=== PATIENT | male | born 1965 | race Caucasian/White ===

== ENCOUNTER 2017-03-14 04:40 | Inpatient (IN) ==
[2017-03-14] MEDS ORDERED: Aspirin 81 MG TAB.CHEW PO ONE (04:48)
--- NOTE | 2017-03-14 04:49 | Emergency Department Note ---
Disposition Clinical Impression: Atypical chest pain Disposition: Admitted As Inpatient Condition: Good General Adult HPI - General Chief complaint: ED Chest Pain Stated complaint: chest pain Time Seen by Provider: 03/14/17 04:42 Source: family Limitations: no limitations - History of Present Illness Pain Scale: 8 - Related Data Home Medications Medication Instructions Recorded Confirmed Amlodipine Besylate 10 mg PO DAILY 06/03/16 09/17/16 Aspirin 81 mg PO DAILY 06/03/16 09/17/16 Cholecalciferol (D-3) [Vitamin D] 1,000 unit PO BID 06/03/16 09/17/16 Clopidogrel [Plavix] 75 mg PO DAILY 06/03/16 09/17/16 Docusate [Colace] 100 mg PO DAILY PRN 06/03/16 09/17/16 Insulin ASPART [Novolog Flexpen] 18 - 30 unit SQ TIDAC 06/03/16 09/17/16 Insulin Glargine,Hum.rec.anlog 24 unit SQ HS 06/03/16 09/17/16 [Lantus Solostar] Lovastatin 80 mg PO DAILY 06/03/16 09/17/16 Multivitamin [Multi-Day Vitamins] 1 each PO DAILY 06/03/16 09/17/16 Sodium Bicarbonate 1,300 mg PO DAILY 06/03/16 09/17/16 hydrALAZINE [HydrALAZINE] 25 mg PO BID 06/03/16 09/17/16 TraZODone 50 mg PO HS 09/17/16 09/17/16 Previous Rx's Medication Instructions Recorded Furosemide [Lasix] 40 mg PO BID #60 tablet 06/07/16 Metoprolol XL (24 HR) Succ [Toprol 50 mg PO DAILY #30 tab.er.24h 06/07/16 Xl] Tamsulosin [Flomax] 0.4 mg PO DAILY #30 capsule 06/07/16 OxyCODONE/APAP 5/325 [Percocet 1 each PO Q6HR PRN #30 tablet 09/17/16 5/325 MG] Allergies Allergy/AdvReac Type Severity Reaction Status Date / Time DERMABOND AdvReac Itching Uncoded 02/10/17 10:01 Past Medical History - Past Medical History Medical history: Reports: CHF, CVA, diabetes, hyperlipidemia, hypertension, myocardial infarction, renal disease Surgical history: Reports: coronary bypass (CABG) Psychiatric history: Reports: no psych history - Social History Smoking Status: Former smoker Smokeless Tobacco Status: No Alcohol use: Reports: none Drug use: Reports: none Physical Exam - General Limitations: no limitations General appearance: alert, in no apparent distress Course Vital Signs Temperature 97.7 F 03/14/17 04:40 Pulse Rate 70 03/14/17 04:40 Respiratory Rate 22 03/14/17 04:40 Blood Pressure 149/73 03/14/17 04:40 O2 Sat by Pulse Oximetry 89 03/14/17 04:40 Temperature 97.7 F 03/14/17 04:40 Pulse Rate 70 03/14/17 04:40 Respiratory Rate 20 03/14/17 06:16 Blood Pressure 138/69 03/14/17 06:16 O2 Sat by Pulse Oximetry 89 03/14/17 04:40 Oxygen Delivery Oxygen Delivery Room Air Medical Decision Making - Lab Data Result diagrams: 03/14/17 05:00 03/14/17 05:00 Lab Results 03/14/17 03/14/17 03/14/17 Range/Units 05:00 05:00 05:00 WBC 8.4 (4.3-11.1) K/mcL RBC 4.10 L (4.19-5.50) M/mcL Hgb 10.0 L (12.9-16.9) g/dL Hct 31.8 L (37.5-50.1) % MCV 77.6 L (83.0-100.0) fL MCH 24.4 L (28.0-33.3) pg MCHC 31.4 L (31.6-35.5) g/dL RDW 18.6 H (11.5-14.5) % Plt Count 364 (140-400) K/mcL MPV 10.2 (9.4-12.4) fL Immature Gran % 0.2 (0-4) % Seg Neutrophils % 60.2 % Lymphocytes % 13.8 % Monocytes % 14.3 % Eosinophils % 10.4 % Basophils % 1.1 % Neutrophils # 5.0 (1.6-8.9) K/mcL Lymphocytes # 1.2 (0.6-4.6) K/mcL Monocytes # 1.2 (0.0-1.3) K/mcL Eosinophils # 0.9 H (0.0-0.6) K/mcL Basophils # 0.1 (0.0-0.2) K/mcL PT 13.2 H (9.4-12.1) Seconds INR 1.2 Sodium 135 L (136-145) mEq/L Potassium 3.3 L (3.5-4.5) mEq/L Chloride 94 L (98-109) mEq/L Carbon Dioxide 27 (19-29) mEq/L BUN 118 H (8-26) mg/dL Creatinine 3.96 H (0.72-1.25) mg/dL Est GFR ( Amer) 20 L (> 60) Est GFR (Non-Af Amer) 16 L (> 60) BUN/Creatinine Ratio 30 H (6-26) Glucose 92 (70-99) mg/dL Calculated Osmolality 317 H (280-300) Calcium 9.5 (8.6-10.8) mg/dL Troponin I (0-0.03) ng/mL 03/14/17 Range/Units 05:00 WBC (4.3-11.1) K/mcL RBC (4.19-5.50) M/mcL Hgb (12.9-16.9) g/dL Hct (37.5-50.1) % MCV (83.0-100.0) fL MCH (28.0-33.3) pg MCHC (31.6-35.5) g/dL RDW (11.5-14.5) % Plt Count (140-400) K/mcL MPV (9.4-12.4) fL Immature Gran % (0-4) % Seg Neutrophils % % Lymphocytes % % Monocytes % % Eosinophils % % Basophils % % Neutrophils # (1.6-8.9) K/mcL Lymphocytes # (0.6-4.6) K/mcL Monocytes # (0.0-1.3) K/mcL Eosinophils # (0.0-0.6) K/mcL Basophils # (0.0-0.2) K/mcL PT (9.4-12.1) Seconds INR Sodium (136-145) mEq/L Potassium (3.5-4.5) mEq/L Chloride (98-109) mEq/L Carbon Dioxide (19-29) mEq/L BUN (8-26) mg/dL Creatinine (0.72-1.25) mg/dL Est GFR ( Amer) (> 60) Est GFR (Non-Af Amer) (> 60) BUN/Creatinine Ratio (6-26) Glucose (70-99) mg/dL Calculated Osmolality (280-300) Calcium (8.6-10.8) mg/dL Troponin I 0.04 H* (0-0.03) ng/mL Attestation Statement - Attestation Attestation: I examined this patient and my medical decision-making was reviewed with the [employer] FEEDER/PA/Advanced Practice Nurse/Resident Physician. I agree with the documented findings, disposition and treatment plan as described except to the extent set forth below. [id number]-ru-[id number] time provided Patient complains of chest discomfort. History of coronary artery disease- status post 2 vessel CABG 3-1/2 years ago. Appears older than stated age on exam.
--- NOTE | 2017-03-14 05:04 | Emergency Department Note ---
Disposition Clinical Impression: Atypical chest pain Disposition: Admitted As Inpatient Condition: Good Time of Disposition: 06:05 General Adult HPI - General Chief complaint: ED Chest Pain Stated complaint: chest pain Time Seen by Provider: 03/14/17 04:42 Source: family Limitations: no limitations Nursing Notes Reviewed: Yes Vital Signs Reviewed: Yes - History of Present Illness HPI Narrative: Patient began having left-sided chest pain around 4:00 this morning. He states it awoke him from sleep. He does have associated pain in his left shoulder as well. Her no alleviating factors. Moving his shoulder provokes the pain. Pressing on her chest also provokes the pain. He has no associated nausea vomiting or shortness of breath. However when he takes a deep breath makes the pain worse. Pain Scale: 8 - Related Data Home Medications Medication Instructions Recorded Confirmed Amlodipine Besylate 10 mg PO DAILY 06/03/16 09/17/16 Aspirin 81 mg PO DAILY 06/03/16 09/17/16 Cholecalciferol (D-3) [Vitamin D] 1,000 unit PO BID 06/03/16 09/17/16 Clopidogrel [Plavix] 75 mg PO DAILY 06/03/16 09/17/16 Docusate [Colace] 100 mg PO DAILY PRN 06/03/16 09/17/16 Insulin ASPART [Novolog Flexpen] 18 - 30 unit SQ TIDAC 06/03/16 09/17/16 Insulin Glargine,Hum.rec.anlog 24 unit SQ HS 06/03/16 09/17/16 [Lantus Solostar] Lovastatin 80 mg PO DAILY 06/03/16 09/17/16 Multivitamin [Multi-Day Vitamins] 1 each PO DAILY 06/03/16 09/17/16 Sodium Bicarbonate 1,300 mg PO DAILY 06/03/16 09/17/16 hydrALAZINE [HydrALAZINE] 25 mg PO BID 06/03/16 09/17/16 TraZODone 50 mg PO HS 09/17/16 09/17/16 Previous Rx's Medication Instructions Recorded Furosemide [Lasix] 40 mg PO BID #60 tablet 06/07/16 Metoprolol XL (24 HR) Succ [Toprol 50 mg PO DAILY #30 tab.er.24h 06/07/16 Xl] Tamsulosin [Flomax] 0.4 mg PO DAILY #30 capsule 06/07/16 OxyCODONE/APAP 5/325 [Percocet 1 each PO Q6HR PRN #30 tablet 09/17/16 5/325 MG] Allergies Allergy/AdvReac Type Severity Reaction Status Date / Time DERMABOND AdvReac Itching Uncoded 02/10/17 10:01 All systems ED: reviewed and negative except as stated. Constitutional: Denies: fever, chills ENT ED: Denies: congestion Cardiovascular: Reports: chest pain (left-sided). Denies: palpitations, syncope Respiratory: Denies: cough, dyspnea, wheezes Gastrointestinal: Denies: abdominal pain, nausea, vomiting, diarrhea Genitourinary: Denies: urgency, dysuria, frequency, hematuria Musculoskeletal: Reports: other (Left shoulder pain.). Denies: back pain, neck pain Neurological: Denies: headache Past Medical History - Past Medical History Attestation: Yes The following information was validated with the patient. Medical history: Reports: CHF, CVA, diabetes, hyperlipidemia, hypertension, myocardial infarction, renal disease Surgical history: Reports: coronary bypass (CABG) Psychiatric history: Reports: no psych history - Social History Smoking Status: Former smoker Smokeless Tobacco Status: No Alcohol use: Reports: none Drug use: Reports: none Physical Exam - General Limitations: no limitations General appearance: alert, in no apparent distress - Head Head exam: atraumatic, normocephalic, normal inspection - Eye Eye exam: Present: normal appearance, PERRL, EOMI. Absent: scleral icterus - ENT ENT exam: normal exam, normal oropharynx, mucous membranes moist - Neck Neck exam: Present: normal inspection, full ROM, trachea midline. Absent: tenderness, meningismus, lymphadenopathy - Chest Chest inspection: Present: normal inspection, symmetric chest wall rise, tenderness (To palpation of left chest wall. This reproduces his chest pain.). Absent: rash - Respiratory Respiratory exam: Present: normal lung sounds bilaterally. Absent: respiratory distress, wheezes - Cardiovascular Cardiovascular exam: Present: regular rate, normal rhythm, normal heart sounds - Abdominal Exam Abdominal exam: Present: soft, Non-Tender, distention (Mildly distended with a fluid wave). Absent: tenderness, guarding, rebound, rigidity, organomegaly - Extremities Exam Extremities exam: Present: normal inspection, full ROM, normal capillary refill , pedal edema (Pitting edema to mid tibias. Patient states this is chronic and actually looks better than normal.). Absent: tenderness - Back Exam Back exam: Present: normal inspection, full ROM. Absent: tenderness - Neurological Exam Neurological exam: Present: alert, oriented X3 - Psychiatric Psychiatric exam: Present: normal affect, normal mood - Skin Skin exam: Present: warm, dry, intact, normal color. Absent: rash, cyanosis, diaphoresis, erythema Course Course Narrative: Male patient complaining of a left-sided chest pain as well as a left shoulder pain. He states this woke him from sleep around 4:00. He then ambulated approximately half a block to his mother's house to get her to drive him to the hospital. He denies any nausea he does report that the pain gets worse whenever he takes a deep breath. He denies any coughs or sputum production. He does have a history of cirrhosis. He gets scheduled peritoneal drains about every 3-4 weeks. His last one was 2 weeks ago. His abdomen is mildly distended with a fluid wave. Patient states that he was recently at his medical surgical tech a week ago and they stated that he needed to have a cardiac catheter done but they were afraid to do this due to his poor kidney function. Patient is asking specifically for Demerol. I do not feel this is an adequate drug for his chest pain or his condition. We will give him fentanyl for pain relief as well as aspirin. He does have some EKG changes on his EKG. He does have a left bundle branch block that was present on his previous EKGs. However there are some conduction abnormalities on the new EKG. There is no signs of acute ischemia. We will get a basic lab workup and a chest x-ray on patient. He will be admitted to the hospital for further cardiac evaluation. He is agreeable to this plan. - Reevaluation(s) Reevaluation #1: Patient reassessed. He states the medication did help with this chest pain however it starting to return. We will give another dose of fentanyl. We admitted the patient to the hospital. Time: 06:01 - Consultations Consultation #1: Dr Jj accepted patient in stable condition. Time: 06:05 Vital Signs Temperature 97.7 F 03/14/17 04:40 Pulse Rate 70 03/14/17 04:40 Respiratory Rate 22 03/14/17 04:40 Blood Pressure 149/73 03/14/17 04:40 O2 Sat by Pulse Oximetry 89 03/14/17 04:40 Temperature 97.7 F 03/14/17 04:40 Pulse Rate 70 03/14/17 04:40 Respiratory Rate 22 03/14/17 04:40 Blood Pressure 149/73 03/14/17 04:40 O2 Sat by Pulse Oximetry 89 03/14/17 04:40 Oxygen Delivery Oxygen Delivery Room Air Medical Decision Making - Medical Records Medical records reviewed: Yes I reviewed the patient's medical records. - Lab Data Lab results reviewed: Yes I reviewed the patient's lab results. Result diagrams: 03/14/17 05:00 03/14/17 05:00 Lab Results 03/14/17 03/14/17 03/14/17 Range/Units 05:00 05:00 05:00 WBC 8.4 (4.3-11.1) K/mcL RBC 4.10 L (4.19-5.50) M/mcL Hgb 10.0 L (12.9-16.9) g/dL Hct 31.8 L (37.5-50.1) % MCV 77.6 L (83.0-100.0) fL MCH 24.4 L (28.0-33.3) pg MCHC 31.4 L (31.6-35.5) g/dL RDW 18.6 H (11.5-14.5) % Plt Count 364 (140-400) K/mcL MPV 10.2 (9.4-12.4) fL Immature Gran % 0.2 (0-4) % Seg Neutrophils % 60.2 % Lymphocytes % 13.8 % Monocytes % 14.3 % Eosinophils % 10.4 % Basophils % 1.1 % Neutrophils # 5.0 (1.6-8.9) K/mcL Lymphocytes # 1.2 (0.6-4.6) K/mcL Monocytes # 1.2 (0.0-1.3) K/mcL Eosinophils # 0.9 H (0.0-0.6) K/mcL Basophils # 0.1 (0.0-0.2) K/mcL PT 13.2 H (9.4-12.1) Seconds INR 1.2 Sodium 135 L (136-145) mEq/L Potassium 3.3 L (3.5-4.5) mEq/L Chloride 94 L (98-109) mEq/L Carbon Dioxide 27 (19-29) mEq/L BUN 118 H (8-26) mg/dL Creatinine 3.96 H (0.72-1.25) mg/dL Est GFR ( Amer) 20 L (> 60) Est GFR (Non-Af Amer) 16 L (> 60) BUN/Creatinine Ratio 30 H (6-26) Glucose 92 (70-99) mg/dL Calculated Osmolality 317 H (280-300) Calcium 9.5 (8.6-10.8) mg/dL Troponin I (0-0.03) ng/mL 03/14/17 Range/Units 05:00 WBC (4.3-11.1) K/mcL RBC (4.19-5.50) M/mcL Hgb (12.9-16.9) g/dL Hct (37.5-50.1) % MCV (83.0-100.0) fL MCH (28.0-33.3) pg MCHC (31.6-35.5) g/dL RDW (11.5-14.5) % Plt Count (140-400) K/mcL MPV (9.4-12.4) fL Immature Gran % (0-4) % Seg Neutrophils % % Lymphocytes % % Monocytes % % Eosinophils % % Basophils % % Neutrophils # (1.6-8.9) K/mcL Lymphocytes # (0.6-4.6) K/mcL Monocytes # (0.0-1.3) K/mcL Eosinophils # (0.0-0.6) K/mcL Basophils # (0.0-0.2) K/mcL PT (9.4-12.1) Seconds INR Sodium (136-145) mEq/L Potassium (3.5-4.5) mEq/L Chloride (98-109) mEq/L Carbon Dioxide (19-29) mEq/L BUN (8-26) mg/dL Creatinine (0.72-1.25) mg/dL Est GFR ( Amer) (> 60) Est GFR (Non-Af Amer) (> 60) BUN/Creatinine Ratio (6-26) Glucose (70-99) mg/dL Calculated Osmolality (280-300) Calcium (8.6-10.8) mg/dL Troponin I 0.04 H* (0-0.03) ng/mL - Radiology Data Radiology results reviewed: Yes I reviewed the patient's radiology results. Chest X-Ray 03/14/17 04:48 IMPRESSION: Cardiomegaly with mild central pulmonary edema. D/ / Solis Dumont MD / Solis Dumont MD Interpreting Provider: Solis Dumont MD - EKG Data EKG #1 EKG attestation: Yes I reviewed and interpreted this EKG. EKG results narrative: Sinus rhythm at a rate of 67. AL interval is 187. QRS duration is 192. QT is 506. QTC is 522. No signs of acute ischemia. However there are significant EKG changes from previous EKG dated 11/09/2016. Patient does have a left bundle branch block. This was on previous EKGs.
[2017-03-14] MEDS ORDERED: *HR* FentaNYL (PF) 100 MCG/2 ML VIAL IVP ONE ×3 (05:11→07:53)
[2017-03-14 05:14] LABS: Basophils # 0.1 K/mcL (0.0-0.2); Basophils % 1.1 %; Eosinophils # 0.9 K/mcL (0.0-0.6); Eosinophils % 10.4 %; Hematocrit 31.8 % (37.5-50.1); Immature Granulocytes % 0.2 % (0-4); Lymphocytes # 1.2 K/mcL (0.6-4.6); Lymphocytes % 13.8 %; Mean Corpuscular HGB Conc 31.4 g/dL (31.6-35.5); Mean Corpuscular Hemoglobin 24.4 pg (28.0-33.3); Mean Corpuscular Volume 77.6 fL (83.0-100.0); Mean Platelet Volume 10.2 fL (9.4-12.4); Monocytes # 1.2 K/mcL (0.0-1.3); Monocytes % 14.3 %; Platelet Count 364 K/mcL (140-400); Red Cell Distribution Width 18.6 % (11.5-14.5); Segmented Neutrophils % 60.2 %
[2017-03-14 05:15] LABS: INR 1.2; Prothrombin Time 13.2 Seconds (9.4-12.1)
[2017-03-14 05:23] LABS: Calcium 9.5 mg/dL (8.6-10.8); Potassium 3.3 mEq/L (3.5-4.5)
[2017-03-14] MEDS ORDERED: *HR* Heparin 5,000 UNIT/ML VIAL IVP PRN (08:13)
[2017-03-14] MEDS ORDERED: *HR* Heparin 5,000 UNIT/ML VIAL IVP ONE (08:13)
[2017-03-14] MEDS ORDERED: Heparin 25,000 UNIT/500 ML D5W 25,000 UNIT/500 ML MLS IVC SCH (08:15)
--- NOTE | 2017-03-14 08:22 | Internal Med History&Physical ---
Date of Encounter: 03/14/17 Time of Encounter: 08: Assessment and Plan (1) Non-ST elevation DC (NSTEMI) Current visit: Yes Status: Acute Patient has history of CAD, based on my assessment he has typical chest pain. Troponin is 0.04. EKG shows left bundle branch block which was present in October 2016 however the QRS duration and QRS axis show some changes from his previous EKG. He received aspirin in the emergency department. I will start treatment with IV heparin drip. Start IV nitroglycerin drip. IV fentanyl for pain. Repeat EKG stat. Repeat troponin stat. I have discussed the case with cardiology, we will consult. I have discussed the possible need for cardiac catheterization with the patient and his mother and presented the risks of permanent renal failure requiring hemodialysis. They seem to be agreeable at this time. The patient is acutely unstable and there is high probability of emergent and significant clinical decompensation with potential impairment of organ function including cardiovascular and respiratory functions. I spent 40 minutes of critical care time which involved decision making of high complexity to assess, manipulate, and support vital organ system, in order to prevent further life threatening deterioration of the patient's condition. The critical care time was spent in the patient's room and immediate proximity and involved obtaining history and examining the patient, reviewing EKGs, imaging studies and laboratory data, discussing the case with consultants, ordering medications and laboratory studies, and reevaluating for clinical response. (2) Acute on chronic combined systolic and diastolic CHF (congestive heart failure) Current visit: Yes Status: Acute Check BNP. Obtain echocardiogram. Ischemic workup as the reason for acute heart failure may be ongoing ischemia. (3) Type 1 diabetes mellitus Current visit: Yes Status: Acute Blood glucose every 6 hours. Insulin sliding scale. Qualifiers: Diabetes mellitus complication status: with circulatory complication Diabetes mellitus complication detail: with other circulatory complications Qualified Code(s): E10.59 - Type 1 diabetes mellitus with other circulatory complications (4) Acute and chronic respiratory failure with hypoxia Current visit: Yes Status: Acute Patient's chest x-ray shows signs of pulmonary edema. Oxygen saturation 89% on room air. He is tachypneic. We will provide oxygen supplementation by nasal cannula to maintain saturation above 90. We will use BiPAP if necessary. IV Lasix and IV nitroglycerin drip. (5) History of coronary artery bypass graft Current visit: No Status: Acute (6) Chronic kidney disease, stage IV (severe) Current visit: No Status: Acute Consult nephrology. Avoid nephrotoxins. Strict I's and O's, we will discuss diuresis with nephrology and cardiology. (7) CAD (coronary artery disease) Current visit: No Status: Acute Continue with aspirin and Plavix. High suspicion for ACS and therefore the patient RECEIVED treatment with IV heparin and nitroglycerin. Trend troponin. Hold beta regine for now due to acute systolic heart failure. Qualifiers: Coronary Disease-Associated Artery/Lesion type: [place] artery [place] vs. transplanted heart: [place] heart Associated angina: without angina Qualified Code(s): I25.10 - Atherosclerotic heart disease of [place] coronary artery without angina pectoris (8) Ischemic cardiomyopathy Current visit: No Status: Chronic Per medical records review EF was 40% and severe diastolic dysfunction by echo in May 2016. We will repeat echocardiogram. We will discuss ischemic workup with cardiology as above. Internal Medicine - H&P: HPI Chief complaint: Chest pain Admitted From: Emergency Dept Plans for Post Hospital Care: Home History of present illness: Mr. Watson is a 51 year old male with past medical history significant for CAD status post CABG, combined systolic and diastolic heart failure, liver cirrhosis and chronic renal insufficiency who presented to the hospital for chest pain. Patient states that chest pain started abruptly at 4:00 this morning, woke him up from sleep, was precordial, severe, had no aggravating or alleviating factors. He was evaluated in the emergency department and was treated with IV fentanyl which provided some relief. During my interview he states that the chest pain is back at 9/10, in the precordial area radiating to the back and left shoulder, associated with nausea. Workup in the emergency department was pertinent for troponin of 0.04, creatinine of 3.96. Chest x-ray revealed pulmonary congestion. A 10 point review of systems was performed. Pertinent positives as above, additionally positive for chronic lower extremity swelling, chronic dyspnea on exertion, otherwise negative. Past Med Surg Social Fam HX - Past Medical History Medical history: CHF, CVA, diabetes, hyperlipidemia, hypertension, myocardial infarction, renal disease Psychiatric history: no psych history - Past Surgical History Surgical History: coronary bypass (CABG) - Social History Smoking Status: Former smoker Smokeless Tobacco Status: No Alcohol use: none Drug use: none - Family History Father Adopted: [place]: Nazario Watson Age: 84 Family Member Ethnicity: Non- Living Status: Still Living Hx Family Cardiac Disorders: Yes (DC) Hx Family Respiratory Disorders: No Hx Family Cancer: Yes (skin) Hx Family GI Disorders: No Hx Family Genitourinary Disorders: No Hx Family Endocrine Disorder: No Hx Family Musculoskeletal Disorders: No Internal Medicine - H&P: Meds Amlodipine Besylate 10 mg PO DAILY 06/03/16 [History] Aspirin 81 mg PO DAILY 06/03/16 [History] Cholecalciferol (D-3) [Vitamin D] 1,000 unit PO BID 06/03/16 [History] Clopidogrel [Plavix] 75 mg PO DAILY 06/03/16 [History] Docusate [Colace] 100 mg PO DAILY PRN 06/03/16 [History] Insulin ASPART [Novolog Flexpen] 18 - 30 unit SQ TIDAC 06/03/16 [History] Insulin Glargine,Hum.rec.anlog [Lantus Solostar] 24 unit SQ HS 06/03/16 [History ] Lovastatin 80 mg PO DAILY 06/03/16 [History] Multivitamin [Multi-Day Vitamins] 1 each PO DAILY 06/03/16 [History] Sodium Bicarbonate 1,300 mg PO DAILY 06/03/16 [History] hydrALAZINE [HydrALAZINE] 25 mg PO BID 06/03/16 [History] Furosemide [Lasix] 40 mg PO BID #60 tablet 06/07/16 [Rx] Metoprolol XL (24 HR) Succ [Toprol Xl] 50 mg PO DAILY #30 tab.er.24h 06/07/16 [ Rx] Tamsulosin [Flomax] 0.4 mg PO DAILY #30 capsule 06/07/16 [Rx] OxyCODONE/APAP 5/325 [Percocet 5/325 MG] 1 each PO Q6HR PRN #30 tablet 09/17/16 [Rx] TraZODone 50 mg PO HS 09/17/16 [History] Allergies DERMABOND Adverse Reaction (Uncoded 02/10/17 10:01) Itching All Systems PM: A 10-system review of systems was performed and is negative for pertinent findings except as documented above in the HPI. - Constitutional Vitals: Temp Pulse Resp BP Pulse Ox 97.8 F 67 18 133/61 90 03/14/17 08:01 03/14/17 08:01 03/14/17 08:01 03/14/17 08:01 03/14/17 08:01 General appearance: Present: A&O X 3, severe distress (Due to chest pain) - Eye Eye exam: Present: PERRL, conjuntiva pink, sclera anicteric Pupils: Present: PERRL - Neck Neck exam general surgery: Present: supple, trachea midline. Absent: lymphadenopathy - Respiratory Respiratory exam: Present: rales (Bilateral rales). Absent: accessory muscle use, rhonchi, wheezes - Cardiovascular Cardiovascular exam: Present: RRR, +S1, +S2. Absent: diastolic murmur, gallop, rubs, systolic murmur - GI/Abdominal GI/Abdominal exam: Present: distended (Abdomen distended with positive fluid sign), normal bowel sounds, soft, no peritoneal signs. Absent: tenderness - Extremities Exam Extremities exam: Present: pedal edema, warm, radial pulses palpable and symetrical. Absent: calf tenderness, cyanotic - Neurological Exam Neurological exam: Present: CN II-XII intact, oriented X3, no focal deficits. Absent: facial droop, speech deficit - Skin Skin exam: Present: dry, intact Internal Med - H&P Results - Labs CBC & Chem 7: 03/14/17 05:00 03/14/17 05:00 - EKG Data -: EKG Interpreted by Myself EKG shows normal: sinus rhythm (Left bundle-branch block with QRS duration 192 ms) - EKG Data Prior EKG available for review: yes (EKG from 11/09/2016 left bundle branch block with QRS duration of 168 ms)
[2017-03-14 08:39] LABS: Basophils # 0.1 K/mcL (0.0-0.2); Basophils % 0.3 %; Eosinophils # 0.3 K/mcL (0.0-0.6); Eosinophils % 1.9 %; Hematocrit 28.9 % (37.5-50.1); Hemoglobin 9.3 g/dL (12.9-16.9); Immature Granulocytes % 0.3 % (0-4); Immature Platelets 2.2 % (1.1-6.1); Lymphocytes # 0.6 K/mcL (0.6-4.6); Lymphocytes % 3.6 %; Mean Corpuscular HGB Conc 32.2 g/dL (31.6-35.5); Mean Corpuscular Volume 77.7 fL (83.0-100.0); Mean Platelet Volume 9.9 fL (9.4-12.4); Monocytes # 1.5 K/mcL (0.0-1.3); Monocytes % 9.1 %; Neutrophils # 13.6 K/mcL (1.6-8.9); Platelet Count 331 K/mcL (140-400); Red Blood Count 3.72 M/mcL (4.19-5.50); Red Cell Distribution Width 18.9 % (11.5-14.5); Segmented Neutrophils % 84.8 %
[2017-03-14 08:44] LABS: INR 1.3; Prothrombin Time 13.7 Seconds (9.4-12.1)
[2017-03-14 08:46] LABS: Activated Partial Thrombo Time 34.8 Seconds (26.0-36.0)
[2017-03-14 08:56] LABS: Albumin 3.1 g/dL (3.5-5.0); Albumin/Globulin Ratio 0.8 (1.1-2.2); Bilirubin,Total 0.6 mg/dL (0.2-1.2); Calcium 9.1 mg/dL (8.6-10.8); Globulin 3.8 g/dL (2.4-3.5); Total Protein 6.9 g/dL (6.0-8.3)
[2017-03-14] MEDS ORDERED: Furosemide 40 MG/4 ML VIAL IVP ONE ×2 (09:07→18:00)
[2017-03-14] MEDS ORDERED: *HR* Dextrose 50 % in Water (Syg) 50 ML SYRINGE IVP PRN (09:36)
[2017-03-14] MEDS ORDERED: D5% in Water 1,000 ML IVC PRN (09:36)
[2017-03-14] MEDS ORDERED: Dextrose Gel 15 GM PO PRN ×2 (09:36)
[2017-03-14] MEDS: Aspirin 81 MG TAB.CHEW PO SCH (09:48)
[2017-03-14] MEDS: Nitroglycerin 25 MG/250 ML INFUS..BTL IVC SCH (10:08)
--- NOTE | 2017-03-14 10:40 | Nephrology Consult Note ---
Date of Encounter: 03/14/17 Time of Encounter: 10:37 Assessment and Plan (1) Chronic kidney disease, stage IV (severe) Current Visit: No Status: Acute Patient has stage IV chronic kidney disease related to diabetes. His chronic kidney disease has been progressive. He now presents with chest pain concerning for angina. The patient may have to undergo a cardiac catheterization. I told the patient if he undergoes cardiac catheter is a good chance he will need dialysis. I recommendation is that he proceed as per the recommendations of cardiology. I believe that the patient's cardiac status has to take priority over his renal status. We are unable to give him IV fluids in preparation for possible cardiac catheter because of his history of congestive heart failure and he is already dyspneic. Will get him started on some Mucomyst. He will be followed closely. (2) Chest pain Current Visit: Yes Status: Acute Qualifiers: Chest pain type: unspecified Qualified Code(s): R07.9 - Chest pain, unspecified (3) History of coronary artery bypass graft Current Visit: No Status: Acute (4) CAD (coronary artery disease) Current Visit: No Status: Acute Qualifiers: Coronary Disease-Associated Artery/Lesion type: [place] artery [place] vs. transplanted heart: [place] heart Associated angina: without angina Qualified Code(s): I25.10 - Atherosclerotic heart disease of [place] coronary artery without angina pectoris (5) Ischemic cardiomyopathy Current Visit: No Status: Chronic History of Present Illness - History of Present Illness This is an 51-year-old male with progressive stage IV chronic kidney disease in the setting of diabetic nephropathy. Patient was admitted with chest pain which awoken him last night. He currently is being started on a nitroglycerin drip. He has a history of coronary artery disease and underwent CABG several years ago. He reports his most recent echocardiogram showed an ejection fraction of 29%. Patient has chronic systolic congestive heart failure. His clinical status is also compensated by cirrhosis that requires a therapeutic paracentesis every several weeks. Patient has lower extremity swelling but it has been controlled with diuretics. He has shortness of breath. He is complaining of chest pain with radiation down his left arm. Troponin is 0.02. Baseline creatinine ranges from 2.93.8. Current creatinine is 3.90. He is hypokalemic. Past Med Surg Social Fam HX - Past Medical History Medical history: CHF, CVA, diabetes, hyperlipidemia, hypertension, myocardial infarction, renal disease Psychiatric history: no psych history - Past Surgical History Surgical History: coronary bypass (CABG) - Social History Smoking Status: Former smoker Smokeless Tobacco Status: No Alcohol use: none Drug use: none - Family History Father Adopted: [place]: Nazario Watson Age: 84 Family Member Ethnicity: Non- Living Status: Still Living Hx Family Cardiac Disorders: Yes ([place]) Hx Family Respiratory Disorders: No Hx Family Cancer: Yes (skin) Hx Family GI Disorders: No Hx Family Genitourinary Disorders: No Hx Family Endocrine Disorder: No Hx Family Musculoskeletal Disorders: No Medications and Allergies Amlodipine Besylate 10 mg PO DAILY 06/03/16 [History] Aspirin 81 mg PO DAILY 06/03/16 [History] Cholecalciferol (D-3) [Vitamin D] 1,000 unit PO BID 06/03/16 [History] Clopidogrel [Plavix] 75 mg PO DAILY 06/03/16 [History] Docusate [Colace] 100 mg PO DAILY PRN 06/03/16 [History] Insulin ASPART [Novolog Flexpen] 18 - 30 unit SQ TIDAC 06/03/16 [History] Insulin Glargine,Hum.rec.anlog [Lantus Solostar] 24 unit SQ HS 06/03/16 [History ] Lovastatin 80 mg PO DAILY 06/03/16 [History] Multivitamin [Multi-Day Vitamins] 1 each PO DAILY 06/03/16 [History] Sodium Bicarbonate 1,300 mg PO DAILY 06/03/16 [History] hydrALAZINE [HydrALAZINE] 25 mg PO BID 06/03/16 [History] Furosemide [Lasix] 40 mg PO BID #60 tablet 06/07/16 [Rx] Metoprolol XL (24 HR) Succ [Toprol Xl] 50 mg PO DAILY #30 tab.er.24h 06/07/16 [ Rx] Tamsulosin [Flomax] 0.4 mg PO DAILY #30 capsule 06/07/16 [Rx] Oxycodone HCl [Oxaydo] 5 mg PO Q4H PRN 03/14/17 [History] Oxygen 3.5 l NS HS 03/14/17 [History] Potassium Chloride [K-Tab ER] 20 meq PO DAILY 03/14/17 [History] metOLazone [Zaroxolyn] 5 mg PO DAILY 03/14/17 [History] Allergies DERMABOND Adverse Reaction (Uncoded 02/10/17 10:01) Itching Review of Systems Constitutional: as per HPI Nose, mouth and throat: no dizziness, no headache(s) Cardiovascular: chest pain at rest, chest pain with activity, dyspnea on exertion, edema Respiratory: dyspnea, dyspnea on exertion Gastrointestinal: bloating, no abdominal pain, no change in bowel habits Musculoskeletal: no muscle weakness, no numbness Integumentary: no hirsutism, no striae Neurological: as per HPI Psychiatric: no depression, no difficulty concentrating Endocrine: as per HPI Hematologic/Lymphatic: no easy bruising, no lymphadenopathy Exam - Vital Signs Vital signs: Initial Vital Signs Temp Pulse Resp BP Pulse Ox 97.7 F 70 22 149/73 89 03/14/17 04:40 03/14/17 04:40 03/14/17 04:40 03/14/17 04:40 03/14/17 04:40 Vital Signs - Last 8 Hours Temp Pulse Resp BP Pulse Ox 03/14/17 08:01 97.8 F 67 18 133/61 90 03/14/17 07:12 97.9 F 67 18 151/66 91 03/14/17 06:16 20 138/69 Intake and Output 03/13/17 03/14/17 03/14/17 23:59 07:59 15:59 Intake Total 0 / 0 0 / 0 Balance 0 / 0 0 / 0 Intake: Oral 0 / 0 0 / 0 Other: Meal npo Percent of Meal Consumed 0% Weight 71.214 kg Patient Weight 03/14/17 23:59 Weight 71.214 kg - General Appearance Exam: Patient is alert and oriented. He is in no acute distress. He is on a nitroglycerin drip. Her pressures 133/61. He is afebrile. Neck is supple. Lungs diminished breath sounds. He does have bibasilar rales. Heart regular rate and rhythm with a 2/6 systolic ejection murmur. Abdomen is distended with ascites. He has 1+ lower extremity swelling. This is actually fairly well controlled for the patient. Results - Lab Results 03/14/17 08:23 03/14/17 08:23 Most recent lab results Calcium 9.1 mg/dL (8.6-10.8) 03/14/17 08:23 Consult Discharge Plan - Plan Referrals: Unassigned,Provider [Non-Partnered Physician] -
[2017-03-14] MEDS ORDERED: Insulin LISPRO 300 UNITS/3 ML VIAL SQ SCH (12:00)
--- NOTE | 2017-03-14 12:30 | Cardiology Consult Note ---
Addendum entered and electronically signed by Kaleb Barragan CNP 03/14/17 12:56: K 3.0. Replacing. Original Note: <Kaleb Barragan - Last Filed: 03/14/17 12:26> Date of Encounter: 03/14/17 Time of Encounter: 12:26 Assessment and Plan (1) Acute on chronic systolic CHF (congestive heart failure), NYHA class 2 Current Visit: No Status: Acute Known previous EF of 40%, recent reduced on [facility] echo to 29%. Pt reports worsening dyspnea. JVD and crackles noted on exam. Fluid volume overload also in setting of ORESTES on CKD with Creatinine 3.96 on presentation. One time dose of IV Lasix 40mg given this AM. Pt reports he is still making urine. Recommend cautious IV diuresis, daily weights, Na and fluid restriction. (2) Cardiomyopathy Current Visit: Yes Status: Acute Previously known ICMP EF 40%, but recently reduced to 29% on [facility] echo--ICMP vs NICMP. Complicated by progressive stage IV CKD, currently ORESTES on CKD. Also in setting of cirrhosis that requires a therapeutic paracentesis every several weeks. Discussed with pt the R/B/A to LHC. In setting of acute onset of chest pain, he wishes to proceed with LHC. He is aware that it will likely cause contrast induced nephropathy necessitating the need for permanent hemodialysis and is willing to take this risk. Nephrology has made pt aware as well and is following. Plan for LHC once pt is able to lie flat. Will trial today. Qualifiers: Cardiomyopathy type: unspecified Qualified Code(s): I42.9 - Cardiomyopathy , unspecified (3) Renal failure (ARF), acute on chronic Current Visit: No Status: Acute Creatinine 3.96, 3.90. Baseline 2.9 range. Nephrology following. Pt verbalizes understanding of risk of contrast induced nephropathy requiring dialysis and wishes to proceed with LHC. (4) CAD (coronary artery disease) Current Visit: Yes Status: Chronic Hx of CABG in 2012. ASA, Statin, Plavix, BB. Qualifiers: Coronary Disease-Associated Artery/Lesion type: [place] artery [place] vs. transplanted heart: [place] heart Associated angina: without angina Qualified Code(s): I25.10 - Atherosclerotic heart disease of [place] coronary artery without angina pectoris (5) Elevated troponin Current Visit: Yes Status: Acute Initial troponin borderline 0.04, then negative 0.02. Chest pain atypical, double true ACS. Borderline troponin in setting of ORESTES on Stage IV CKD. Plan as above. (6) Chest pain Current Visit: Yes Status: Acute Chest pain somewhat atypical--started at 4AM this morning, not worsened by exertion, has been constant, and not relieved by nitro. Also chest wall tenderness on palpation. On nitro gtt with no relief. Given drop in EF from 40% to 29%, LHC was discussed as outpt and pt would like to proceed. R/B/A discussed, including risk of contrast induced nephropathy necessitating dialysis. Qualifiers: Chest pain type: unspecified Qualified Code(s): R07.9 - Chest pain, unspecified Discussion w patient/family: The assessment and plan as outlined above was discussed with the patient and/or family members who expressed understanding and agreement. All questions were answered. Thank you for involving us in the care of your patient. Please call with any questions. I will discuss all the above with Dr. Barron and make changes as necessary. History of Present Illness Consult date: 03/14/17 Requesting physician: Jeff Almendarez Consult reason: Chest pain, CMP Chief complaint: Chest pain, left shoulder pain, dyspnea History of present illness: Mr. Watson is a 51 year old male with PMH of CAD, prior 2V CABG (05/2013). Comorbidities include stage IV CKD (Dr. Miranda), PAD (Dr. Rosenbaum), essential HTN, and HLD. Recent, paracentesis resulted in the removal of 4700cc of serous ascites. He has progressive stage IV chronic kidney disease in the setting of diabetic nephropathy. Patient was admitted with chest pain which awoken him last night. He states is it left sided and radiating into his left shoulder and arm. It has been constant since 4AM, not relieved or exacerbated by anything. Creatinine found to be increased from baseline--3.96 on presentation. Troponin 0.04, 0.03. Recent echo at [facility] showed EF decreased from 40% 05/2016 to 29% currently. He reports worsening dyspnea. Prior studies: Echocardiogram 06/04/2016: EF 40%. Moderate global hypokinesis. Grade 3, severe diastolic dysfunction. Mild mitral regurgitation. Moderate pulmonary hypertension, RVSP 50 mmHg. Echocardiogram 06/2014: EF 45-50%. Mild left atrial enlargement. Mild to moderate MR. Mild TR. Moderate PI. Borderline mild pulmonary hypertension. RVSP 35 mmHg. Lower extremity ELISE with exercise 11/03/2015: Bilateral lower extremities demonstrated moderately diminished hemodynamics. Severe ischemia of the bilateral lower extremities with exercise. Past Med Surg Social Fam HX - Past Medical History Medical history: cardiomyopathy, CHF, coronary artery disease, CVA, diabetes, hyperlipidemia, hypertension, myocardial infarction, renal disease Psychiatric history: no psych history - Past Surgical History Surgical History: coronary bypass (CABG) - Social History Smoking Status: Former smoker Smokeless Tobacco Status: No Alcohol use: none Drug use: none - Family History Father Adopted: [place]: Nazario Watson Age: 84 Family Member Ethnicity: Non- Living Status: Still Living Hx Family Cardiac Disorders: Yes ([place]) Hx Family Respiratory Disorders: No Hx Family Cancer: Yes (skin) Hx Family GI Disorders: No Hx Family Genitourinary Disorders: No Hx Family Endocrine Disorder: No Hx Family Musculoskeletal Disorders: No Medications and Allergies Amlodipine Besylate 10 mg PO DAILY 06/03/16 [History] Aspirin 81 mg PO DAILY 06/03/16 [History] Cholecalciferol (D-3) [Vitamin D] 1,000 unit PO BID 06/03/16 [History] Clopidogrel [Plavix] 75 mg PO DAILY 06/03/16 [History] Docusate [Colace] 100 mg PO DAILY PRN 06/03/16 [History] Insulin ASPART [Novolog Flexpen] 18 - 30 unit SQ TIDAC 06/03/16 [History] Insulin Glargine,Hum.rec.anlog [Lantus Solostar] 24 unit SQ HS 06/03/16 [History ] Lovastatin 80 mg PO DAILY 06/03/16 [History] Multivitamin [Multi-Day Vitamins] 1 each PO DAILY 06/03/16 [History] Sodium Bicarbonate 1,300 mg PO DAILY 06/03/16 [History] hydrALAZINE [HydrALAZINE] 25 mg PO BID 06/03/16 [History] Furosemide [Lasix] 40 mg PO BID #60 tablet 06/07/16 [Rx] Metoprolol XL (24 HR) Succ [Toprol Xl] 50 mg PO DAILY #30 tab.er.24h 06/07/16 [ Rx] Tamsulosin [Flomax] 0.4 mg PO DAILY #30 capsule 06/07/16 [Rx] Oxycodone HCl [Oxaydo] 5 mg PO Q4H PRN 03/14/17 [History] Oxygen 3.5 l NS HS 03/14/17 [History] Potassium Chloride [K-Tab ER] 20 meq PO DAILY 03/14/17 [History] metOLazone [Zaroxolyn] 5 mg PO DAILY 03/14/17 [History] Allergies DERMABOND Adverse Reaction (Uncoded 02/10/17 10:01) Itching All Systems Review: A 10-system review of systems was performed and is negative for pertinent findings except as documented above in the HPI. - Cardiovascular Cardiovascular: as per HPI, chest pain at rest, chest pain with exertion, dyspnea at rest, dyspnea on exertion, radiating jaw, neck or arm pain - Respiratory Respiratory: dyspnea Physical Examination Vital Signs, Last 4 Hours Pulse Resp BP Pulse Ox 03/14/17 11:45 73 18 152/69 94 03/14/17 11:21 74 18 145/64 91 03/14/17 11:00 72 18 137/65 91 03/14/17 10:48 144/66 91 03/14/17 10:45 73 18 136/63 89 Vital Signs Temp Pulse Resp BP Pulse Ox 03/14/17 11:45 73 18 152/69 94 03/14/17 11:21 74 18 145/64 91 03/14/17 11:00 72 18 137/65 91 03/14/17 10:48 144/66 91 03/14/17 10:45 73 18 136/63 89 03/14/17 10:15 74 18 141/68 94 03/14/17 10:05 70 18 134/63 93 03/14/17 08:01 97.8 F 67 18 133/61 90 03/14/17 07:12 97.9 F 67 18 151/66 91 03/14/17 06:16 20 138/69 03/14/17 04:40 97.7 F 70 22 149/73 89 Intake and Output 03/13/17 03/14/17 03/14/17 23:59 07:59 15:59 Intake Total 0 / 0 0 / 0 Balance 0 / 0 0 / 0 Intake: Oral 0 / 0 0 / 0 Other: Meal npo Percent of Meal Consumed 0% Weight 71.214 kg Patient Weight 03/14/17 23:59 Weight 71.214 kg General: Conversant, No Apparent Distress HEENT: Atraumatic, Normocephaly, Mucus Membranes Moist Neck: Normal carotid pulses, Other (JVD noted) Cardiac: Reg Rate and Rhythm, Normal S1 and S2, No Murmur Lungs: Other (bibasilar crackles noted) Neuro: Alert and responsive Abdomen: Soft, Non-Tender Skin: No rashes noted on visualized skin Musculoskeletal: No Chest Wall Tenderness Extremities: No Clubbing, No Cyanosis, No Edema, Normal Pulses Results 03/14/17 08:23 03/14/17 08:23 Short CBC 03/14/17 03/14/17 Range/Units 08:23 05:00 WBC 16.0 H D 8.4 (4.3-11.1) K/mcL Hgb 9.3 L 10.0 L (12.9-16.9) g/dL Hct 28.9 L 31.8 L (37.5-50.1) % Plt Count 331 364 (140-400) K/mcL Neutrophils # 13.6 H 5.0 (1.6-8.9) K/mcL BMP 03/14/17 03/14/17 Range/Units 08:23 05:00 Sodium 134 L 135 L (136-145) mEq/L Potassium 3.0 L 3.3 L (3.5-4.5) mEq/L Chloride 94 L 94 L (98-109) mEq/L Carbon Dioxide 27 27 (19-29) mEq/L BUN 122 H 118 H (8-26) mg/dL Creatinine 3.90 H 3.96 H (0.72-1.25) mg/dL Glucose 104 H 92 (70-99) mg/dL Calcium 9.1 9.5 (8.6-10.8) mg/dL Cardiac Enzymes 03/14/17 03/14/17 Range/Units 08:23 05:00 Troponin I 0.02 0.04 H* (0-0.03) ng/mL Liver Function 03/14/17 Range/Units 08:23 Total Bilirubin 0.6 (0.2-1.2) mg/dL AST 32 (5-34) Units/L ALT 23 (0-55) Units/L Alkaline Phosphatase 146 H (38-126) Units/L Albumin 3.1 L (3.5-5.0) g/dL Impressions Chest X-Ray 03/14/17 04:48 IMPRESSION: Cardiomegaly with mild central pulmonary edema. D/ / Solis Dumont MD / Solis Dumont MD Interpreting Provider: Solis Dumont MD Active Medications Acetylcysteine (Acetylcysteine 20%) 600 mg PO BID INO Stop: 09/13/17 21:01 Aspirin (Aspirin) 81 mg PO DAILY INO Stop: 09/13/17 09:01 Last Admin: 03/14/17 09:48 Dose: 81 mg Atorvastatin Calcium (Lipitor) 20 mg PO HS INO Stop: 09/13/17 09:01 Last Admin: 03/14/17 09:48 Dose: 20 mg Clopidogrel Bisulfate (Plavix) 75 mg PO DAILY INO Stop: 09/13/17 09:01 Last Admin: 03/14/17 09:48 Dose: 75 mg Dextrose/Water (Dextrose 50% (Syg)) 25 ml IVP AD PRN PRN Reason: Hypoglycemia Stop: 09/13/17 09:37 Fentanyl Citrate (Fentanyl (Pf)) 50 mcg IVP Q2H PRN PRN Reason: Chest Pain Stop: 09/13/17 08:15 Glucagon (Glucagen) 1 mg IM ONCE PRN PRN Reason: Hypoglycemia Stop: 09/13/17 09:37 Glucose (Gluctose) 15 gm PO ONCE PRN PRN Reason: Hypoglycemia Stop: 09/13/17 09:37 Glucose (Gluctose) 30 gm PO ONCE PRN PRN Reason: Hypoglycemia Stop: 09/13/17 09:37 Heparin Sodium (Porcine) (Heparin) 4,000 unit IVP Q6HR PRN PRN Reason: SEE COMMENTS Stop: 09/13/17 08:14 Heparin Sodium (Porcine) (Heparin) 2,000 unit IVP Q6H PRN PRN Reason: SEE COMMENTS Stop: 09/13/17 08:14 Heparin Sodium/Dextrose (Heparin 25,000 Unit/500 Ml D5w) 25,000 unit in 500 mls @ 17.091 mls/hr IVC .Q24H INO; 12 UNIT/KG/HR PRN Reason: Protocol Stop: 09/13/17 08:16 Last Admin: 03/14/17 10:02 Dose: 12 unit/kg/hr, 17.091 mls/hr Nitroglycerin (Nitroglycerin) 25 mg in 250 mls @ 3 mls/hr IVC .Q24H INO; 5 MCG/ MIN PRN Reason: Protocol Stop: 09/13/17 08:31 Last Admin: 03/14/17 10:08 Dose: 5 mcg/min, 3 mls/hr Dextrose (Dextrose 5%) 1,000 mls @ 100 mls/hr IVC .Q10H PRN PRN Reason: HYPOGLYCEMIA Stop: 09/13/17 09:37 Insulin Human Lispro (Humalog) 0 units SQ Q6HR INO PRN Reason: Protocol Stop: 09/13/17 12:01 - Imaging and Cardiology Echo: report reviewed - EKG Interpretation EKG results cardiology: personally reviewed (REBECCA URENA) Consult Discharge Plan - Plan Referrals: Unassigned,Provider [Non-Partnered Physician] - <April Barron - Last Filed: 03/14/17 16:16> Date of Encounter: 03/14/17 Assessment and Plan Discussion w patient/family: The assessment and plan as outlined above was discussed with the patient and/or family members who expressed understanding and agreement. All questions were answered. Thank you for involving us in the care of your patient. Please call with any questions. History of Present Illness History of present illness: Mr. Watson is a 51 year old male All Systems Review: A 10-system review of systems was performed and is negative for pertinent findings except as documented above in the HPI. Physical Examination Vital Signs, Last 4 Hours Pulse Resp BP Pulse Ox 03/14/17 15:00 71 18 134/65 90 03/14/17 14:30 69 150/72 92 03/14/17 14:00 131/63 93 03/14/17 13:45 18 133/74 97 03/14/17 13:30 72 18 143/68 03/14/17 13:15 71 18 126/69 90 03/14/17 13:00 72 18 145/69 90 03/14/17 12:46 135/80 88 03/14/17 12:15 71 136/71 90 Results 03/14/17 08:23 03/14/17 08:23 - Attending Attestation I examined this patient and my medical decision-making was reviewed with the CAR SEAT COVERER/PA/Advanced Practice Nurse/Resident Physician. I agree with the documented findings, disposition and treatment plan. Mr. Watson presents with atypical chest pain. However, he was just seen in the outpatient setting and a LHC was being considered given recent decline in LV systolic function (previously 40%, recently 29%). We discussed these findings with him and the risks/benefits/alternatives of LHC. His clinical picture is complicated by stage IV CKD and cirrhosis requiring repeat paracentesis. Patient verbally acknowledged awareness of his risk of RIVERA and understands the high potential for requiring dialysis. Nephrology is following and aware of recommendations. Patient's Mother was at the bedside - all questions were answered. He was able to lay flat but desaturated to 89%. Recommend attempt at diuresis since the patient is not anuric and consider LHC tomorrow.
[2017-03-14 13:04] LABS: Bilirubin,Urine Negative (Negative); Blood,Urine Negative (Negative); Clarity,Urine Clear (Clear); Color,Urine Yellow (Yellow); Glucose,Urine (UA) Normal (Normal); Ketones,Urine Negative (Negative); Leukocyte Esterase,Urine Negative (Negative); Nitrite,Urine Negative (Negative); PH,Urine 6.5 pH Units (5.0-8.0); Protein,Urine 30 mg/dL (Neg-Trace); Specific Gravity,Urine 1.013 (1.010-1.025); Urobilinogen,Urine Normal (Normal)
[2017-03-14 13:06] LABS: Bacteria,Urine None Seen per hpf (None-Few); Hyaline Casts,Urine None Seen per lpf (None-Few); RBC,Urine 0-3 per hpf (0-3); Squamous Epithelial Cell,Urine None Seen per lpf (None-Few); WBC,Urine 0-3 per hpf (0-3)
[2017-03-14] MEDS: Metoprolol XL (24 HR) Succ 50 MG TAB.ER.24H PO SCH (13:16)
[2017-03-14] MEDS: Insulin LISPRO 300 UNITS/3 ML VIAL SQ SCH (17:07)
[2017-03-14] MEDS: *HR* Heparin 5,000 UNIT/ML VIAL IVP PRN (17:22)
--- NOTE | 2017-03-14 18:06 | Electrocardiograph Report ---
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
--- NOTE | 2017-03-14 18:09 | Electrocardiograph Report ---
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
[2017-03-14] MEDS: *HR* Acetylcysteine 20% 600 MG/3 ML ORAL SYRINGE PO SCH (22:02)
[2017-03-14] MEDS: *HR* FentaNYL (PF) 100 MCG/2 ML VIAL IVP PRN (22:11)
[2017-03-15] MEDS: *HR* FentaNYL (PF) 100 MCG/2 ML VIAL IVP PRN ×3 (02:09→17:02)
[2017-03-15 06:14] LABS: Basophils # 0.1 K/mcL (0.0-0.2); Basophils % 0.6 %; Eosinophils # 0.2 K/mcL (0.0-0.6); Eosinophils % 1.9 %; Hematocrit 27.4 % (37.5-50.1); Hemoglobin 8.7 g/dL (12.9-16.9); Immature Granulocytes % 0.3 % (0-4); Lymphocytes # 0.8 K/mcL (0.6-4.6); Lymphocytes % 8.5 %; Mean Corpuscular HGB Conc 31.8 g/dL (31.6-35.5); Mean Corpuscular Hemoglobin 24.8 pg (28.0-33.3); Mean Corpuscular Volume 78.1 fL (83.0-100.0); Mean Platelet Volume 10.8 fL (9.4-12.4); Monocytes # 0.8 K/mcL (0.0-1.3); Monocytes % 8.9 %; Neutrophils # 7.5 K/mcL (1.6-8.9); Platelet Count 309 K/mcL (140-400); Red Blood Count 3.51 M/mcL (4.19-5.50); Red Cell Distribution Width 18.8 % (11.5-14.5); Segmented Neutrophils % 79.8 %
[2017-03-15 06:43] LABS: Albumin 2.8 g/dL (3.5-5.0); Albumin/Globulin Ratio 0.7 (1.1-2.2); Bilirubin,Total 0.9 mg/dL (0.2-1.2); Calcium 9.2 mg/dL (8.6-10.8); Globulin 4.1 g/dL (2.4-3.5); Potassium 3.4 mEq/L (3.5-4.5); Total Protein 6.9 g/dL (6.0-8.3)
[2017-03-15] MEDS: Insulin LISPRO 300 UNITS/3 ML VIAL SQ SCH ×4 (07:42→22:20)
[2017-03-15] MEDS: *HR* Heparin 5,000 UNIT/ML VIAL IVP PRN (07:47)
--- NOTE | 2017-03-15 08:20 | Nephrology Progress Note ---
Date of Encounter: 03/15/17 Time of Encounter: 08:18 - Assessment and Plan (1) Chronic kidney disease, stage IV (severe) Current Visit: No Status: Acute The patient has progressive stage IV chronic kidney disease related to diabetic nephropathy. He is at high risk for developing acute kidney injury superimposed on his chronic kidney disease following cardiac catheterization today. I have discussed this on several occasions with the patient and the family. I have informed all parties that he has a high probability of requiring dialysis following the cardiac catheterization. All parties are willing to accept this risk. (2) Chest pain Current Visit: Yes Status: Acute Qualifiers: Chest pain type: unspecified Qualified Code(s): R07.9 - Chest pain, unspecified (3) History of coronary artery bypass graft Current Visit: No Status: Acute (4) CAD (coronary artery disease) Current Visit: Yes Status: Chronic Qualifiers: Coronary Disease-Associated Artery/Lesion type: [place] artery [place] vs. transplanted heart: [place] heart Associated angina: without angina Qualified Code(s): I25.10 - Atherosclerotic heart disease of [place] coronary artery without angina pectoris (5) Ischemic cardiomyopathy Current Visit: No Status: Chronic Subjective Interval history: The patient feels better today. He is no longer experiencing chest pain. Her shortness of breath is improved as well. Renal function is essentially the same as yesterday. The patient is scheduled to undergo a cardiac catheterization later today. He continues on a heparin drip as well as a nitroglycerin drip. Objective - Vital Signs Vital signs: Vital Signs Temp Pulse Resp BP Pulse Ox 03/15/17 07:06 98 F 69 18 119/63 99 03/15/17 03:46 98.6 F 68 17 119/62 93 03/14/17 19:29 98.0 F 66 16 135/70 94 03/14/17 18:30 136/69 95 03/14/17 18:00 139/70 95 03/14/17 17:30 68 18 131/78 95 03/14/17 17:00 144/69 03/14/17 16:30 147/69 03/14/17 16:00 69 18 144/71 90 03/14/17 15:30 70 18 144/65 90 03/14/17 15:00 71 18 134/65 90 03/14/17 14:30 69 150/72 92 03/14/17 14:00 131/63 93 03/14/17 13:45 18 133/74 97 03/14/17 13:30 72 18 143/68 03/14/17 13:15 71 18 126/69 90 03/14/17 13:00 72 18 145/69 90 03/14/17 12:46 135/80 88 03/14/17 12:15 71 136/71 90 03/14/17 12:00 89 18 137/65 92 03/14/17 11:45 73 18 152/69 94 03/14/17 11:21 74 18 145/64 91 03/14/17 11:00 72 18 137/65 91 03/14/17 10:48 144/66 91 03/14/17 10:45 73 18 136/63 89 Intake and Output 03/14/17 03/15/17 03/15/17 23:59 07:59 15:59 Intake Total 122 / 122 295 / 295 Output Total 450 / 450 Balance -328 / -328 295 / 295 Intake: IV Fluids 122 / 122 295 / 295 Heparin 25,000 UNIT/500 122 / 122 295 / 295 ML D5W 25,000 unit In 500 ml @ 12 UNIT/KG/HR 17. 091 mls/hr IVC .Q24H INO Rx#:[id number] Output: Urine 450 / 450 Other: Weight 71.8 kg Blood Glucose* 198 475 Patient Weight 03/15/17 23:59 Weight 71.8 kg - General Appearance Exam: Patient is alert and oriented. He is in no acute distress. Lungs diminished breath sounds. Heart regular rate and rhythm. Abdomen is distended with ascites. There is 1+ lower extremity swelling. - Lab 03/15/17 05:43 03/15/17 05:43 Most recent lab results Calcium 9.2 mg/dL (8.6-10.8) 03/15/17 05:43 Consult Discharge Plan - Plan Referrals: Unassigned,Provider [Non-Partnered Physician] -
[2017-03-15] MEDS: Metoprolol XL (24 HR) Succ 50 MG TAB.ER.24H PO SCH (08:21)
[2017-03-15] MEDS: Aspirin 81 MG TAB.CHEW PO SCH (08:22)
[2017-03-15] MEDS: *HR* Acetylcysteine 20% 600 MG/3 ML ORAL SYRINGE PO SCH (08:22)
[2017-03-15] MEDS: Insulin DETEMIR 100 UNIT/ML X5UNITS SQ SCH ×2 (11:22→22:19)
--- NOTE | 2017-03-15 11:44 | Cardiology Progress Note ---
Date of Encounter: 03/15/17 Time of Encounter: 11:41 Assessment and Plan (1) Acute on chronic systolic CHF (congestive heart failure), NYHA class 2 Current Visit: No Status: Acute Known previous EF of 40%, recent reduced on [facility] echo to 29%. Fluid volume overload also in setting of ORESTES on CKD with Creatinine 4.0 today-- renal function continuing to worsen. Pt received 2 doses of 40mg IV Lasix yesterday. Pt reports he is still making urine. I/O yesterday -828mL. Breathing improved today. Recommend daily weights, Na and fluid restriction. (2) Cardiomyopathy Current Visit: Yes Status: Acute Previously known ICMP EF 40%, but recently reduced to 29% on [facility] echo--ICMP vs NICMP. Complicated by progressive stage IV CKD, currently ORESTES on CKD. Also in setting of cirrhosis that requires a therapeutic paracentesis every several weeks. Discussed with pt the R/B/A to LHC. In setting of acute onset of chest pain, he wishes to proceed with LHC. He is aware that it will likely cause contrast induced nephropathy necessitating the need for permanent hemodialysis and is willing to take this risk. Nephrology has made pt aware as well and is following. Discussed with frog catcher. Given increased risk of flash pulmonary edema during cath, recommend dialysis session prior to LHC. Discussed with Dr. Miranda who is in agreement. Possible tunnel dialysis catheter placement today, dialyze in AM and LHC tomorrow evening. Continue to follow. Continue BB. No KENIA-i due to renal function. Qualifiers: Cardiomyopathy type: unspecified Qualified Code(s): I42.9 - Cardiomyopathy , unspecified (3) Renal failure (ARF), acute on chronic Current Visit: No Status: Acute Creatinine 4.0 today, worsening. Nephrology following. Pt verbalizes understanding of risk of contrast induced nephropathy requiring dialysis and wishes to proceed with LHC. Discussed with frog catcher. Given increased risk of flash pulmonary edema during cath, recommend dialysis session prior to LHC. Discussed with Dr. Miranda who is in agreement. Possible tunnel dialysis catheter placement today, dialyze in AM and LHC tomorrow evening. (4) CAD (coronary artery disease) Current Visit: Yes Status: Chronic Hx of CABG in 2012. ASA, Statin, Plavix, BB. Qualifiers: Coronary Disease-Associated Artery/Lesion type: [place] artery [place] vs. transplanted heart: [place] heart Associated angina: without angina Qualified Code(s): I25.10 - Atherosclerotic heart disease of [place] coronary artery without angina pectoris (5) Elevated troponin Current Visit: Yes Status: Acute Initial troponin borderline 0.04, then negative 0.02 in setting of acute on chronic stage IV CKD. Doubt true ACS. Plan as above. Heparin gtt stopped. (6) Chest pain Current Visit: Yes Status: Acute Improved today. Plan as above. On nitro gtt. Qualifiers: Chest pain type: unspecified Qualified Code(s): R07.9 - Chest pain, unspecified Discussion w patient/family: The assessment and plan as outlined above was discussed with the patient and/or family members who expressed understanding and agreement. All questions were answered. Thank you for involving us in the care of your patient. Please call with any questions. I will discuss all the above with Dr. Barron and make changes as necessary. Subjective Principal diagnosis: Renal failure, CAD, chest pain Interval history: Pt reports chest pain has improved--nitro gtt is at 15mcg/min. Troponin 0.04, 0.02. Objective Vital Signs, Last 4 Hours Temp Pulse Resp BP Pulse Ox 03/15/17 11:09 97.5 F L 62 14 133/69 98 Vital Signs Temp Pulse Resp BP Pulse Ox 03/15/17 11:09 97.5 F L 62 14 133/69 98 03/15/17 07:06 98 F 69 18 119/63 99 03/15/17 03:46 98.6 F 68 17 119/62 93 03/14/17 19:29 98.0 F 66 16 135/70 94 03/14/17 18:30 136/69 95 03/14/17 18:00 139/70 95 03/14/17 17:30 68 18 131/78 95 03/14/17 17:00 144/69 03/14/17 16:30 147/69 03/14/17 16:00 69 18 144/71 90 03/14/17 15:30 70 18 144/65 90 03/14/17 15:00 71 18 134/65 90 03/14/17 14:30 69 150/72 92 03/14/17 14:00 131/63 93 03/14/17 13:45 18 133/74 97 03/14/17 13:30 72 18 143/68 03/14/17 13:15 71 18 126/69 90 03/14/17 13:00 72 18 145/69 90 03/14/17 12:46 135/80 88 03/14/17 12:15 71 136/71 90 03/14/17 12:00 89 18 137/65 92 03/14/17 11:45 73 18 152/69 94 Intake and Output 03/14/17 03/15/17 03/15/17 23:59 07:59 15:59 Intake Total 122 / 122 295 / 295 0 / 0 Output Total 450 / 450 150 / 150 Balance -328 / -328 295 / 295 -150 / -150 Intake: IV Fluids 122 / 122 295 / 295 Heparin 25,000 UNIT/500 122 / 122 295 / 295 ML D5W 25,000 unit In 500 ml @ 12 UNIT/KG/HR 17. 091 mls/hr IVC .Q24H [facility] Rx#:[id number] Oral 0 / 0 Output: Urine 450 / 450 150 / 150 Other: Meal NPO Percent of Meal Consumed 0% Weight 71.8 kg Blood Glucose* 198 475 282 Patient Weight 03/15/17 23:59 Weight 71.8 kg General: Conversant, No Apparent Distress HEENT: Atraumatic, Normocephaly, Mucus Membranes Moist Neck: Normal carotid pulses Cardiac: Reg Rate and Rhythm, Normal S1 and S2, No Murmur Lungs: Normal Breath Sounds, No Wheeze, Rales, Rhonchi Neuro: Alert and responsive, No focal deficits noted Abdomen: Soft, Non-Tender Skin: No rashes noted on visualized skin Musculoskeletal: No Chest Wall Tenderness Extremities: No Clubbing, No Cyanosis, No Edema, Normal Pulses Results 03/15/17 05:43 03/15/17 05:43 Lab Results 03/14/17 03/14/17 03/15/17 16:40 22:58 05:43 WBC 9.4 Hgb 8.7 L Hct 27.4 L Plt Count 309 APTT 44.9 H 59.8 H Sodium Potassium Chloride Carbon Dioxide BUN Creatinine Glucose Calcium Total Bilirubin AST ALT Alkaline Phosphatase 03/15/17 03/15/17 05:43 05:43 WBC Hgb Hct Plt Count APTT 48.8 H Sodium 132 L Potassium 3.4 L Chloride 92 L Carbon Dioxide 21 BUN 119 H Creatinine 4.00 H Glucose 447 H Calcium 9.2 Total Bilirubin 0.9 AST 22 ALT 18 Alkaline Phosphatase 140 H Short CBC 03/15/17 Range/Units 05:43 WBC 9.4 (4.3-11.1) K/mcL Hgb 8.7 L (12.9-16.9) g/dL Hct 27.4 L (37.5-50.1) % Plt Count 309 (140-400) K/mcL Neutrophils # 7.5 (1.6-8.9) K/mcL BMP 03/15/17 Range/Units 05:43 Sodium 132 L (136-145) mEq/L Potassium 3.4 L (3.5-4.5) mEq/L Chloride 92 L (98-109) mEq/L Carbon Dioxide 21 (19-29) mEq/L BUN 119 H (8-26) mg/dL Creatinine 4.00 H (0.72-1.25) mg/dL Glucose 447 H (70-99) mg/dL Calcium 9.2 (8.6-10.8) mg/dL Liver Function 03/15/17 Range/Units 05:43 Total Bilirubin 0.9 (0.2-1.2) mg/dL AST 22 (5-34) Units/L ALT 18 (0-55) Units/L Alkaline Phosphatase 140 H (38-126) Units/L Albumin 2.8 L (3.5-5.0) g/dL Urine 03/14/17 Range/Units 12:45 Urine Color Yellow (Yellow) Urine Clarity Clear (Clear) Urine pH 6.5 (5.0-8.0) pH Units Ur Specific [place] 1.013 (1.010-1.025) Urine Protein 30 H (Neg-Trace) mg/dL Urine Glucose (UA) Normal (Normal) mg/dL Active Medications Acetylcysteine (Acetylcysteine 20%) 600 mg PO BID INO Stop: 03/16/17 09:01 Aspirin (Aspirin) 81 mg PO DAILY INO Stop: 09/13/17 09:01 Last Admin: 03/15/17 08:22 Dose: 81 mg Atorvastatin Calcium (Lipitor) 20 mg PO HS INO Stop: 09/13/17 09:01 Last Admin: 03/14/17 09:48 Dose: 20 mg Clopidogrel Bisulfate (Plavix) 75 mg PO DAILY [facility] Stop: 09/13/17 09:01 Last Admin: 03/15/17 08:21 Dose: 75 mg Dextrose/Water (Dextrose 50% (Syg)) 25 ml IVP AD PRN PRN Reason: Hypoglycemia Stop: 09/13/17 09:37 Fentanyl Citrate (Fentanyl (Pf)) 50 mcg IVP Q2H PRN PRN Reason: Chest Pain Stop: 09/13/17 08:15 Last Admin: 03/15/17 02:09 Dose: 50 mcg Glucagon (Glucagen) 1 mg IM ONCE PRN PRN Reason: Hypoglycemia Stop: 09/13/17 09:37 Glucose (Gluctose) 15 gm PO ONCE PRN PRN Reason: Hypoglycemia Stop: 09/13/17 09:37 Glucose (Gluctose) 30 gm PO ONCE PRN PRN Reason: Hypoglycemia Stop: 09/13/17 09:37 Heparin Sodium (Porcine) (Heparin) 5,000 unit SQ Q12HCO [facility] Stop: 09/14/17 18:01 Nitroglycerin (Nitroglycerin) 25 mg in 250 mls @ 3 mls/hr IVC .Q24H INO; 5 MCG/ MIN PRN Reason: Protocol Stop: 09/13/17 08:31 Last Admin: 03/14/17 10:08 Dose: 5 mcg/min, 3 mls/hr Dextrose (Dextrose 5%) 1,000 mls @ 100 mls/hr IVC .Q10H PRN PRN Reason: HYPOGLYCEMIA Stop: 09/13/17 09:37 Insulin Detemir (Levemir) 20 unit SQ BID [facility] Stop: 09/14/17 10:31 Last Admin: 03/15/17 11:22 Dose: 20 unit Insulin Human Lispro (Humalog) 0 units SQ TIDAC INO PRN Reason: Protocol Stop: 09/13/17 16:31 Last Admin: 03/15/17 11:24 Dose: Not Given Metoprolol Succinate (Toprol Xl) 50 mg PO DAILY [facility] Stop: 09/13/17 13:01 Last Admin: 03/15/17 08:21 Dose: 50 mg - Imaging and Cardiology Echo: report reviewed Cardiac cath: report reviewed Consult Discharge Plan - Plan Referrals: Unassigned,Provider [Non-Partnered Physician] -
--- NOTE | 2017-03-15 12:11 | Event Note ---
Date of Encounter: 03/15/17 Time of Encounter: 12:10 I had a discussion with the cardiology service. There is a concern for flash pulmonary edema occurring during the cardiac catheterization because of the patient's volume status and his reduced ejection fraction. For that reason we have elected to start the patient on dialysis prior to his cardiac catheterization to achieve some volume removal. I discussed this with the patient and he is agreeable to proceeding. Since the patient may end up needing chronic dialysis we will request placement of a tunneled dialysis catheter. We will then initiate dialysis. I suspect that this will not happen until tomorrow by the time the tunnel dialysis catheter gets placed. The patient's heparin will be have to be placed on hold for several hours.
[2017-03-15] MEDS ORDERED: 0.9 % Sodium Chloride 250 ML IVC PRN (12:12)
[2017-03-15] MEDS ORDERED: Heparin 1,000 UNITS/500 mL NS 500 ML ONE (13:22)
[2017-03-15] MEDS ORDERED: *HR* Midazolam HCl 2 MG/2 ML VIAL IVP PRN (13:30)
[2017-03-15] MEDS ORDERED: ceFAZolin 2,000 MG in D5% in Water 100 ML IVPB ONE (13:30)
[2017-03-15] MEDS ORDERED: *HR* FentaNYL (PF) 100 MCG/2 ML VIAL IVP PRN (13:30)
--- NOTE | 2017-03-15 13:31 | Pre-Sedation Evaluation ---
Pre-sedation evaluation - Pre-sedation checklist Date of procedure: 03/15/17 Procedure: Tunneled HD catheter placement Recent Vitals: Last Vital Signs Temp 97.5 F L 03/15/17 11:09 Pulse 62 03/15/17 11:09 Resp 14 03/15/17 11:09 BP 133/69 03/15/17 11:09 Pulse Ox 98 03/15/17 11:09 H&P (including ROS) documented in medical record: Yes Previous reaction to sedatives/anesthetics: No Dietary Status: NPO after Midnight Airway Assessment: Patient can open mouth completely, TMJ function normal Dentition: poor dentition Possible difficult airway: No ASA Classification *see protocol: CLASS II-Mild systemic disease Plan of Care: Pt appropriate candidate for procedure/moderate/conscious sedation , Risks/benefits of procedure/sedation discussed w/ patient/family
[2017-03-15] MEDS ORDERED: 0.9 % Sodium Chloride 500 ML ONE (13:45)
--- NOTE | 2017-03-15 14:12 | IR Procedure Note ---
Date of procedure: 03/15/17 Consent Obtained: Verbal consent, Written consent Timeout: Correct patient and procedure verified, Correct site verified, Time out performed, Skin prep completed Local anesthetic: Lidocaine 1% Indications: Renal failure Procedure Performed: Tunneled HD catheter insertion Site/Technique: Tunneled HD catheter placed in VIR Results/Findings: Distal tip in RA Estimated blood loss (cc): 3 Complications: None; Tolerated procedure well Post Procedure Treatment Plan: May use HD catheter now
[2017-03-15] MEDS ORDERED: *HR* Heparin 5,000 UNIT/ML VIAL ONE (14:13)
[2017-03-15] MEDS: Nitroglycerin 25 MG/250 ML INFUS..BTL IVC SCH (14:59)
[2017-03-15] MEDS: *HR* Heparin 5,000 UNIT/ML VIAL SQ SCH (17:01)
--- NOTE | 2017-03-15 18:03 | Internal Med Progress Note ---
Date of Encounter: 03/15/17 Time of Encounter: 10:00 - Assessment and plan (1) DVT prophylaxis Current Visit: Yes Status: Acute Assessment and plan: Heparin subcutaneously (2) Acute on chronic systolic CHF (congestive heart failure), NYHA class 2 Current Visit: No Status: Acute Assessment and plan: Probably due to ischemic cardiomyopathy. Plan for LHC. Lasix one dose given by cardio. Plan for HD before LHC. (3) CAD (coronary artery disease) Current Visit: Yes Status: Chronic Assessment and plan: S/P CABG. continue home medications. Qualifiers: Coronary Disease-Associated Artery/Lesion type: [place] artery [place] vs. transplanted heart: [place] heart Associated angina: without angina Qualified Code(s): I25.10 - Atherosclerotic heart disease of [place] coronary artery without angina pectoris (4) Ischemic cardiomyopathy Current Visit: No Status: Chronic Assessment and plan: Decreased the LVEF. Consider ischemic cardiomyopathy. Plan for LHC by cardiology (5) Type 1 diabetes mellitus Current Visit: Yes Status: Acute Assessment and plan: Continue basal and sliding-scale insulin. Monitor glucose level. Qualifiers: Diabetes mellitus complication status: with circulatory complication Diabetes mellitus complication detail: with other circulatory complications Qualified Code(s): E10.59 - Type 1 diabetes mellitus with other circulatory complications (6) Chest pain Current Visit: Yes Status: Acute Assessment and plan: Chest pain is constant. Cardiology consult saw Patient, consider atypical pain. Continue medication for CAD. Pain medication for chest pain. Qualifiers: Chest pain type: unspecified Qualified Code(s): R07.9 - Chest pain, unspecified (7) Chronic kidney disease, stage IV (severe) Current Visit: No Status: Acute Assessment and plan: Plan to start HD tomorrow. - Time Spent With Patient 25 - 35 minutes - Subjective Interval history: Patient is a 51-year-old male admitted for chest pain. Past medical history is significant for CHF, CVA, diabetes, hyperlipidemia, hypertension, CKD. He was seen and examined. He still c/o mild chest pain, controlled by pain med. Cardiology consult appreciated. Consider ischemic cardiomyopathy. Plan for LHC. Patient may need hemodialysis prior to LHC. Perma-Caths placed by IR today. - Constitutional Vitals: Temp Pulse Resp BP Pulse Ox 97.6 F 68 16 147/78 92 03/15/17 14:45 03/15/17 16:30 03/15/17 16:30 03/15/17 16:30 03/15/17 16:30 General appearance: Present: A&O X 3, severe distress (Due to chest pain) - Head Head exam: Present: atraumatic, normocephalic - Eye Eye exam: Present: PERRL, conjuntiva pink, sclera anicteric Pupils: Present: PERRL - Neck Neck exam general surgery: Present: supple, trachea midline. Absent: lymphadenopathy - Respiratory Respiratory exam: Present: CTAB. Absent: accessory muscle use, rales, rhonchi, wheezes - Cardiovascular Cardiovascular exam: Present: RRR, +S1, +S2. Absent: diastolic murmur, gallop, rubs, systolic murmur - GI/Abdominal GI/Abdominal exam: Present: normal bowel sounds, soft, no peritoneal signs. Absent: distended, tenderness - Extremities Exam Extremities exam: Present: warm, radial pulses palpable and symetrical. Absent : calf tenderness, cyanotic, pedal edema - Neurological Exam Neurological exam: Present: CN II-XII intact, oriented X3, no focal deficits. Absent: pronater drift, facial droop, speech deficit - Skin Skin exam: Present: dry, intact Internal Medicine: Result - Labs CBC & Chem 7: 03/15/17 05:43 03/15/17 05:43 Labs: Short CBC 03/15/17 Range/Units 05:43 WBC 9.4 (4.3-11.1) K/mcL Hgb 8.7 L (12.9-16.9) g/dL Hct 27.4 L (37.5-50.1) % Plt Count 309 (140-400) K/mcL Neutrophils # 7.5 (1.6-8.9) K/mcL BMP 03/15/17 05:43 Sodium 132 L Potassium 3.4 L Chloride 92 L Carbon Dioxide 21 BUN 119 H Creatinine 4.00 H Glucose 447 H Calcium 9.2 Liver Function 03/15/17 Range/Units 05:43 Total Bilirubin 0.9 (0.2-1.2) mg/dL AST 22 (5-34) Units/L ALT 18 (0-55) Units/L Alkaline Phosphatase 140 H (38-126) Units/L Albumin 2.8 L (3.5-5.0) g/dL - ABG Interpretation ABG results: PT/INR, D-dimer PT 13.7 Seconds (9.4-12.1) H 03/14/17 08:26 - Impressions Impressions Guidance Needle Placement Ultrasound 03/15/17 00:00 IMPRESSION: Successful ultrasound and fluoroscopy guided tunneled catheter placement . D/ / Ronnie Cheng MD / Ronnie Cheng MD Interpreting Provider: Ronnie Cheng MD Insertion Tunneled Catheter 03/15/17 00:00 IMPRESSION: Successful ultrasound and fluoroscopy guided tunneled catheter placement . D/ / Ronnie Cheng MD / Ronnie Cheng MD Interpreting Provider: Ronnie Cheng MD Consult Discharge Plan - Plan Referrals: Unassigned,Provider [Non-Partnered Physician] -
--- NOTE | 2017-03-15 19:05 | Electrocardiograph Report ---
[place] [id number] Test Date: 2017-03-15 Pat Name: Naman Watson Department: 112 Room: 2A43 Gender: M Independent Driver: HAMDIA : 1965 Requested By: Kd Hopkins Order Number: [id number] Reading MD: Macrina Contreras Measurements Intervals [place] Rate: 71 P: 61 [place]: 188 QRS: 84 QRSD: 190 T: 59 QT: 500 QTc: 523 Interpretive Statements SINUS RHYTHM WITH OCCASIONAL VENTRICULAR PREMATURE COMPLEXES LEFT BUNDLE BRANCH BLOCK Electronically Signed On 03-15-2017 19:03:58 EDT by Macrina Contreras
[2017-03-15] MEDS: *HR* Morphine 2 MG/ML SYRINGE IVP PRN (22:20)
[2017-03-16] MEDS: *HR* Morphine 2 MG/ML SYRINGE IVP PRN (00:29)
[2017-03-16] MEDS ORDERED: *HR* Digoxin 0.5 MG/2 ML AMPUL IVP SCH (02:34)
--- NOTE | 2017-03-16 02:40 | Event Note ---
Date of Encounter: 03/16/17 Time of Encounter: 02:00 I was paged as the patient's heart rate was in the 120s. On questioning, the patient states that he has palpitations. He denies having any lightheadedness. He denies having any shortness of breath but reports intermittent chest pains. Patient scheduled for left heart catheterization today. Patient has acute kidney injury and chronic kidney disease and is fluid overloaded and had a tunneled hemodialysis catheter placement for fluid removal. He has new onset worsening systolic CHF. On examination, bilateral basal crepitations present. First and second heart sounds present. Irregularly irregular rhythm present. EKG personally reviewed-atrial fibrillation with rapid ventricular response with left bundle branch block. Blood pressure is 114/73 mmHg. Currently, heart rate is ranging between 90-115. Assessment/plan: 1. Atrial fibrillation-new onset. Patient is on Toprol-XL. Patient has systolic CHF with reduced ejection fraction and acute kidney injury on chronic kidney disease. He is fluid overloaded. His blood pressure is borderline low. He has developed new onset atrial fibrillation. Unable to use Cardizem as it will likely lower his blood pressure. Will digitalize the patient to rate control his atrial fibrillation and assist his ejection fraction. Patient will be placed on 125 g intravenous every 6 hours for 3 doses. Cardiology on board. Will follow-up further recommendations from cardiology in the morning. CONCEPCION Steele
[2017-03-16] MEDS: *HR* Digoxin 0.5 MG/2 ML AMPUL IVP SCH ×3 (02:49→18:08)
[2017-03-16] MEDS: *HR* Heparin 5,000 UNIT/ML VIAL SQ SCH ×2 (06:20→18:11)
[2017-03-16 06:22] LABS: Basophils # 0.1 K/mcL (0.0-0.2); Basophils % 0.7 %; Eosinophils # 0.5 K/mcL (0.0-0.6); Eosinophils % 5.6 %; Hemoglobin 9.6 g/dL (12.9-16.9); Immature Granulocytes % 0.3 % (0-4); Lymphocytes # 1.1 K/mcL (0.6-4.6); Lymphocytes % 11.7 %; Mean Corpuscular Hemoglobin 24.4 pg (28.0-33.3); Mean Corpuscular Volume 76.3 fL (83.0-100.0); Monocytes # 1.2 K/mcL (0.0-1.3); Monocytes % 11.9 %; Neutrophils # 6.8 K/mcL (1.6-8.9); Platelet Count 341 K/mcL (140-400); Red Blood Count 3.93 M/mcL (4.19-5.50); Red Cell Distribution Width 18.3 % (11.5-14.5); Segmented Neutrophils % 69.8 %
[2017-03-16 06:35] LABS: Albumin 2.7 g/dL (3.5-5.0); Albumin/Globulin Ratio 0.6 (1.1-2.2); Bilirubin,Total 0.5 mg/dL (0.2-1.2); Calcium 9.3 mg/dL (8.6-10.8); Globulin 4.2 g/dL (2.4-3.5); Total Protein 6.9 g/dL (6.0-8.3)
[2017-03-16] MEDS: Insulin LISPRO 300 UNITS/3 ML VIAL SQ SCH ×4 (07:50→22:22)
--- NOTE | 2017-03-16 08:48 | Nephrology Progress Note ---
Date of Encounter: 03/16/17 Time of Encounter: 08:46 - Assessment and Plan (1) Chronic kidney disease, stage IV (severe) Current Visit: No Status: Acute The patient has progressive stage IV chronic kidney disease related to diabetic nephropathy. He is at high risk for developing acute kidney injury superimposed on his chronic kidney disease following cardiac catheterization today. He is also a risk for developing flash pulmonary edema due to contrast exposure. For these reasons the patient will undergo dialysis this morning prior to undergoing cardiac catheter later today. Family and the patient are in full agreement. (2) Chest pain Current Visit: Yes Status: Acute Qualifiers: Chest pain type: unspecified Qualified Code(s): R07.9 - Chest pain, unspecified (3) History of coronary artery bypass graft Current Visit: No Status: Acute (4) CAD (coronary artery disease) Current Visit: Yes Status: Chronic Qualifiers: Coronary Disease-Associated Artery/Lesion type: [place] artery [place] vs. transplanted heart: [place] heart Associated angina: without angina Qualified Code(s): I25.10 - Atherosclerotic heart disease of [place] coronary artery without angina pectoris (5) Ischemic cardiomyopathy Current Visit: No Status: Chronic Subjective Principal diagnosis: Renal failure, CAD, chest pain Interval history: Patient had some hypoglycemia and paroxysmal A. fib. This morning he feels better. The tunnel dialysis catheter was placed yesterday. He is scheduled to undergo dialysis this morning. Objective - Vital Signs Vital signs: Vital Signs Temp Pulse Resp BP Pulse Ox 03/16/17 07:22 98.1 F 62 16 142/72 95 03/16/17 04:06 98.3 F 96 22 105/66 93 03/16/17 02:04 114/73 03/16/17 00:02 97.7 F 68 20 148/80 95 03/15/17 19:37 97.7 F 72 20 163/77 97 03/15/17 16:30 68 16 147/78 92 03/15/17 15:30 65 16 126/69 92 03/15/17 15:15 63 16 138/70 96 03/15/17 15:00 68 16 138/71 98 03/15/17 14:45 97.6 F 69 16 126/64 98 03/15/17 14:04 65 16 134/63 96 03/15/17 11:09 97.5 F L 62 14 133/69 98 Intake and Output 03/15/17 03/16/17 03/16/17 23:59 07:59 15:59 Intake Total 240 / 240 Output Total 200 / 200 150 / 150 Balance 40 / 40 -150 / -150 Intake: Oral 240 / 240 Output: Urine 200 / 200 150 / 150 Other: Meal Dinner Percent of Meal Consumed 100% # Voids 1 Weight 70.3 kg Blood Glucose* 119 89 Patient Weight 03/16/17 23:59 Weight 70.3 kg - General Appearance Exam: Patient is alert and oriented. He is in no acute distress. Lungs essentially clear to auscultation. Heart regular rate and rhythm. Abdomen is benign. There is lower extremity swelling. There is a tunnel dialysis catheter in the right chest. - Lab 03/16/17 05:44 03/16/17 05:44 Most recent lab results Calcium 9.3 mg/dL (8.6-10.8) 03/16/17 05:44 Consult Discharge Plan - Plan Referrals: Unassigned,Provider [Non-Partnered Physician] -
[2017-03-16] MEDS: *HR* Acetylcysteine 20% 600 MG/3 ML ORAL SYRINGE PO SCH ×2 (09:29→22:21)
--- NOTE | 2017-03-16 09:39 | Pre-Sedation Evaluation ---
Pre-sedation evaluation - Pre-sedation checklist Date of procedure: 03/15/17 Procedure: permacath Recent Vitals: Last Vital Signs Temp 98.1 F 03/16/17 07:22 Pulse 62 03/16/17 07:22 Resp 16 03/16/17 07:22 BP 142/72 03/16/17 07:22 Pulse Ox 95 03/16/17 07:22 H&P (including ROS) documented in medical record: Yes Previous reaction to sedatives/anesthetics: No Dietary Status: NPO after Midnight Dentition: No loose teeth or bridges ASA Classification *see protocol: CLASS II-Mild systemic disease Plan of Care: Pt appropriate candidate for procedure/moderate/conscious sedation , Risks/benefits of procedure/sedation discussed w/ patient/family
[2017-03-16] MEDS: Aspirin 81 MG TAB.CHEW PO SCH (09:52)
[2017-03-16 11:59] LABS: Hepatitis B Surface Antibody 0.76 mIU/mL; Hepatitis B Surface Antigen Nonreactive (Nonreactive)
[2017-03-16] MEDS ORDERED: Heparin 1,000 UNITS/500 mL NS 500 ML ONE (15:17)
[2017-03-16] MEDS ORDERED: *HR* Heparin 10,000 UNIT/10 ML VIAL ONE (15:17)
[2017-03-16] MEDS ORDERED: 0.9 % Sodium Chloride 1,000 ML ONE ×2 (15:17→15:45)
[2017-03-16] MEDS ORDERED: *HR* Midazolam HCl 2 MG/2 ML VIAL ONE (15:43)
[2017-03-16] MEDS ORDERED: *HR* FentaNYL (PF) 100 MCG/2 ML VIAL ONE (15:43)
[2017-03-16] MEDS ORDERED: Nitroglycerin 1,000 MCG/10 ML VIAL IV ONE (15:45)
--- NOTE | 2017-03-16 16:37 | Invasive Diagnostic Lab Proc ---
Name: Naman Watson Date of Study: 03/16/2017 Date: 1965 Ht: 66.1in Medical Record#: [id number] Age: 51 Wt: 158.51lb Gender: Male BSA: 1.81 Order #: [id number] BMI: 25.51 Physicians Procedure Physician: Andrew Gusman MD, [facility] Referring MD: Referring MD: Staff Name Position Time In [facility], Kathleen RT (R) Scrub 03:38 PM Clarita Carbajal RN Brush Material Preparer 03:38 PM Kathleen Elise RT (R) Monitor 03:43 PM Indications Indication Cardiomyopathy Procedures Performed Procedure L HRT ART/GRFT ANGIO Pre-Procedure Checklist Informed consent is complete signed and on chart. H\\T\\P is on chart. ID band is on and ID verified with patient. Patient NPO for procedure The procedure was described for the patient and questions were answered. Blood Pressure: 175/87 ECG is on chart. Plan of Care Patient will tolerate the procedure without complications. Adequate level of comfort will be maintained. Hemodynamics will remain stable Patient will recover from procedure without complications. Respiratory function will be maintained. Cardiac rhythm will remain stable. Patient temperature will be maintained. Patient and/or family have verbalized understanding of the procedure. Patient Education Chief Complaint/Reason for Test: Cardiac Cath Developmental Category: Adult (18-64 years) Developmentally Appropriate for Age: Yes Learning Barriers: None Education Needs: Procedure Education Method: Verbal Information Taught: Cardiac Cath Educational Evaluation: Able to repeat information Intravenous Access Time IV Size Location DC'd Fluid/Drip Rate Units RN 09:54 AM 20g 1 1/4" Patent On Arrival Lt Arm Yes 03:36 PM Started with 20g 1 1/4" Lt Antecubital 0.9NaCl 25 ml/hr Lexi Roberson RN Allergies DERMABOND Vital Signs Time BP (mmHg) HR (bpm) O2 Sat. RR (bpm) LOC 03:38 PM / % 5 = Fully awake and oriented or at pre-proc level 03:39 PM / % 4 = Oriented but drowsy 03:54 PM / % 4 = Oriented but drowsy 04:09 PM / % 4 = Oriented but drowsy 03:43 PM 175 / 87 87 96 % 13 03:47 PM 163 / 86 74 97 % 29 03:52 PM 157 / 74 84 93 % 10 03:57 PM 143 / 72 65 95 % 16 04:02 PM 144 / 72 65 94 % 11 04:07 PM 137 / 70 65 94 % 24 04:12 PM 141 / 71 66 95 % 10 04:17 PM 156 / 80 68 94 % 17 04:22 PM 156 / 77 68 94 % 15 04:27 PM 163 / 85 % Procedural Medications Time Medication Dose Units Method Given By 03:38 PM Oxygen 2 L/min nasal cannula Clarita Carbajal RN 03:44 PM Versed 2 mg Intravenous Clarita Carbajal RN 03:44 PM Fentanyl 50 mcg Intravenous Clarita Carbajal RN 03:57 PM Lidocaine 2% 18 ml Subcutaneous Andrew Gusman MD, [facility] ASA Classification: CLASS II- Mild systemic disease (i.e. well-controlled diabetes, hypertension, asthma, cigarette smoking) Mercedes Score Preprocedure Postprocedure Activity 2- Moves 4 extremities sustained head lift Activity 2- Moves 4 extremities sustained head lift Circulation 2- SBP +/= 20 points of pre-anesthetic level Circulation 2- SBP +/= 20 points of pre-anesthetic level Consciousness 2- Awake and alert oriented x 3 Consciousness 2- Awake and alert oriented x 3 O2 Saturation 2- Able to maintain O2 satruation of 92% on room air O2 Saturation 2- Able to maintain O2 satruation of 92% on room air Respiratory 2- Able to deep breathe and cough well Respiratory 2- Able to deep breathe and cough well Total Score 10 Total Score 10 Contrast Agent: Isovue Diagnostic Contrast: 42 ml Total Contrast: 42 ml Fluoro Dose: 197 mGy Procedure Log Time Note Enter By 03:37 PM Pt arrived to veterinary laboratory diagnostician 2 at 15:37 twilson 03:37 PM Physician arrived 15:37 twilson 03:37 PM Meet and greet completed twilson 03:37 PM Sign in performed according to hospital policy. twilson 03:37 PM Procedure start 15:37 twilson 03:37 PM Patient complains of pain in current IV site. Red and swollen. twilson 03:37 PM New IV started by Lexi Roberson RN in LAC. twilson 03:38 PM Patient charges- Angio tray pack, Navilyst 3mm J, Pulse Oximetry and ACIST tubing and transducer twilson 03:38 PM IV Supplies used: J loop Angio Cath. twilson 03:38 PM Sites, Kathleen RT (R) Position: Scrub Time in: 15:38 twilson 03:38 PM Clarita Carbajal RN Position: Brush Material Preparer Time in: 15:38 twilson 03:38 PM Time: 15:38 Oxygen on at 2 L/min per nasal cannula by Clarita Carbajal RN twilson :38 PM Time: 15:38 Patient comfortable and pain free: Yes twilson :39 PM Time: 15:38LOC: 5 = Fully awake and oriented or at pre-proc level twilson 03:39 PM CathStat 03:42 PM Vitals capture started with the following parameters, Patient=Adult, Interval=5 min, Initial Vghhojuc=457 mmHg, Deflation Rate=5 mmHg, Cuff placed on Right Arm 03:43 PM Recorded ECG: HR=77 Condition=Condition 1 03:43 PM HR=87 bpm, UZWI=243/87 mmhg, SpO2=96.0 %, Resp=13 B/min 03:43 PM Kathleen Elise RT (R) Position: Monitor Time in: :43 twilson 03:43 PM ASA Class CLASS II- Mild systemic disease (i.e. well-controlled diabetes, hypertension, asthma, cigarette smoking) twilson 03:44 PM Time: 15:44 Fentanyl 50 mcg Intravenous Given by Clarita Carbajal RN twilson 03:44 PM Hair removed from procedure site in procedure lab using clippers. Bilateral groin prepped with Chloraprep by Clarita Carbajal RN, safety strap applied then patient was draped. Skin intact. twilson 03:44 PM Time: 15:44 Versed 2 mg Intravenous Given by Clarita Carbajal RN twilson 03:47 PM HR=74 bpm, STFH=383/86 mmhg, SpO2=97.0 %, Resp=29 B/min 03:51 PM Pressure channel 1 zeroed. 03:52 PM HR=84 bpm, CUZV=596/74 mmhg, SpO2=93.0 %, Resp=10 B/min 03:54 PM Time: 15:39LOC: 4 = Oriented but drowsy twilson 03:54 PM Time: 15:38 Patient comfortable and pain free: Yes twilson 03:54 PM Time out performed according to hospital policy twilson 03:57 PM Time: 15:57 18 ml Lidocaine 2% to right groin Subcutaneous Given by Andrew Gusman MD, [facility] twilson 03:57 PM Access obtained by percutaneous puncture. 5Fr 10cm [place] sheath placed in right Femoral artery. [id number] twilson 03:57 PM 5Fr FL 4 catheter inserted over the wire DNC twilson 03:57 PM HR=65 bpm, YWDC=502/72 mmhg, SpO2=95.0 %, Resp=16 B/min 03:58 PM Recorded Pressure: Ao, HR=67, Condition=Condition 1 (Aorta) Ao 140/71/99 03:58 PM Wire removed twilson 03:58 PM LCA angiography performed in multiple views. twilson 03:59 PM Recorded Pressure: Ao, HR=66, Condition=Condition 1 (Aorta) Ao 131/72/97 03:59 PM Wire reinserted. twilson 04:00 PM Catheter removed twilson 04:00 PM 5Fr FR 4 catheter inserted over the wire DNC twilson 04:00 PM Wire removed twilson 04:01 PM Lesion found in Mid LAD. Pre Stenosis: 70 Pre REGGIE Flow: twilson 04:01 PM Lesion found in Proximal Circumflex. Pre Stenosis: 100 Pre REGGIE Flow: twilson 04:01 PM RCA angiography performed in multiple views. twilson 04:01 PM Recorded Pressure: Ao, HR=65, Condition=Condition 1 (Aorta) Ao 125/72/95 04:01 PM Lesion found in Proximal RCA. Pre Stenosis: 100 Pre REGGIE Flow: twilson 04:01 PM SVG to the 1st OM angio performed in multiple views. twilson 04:01 PM Recorded Pressure: Ao, HR=65, Condition=Condition 1 (Aorta) Ao 126/71/95 04:02 PM Lesion found in Proximal LAD. Pre Stenosis: 50 Pre REGGIE Flow: twilson 04:02 PM Proximal Left Anterior Descending Coronary Artery with 50% stenosis. If graft is supplying this territory, 0 % stenosis. twilson 04:02 PM HR=65 bpm, LOLK=903/72 mmhg, SpO2=94.0 %, Resp=11 B/min 04:03 PM 0.035 260cm Navilyst 3mmJ wire [id number] twilson 04:03 PM Right Coronary, Right Posterior Descending Arteries with Right Posterolateral and Acute Marginal branches with 100 % stenosis. If graft is supplying this area, 0 % stenosis twilson 04:03 PM Mid/Distal Left Anterior Descending Coronary Artery and diagonal branches with 70% stenosis. If graft is supplying this area, 0 % stenosis twilson 04: PM Circumflex, Obtuse Marginal, Left Posterior Descending, and Left Posterolateral Coronary Arteries with 100 % stenosis. If graft is supplying this area, 0 % stenosis twilson 04:03 PM 5Fr IM catheter inserted over the wire [id number] twilson 04: PM Wire removed twilson 04: PM Recorded Pressure: Ao, HR=64, Condition=Condition 1 (Aorta) Ao 141/62/90 04:04 PM Left DENA to the LAD angio performed in multiple views. twilson 04:05 PM Wire reinserted. twilson 04:05 PM Catheter removed twilson : PM 5Fr Pigtail catheter inserted over the wire DNC twilson : PM Catheter selectively placed in left ventricle twilson 04: PM Wire removed twilson : PM Pressure channel 1 zeroed. 04:07 PM Recorded Pressure: LV, HR=64, Condition=Condition 1 (Left Ventricle) LV 148/8/20 04:07 PM Recorded Pressure: LV, Ao, HR=46, Condition=Condition 1 (Left Ventricle) LV 150/9/22, (Aorta) Ao 151/21/86 04:07 PM HR=65 bpm, CXKZ=732/70 mmhg, SpO2=94.0 %, Resp=24 B/min 04:08 PM No LV gram, just pressures. tw: PM Time: 15:54 Patient comfortable and pain free: Yes tw: PM Time: 15:54LOC: 4 = Oriented but drowsy tw: PM Coronary Dominance: right tw: PM Procedure completed at 16:09 twilson : PM Sign out completed: Radiation Dose 196.57 mGy Fluoro Time: 2.6 Isovue 370 - 200ml contrast 41.5 ml given by Andrew Gusman MD, [facility]. Complications: NoneCardiac Rehab Consult needed: NoConfirmed administered medications: Yes tw: PM Isovue 370 - 200ml,1 Bottle(s) used. twilson 04:10 PM Post Blood Pressure 137/70 twilson 04:10 PM 16:10 Post Pulses Bilateral DP \\T\\ PT 2+ twilson 04:10 PM Family placed in consult room. twilson 04:10 PM Information taught Cardiac Cath twilson 04:10 PM Education needs Procedure, Plan of Care, and Responsibilities of Patient in Care twilson 04:10 PM Learning barriers :None twilson 04:10 PM Education Methods Verbal twilson 04:10 PM Education evaluation Able to repeat information twilson 04:10 PM Site status No bleeding/hematoma - Rt Groin as reported by Sites, Kathleen RT (R) at 16:10 twilson 04:12 PM HR=66 bpm, QUFT=938/71 mmhg, SpO2=95.0 %, Resp=10 B/min 04:15 PM Arterial sheath pulled using manual compression and V+ Pad for 15 minutes by Sites, Kathleen RT (R) twilson 04:17 PM HR=68 bpm, GAPF=574/80 mmhg, SpO2=94.0 %, Resp=17 B/min 04:22 PM HR=68 bpm, JYNG=955/77 mmhg, SpO2=94.0 %, Resp=15 B/min 04:24 PM Time: 16:09LOC: 4 = Oriented but drowsy twilson 04:24 PM Time: 16:09 Patient comfortable and pain free: Yes twilson 04:27 PM JYMY=773/85 mmhg 04:29 PM Report given to RN Pt taken to 2A Room #. 16:29 twilson 04:29 PM Delay to floor No twilson 04:30 PM Vitals capture stopped. 04:31 PM Site status No bleeding/hematoma - Rt Groin as reported by Sites, Kathleen RT (R) at 16:31 twilson 04:32 PM Opsite applied twilson 04:32 PM Patient out of room: 16:32 twilson Complications Complication None Hemodynamics Pressures Site Systolic/A Wave Diastolic/V Wave Mean AO 140 71 99 AO 131 72 97 AO 125 72 95 AO 126 71 95 AO 141 62 90 LV 148 8 20 LV 150 9 22 AO 151 21 86 Post Procedure Information Blood Pressure: 137/70 mmHg Post procedural instructions were given Site Checks Time Location Status Staff Sheath In? Note 04:10 PM Rt Groin No bleeding/hematoma Sites, Kathleen RT (R) 04:31 PM Rt Groin No bleeding/hematoma Sites, Kathleen RT (R) Pulses Time Site Pre-Procedure Post-Procedure Note 03/16/2017 9:53:00 AM Bilateral DP \\T\\ PT 2+ 4:10:00 PM Bilateral DP \\T\\ PT 2+ Updated by Kathleen Elise RT (R) on 03/16/2017 4:32:24 PM electronically signed on 03/16/2017 4:33:08 PM with status of Final
--- NOTE | 2017-03-16 17:49 | Internal Med Progress Note ---
Date of Encounter: 03/16/17 Time of Encounter: 10:00 - Assessment and plan (1) DVT prophylaxis Current Visit: Yes Status: Acute Assessment and plan: Heparin subcutaneously (2) Acute on chronic systolic CHF (congestive heart failure), NYHA class 2 Current Visit: No Status: Acute Assessment and plan: Probably due to ischemic cardiomyopathy. Plan for LHC. Lasix one dose given by cardio. Plan for HD before LHC. (3) CAD (coronary artery disease) Current Visit: Yes Status: Chronic Assessment and plan: S/P CABG. continue home medications. Qualifiers: Coronary Disease-Associated Artery/Lesion type: [place] artery [place] vs. transplanted heart: [place] heart Associated angina: without angina Qualified Code(s): I25.10 - Atherosclerotic heart disease of [place] coronary artery without angina pectoris (4) Ischemic cardiomyopathy Current Visit: No Status: Chronic Assessment and plan: Decreased the LVEF. Consider ischemic cardiomyopathy. Plan for LHC today after HD. (5) Type 1 diabetes mellitus Current Visit: Yes Status: Acute Assessment and plan: Continue basal and sliding-scale insulin. Monitor glucose level. Hypoglycemia noticed. Insulin dose adjusted to Levemir 20 units qhs Qualifiers: Diabetes mellitus complication status: with circulatory complication Diabetes mellitus complication detail: with other circulatory complications Qualified Code(s): E10.59 - Type 1 diabetes mellitus with other circulatory complications (6) Chest pain Current Visit: Yes Status: Acute Assessment and plan: Chest pain improved. Cardiology consult saw Patient, consider atypical pain. Continue medication for CAD. Pain medication for chest pain. Plan for LHC today. Qualifiers: Chest pain type: unspecified Qualified Code(s): R07.9 - Chest pain, unspecified (7) Chronic kidney disease, stage IV (severe) Current Visit: No Status: Acute Assessment and plan: Plan to start HD today. Pt may need jail HD afterwards. - Subjective Interval history: Patient is a 51-year-old male admitted for chest pain. Past medical history is significant for CHF, CVA, diabetes, hyperlipidemia, hypertension, CKD. He was seen and examined. He denies chest pain today. Plan for HD in the morning and LHC after HD. Vitals stable. - Constitutional Vitals: Temp Pulse Resp BP Pulse Ox 9738 F H 68 16 150/77 92 03/16/17 17:00 03/16/17 17:00 03/16/17 17:00 03/16/17 17:00 03/16/17 17:00 General appearance: Present: A&O X 3, severe distress (Due to chest pain) - Head Head exam: Present: atraumatic, normocephalic - Eye Eye exam: Present: PERRL, conjuntiva pink, sclera anicteric Pupils: Present: PERRL - Neck Neck exam general surgery: Present: supple, trachea midline. Absent: lymphadenopathy - Respiratory Respiratory exam: Present: CTAB. Absent: accessory muscle use, rales, rhonchi, wheezes - Cardiovascular Cardiovascular exam: Present: RRR, +S1, +S2. Absent: diastolic murmur, gallop, rubs, systolic murmur - GI/Abdominal GI/Abdominal exam: Present: normal bowel sounds, soft, no peritoneal signs. Absent: distended, tenderness - Extremities Exam Extremities exam: Present: warm, radial pulses palpable and symetrical. Absent : calf tenderness, cyanotic, pedal edema - Neurological Exam Neurological exam: Present: CN II-XII intact, oriented X3, no focal deficits. Absent: pronater drift, facial droop, speech deficit - Skin Skin exam: Present: dry, intact Internal Medicine: Result - Labs CBC & Chem 7: 03/16/17 05:44 03/16/17 05:44 Labs: Short CBC 03/16/17 Range/Units 05:44 WBC 9.7 (4.3-11.1) K/mcL Hgb 9.6 L (12.9-16.9) g/dL Hct 30.0 L (37.5-50.1) % Plt Count 341 (140-400) K/mcL Neutrophils # 6.8 (1.6-8.9) K/mcL BMP 03/16/17 05:44 Sodium 136 Potassium 3.0 L Chloride 97 L Carbon Dioxide 27 BUN 124 H Creatinine 3.60 H Glucose 40 L* Calcium 9.3 Liver Function 03/16/17 Range/Units 05:44 Total Bilirubin 0.5 (0.2-1.2) mg/dL AST 20 (5-34) Units/L ALT 15 (0-55) Units/L Alkaline Phosphatase 127 H (38-126) Units/L Albumin 2.7 L (3.5-5.0) g/dL - ABG Interpretation ABG results: PT/INR, D-dimer PT 13.7 Seconds (9.4-12.1) H 03/14/17 08:26 Consult Discharge Plan - Plan Referrals: Betsy Salvador CNP [Primary Care Provider] - 03/22/17 1:40 pm ()
--- NOTE | 2017-03-16 18:00 | Electrocardiograph Report ---
[address] [place] [address] Test Date: 2017-03-16 Pat Name: Naman Watson Department: 112 Room: 2A43 Gender: M Emergency Services Professional: [facility] : 1965 Requested By: Kd Hopkins Order Number: [id number] Reading MD: Andrew Gusman MD Measurements Intervals [place] Rate: 115 P: NC: 0 QRS: 74 QRSD: 173 T: 60 QT: 363 QTc: 431 Interpretive Statements ATRIAL FIBRILLATION WITH RAPID VENTRICULAR RESPONSE LEFT BUNDLE BRANCH BLOCK Electronically Signed On 03-16-2017 17:58:30 EDT by Andrew Gusman MD
[2017-03-16] MEDS: Metoprolol XL (24 HR) Succ 50 MG TAB.ER.24H PO SCH (18:12)
[2017-03-16] MEDS ORDERED: Insulin DETEMIR 100 UNIT/ML X5UNITS SQ SCH (21:00)
[2017-03-17 03:39] LABS: Eosinophils % 7.5 %; Hematocrit 29.9 % (37.5-50.1); Hemoglobin 9.4 g/dL (12.9-16.9); Immature Granulocytes % 0.1 % (0-4); Lymphocytes % 10.9 %; Mean Corpuscular HGB Conc 31.4 g/dL (31.6-35.5); Mean Corpuscular Hemoglobin 24.9 pg (28.0-33.3); Mean Corpuscular Volume 79.3 fL (83.0-100.0); Mean Platelet Volume 10.4 fL (9.4-12.4); Monocytes % 12.8 %; Platelet Count 331 K/mcL (140-400); Red Blood Count 3.77 M/mcL (4.19-5.50); Red Cell Distribution Width 18.5 % (11.5-14.5); Segmented Neutrophils % 68.1 %
[2017-03-17 03:40] LABS: Basophils # 0.1 K/mcL (0.0-0.2); Basophils % 0.6 %; Eosinophils # 0.6 K/mcL (0.0-0.6); Lymphocytes # 0.9 K/mcL (0.6-4.6); Monocytes # 1.1 K/mcL (0.0-1.3); Neutrophils # 5.9 K/mcL (1.6-8.9)
[2017-03-17 03:53] LABS: Albumin 2.7 g/dL (3.5-5.0); Albumin/Globulin Ratio 0.6 (1.1-2.2); Bilirubin,Total 0.6 mg/dL (0.2-1.2); Calcium 9.2 mg/dL (8.6-10.8); Globulin 4.2 g/dL (2.4-3.5); Potassium 3.6 mEq/L (3.5-4.5); Total Protein 6.9 g/dL (6.0-8.3)
[2017-03-17] MEDS: *HR* Heparin 5,000 UNIT/ML VIAL SQ SCH ×2 (05:20→17:12)
--- NOTE | 2017-03-17 08:41 | Event Note ---
Date of Encounter: 03/17/17 Time of Encounter: 08:40 - Cardiology Event Note LHC yesterday showed patent bypass grafts, no intervention warranted. Continue ASA, Plavix, Statin, BB. Will add Imdur 30mg daily. Cardiology signing off. Reconsult PRN. Follow-up as outpt in 3-4 weeks Will coordinate.
[2017-03-17] MEDS: Insulin LISPRO 300 UNITS/3 ML VIAL SQ SCH ×4 (08:48→21:19)
[2017-03-17] MEDS: Aspirin 81 MG TAB.CHEW PO SCH (08:49)
[2017-03-17] MEDS: Isosorbide MONOnitrate (24 HR) 30 MG TAB.ER.24H PO SCH (08:49)
[2017-03-17] MEDS: Metoprolol XL (24 HR) Succ 50 MG TAB.ER.24H PO SCH (08:49)
--- NOTE | 2017-03-17 09:19 | Nephrology Progress Note ---
Date of Encounter: 03/17/17 Time of Encounter: 09:10 - Assessment and Plan (1) Chronic kidney disease, stage IV (severe) Current Visit: No Status: Acute S/P LHC. HD prior to [facility]. Creat improved 2.74 from 3.60. Documented urine output 800cc past 24 hours. No HD today. Continue to monitor renal fct for further need of HD. Subjective Principal diagnosis: Renal failure, CAD, chest pain Interval history: S/P LHC. Sitting up in chair, wants to go home. Objective - Vital Signs Vital signs: Vital Signs Temp Pulse Resp BP Pulse Ox 03/17/17 07:12 98.2 F 63 14 155/75 90 03/17/17 03:58 98.1 F 65 15 124/68 96 03/16/17 23:48 97.5 F L 70 16 163/80 97 03/16/17 19:37 97.8 F 71 17 146/75 92 03/16/17 18:30 98 F 69 16 148/75 92 03/16/17 18:00 98.2 F 68 16 163/85 94 03/16/17 17:30 97.8 F 68 16 137/69 95 03/16/17 17:15 98.2 F 70 16 165/73 93 03/16/17 17:00 9738 F H 68 16 150/77 92 03/16/17 16:45 97.5 F L 67 16 168/78 92 03/16/17 15:15 97.9 F 18 159/80 03/16/17 15:10 156/79 03/16/17 14:50 157/83 03/16/17 14:35 150/74 03/16/17 14:20 148/77 03/16/17 14:05 150/76 03/16/17 13:50 153/72 03/16/17 13:35 147/79 03/16/17 13:20 153/70 03/16/17 13:05 97.4 F L 18 151/81 03/16/17 11:56 97.4 F L 60 16 150/74 95 Intake and Output 03/16/17 03/17/17 03/17/17 23:59 07:59 15:59 Intake Total 360 / 360 Output Total 200 / 200 150 / 150 Balance 160 / 160 -150 / -150 Intake: Oral 360 / 360 Output: Urine 200 / 200 150 / 150 Other: Meal Dinner Percent of Meal Consumed 95% Weight 67.404 kg Blood Glucose* 221 52 Patient Weight 03/17/17 23:59 Weight 67.404 kg - General Appearance General appearance: Present: well-developed, well-nourished, appears started age EENT: Present: mucous membranes moist Neck: Present: no JVD Respiratory: Present: clear Cardiology: Present: no edema, regular rate, regular rhythm Gastrointestinal: Present: normoactive bowel sounds, no tenderness, distended Neurologic: Present: alert and oriented x3 Psychiatric: Present: mood/affect appropriate, cooperative - Lab 03/17/17 03:08 03/17/17 03:08 Most recent lab results Calcium 9.2 mg/dL (8.6-10.8) 03/17/17 03:08 Consult Discharge Plan - Plan Referrals: Betsy Salvador LAB SYSTEMS ANALYST [Primary Care Provider] - 03/22/17 1:40 pm ()
--- NOTE | 2017-03-17 10:18 | Invasive Diagnostic Lab ---
Name: Naman Watson Date of Study: 03/16/2017 Date: 1965 Ht: 167.9 cm /66.1 in Medical Record#: [id number] Age: 51 Wt: 71.9 kg / 158.51 lb Account/Order#: [id number] Gender: Male BSA: 1.81 Order #: [id number] Fluoro Dose: 197 mGy BMI: 25.51 Procedure Physician: Andrew Gusman MD, FACC Referring MD: Referring MD: Procedures Performed: LEFT HEART CATH W/ GRAFTS Indications: Cardiomyopathy Impressions: There is severe three vessel coronary artery disease. S/P CABG 2 of 2 patent bypass grafts. Recommendations: Optimal medical therapy of patient's disease. Aggressive risk factor modification. History/Risk Factors: CAD ascites CMP ARF Diabetes Hypertension Dyslipidemia CHF Cerebrovascular disease Prior AL Previous CABG Procedure Access obtained in the right Femoral artery by percutaneous puncture Complications: None Contrast: Isovue 42ml Hemodynamics: Pressures Site Systolic/ A Wave Diastolic/ V Wave End Diastolic/ Mean HR AO 140 71 99 67 AO 131 72 97 66 AO 125 72 95 65 AO 126 71 95 65 AO 141 62 90 64 LV 148 8 20 64 LV 150 9 22 65 AO 151 21 86 22 Coronary Dominance: right Lesion Findings/Interventions * Left Main Coronary Artery The LMCA has proximal 50-60% * Left Anterior Descending There is a 50% stenosis in the Proximal LAD. The lesion has several mature collaterals which feed from left to right. There is a 70% stenosis in the Mid LAD. The lesion has collaterals which feed from left to right. Collaterals from LAD to the 1st OM and RCA. * Circumflex There is a 100% stenosis in the Proximal Circumflex. There are left to left collaterals from mid distal LAD septals * Right Coronary Artery There is a 100% stenosis in the Proximal RCA. There are several mature left to right collateals Additional Findings: Grafts * The saphenous vein graft to the diagonal is patent. REGGIE flow is 3. * The left internal mammary graft to the Mid LAD is patent. REGGIE flow is 3. Septals provide collaterals to OM and right PDA. Updated by RT Javad (R) on 03/16/2017 4:30:43 PM Andrew Gusman MD, FACC electronically signed on 03/17/2017 10:13:10 AM with status of Final
--- NOTE | 2017-03-17 13:03 | Cardiology Progress Note ---
Date of Encounter: 03/17/17 Time of Encounter: 13:00 Assessment and Plan (1) PAF (paroxysmal atrial fibrillation) Current Visit: Yes Status: Acute Episode of PAF 2 nights ago, new onset. Was loaded with IV Digoxin. Since remained in SR. On BB. CHADSVASC score 6 (DM, HTN, CVA, CHF, CAD). Given his renal function, would recommend Coumadin for anticoagulation. Pt agrees. Stop Plavix since no recent stent placement. Will start Coumadin 5mg daily, set up Coumadin Clinic referral. Check INR on Tuesday. (2) Acute on chronic systolic CHF (congestive heart failure), NYHA class 2 Current Visit: No Status: Acute Known previous EF of 40%, recent reduced on [facility] echo to 29%. Echo repeated 03/15 shows EF 40% again. Presented with fluid volume overload also in setting of ORESTES on CKD with Creatinine as high as 4.0. Pt received 2 doses of 40mg IV Lasix. Underwent dialysis session yesterday prior to cath. Renal function now improved. Recommend daily weights, Na and fluid restriction. Symptoms have improved, now appears euvolemic on exam. Cardiology signing off. Reconsult PRN. (3) Cardiomyopathy Current Visit: Yes Status: Acute Previously known ICMP EF 40%, but recently reduced to 29% on [facility] echo--ICMP vs NICMP. Repeat echo EF 40% 03/15/17. S/P LH yesterday with 2/2 patent bypass grafts. Continue BB. No KENIA-I due to renal function. Qualifiers: Cardiomyopathy type: unspecified Qualified Code(s): I42.9 - Cardiomyopathy , unspecified (4) CAD (coronary artery disease) Current Visit: Yes Status: Chronic Hx of CABG in 2012. ASA, Statin, Plavix, BB. [facility] yesterday 2/2 patent bypass grafts. Qualifiers: Coronary Disease-Associated Artery/Lesion type: [place] artery [place] vs. transplanted heart: [place] heart Associated angina: without angina Qualified Code(s): I25.10 - Atherosclerotic heart disease of [place] coronary artery without angina pectoris (5) Chest pain Current Visit: Yes Status: Acute Resolved. [facility] 2/2 patent bypass grafts. Added low dose Imdur. Qualifiers: Chest pain type: unspecified Qualified Code(s): R07.9 - Chest pain, unspecified (6) Severe mitral regurgitation Current Visit: Yes Status: Acute Moderate-severe MR noted on echo 03/15/17. Noted to be ischemic appearing, but LHC 2/2 patent bypass grafts with nothing amendable to PCI. Recommend outpt follow-up. (7) Chronic kidney disease, stage IV (severe) Current Visit: No Status: Chronic Had tunnel dialysis catheter placement and dialysis session prior to LHC. Renal function now improved. Repeat dialysis currently not warranted. Nephrology following. Discussion w patient/family: The assessment and plan as outlined above was discussed with the patient and/or family members who expressed understanding and agreement. All questions were answered. Thank you for involving us in the care of your patient. Please call with any questions. I will discuss all the above with Dr. Barron and make changes as necessary. Subjective Principal diagnosis: Renal failure, CAD, chest pain Interval history: Pt reports feeling much better today. S/P LHC yesterday with 2/2 patent bypass grafts. Denies chest pain. 2 nights ago had episode of A-Fib with RVR. Was dig loaded, since converted back to SR without further recurrence of PAF. Objective Vital Signs, Last 4 Hours Temp Pulse Resp BP Pulse Ox 03/17/17 11:03 97.9 F 63 13 155/72 92 Vital Signs Temp Pulse Resp BP Pulse Ox 03/17/17 11:03 97.9 F 63 13 155/72 92 03/17/17 07:12 98.2 F 63 14 155/75 90 03/17/17 03:58 98.1 F 65 15 124/68 96 03/16/17 23:48 97.5 F L 70 16 163/80 97 03/16/17 19:37 97.8 F 71 17 146/75 92 03/16/17 18:30 98 F 69 16 148/75 92 03/16/17 18:00 98.2 F 68 16 163/85 94 03/16/17 17:30 97.8 F 68 16 137/69 95 03/16/17 17:15 98.2 F 70 16 165/73 93 03/16/17 17:00 9738 F H 68 16 150/77 92 03/16/17 16:45 97.5 F L 67 16 168/78 92 03/16/17 15:15 97.9 F 18 159/80 03/16/17 15:10 156/79 03/16/17 14:50 157/83 03/16/17 14:35 150/74 03/16/17 14:20 148/77 03/16/17 14:05 150/76 03/16/17 13:50 153/72 03/16/17 13:35 147/79 03/16/17 13:20 153/70 03/16/17 13:05 97.4 F L 18 151/81 Intake and Output 03/16/17 03/17/17 03/17/17 23:59 07:59 15:59 Intake Total 360 / 360 240 / 240 Output Total 200 / 200 150 / 150 220 / 220 Balance 160 / 160 -150 / -150 Intake: Oral 360 / 360 240 / 240 Output: Urine 200 / 200 150 / 150 220 / 220 Other: Meal Dinner Breakfast Percent of Meal Consumed 95% 95% Weight 67.404 kg 67.404 kg Blood Glucose* 221 52 52 Patient Weight 03/17/17 23:59 Weight 67.404 kg General: Conversant, No Apparent Distress HEENT: Atraumatic, Normocephaly, Mucus Membranes Moist Neck: No JVD, Normal carotid pulses Cardiac: Reg Rate and Rhythm, Normal S1 and S2, No Murmur Lungs: Normal Breath Sounds, No Wheeze, Rales, Rhonchi Neuro: Alert and responsive, No focal deficits noted Abdomen: Soft, Non-Tender Skin: Other (right femoral access site healing well. No bleeding, hematoma or ecchymosis noted.) Musculoskeletal: No Chest Wall Tenderness Extremities: No Clubbing, No Cyanosis, No Edema, Normal Pulses Results 03/17/17 03:08 03/17/17 03:08 Lab Results 03/17/17 03/17/17 03:08 03:08 WBC 8.6 Hgb 9.4 L Hct 29.9 L Plt Count 331 Sodium 139 Potassium 3.6 Chloride 103 Carbon Dioxide 26 BUN 78 H D Creatinine 2.74 H Glucose 75 Calcium 9.2 Total Bilirubin 0.6 AST 20 ALT 11 Alkaline Phosphatase 126 Short CBC 03/17/17 Range/Units 03:08 WBC 8.6 (4.3-11.1) K/mcL Hgb 9.4 L (12.9-16.9) g/dL Hct 29.9 L (37.5-50.1) % Plt Count 331 (140-400) K/mcL Neutrophils # 5.9 (1.6-8.9) K/mcL BMP 03/17/17 Range/Units 03:08 Sodium 139 (136-145) mEq/L Potassium 3.6 (3.5-4.5) mEq/L Chloride 103 (98-109) mEq/L Carbon Dioxide 26 (19-29) mEq/L BUN 78 H D (8-26) mg/dL Creatinine 2.74 H (0.72-1.25) mg/dL Glucose 75 (70-99) mg/dL Calcium 9.2 (8.6-10.8) mg/dL Liver Function 03/17/17 Range/Units 03:08 Total Bilirubin 0.6 (0.2-1.2) mg/dL AST 20 (5-34) Units/L ALT 11 (0-55) Units/L Alkaline Phosphatase 126 (38-126) Units/L Albumin 2.7 L (3.5-5.0) g/dL Active Medications Aspirin (Aspirin) 81 mg PO DAILY INO Stop: 09/13/17 09:01 Last Admin: 03/17/17 08:49 Dose: 81 mg Atorvastatin Calcium (Lipitor) 20 mg PO HS INO Stop: 09/13/17 09:01 Last Admin: 03/16/17 22:21 Dose: 20 mg Clopidogrel Bisulfate (Plavix) 75 mg PO DAILY INO Stop: 09/13/17 09:01 Last Admin: 03/17/17 08:49 Dose: 75 mg Dextrose/Water (Dextrose 50% (Syg)) 25 ml IVP AD PRN PRN Reason: Hypoglycemia Stop: 09/13/17 09:37 Last Admin: 03/16/17 02:50 Dose: 25 ml Glucagon (Glucagen) 1 mg IM ONCE PRN PRN Reason: Hypoglycemia Stop: 09/13/17 09:37 Glucose (Gluctose) 15 gm PO ONCE PRN PRN Reason: Hypoglycemia Stop: 09/13/17 09:37 Last Admin: 03/16/17 12:13 Dose: 15 gm Glucose (Gluctose) 30 gm PO ONCE PRN PRN Reason: Hypoglycemia Stop: 09/13/17 09:37 Last Admin: 03/16/17 06:17 Dose: 30 gm Heparin Sodium (Porcine) (Heparin) 5,000 unit SQ Q12HCO INO Stop: 09/14/17 18:01 Last Admin: 03/17/17 05:20 Dose: Not Given Dextrose (Dextrose 5%) 1,000 mls @ 100 mls/hr IVC .Q10H PRN PRN Reason: HYPOGLYCEMIA Stop: 09/13/17 09:37 Sodium Chloride (0.9 % Sodium Chloride) 250 mls @ 937.5 mls/hr IVC .Q16M PRN PRN Reason: Hypotension Stop: 09/14/17 12:13 Insulin Detemir (Levemir) 10 unit SQ HS INO Stop: 09/16/17 21:01 Insulin Human Lispro (Humalog) 0 units SQ TIDAC INO PRN Reason: Protocol Stop: 09/13/17 16:31 Last Admin: 03/17/17 11:59 Dose: Not Given Insulin Human Lispro (Humalog) 0 units SQ HS INO PRN Reason: Protocol Stop: 09/14/17 21:01 Last Admin: 03/16/17 22:22 Dose: Not Given Isosorbide Mononitrate (Imdur) 30 mg PO DAILY [facility] Stop: 09/16/17 09:01 Last Admin: 03/17/17 08:49 Dose: 30 mg Metoprolol Succinate (Toprol Xl) 50 mg PO DAILY [facility] Stop: 09/13/17 13:01 Last Admin: 03/17/17 08:49 Dose: 50 mg Morphine Sulfate (Morphine Sulfate) 2 mg IVP Q2H PRN PRN Reason: Chest Pain Stop: 09/14/17 17:59 Last Admin: 03/16/17 00:29 Dose: 2 mg - Imaging and Cardiology Echo: report reviewed Cardiac cath: report reviewed - EKG Interpretation EKG results cardiology: personally reviewed (A-Fib RVR 2 nights ago, now SR.), other (24 hour tele AVG HR 67, no significant pauses or arrhythmias.) Consult Discharge Plan - Plan Referrals: Betsy Salvador CNP [Primary Care Provider] - 03/22/17 1:40 pm ()
--- NOTE | 2017-03-17 17:55 | Internal Med Progress Note ---
Date of Encounter: 03/17/17 Time of Encounter: 10:00 - Assessment and plan (1) DVT prophylaxis Current Visit: Yes Status: Acute Assessment and plan: Started coumadin (2) Acute on chronic systolic CHF (congestive heart failure), NYHA class 2 Current Visit: No Status: Acute Assessment and plan: Probably due to ischemic cardiomyopathy. LHC done. Lasix one dose given by cardio. After HD. Looks euvolemic now. - Cont HD for fluid overload. - On BB, no KENIA inhibitor or ARB because of ORESTES (3) CAD (coronary artery disease) Current Visit: Yes Status: Chronic Assessment and plan: S/P CABG. continue home medications, d/c plavix as coumadin started, per cardio. Qualifiers: Coronary Disease-Associated Artery/Lesion type: [place] artery [place] vs. transplanted heart: [place] heart Associated angina: without angina Qualified Code(s): I25.10 - Atherosclerotic heart disease of [place] coronary artery without angina pectoris (4) Ischemic cardiomyopathy Current Visit: No Status: Chronic Assessment and plan: Decreased the LVEF. Consider ischemic cardiomyopathy. Cont ASA, BB, Statin. (5) Type 1 diabetes mellitus Current Visit: Yes Status: Acute Assessment and plan: Continue basal and sliding-scale insulin. Monitor glucose level. Hypoglycemia noticed. Insulin dose further adjusted to Levemir 10 units qhs Qualifiers: Diabetes mellitus complication status: with circulatory complication Diabetes mellitus complication detail: with other circulatory complications Qualified Code(s): E10.59 - Type 1 diabetes mellitus with other circulatory complications (6) Chest pain Current Visit: Yes Status: Acute Assessment and plan: Chest pain improved. Cardiology consult saw Patient, consider atypical pain. Continue medication for CAD. Pain medication for chest pain. LHC done. Qualifiers: Chest pain type: unspecified Qualified Code(s): R07.9 - Chest pain, unspecified (7) Chronic kidney disease, stage IV (severe) Current Visit: No Status: Chronic Assessment and plan: HD started. F/U renal function. Pt may need intermediate HD afterwards. (8) PAF (paroxysmal atrial fibrillation) Current Visit: Yes Status: Acute Assessment and plan: Happened on 03/16 1am. New onset A Fib. Convert to sinus now. Cardio input appreciated. Started coumadin. - Time Spent With Patient 25 - 35 minutes - Subjective Interval history: Patient is a 51-year-old male admitted for chest pain. Past medical history is significant for CHF, CVA, diabetes, hyperlipidemia, hypertension, CKD. He was seen and examined. He denies chest pain today. Had HD and LHC yesterday , found patent bypass. Pt had PAF on 03/16, now sinus rhythm, coumadin started per cardio recommendation. Cont f/u renal function and HD if necessary, nephro to follow. - Constitutional Vitals: Temp Pulse Resp BP Pulse Ox 98.9 F 66 16 140/67 93 03/17/17 15:44 03/17/17 15:44 03/17/17 15:44 03/17/17 15:44 03/17/17 15:44 General appearance: Present: A&O X 3, severe distress (Due to chest pain) - Head Head exam: Present: atraumatic, normocephalic - Eye Eye exam: Present: PERRL, conjuntiva pink, sclera anicteric Pupils: Present: PERRL - Neck Neck exam general surgery: Present: supple, trachea midline. Absent: lymphadenopathy - Respiratory Respiratory exam: Present: CTAB. Absent: accessory muscle use, rales, rhonchi, wheezes - Cardiovascular Cardiovascular exam: Present: RRR, +S1, +S2. Absent: diastolic murmur, gallop, rubs, systolic murmur - GI/Abdominal GI/Abdominal exam: Present: normal bowel sounds, soft, no peritoneal signs. Absent: distended, tenderness - Extremities Exam Extremities exam: Present: warm, radial pulses palpable and symetrical. Absent : calf tenderness, cyanotic, pedal edema - Neurological Exam Neurological exam: Present: CN II-XII intact, oriented X3, no focal deficits. Absent: pronater drift, facial droop, speech deficit - Skin Skin exam: Present: dry, intact Internal Medicine: Result - Labs CBC & Chem 7: 03/17/17 03:08 03/17/17 03:08 Labs: Short CBC 03/17/17 Range/Units 03:08 WBC 8.6 (4.3-11.1) K/mcL Hgb 9.4 L (12.9-16.9) g/dL Hct 29.9 L (37.5-50.1) % Plt Count 331 (140-400) K/mcL Neutrophils # 5.9 (1.6-8.9) K/mcL BMP 03/17/17 03:08 Sodium 139 Potassium 3.6 Chloride 103 Carbon Dioxide 26 BUN 78 H D Creatinine 2.74 H Glucose 75 Calcium 9.2 Liver Function 03/17/17 Range/Units 03:08 Total Bilirubin 0.6 (0.2-1.2) mg/dL AST 20 (5-34) Units/L ALT 11 (0-55) Units/L Alkaline Phosphatase 126 (38-126) Units/L Albumin 2.7 L (3.5-5.0) g/dL - ABG Interpretation ABG results: PT/INR, D-dimer PT 13.7 Seconds (9.4-12.1) H 03/14/17 08:26 Consult Discharge Plan - Plan Referrals: Betsy Salvador, NEVIN [Primary Care Provider] - 03/22/17 1:40 pm ()
[2017-03-17] MEDS ORDERED: *HR* Warfarin 5 MG TABLET PO SCH ×2 (18:00)
[2017-03-17] MEDS ORDERED: Warfarin perPT PO PRN (18:00)
[2017-03-17] MEDS ORDERED: *HR* OxyCODONE Immed Rel 5 MG TABLET PO PRN (19:38)
[2017-03-17] MEDS ORDERED: Furosemide 40 MG TABLET PO SCH (21:00)
[2017-03-17] MEDS: Insulin DETEMIR 100 UNIT/ML X5UNITS SQ SCH (21:19)
[2017-03-17] MEDS: Cholecalciferol (D-3) 1,000 UNIT TABLET PO SCH (21:23)
[2017-03-17] MEDS: *HR* Warfarin 5 MG TABLET PO SCH (21:23)
[2017-03-17] MEDS: hydrALAZINE 25 MG TABLET PO SCH (21:23)
[2017-03-18] MEDS ORDERED: Insulin DETEMIR 100 UNIT/ML X5UNITS SQ ONE (00:22)
[2017-03-18 06:46] LABS: Basophils # 0.1 K/mcL (0.0-0.2); Basophils % 1.3 %; Hematocrit 29.2 % (37.5-50.1); Hemoglobin 9.1 g/dL (12.9-16.9); Immature Granulocytes % 0.3 % (0-4); Lymphocytes # 1.3 K/mcL (0.6-4.6); Lymphocytes % 16.3 %; Mean Corpuscular HGB Conc 31.2 g/dL (31.6-35.5); Mean Corpuscular Hemoglobin 25.1 pg (28.0-33.3); Mean Corpuscular Volume 80.7 fL (83.0-100.0); Mean Platelet Volume 10.5 fL (9.4-12.4); Monocytes # 1.2 K/mcL (0.0-1.3); Monocytes % 14.4 %; Neutrophils # 4.5 K/mcL (1.6-8.9); Platelet Count 303 K/mcL (140-400); Red Blood Count 3.62 M/mcL (4.19-5.50); Red Cell Distribution Width 18.8 % (11.5-14.5); Segmented Neutrophils % 55.7 %
[2017-03-18 06:49] LABS: INR 1.2; Prothrombin Time 12.8 Seconds (9.4-12.1)
[2017-03-18 07:01] LABS: Calcium 9.1 mg/dL (8.6-10.8); Potassium 3.6 mEq/L (3.5-4.5)
[2017-03-18] MEDS ORDERED: Furosemide 40 MG TABLET PO SCH (08:00)
[2017-03-18] MEDS: Cholecalciferol (D-3) 1,000 UNIT TABLET PO SCH ×2 (08:03→20:04)
[2017-03-18] MEDS: Aspirin 81 MG TAB.CHEW PO SCH (08:03)
[2017-03-18] MEDS: Metoprolol XL (24 HR) Succ 50 MG TAB.ER.24H PO SCH (08:03)
[2017-03-18] MEDS: Multivit/Ca/Min/Fe/FA 1 TAB TABLET PO SCH (08:03)
[2017-03-18] MEDS: Isosorbide MONOnitrate (24 HR) 30 MG TAB.ER.24H PO SCH (08:03)
[2017-03-18] MEDS: amLODIPine 5 MG TABLET PO SCH (08:03)
[2017-03-18] MEDS: hydrALAZINE 25 MG TABLET PO SCH ×2 (08:04→20:03)
[2017-03-18] MEDS: Insulin LISPRO 300 UNITS/3 ML VIAL SQ SCH ×5 (08:05→20:57)
[2017-03-18] MEDS ORDERED: metOLazone 5 MG TABLET PO SCH (09:00)
--- NOTE | 2017-03-18 09:55 | Nephrology Progress Note ---
Date of Encounter: 03/18/17 Time of Encounter: 09:53 - Assessment and Plan (1) Chronic kidney disease, stage IV (severe) Current Visit: No Status: Chronic The patient has progressive stage IV chronic kidney disease related to diabetic nephropathy. So far the patient's renal function has remained stable following his cardiac catheterization. I recommend that the patient stay in the hospital for 1 more day for continued monitoring of his renal function. If his renal function is stable he can then be discharged home tomorrow. We will follow him up as an outpatient. If his renal function remains stable within the next several weeks with can remove the tunneled dialysis catheter as an outpatient. (2) Chest pain Current Visit: Yes Status: Acute Qualifiers: Chest pain type: unspecified Qualified Code(s): R07.9 - Chest pain, unspecified (3) History of coronary artery bypass graft Current Visit: No Status: Acute (4) CAD (coronary artery disease) Current Visit: Yes Status: Chronic Qualifiers: Coronary Disease-Associated Artery/Lesion type: [place] artery [place] vs. transplanted heart: [place] heart Associated angina: without angina Qualified Code(s): I25.10 - Atherosclerotic heart disease of [place] coronary artery without angina pectoris (5) Ischemic cardiomyopathy Current Visit: No Status: Chronic Subjective Principal diagnosis: Renal failure, CAD, chest pain Interval history: Patient says he feels well. He denies any shortness of breath or chest pain. His creatinine today is essentially the same as yesterday. Urine output is satisfactory. Objective - Vital Signs Vital signs: Vital Signs Temp Pulse Resp BP Pulse Ox 03/18/17 07:28 97.8 F 62 16 144/72 100 03/18/17 05:35 97.9 F 63 16 130/62 96 03/17/17 21:08 99.1 F 87 15 130/66 96 03/17/17 15:44 98.9 F 66 16 140/67 93 03/17/17 11:03 97.9 F 63 13 155/72 92 Intake and Output 03/17/17 03/18/17 03/18/17 23:59 07:59 15:59 Intake Total 360 / 360 100 / 100 240 / 240 Output Total 800 / 800 400 / 400 Balance -440 / -440 -300 / -300 240 / 240 Intake: Oral 360 / 360 100 / 100 240 / 240 Output: Urine 800 / 800 400 / 400 Other: Meal Dinner Breakfast Percent of Meal Consumed 100% 100% Weight 68.674 kg Blood Glucose* 114 135 Patient Weight 03/18/17 23:59 Weight 68.674 kg - General Appearance Exam: Patient is alert and in no acute distress. Lung sounds otherwise clear. Heart regular rate and rhythm. Abdomen is distended with ascites. There is minimal lower extremity swelling. There is a tunnel dialysis catheter in the right chest. - Lab 03/18/17 06:15 03/18/17 06:15 Most recent lab results Calcium 9.1 mg/dL (8.6-10.8) 03/18/17 06:15 Consult Discharge Plan - Plan Referrals: Betsy Salvador CNP [Primary Care Provider] - 03/22/17 1:40 pm ()
[2017-03-18] MEDS: *HR* Warfarin 5 MG TABLET PO SCH (17:03)
--- NOTE | 2017-03-18 17:30 | Internal Med Progress Note ---
Date of Encounter: 03/18/17 Time of Encounter: 10:00 - Assessment and plan (1) DVT prophylaxis Current Visit: Yes Status: Acute Assessment and plan: Started coumadin (2) Acute on chronic systolic CHF (congestive heart failure), NYHA class 2 Current Visit: No Status: Acute Assessment and plan: Probably due to ischemic cardiomyopathy. LHC done. Lasix one dose given by cardio. After HD. Looks euvolemic now. - Cont HD as needed for fluid overload. - On BB, no KENIA inhibitor or ARB because of ORESTES - Hold further diuretics now b/o poor renal function. (3) CAD (coronary artery disease) Current Visit: Yes Status: Chronic Assessment and plan: S/P CABG. continue home medications, d/c plavix as coumadin started, per cardio. Qualifiers: Coronary Disease-Associated Artery/Lesion type: [place] artery [place] vs. transplanted heart: [place] heart Associated angina: without angina Qualified Code(s): I25.10 - Atherosclerotic heart disease of [place] coronary artery without angina pectoris (4) Ischemic cardiomyopathy Current Visit: No Status: Chronic Assessment and plan: Decreased the LVEF. Consider ischemic cardiomyopathy. Cont ASA, BB, Statin. (5) Type 1 diabetes mellitus Current Visit: Yes Status: Acute Assessment and plan: Continue basal and sliding-scale insulin. Monitor glucose level. Hypoglycemia noticed. Insulin dose further adjusted to Levemir 10 units qhs Qualifiers: Diabetes mellitus complication status: with circulatory complication Diabetes mellitus complication detail: with other circulatory complications Qualified Code(s): E10.59 - Type 1 diabetes mellitus with other circulatory complications (6) Chest pain Current Visit: Yes Status: Acute Assessment and plan: Denies further chest pain. Cardiology consult saw Patient, consider atypical pain. Continue medication for CAD. Pain medication for chest pain. LHC done. Qualifiers: Chest pain type: unspecified Qualified Code(s): R07.9 - Chest pain, unspecified (7) Chronic kidney disease, stage IV (severe) Current Visit: No Status: Chronic Assessment and plan: HD started once. F/U renal function. May not need roving winder HD if renal function stable. (8) PAF (paroxysmal atrial fibrillation) Current Visit: Yes Status: Acute Assessment and plan: Happened on 03/16 1am. New onset A Fib. Convert to sinus now. Cardio input appreciated. Started coumadin. - Time Spent With Patient 25 - 35 minutes - Subjective Interval history: Patient is a 51-year-old male admitted for chest pain. Past medical history is significant for CHF, CVA, diabetes, hyperlipidemia, hypertension, CKD. He was seen and examined. He denies chest pain today. Had HD and LHC yesterday , found patent bypass. Pt had PAF on 03/16, now sinus rhythm, coumadin started per cardio recommendation. Cont f/u renal function. D/W nephrology consult, if patient's renal function stable , will discharge patient home and continue follow-up as outpatient. - Constitutional Vitals: Temp Pulse Resp BP Pulse Ox 97.6 F 65 16 133/71 98 03/18/17 15:23 03/18/17 15:23 03/18/17 15:23 03/18/17 15:23 03/18/17 15:23 General appearance: Present: A&O X 3, no acute distress - Head Head exam: Present: atraumatic, normocephalic - Eye Eye exam: Present: PERRL, conjuntiva pink, sclera anicteric Pupils: Present: PERRL - Neck Neck exam general surgery: Present: supple, trachea midline. Absent: lymphadenopathy - Respiratory Respiratory exam: Present: CTAB. Absent: accessory muscle use, rales, rhonchi, wheezes - Cardiovascular Cardiovascular exam: Present: RRR, +S1, +S2. Absent: diastolic murmur, gallop, rubs, systolic murmur - GI/Abdominal GI/Abdominal exam: Present: normal bowel sounds, soft, no peritoneal signs. Absent: distended, tenderness - Extremities Exam Extremities exam: Present: warm, radial pulses palpable and symetrical. Absent : calf tenderness, cyanotic, pedal edema - Neurological Exam Neurological exam: Present: CN II-XII intact, oriented X3, no focal deficits. Absent: pronater drift, facial droop, speech deficit - Skin Skin exam: Present: dry, intact Internal Medicine: Result - Labs CBC & Chem 7: 03/18/17 06:15 03/18/17 06:15 Labs: Short CBC 03/18/17 Range/Units 06:15 WBC 8.0 (4.3-11.1) K/mcL Hgb 9.1 L (12.9-16.9) g/dL Hct 29.2 L (37.5-50.1) % Plt Count 303 (140-400) K/mcL Neutrophils # 4.5 (1.6-8.9) K/mcL BMP 03/18/17 06:15 Sodium 136 Potassium 3.6 Chloride 104 Carbon Dioxide 23 BUN 81 H Creatinine 2.73 H Glucose 131 H Calcium 9.1 - ABG Interpretation ABG results: PT/INR, D-dimer PT 12.8 Seconds (9.4-12.1) H 03/18/17 06:15 Consult Discharge Plan - Plan Referrals: Betsy Salvador, NEVIN [Primary Care Provider] - 03/22/17 1:40 pm ()
[2017-03-18] MEDS: Insulin DETEMIR 100 UNIT/ML X5UNITS SQ SCH (21:00)
[2017-03-19 03:59] LABS: Basophils # 0.1 K/mcL (0.0-0.2); Basophils % 0.9 %; Eosinophils # 0.8 K/mcL (0.0-0.6); Eosinophils % 9.6 %; Hematocrit 27.8 % (37.5-50.1); Hemoglobin 8.7 g/dL (12.9-16.9); Immature Granulocytes % 0.2 % (0-4); Lymphocytes # 1.1 K/mcL (0.6-4.6); Lymphocytes % 13.2 %; Mean Corpuscular HGB Conc 31.3 g/dL (31.6-35.5); Mean Corpuscular Hemoglobin 24.6 pg (28.0-33.3); Mean Corpuscular Volume 78.5 fL (83.0-100.0); Mean Platelet Volume 10.8 fL (9.4-12.4); Monocytes % 12.1 %; Neutrophils # 5.5 K/mcL (1.6-8.9); Platelet Count 308 K/mcL (140-400); Red Blood Count 3.54 M/mcL (4.19-5.50); Red Cell Distribution Width 18.2 % (11.5-14.5)
[2017-03-19 04:08] LABS: INR 1.4; Prothrombin Time 15.2 Seconds (9.4-12.1)
[2017-03-19 04:13] LABS: Albumin 2.8 g/dL (3.5-5.0); Albumin/Globulin Ratio 0.7 (1.1-2.2); Bilirubin,Total 0.6 mg/dL (0.2-1.2); Calcium 9.2 mg/dL (8.6-10.8); Globulin 3.9 g/dL (2.4-3.5); Potassium 3.7 mEq/L (3.5-4.5); Total Protein 6.7 g/dL (6.0-8.3)
--- NOTE | 2017-03-19 07:49 | Nephrology Progress Note ---
Date of Encounter: 03/19/17 Time of Encounter: 07:47 - Assessment and Plan (1) Chronic kidney disease, stage IV (severe) Current Visit: No Status: Chronic The patient has progressive stage IV chronic kidney disease related to diabetic nephropathy. So far the patient's renal function has remained stable following his cardiac catheterization. From a renal perspective the patient can be discharged home. We will see him in the office within the next week or so. We will monitor his renal function as an outpatient. If his renal function eventually does worsen we will get him set up on chronic outpatient dialysis. (2) Chest pain Current Visit: Yes Status: Acute Qualifiers: Chest pain type: unspecified Qualified Code(s): R07.9 - Chest pain, unspecified (3) History of coronary artery bypass graft Current Visit: No Status: Acute (4) CAD (coronary artery disease) Current Visit: Yes Status: Chronic Qualifiers: Coronary Disease-Associated Artery/Lesion type: [place] artery [place] vs. transplanted heart: [place] heart Associated angina: without angina Qualified Code(s): I25.10 - Atherosclerotic heart disease of [place] coronary artery without angina pectoris (5) Ischemic cardiomyopathy Current Visit: No Status: Chronic Subjective Principal diagnosis: Renal failure, CAD, chest pain Interval history: The patient denies any new complaints. His renal function is relatively stable. Creatinine is 2.91. Objective - Vital Signs Vital signs: Vital Signs Temp Pulse Resp BP Pulse Ox 03/19/17 03:34 97.6 F 67 18 129/56 94 03/18/17 23:08 97.3 F L 67 17 151/74 96 03/18/17 18:35 98 F 64 16 138/68 96 03/18/17 15:23 97.6 F 65 16 133/71 98 03/18/17 11:49 97.9 F 63 16 149/72 99 Intake and Output 03/18/17 03/18/17 03/19/17 15:59 23:59 07:59 Intake Total 480 / 480 0 / 0 Output Total 500 / 500 600 / 600 Balance -20 / -20 -600 / -600 Intake: Oral 480 / 480 0 / 0 Output: Urine 500 / 500 600 / 600 Other: Meal Lunch Dinner Percent of Meal Consumed 100% 0% Weight 68.67 kg 68.402 kg Blood Glucose* 146 196 Patient Weight 03/19/17 23:59 Weight 68.402 kg - General Appearance Exam: Patient is alert and oriented. He is in no acute distress. Lungs clear to auscultation. Heart regular rate and rhythm. Abdomen is distended with ascites. There is minimal lower extremity swelling. There is a tunnel dialysis catheter in the right chest. - Lab 03/19/17 03:27 03/19/17 03:27 Most recent lab results Calcium 9.2 mg/dL (8.6-10.8) 03/19/17 03:27 Consult Discharge Plan - Plan Referrals: Betsy Salvador CNP [Primary Care Provider] - 03/22/17 1:40 pm ()
[2017-03-19 08:00] VITALS: BP 149/73
[2017-03-19] MEDS: Metoprolol XL (24 HR) Succ 50 MG TAB.ER.24H PO SCH (08:06)
[2017-03-19] MEDS: amLODIPine 5 MG TABLET PO SCH (08:06)
[2017-03-19] MEDS: hydrALAZINE 25 MG TABLET PO SCH (08:07)
[2017-03-19] MEDS: Multivit/Ca/Min/Fe/FA 1 TAB TABLET PO SCH (08:07)
[2017-03-19] MEDS: Cholecalciferol (D-3) 1,000 UNIT TABLET PO SCH (08:07)
[2017-03-19] MEDS: Isosorbide MONOnitrate (24 HR) 30 MG TAB.ER.24H PO SCH (08:07)
[2017-03-19] MEDS: Aspirin 81 MG TAB.CHEW PO SCH (08:07)
[2017-03-19] MEDS: Insulin LISPRO 300 UNITS/3 ML VIAL SQ SCH (08:08)
--- NOTE | 2017-03-19 10:30 | Discharge Summary ---
Date of Encounter: 03/19/17 Time of Encounter: 09:30 - Discharge Diagnosis (1) DVT prophylaxis Priority: Secondary Status: Acute (2) Acute on chronic systolic CHF (congestive heart failure), NYHA class 2 Priority: Primary Status: Acute (3) CAD (coronary artery disease) Priority: Primary Status: Chronic Qualifiers: Coronary Disease-Associated Artery/Lesion type: [place] artery [place] vs. transplanted heart: [place] heart Associated angina: without angina Qualified Code(s): I25.10 - Atherosclerotic heart disease of [place] coronary artery without angina pectoris (4) Ischemic cardiomyopathy Priority: Primary Status: Chronic (5) Type 1 diabetes mellitus Priority: Secondary Status: Acute Qualifiers: Diabetes mellitus complication status: with circulatory complication Diabetes mellitus complication detail: with other circulatory complications Qualified Code(s): E10.59 - Type 1 diabetes mellitus with other circulatory complications (6) Chest pain Priority: Primary Status: Acute Qualifiers: Chest pain type: unspecified Qualified Code(s): R07.9 - Chest pain, unspecified (7) Chronic kidney disease, stage IV (severe) Priority: Primary Status: Chronic (8) PAF (paroxysmal atrial fibrillation) Priority: Primary Status: Acute - Discharge Medications Prescriptions: Isosorbide MONOnitrate (24 HR) [Imdur] 30 mg PO DAILY #30 tab.er.24h Warfarin [Coumadin] 5 mg PO DAILY@1800 #7 tablet Home Medications: Amlodipine Besylate 10 mg PO DAILY 06/03/16 [History] Aspirin 81 mg PO DAILY 06/03/16 [History] Cholecalciferol (D-3) [Vitamin D] 1,000 unit PO BID 06/03/16 [History] Docusate [Colace] 100 mg PO DAILY PRN 06/03/16 [History] Insulin ASPART [Novolog Flexpen] 18 - 30 unit SQ TIDAC 06/03/16 [History] Insulin Glargine,Hum.rec.anlog [Lantus Solostar] 24 unit SQ HS 06/03/16 [History ] Lovastatin 80 mg PO DAILY 06/03/16 [History] Multivitamin [Multi-Day Vitamins] 1 each PO DAILY 06/03/16 [History] Sodium Bicarbonate 1,300 mg PO DAILY 06/03/16 [History] hydrALAZINE [HydrALAZINE] 25 mg PO BID 06/03/16 [History] Metoprolol XL (24 HR) Succ [Toprol Xl] 50 mg PO DAILY #30 tab.er.24h 06/07/16 [ Rx] Tamsulosin [Flomax] 0.4 mg PO DAILY #30 capsule 06/07/16 [Rx] Oxycodone HCl [Oxaydo] 5 mg PO Q4H PRN 03/14/17 [History] Oxygen 3.5 l NS HS 03/14/17 [History] metOLazone [Zaroxolyn] 5 mg PO DAILY 03/14/17 [History] Isosorbide MONOnitrate (24 HR) [Imdur] 30 mg PO DAILY #30 tab.er.24h 03/19/17 [ Rx] Potassium Chloride [K-Tab ER] 10 meq PO DAILY #0 03/19/17 [Rx] Warfarin [Coumadin] 5 mg PO DAILY@1800 #7 tablet 03/19/17 [Rx] Allergies/Adverse Reactions: Allergies DERMABOND Adverse Reaction (Uncoded 02/10/17 10:01) Itching Procedures/tests Complete & Pending: Procedures Performed prior 72 hours Category Date Time Status CL Cardiac Catheterization [CL] Routine Laundry Housekeeping Aide 03/16/17 09:41 Completed - Notes to Outpatient Provider 1. Pt has CHF exacerbation, HD once by nephro, now presents euvolemic. Urine output is good (1500ml per day). Lasix was on hold during hospitalization due to ORESTES. Will continue hold home medication lasix, pt is on metolazone 5mg po daily only for diuretic. His potassium is also decreased frome 20 mEq per day to 10 mEq per day as Lasix on hold. Please follow CHF volume status and potassium level, and renal function, and adjust medication accordingly. 2. Pt has systolic CHF, on beta regine, not on ACEI or ARB due to ORESTES. On imdur and hydralazine. 3. Pt developped PAF during hospitalization, cardio saw pt suggest start coumadin 5mg po daily, please f/u PT/INR(Prescribed on Tuesday03/22/17), plz follow. Date of admission: 03/14/17 10:40 Primary care physician: Betsy Salvador CNP Consults: 03/15/17 12:11 Consult to Interventional Radiology [CONS] Routine Consulting Provider: Radiology Interventional Cols Reason for Consult: place tunneled dialysis catheter Time Notified: 12:12 Call Completed: No 03/15/17 12:15 Consult to Dialysis [CONS] ONCE Discharging clinician: Kd Hopkins Anticipated date of discharge: 03/19/17 - Patient Status Disposition: Home, Self-Care Condition: Good Functional capacity at discharge: uses cane/walker Overall status at discharge: patient is back to baseline - Discharge Instructions Follow Up With: Betsy Salvador CNP [Primary Care Provider] - 03/22/17 1:40 pm () - Diet and Activity Activity: increase activity as tolerated Diet: diabetic diet, low fat, low cholesterol, low salt diet Interval History: Mr. Watson is a 51 year old male with past medical history significant for CAD status post CABG, combined systolic and diastolic heart failure, liver cirrhosis and chronic renal insufficiency who presented to the hospital for chest pain. Patient states that chest pain started abruptly at 4:00 this morning, woke him up from sleep, was precordial, severe, had no aggravating or alleviating factors. He was evaluated in the emergency department and was treated with IV fentanyl which provided some relief. During my interview he states that the chest pain is back at 9/10, in the precordial area radiating to the back and left shoulder, associated with nausea. Workup in the emergency department was pertinent for troponin of 0.04, creatinine of 3.96. Chest x-ray revealed pulmonary congestion. Hospital course: Mr. Watson is a 51 year old male admitted for chest pain, shortness of breath, and worsening renal function. Patient was diagnosed as CHF exacerbation as his LVEF is 40%. Cardio and nephro consult called. Patient was considered ischemic Cardiomyopathy and had LHC.. Prior to LHC, he was placed on permacathe and had one HD. LHC reveals patent bypass graft, no intervention. Pt was monitored for two days, renal function generally stable. Pt has no further chest pain and SOB has improved to his baseline. Pt developped PAF during hospitalization, coumadin started. Pt will discharge home and f/u with PCP, cardio, anticoagulation clinic, and nephrology as outpatient. Pt was seen and examined, he is awake, alert, denies chest pain or SOB. SpO2 95 % on 2.5 L NC O2. Pt uses home O2 already before admission and has O2 at home. Vitals are stable. Regarding his diuretics, since ORESTES his lasix was on hold during hospitalization. I have noticed his urine output is good (1500ml/day) on only his home med metolazone 5mg po daily, will continue hold lasix at this point and may restart after PCP or cardio evaluation upon outpatient follow up. Risk and benefit discussed with pt, he verbals understanding and agrees. He promise strict low sodium diet to avoid CHF exacerbation. - Time Spent with Patient Total time spent providing and/or coordinating discharge services: 40 min Greater than 30 minutes - Constitutional Vitals: Temp Pulse Resp BP Pulse Ox 98.0 F 66 16 149/73 96 03/19/17 07:59 03/19/17 07:59 03/19/17 07:59 03/19/17 07:59 03/19/17 07:59 General appearance: Present: A&O X 3, no acute distress - Head Head exam: Present: atraumatic, normocephalic - Eye Eye exam: Present: PERRL, conjuntiva pink, sclera anicteric Pupils: Present: PERRL - Neck Neck exam general surgery: Present: supple, trachea midline. Absent: lymphadenopathy - Respiratory Respiratory exam: Present: CTAB. Absent: accessory muscle use, rales, rhonchi, wheezes - Cardiovascular Cardiovascular exam: Present: RRR, +S1, +S2. Absent: diastolic murmur, gallop, rubs, systolic murmur - GI/Abdominal GI/Abdominal exam: Present: normal bowel sounds, soft, no peritoneal signs. Absent: distended, tenderness - Extremities Exam Extremities exam: Present: warm, radial pulses palpable and symetrical. Absent : calf tenderness, cyanotic, pedal edema - Neurological Exam Neurological exam: Present: CN II-XII intact, oriented X3, no focal deficits. Absent: pronater drift, facial droop, speech deficit - Skin Skin exam: Present: dry, intact
== END 2017-03-19 12:27 | disposition home or self-care (01) | DRG 286 ==
LOC: EMEROO 04:40 → 2ANU 04:40 → SUATTDRO 10:40
PROVIDERS: ADMIT Hospitalist; ATTEND Internal Medicine
PROC: IRPERMA (2017-03-15 13:00)

== ENCOUNTER 2017-03-21 07:17 | Observation (INO) ==
[2017-03-21] MEDS ORDERED: 0.9 % Sodium Chloride 1,000 ML IVC ONE (07:44)
[2017-03-21] MEDS ORDERED: *HR* Metoprolol 5 MG/5 ML VIAL IVP ONE (07:44)
--- NOTE | 2017-03-21 07:47 | Emergency Department Note ---
Disposition Clinical Impression: PAF (paroxysmal atrial fibrillation) Disposition: Admitted As Inpatient Condition: Fair Time of Disposition: 13:43 Arrhythmia/Palpitations HPI - General Chief Complaint: ED Arrhythmia/Palpitations Stated Complaint: afib Time Seen by Provider: 03/21/17 07:31 Source: patient Limitations: no limitations Nursing Notes Reviewed: Yes Vital Signs Reviewed: Yes - History of Present Illness HPI Narrative: 51-year-old male that had a history of idiopathic cardiomyopathy, with an EF of 40%, heart failure, diabetes, hypertension, CAD, and newly diagnosed paroxysmal atrial fibrillation, this was diagnosed one week ago patient was given Coumadin and started on a beta regine, patient presents today after an episode of atrial fibrillation this started a few hours prior to arrival. Patient states that he felt his heart racing, he felt some shortness of breath, but he denies any chest pain at this time. Pt Subjective Complaint: rapid heart beat Onset (ago): hour(s) Duration: intermittent Severity: mild, similar to previous episodes Context: occurred during rest Arrhythmia History: atrial fibrillation Associated symptoms: Reports: shortness of breath. Denies: chest pain, syncope , near-syncope, nausea, vomiting, paresthesias - Related Data Home Medications Medication Instructions Recorded Confirmed Amlodipine Besylate 10 mg PO DAILY 06/03/16 03/21/17 Aspirin 81 mg PO DAILY 06/03/16 03/21/17 Cholecalciferol (D-3) [Vitamin D] 1,000 unit PO BID 06/03/16 03/21/17 Docusate [Colace] 100 mg PO DAILY PRN 06/03/16 03/21/17 Insulin ASPART [Novolog Flexpen] 18 - 30 unit SQ TIDAC 06/03/16 03/21/17 Insulin Glargine,Hum.rec.anlog 24 unit SQ HS 06/03/16 03/21/17 [Lantus Solostar] Lovastatin 80 mg PO DAILY 06/03/16 03/21/17 Multivitamin [Multi-Day Vitamins] 1 each PO DAILY 06/03/16 03/21/17 Sodium Bicarbonate 1,300 mg PO DAILY 06/03/16 03/21/17 hydrALAZINE [HydrALAZINE] 25 mg PO BID 06/03/16 03/21/17 Oxycodone HCl [Oxaydo] 5 mg PO Q4H PRN 03/14/17 03/21/17 Oxygen 3.5 l NS HS 03/14/17 03/21/17 metOLazone [Zaroxolyn] 5 mg PO DAILY 03/14/17 03/21/17 Previous Rx's Medication Instructions Recorded Metoprolol XL (24 HR) Succ [Toprol 50 mg PO DAILY #30 tab.er.24h 06/07/16 Xl] Tamsulosin [Flomax] 0.4 mg PO DAILY #30 capsule 06/07/16 Isosorbide MONOnitrate (24 HR) 30 mg PO DAILY #30 tab.er.24h 03/19/17 [Imdur] Potassium Chloride [K-Tab ER] 10 meq PO DAILY #0 03/19/17 Warfarin [Coumadin] 5 mg PO DAILY@1800 #7 tablet 03/19/17 Allergies Allergy/AdvReac Type Severity Reaction Status Date / Time DERMABOND AdvReac Itching Uncoded 03/21/17 07:28 All systems ED: reviewed and negative except as stated. Constitutional: Denies: fever, chills ENT ED: Denies: ear pain, throat pain Cardiovascular: Reports: as per HPI, palpitations, dyspnea on exertion. Denies : orthopnea, edema, syncope Respiratory: Reports: dyspnea. Denies: cough, wheezes Gastrointestinal: Denies: abdominal pain, nausea, vomiting Genitourinary: Denies: urgency, dysuria Musculoskeletal: Denies: back pain, neck pain Integumentary: Denies: rash, abrasion Past Medical History - Past Medical History Attestation: Yes The following information was validated with the patient. Source: patient Medical history: Reports: atrial fibrillation, cardiomyopathy, CHF, coronary artery disease, CVA, diabetes, hyperlipidemia, hypertension, myocardial infarction, peripheral artery disease, renal disease Surgical history: Reports: coronary bypass (CABG) Psychiatric history: Reports: no psych history - Social History Smoking Status: Former smoker Smokeless Tobacco Status: No Alcohol use: Reports: none Drug use: Reports: none Physical Exam Constitutional: alert and oriented. tachyCardiac heart rate 120s, irregular HEENT: NCAT, sclera anicteric, PERRLA bilaterally, normal external ears bilaterally, nasal septum nondeviated, average dentition, MMM Neck: normal inspection, neck is supple, trachea midline Resp: normal chest inspection, CTA bilaterally, no resp distress CV: irregularly irregular, no m/g/r GI: normal inspection, Soft, NTND, BS present Back: normal inspection, no tenderness to palpation Neuro: A&O3, no gross motor or sensory deficits bilaterally MSK: normal inspection, bilateral UE and LE with normal ROM Skin: No rashes, skin warm, dry, intact - General Limitations: no limitations General appearance: alert, in no apparent distress Course Course Narrative: 51-year-old male with paroxysmal atrial fibrillation and heart failure, presents with symptoms of the same, recurrence of his atrial fibrillation, we will start with 5 of Lopressor and reassess - Reevaluation(s) Reevaluation #1: She was placed on Cardizem drip and bolus, for atrophic fibrillation with RVR, to the hospitalist service Dr. Lyles I given additional dose of Cardizem 120 PO, at the hospitalist request, we will attempt to wean the IV Cardizem. Time: 13:42 Vital Signs Temperature 98.1 F 03/21/17 07:21 Pulse Rate 123 03/21/17 07:21 Respiratory Rate 18 03/21/17 07:21 Blood Pressure 127/82 03/21/17 07:21 O2 Sat by Pulse Oximetry 91 03/21/17 07:21 Temperature 98.1 F 03/21/17 07:21 Pulse Rate 84 03/21/17 12:47 Respiratory Rate 16 03/21/17 13:04 Blood Pressure 137/86 03/21/17 13:04 O2 Sat by Pulse Oximetry 94 03/21/17 12:47 Oxygen Delivery Oxygen Delivery Nasal Cannula Arrhythmia/Palpitations - Differential Diagnosis Differential Diagnosis: Likely: palpitations, anxiety, supraventricular tachycardia, ventricular tachycardia - Medical Records Medical records reviewed: Yes I reviewed the patient's medical records. - Lab Data Lab results reviewed: Yes I reviewed the patient's lab results. Result diagrams: 03/21/17 07:58 03/21/17 07:58 Lab Results 03/21/17 03/21/17 03/21/17 Range/Units 07:58 07:58 07:58 WBC 13.5 H D (4.3-11.1) K/mcL RBC 3.98 L (4.19-5.50) M/mcL Hgb 9.8 L (12.9-16.9) g/dL Hct 31.2 L (37.5-50.1) % MCV 78.4 L (83.0-100.0) fL MCH 24.6 L (28.0-33.3) pg MCHC 31.4 L (31.6-35.5) g/dL RDW 18.5 H (11.5-14.5) % Plt Count 347 (140-400) K/mcL MPV 10.3 (9.4-12.4) fL Immature Gran % 0.4 (0-4) % Seg Neutrophils % 81.1 % Lymphocytes % 4.5 % Monocytes % 9.4 % Eosinophils % 4.2 % Basophils % 0.4 % Neutrophils # 11.0 H (1.6-8.9) K/mcL Lymphocytes # 0.6 (0.6-4.6) K/mcL Monocytes # 1.3 (0.0-1.3) K/mcL Eosinophils # 0.6 (0.0-0.6) K/mcL Basophils # 0.1 (0.0-0.2) K/mcL PT 25.1 H D (9.4-12.1) Seconds INR 2.3 D APTT 40.4 H (26.0-36.0) Seconds Sodium 136 (136-145) mEq/L Potassium 4.6 H (3.5-4.5) mEq/L Chloride 103 (98-109) mEq/L Carbon Dioxide 22 (19-29) mEq/L BUN 93 H (8-26) mg/dL Creatinine 3.01 H (0.72-1.25) mg/dL Est GFR ( Amer) 27 L (> 60) Est GFR (Non-Af Amer) 22 L (> 60) BUN/Creatinine Ratio 31 H (6-26) Glucose 120 H (70-99) mg/dL Calculated Osmolality 312 H (280-300) Calcium 9.4 (8.6-10.8) mg/dL Troponin I (0-0.03) ng/mL TSH 4.719 (0.350-4.840) mcIU/mL 03/21/17 Range/Units 07:58 WBC (4.3-11.1) K/mcL RBC (4.19-5.50) M/mcL Hgb (12.9-16.9) g/dL Hct (37.5-50.1) % MCV (83.0-100.0) fL MCH (28.0-33.3) pg MCHC (31.6-35.5) g/dL RDW (11.5-14.5) % Plt Count (140-400) K/mcL MPV (9.4-12.4) fL Immature Gran % (0-4) % Seg Neutrophils % % Lymphocytes % % Monocytes % % Eosinophils % % Basophils % % Neutrophils # (1.6-8.9) K/mcL Lymphocytes # (0.6-4.6) K/mcL Monocytes # (0.0-1.3) K/mcL Eosinophils # (0.0-0.6) K/mcL Basophils # (0.0-0.2) K/mcL PT (9.4-12.1) Seconds INR APTT (26.0-36.0) Seconds Sodium (136-145) mEq/L Potassium (3.5-4.5) mEq/L Chloride (98-109) mEq/L Carbon Dioxide (19-29) mEq/L BUN (8-26) mg/dL Creatinine (0.72-1.25) mg/dL Est GFR ( Amer) (> 60) Est GFR (Non-Af Amer) (> 60) BUN/Creatinine Ratio (6-26) Glucose (70-99) mg/dL Calculated Osmolality (280-300) Calcium (8.6-10.8) mg/dL Troponin I 0.03 (0-0.03) ng/mL TSH (0.350-4.840) mcIU/mL - Radiology Data Radiology results reviewed: Yes I reviewed the patient's radiology results. Lab Results 03/21/17 03/21/17 03/21/17 Range/Units 07:58 07:58 07:58 WBC 13.5 H D (4.3-11.1) K/mcL RBC 3.98 L (4.19-5.50) M/mcL Hgb 9.8 L (12.9-16.9) g/dL Hct 31.2 L (37.5-50.1) % MCV 78.4 L (83.0-100.0) fL MCH 24.6 L (28.0-33.3) pg MCHC 31.4 L (31.6-35.5) g/dL RDW 18.5 H (11.5-14.5) % Plt Count 347 (140-400) K/mcL MPV 10.3 (9.4-12.4) fL Immature Gran % 0.4 (0-4) % Seg Neutrophils % 81.1 % Lymphocytes % 4.5 % Monocytes % 9.4 % Eosinophils % 4.2 % Basophils % 0.4 % Neutrophils # 11.0 H (1.6-8.9) K/mcL Lymphocytes # 0.6 (0.6-4.6) K/mcL Monocytes # 1.3 (0.0-1.3) K/mcL Eosinophils # 0.6 (0.0-0.6) K/mcL Basophils # 0.1 (0.0-0.2) K/mcL PT 25.1 H D (9.4-12.1) Seconds INR 2.3 D APTT 40.4 H (26.0-36.0) Seconds Sodium 136 (136-145) mEq/L Potassium 4.6 H (3.5-4.5) mEq/L Chloride 103 (98-109) mEq/L Carbon Dioxide 22 (19-29) mEq/L BUN 93 H (8-26) mg/dL Creatinine 3.01 H (0.72-1.25) mg/dL Est GFR ( Amer) 27 L (> 60) Est GFR (Non-Af Amer) 22 L (> 60) BUN/Creatinine Ratio 31 H (6-26) Glucose 120 H (70-99) mg/dL Calculated Osmolality 312 H (280-300) Calcium 9.4 (8.6-10.8) mg/dL Troponin I (0-0.03) ng/mL TSH 4.719 (0.350-4.840) mcIU/mL 03/21/17 Range/Units 07:58 WBC (4.3-11.1) K/mcL RBC (4.19-5.50) M/mcL Hgb (12.9-16.9) g/dL Hct (37.5-50.1) % MCV (83.0-100.0) fL MCH (28.0-33.3) pg MCHC (31.6-35.5) g/dL RDW (11.5-14.5) % Plt Count (140-400) K/mcL MPV (9.4-12.4) fL Immature Gran % (0-4) % Seg Neutrophils % % Lymphocytes % % Monocytes % % Eosinophils % % Basophils % % Neutrophils # (1.6-8.9) K/mcL Lymphocytes # (0.6-4.6) K/mcL Monocytes # (0.0-1.3) K/mcL Eosinophils # (0.0-0.6) K/mcL Basophils # (0.0-0.2) K/mcL PT (9.4-12.1) Seconds INR APTT (26.0-36.0) Seconds Sodium (136-145) mEq/L Potassium (3.5-4.5) mEq/L Chloride (98-109) mEq/L Carbon Dioxide (19-29) mEq/L BUN (8-26) mg/dL Creatinine (0.72-1.25) mg/dL Est GFR ( Amer) (> 60) Est GFR (Non-Af Amer) (> 60) BUN/Creatinine Ratio (6-26) Glucose (70-99) mg/dL Calculated Osmolality (280-300) Calcium (8.6-10.8) mg/dL Troponin I 0.03 (0-0.03) ng/mL TSH (0.350-4.840) mcIU/mL Chest X-Ray 03/21/17 07:44 IMPRESSION: Cardiomegaly and mild pulmonary vascular congestion. D/ / Cheko Worthy MD / Cheko Worthy MD Interpreting Provider: Cheko Worthy MD - EKG Data EKG attestation: Yes I reviewed and interpreted this EKG. Rate: tachycardia Rhythm: A.Fib (Gen. fibrillation rate of 120, no evidence of ST segment elevations or depressions, hyperacute T waves seen on previous EKG from 2016 ) Hyperacute T waves: v2, v3, v4, v5 Interpretation: no acute changes - Core Measures AMI Core Measures Followed: No Attestation Statement - Attestation Attestation: I examined this patient and my medical decision-making was reviewed with the TRANSFUSION AIDE/PA/Advanced Practice Nurse/Resident Physician. I agree with the documented findings, disposition and treatment plan as described except to the extent set forth below. Patient emergency department in A. fib. Patient states he woke up this morning and felt like he was in A. fib. Patient had a similar episode last week when he was admitted. On exam he is awake and alert. Heart tachycardia and irregularly irregular. Plan. Patient in A. fib with RVR. Rate controlled on diltiazem drip. We will admit to medicine. 30 minutes of critical care exclusive of separately billable procedures.
[2017-03-21 08:17] LABS: Activated Partial Thrombo Time 40.4 Seconds (26.0-36.0); Basophils # 0.1 K/mcL (0.0-0.2); Basophils % 0.4 %; Eosinophils # 0.6 K/mcL (0.0-0.6); Eosinophils % 4.2 %; Hematocrit 31.2 % (37.5-50.1); Hemoglobin 9.8 g/dL (12.9-16.9); Immature Granulocytes % 0.4 % (0-4); Lymphocytes # 0.6 K/mcL (0.6-4.6); Lymphocytes % 4.5 %; Mean Corpuscular HGB Conc 31.4 g/dL (31.6-35.5); Mean Corpuscular Hemoglobin 24.6 pg (28.0-33.3); Mean Corpuscular Volume 78.4 fL (83.0-100.0); Mean Platelet Volume 10.3 fL (9.4-12.4); Monocytes # 1.3 K/mcL (0.0-1.3); Monocytes % 9.4 %; Platelet Count 347 K/mcL (140-400); Red Blood Count 3.98 M/mcL (4.19-5.50); Red Cell Distribution Width 18.5 % (11.5-14.5); Segmented Neutrophils % 81.1 %
[2017-03-21 08:21] LABS: Calcium 9.4 mg/dL (8.6-10.8); Potassium 4.6 mEq/L (3.5-4.5)
[2017-03-21 08:23] LABS: INR 2.3; Prothrombin Time 25.1 Seconds (9.4-12.1)
[2017-03-21 08:44] LABS: Thyroid Stimulating Hormone 4.719 mcIU/mL (0.350-4.840)
[2017-03-21] MEDS ORDERED: Diltiazem CD (24hr) 120 MG CAPSULE PO STA (11:11)
[2017-03-21] MEDS ORDERED: Acetaminophen 325 MG TABLET PO PRN (12:32)
[2017-03-21] MEDS ORDERED: *HR* Morphine 2 MG/ML SYRINGE IVP PRN (12:32)
[2017-03-21] MEDS ORDERED: Naloxone 0.4 MG/ML INJ IVP PRN (12:32)
[2017-03-21] MEDS ORDERED: Ondansetron 4 MG/2 ML VIAL IVP PRN (12:32)
[2017-03-21] MEDS ORDERED: *HR* HYDROcodone/Acet 5/325 mg TABLET PO PRN (12:32)
[2017-03-21] MEDS ORDERED: OXYCODONE HCL 5 MG PO PRN (12:34)
[2017-03-21] MEDS ORDERED: D5% in Water 1,000 ML IVC PRN (12:46)
[2017-03-21] MEDS ORDERED: *HR* Dextrose 50 % in Water (Syg) 50 ML SYRINGE IVP PRN (12:46)
[2017-03-21] MEDS ORDERED: Dextrose Gel 15 GM PO PRN ×2 (12:46)
--- NOTE | 2017-03-21 12:52 | Internal Med History&Physical ---
<Mu Gandhi - Last Filed: 03/21/17 14:34> Date of Encounter: 03/21/17 Time of Encounter: 11:45 Assessment and Plan (1) Atrial fibrillation Current visit: Yes Status: Acute Patient presents with chief complaint of heart arrhythmia and palpitations. Patient states that he was hospitalized one week ago and it was discovered that he had a new onset of atrial fibrillation. He was hospitalized for similar symptoms for possible MT. Patient has a history of heart catheterization and 2 CABG approximately four years ago. Cardizem drip initiated in ED and we will continue patient on by mouth Cardizem 120 mg daily. Echo and heart catheterization dated 03/14/17 shows severe three vessel CAD. Will place patient on continuous cardiac telemetry. Qualifiers: Atrial fibrillation type: persistent Qualified Code(s): I48.1 - Persistent atrial fibrillation (2) Leukocytosis Current visit: Yes Status: Acute Patient presents with acute leukocytosis during this admission. WBC is currently 13.5. Patient was hospitalized approximately one week ago for similar symptoms heart arrhythmia/CP/MT. Lactate level ordered, blood and urine cultures ordered, will consider IV antibiotics based on culture results and follow-up labs. Qualifiers: Leukocytosis type: other Qualified Code(s): D72.828 - Other elevated white blood cell count (3) CAD (coronary artery disease) Current visit: Yes Status: Chronic Patient presents with history of chronic coronary artery disease. Will continue aspirin and warfarin therapy. Qualifiers: Coronary Disease-Associated Artery/Lesion type: [place] artery [place] vs. transplanted heart: [place] heart Associated angina: without angina Qualified Code(s): I25.10 - Atherosclerotic heart disease of [place] coronary artery without angina pectoris (4) Chronic kidney disease, stage IV (severe) Current visit: Yes Status: Chronic Presents with history of chronic kidney disease stage IV. We will avoid nephrotoxins, order strict I&O's, monitor daily weight, and fluid restriction diet of 1.5 L daily/renal diet. (5) Diabetes Current visit: Yes Status: Chronic Presents with history of chronic diabetes and insulin dependency. Blood glucose monitoring ACHS and low-dose correction sliding scale/hypoglycemia protocol ordered. 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 Will continue warfarin and aspirin. We will also monitor patient for bleeding. Internal Medicine - H&P: HPI Chief complaint: Heart arrhythmia/Palpitations Admitted From: Emergency Dept Plans for Post Hospital Care: Home History of present illness: Mr. Watson is a 51 year old male who presents from the ED with chief complaint of heart arrhythmia and palpitations. Patient states that he was hospitalized one week ago and it was discovered that he had a new onset of atrial fibrillation. He was hospitalized for similar symptoms for possible MT. Patient has a history of heart catheterization and 2 CABG approximately four years ago. Patient has PermCath which was placed during last hospitalization approximately one week ago. Heart catheterization dated 03/14/17 shows severe three vessel CAD. Mr. Watson has history of cardiomyopathy, CHF, CAD, CVA/TIAs, diabetes, HLD , HTN, MT, PAD, and stage IV CKD (GFR is currently 22). Patient was placed on Cardizem drip in ED due to HR varying from 120s to 130s upon ED admission. Patient's heart rate is currently in the 80s to 90s. Will continue PO Cardizem 120 mg daily and increase if HR is not controlled. TSH is currently within normal range. Patient's current hemoglobin and hematocrit, MCV and MCH are below normal. Will do a folate and B12 to assess for anemia. Patient is at high risk due to recent dx of Afib and cardiac risk factors and will be placed as observation status to assess for changes in HR. Patient's WBC is also elevated at 13.5 without fever or infection symptomology. We will obtain blood and urine cultures to assess for possible infection and monitor WBC in follow-up labs. Lactic acid ordered. Patient to be placed on continuous cardiac telemetry, supplemental O2 titration, continuous SPO2 monitoring, and continuation of patient's home meds. Patient to be monitored closely. Time spent with patient greater than 40 minutes. Past Med Surg Social Fam HX - Past Medical History Source: patient Medical history: atrial fibrillation, cardiomyopathy, CHF, coronary artery disease, CVA, diabetes, hyperlipidemia, hypertension, myocardial infarction, peripheral artery disease, renal disease, TIA Psychiatric history: no psych history - Past Surgical History Surgical History: coronary bypass (CABG), other (Bilateral eye surgery, PAD procedure) - Social History Smoking Status: Former smoker Smokeless Tobacco Status: No Alcohol use: none Drug use: none Current living situation: Home - Independent Activity Level: Independent ambulation Recent Out of Country Travel Within the Last 8 Weeks: No Exposure or Possible Exposure to Illness During Travel: No - Family History Father Adopted: No Family Member Ethnicity: Non- Living Status: Still Living Hx Family Cardiac Disorders: Yes (MT) Hx Family Respiratory Disorders: No Hx Family Cancer: Yes (skin) Hx Family GI Disorders: No Hx Family Endocrine Disorder: No Internal Medicine - H&P: Meds Amlodipine Besylate 10 mg PO DAILY 06/03/16 [History] Aspirin 81 mg PO DAILY 06/03/16 [History] Cholecalciferol (D-3) [Vitamin D] 1,000 unit PO BID 06/03/16 [History] Docusate [Colace] 100 mg PO DAILY PRN 06/03/16 [History] Insulin ASPART [Novolog Flexpen] 18 - 30 unit SQ TIDAC 06/03/16 [History] Insulin Glargine,Hum.rec.anlog [Lantus Solostar] 24 unit SQ HS 06/03/16 [History ] Lovastatin 80 mg PO DAILY 06/03/16 [History] Multivitamin [Multi-Day Vitamins] 1 each PO DAILY 06/03/16 [History] Sodium Bicarbonate 1,300 mg PO DAILY 06/03/16 [History] hydrALAZINE [HydrALAZINE] 25 mg PO BID 06/03/16 [History] Metoprolol XL (24 HR) Succ [Toprol Xl] 50 mg PO DAILY #30 tab.er.24h 06/07/16 [ Rx] Tamsulosin [Flomax] 0.4 mg PO DAILY #30 capsule 06/07/16 [Rx] Oxycodone HCl [Oxaydo] 5 mg PO Q4H PRN 03/14/17 [History] Oxygen 3.5 l NS HS 03/14/17 [History] metOLazone [Zaroxolyn] 5 mg PO DAILY 03/14/17 [History] Isosorbide MONOnitrate (24 HR) [Imdur] 30 mg PO DAILY #30 tab.er.24h 03/19/17 [ Rx] Potassium Chloride [K-Tab ER] 10 meq PO DAILY #0 03/19/17 [Rx] Warfarin [Coumadin] 5 mg PO DAILY@1800 #7 tablet 03/19/17 [Rx] Allergies DERMABOND Adverse Reaction (Uncoded 03/21/17 07:28) Itching All Systems PM: A 10-system review of systems was performed and is negative for pertinent findings except as documented above in the HPI. - Constitutional Constitutional: no chills, no fever(s), no night sweats - EENT Eyes: no change in vision, no discharge, no pain, no photophobia Ears: no ear discharge, no ear pain, no tinnitus Nose, mouth and throat: no dysphagia, no nasal discharge, no neck pain, no sore throat - Cardiovascular Cardiovascular ROS IM: as per HPI, irregular heart rhythm - Respiratory Respiratory: as per HPI, cough - Gastrointestinal Gastrointestinal: no abdominal pain, no diarrhea, no hematemesis, no hematochezia, no melena, no nausea, no vomiting - Genitourinary Genitourinary ROS male: as per HPI - Musculoskeletal Musculoskeletal ROS IM: no numbness, no tingling - Integumentary Integumentary IM: no rash, no unusual bruising - Neurological Neurological ROS: no confusion, no convulsions, no focal weakness, no numbness, no tingling, no tremor(s) - Psychiatric Psychiatric: as per HPI - Endocrine Endocrine IM: as per HPI - Hematologic/Lymphatic Hematologic/Lymphatic: no easy bruising - Allergic/Immunologic Allergic/Immunologic: as per HPI - Constitutional Vitals: Temp Pulse Resp BP Pulse Ox 98.1 F 84 16 124/76 94 03/21/17 07:21 03/21/17 12:47 03/21/17 12:47 03/21/17 12:47 03/21/17 12:47 General appearance: Present: cooperative, A&O X 3, pleasant, no acute distress, answers questions appropriately - Head Head exam: Present: atraumatic, normocephalic - Eye Eye exam: Present: PERRL, conjuntiva pink, sclera anicteric Pupils: Present: PERRL - ENT ENT exam: Present: normal exam, normal external ear exam - Neck Neck exam general surgery: Present: supple, trachea midline. Absent: lymphadenopathy - Respiratory Respiratory exam: Present: CTAB. Absent: accessory muscle use, rales, rhonchi, wheezes - Cardiovascular Cardiovascular exam: Present: irregular rhythm - GI/Abdominal GI/Abdominal exam: Present: normal bowel sounds, soft, no peritoneal signs. Absent: distended, tenderness - Rectal Rectal exam: Present: deferred - Additional comments: exam deferred. - Extremities Exam Extremities exam: Present: warm, radial pulses palpable and symetrical. Absent : calf tenderness, cyanotic, pedal edema - Back Exam Back exam: Present: normal inspection - Neurological Exam Neurological exam: Present: CN II-XII intact, oriented X3, no focal deficits. Absent: pronater drift, facial droop, speech deficit - Psychiatric Psychiatric exam: Present: normal affect, normal mood - Skin Skin exam: Present: dry, intact Internal Med - H&P Results - Labs CBC & Chem 7: 03/21/17 07:58 03/21/17 07:58 Labs: Short CBC 03/21/17 Range/Units 07:58 WBC 13.5 H D (4.3-11.1) K/mcL Hgb 9.8 L (12.9-16.9) g/dL Hct 31.2 L (37.5-50.1) % Plt Count 347 (140-400) K/mcL Neutrophils # 11.0 H (1.6-8.9) K/mcL BMP 03/21/17 07:58 Sodium 136 Potassium 4.6 H Chloride 103 Carbon Dioxide 22 BUN 93 H Creatinine 3.01 H Glucose 120 H Calcium 9.4 Cardiac Enzymes 03/21/17 Range/Units 07:58 Troponin I 0.03 (0-0.03) ng/mL - EKG Data When compared to previous EKG: there is no significant change EKG comments: 03/21/17 13:18 EKG dated 03/16/17 shows atrial fibrillation with rapid ventricular response and left bundle branch block. EKG dated 03/21/17 shows atrial fibrillation with rapid ventricular response, indeterminate axis, intraventricular conduction delay. - Impressions ITS Impressions Chest X-Ray 03/21/17 07:44 IMPRESSION: Cardiomegaly and mild pulmonary vascular congestion. D/ / Cheko Worthy MD / Cheko Worthy MD Interpreting Provider: Cheko Worthy MD - Diagnostic Studies Chest x-ray Additional comments: Impressions Chest X-Ray 03/21/17 07:44 IMPRESSION: Cardiomegaly and mild pulmonary vascular congestion. D/ / Cheko Worthy MD / Cheko Worthy MD Interpreting Provider: Cheko Worthy MD <Katiejesús - Last Filed: 03/21/17 14:49> Date of Encounter: 03/21/17 Time of Encounter: 12:30 Internal Medicine - H&P: HPI History of present illness: Mr. Watson is a 51 year old male All Systems PM: A 10-system review of systems was performed and is negative for pertinent findings except as documented above in the HPI. - Constitutional Vitals: Temp Pulse Resp BP Pulse Ox 98.4 F 96 16 141/82 93 03/21/17 13:51 03/21/17 13:51 03/21/17 13:51 03/21/17 13:51 03/21/17 13:51 Internal Med - H&P Results - Labs CBC & Chem 7: 03/21/17 07:58 03/21/17 07:58 Labs: Cardiac Enzymes 03/21/17 Range/Units 13:36 Troponin I 0.66 H* (0-0.03) ng/mL - Attending Attestation I examined this patient and my medical decision-making was reviewed with the nurse practitioner. I agree with the documented history of present illness, review of systems, past medical, surgical social and family histories and examination findings, disposition and treatment plan as described above except to any changes set forth below. 51-year-old male patient who was recently diagnosed with atrial fibrillation presented to the ER with complaints of palpitations and shortness of breath. He was just discharged from the hospital on 03/19/17 after being treated for acute exacerbation of CHF. During that time he was found to be in A. fib and was started on treatment for this with Coumadin and metoprolol. He says last night he began to develop palpitations and in the ER his heart rate was going up to 130s. He was started on IV Cardizem drip after he was given intravenous 5 mg of Lopressor and 20 mg of IV Cardizem push with no consistent improvement in heart rate. He denies any chest pain. No nausea or vomiting. On examination, patient is tachycardic with an irregularly irregular rhythm. Normal S1 and S2. Breath sounds are normal. No pedal edema. Paroxysmal atrial fibrillation with RVR: Started on IV Cardizem drip. We will also start on oral Cardizem and wean off Cardizem drip as patient's heart rate is improving. On anticoagulation with Coumadin. Mild leukocytosis: No source of infection. We will recheck blood counts in the morning. Also get blood cultures. If patient develops fever or WBC count increases further, consider antibiotics. Chronic kidney disease stage IV: Patient has a permanent catheter but is not on dialysis currently. Coronary artery disease: Patient is on aspirin, beta regine, statin. No chest pain at this time. Diabetes mellitus type 2: Will place patient on diabetic diet. Sliding scale insulin. Monitor blood sugars.
--- NOTE | 2017-03-21 13:58 | Electrocardiograph Report ---
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
[2017-03-21] MEDS: metOLazone 5 MG TABLET PO SCH (15:24)
[2017-03-21] MEDS: Metoprolol XL (24 HR) Succ 50 MG TAB.ER.24H PO SCH (15:25)
[2017-03-21] MEDS: Aspirin 81 MG TAB.CHEW PO SCH (15:25)
[2017-03-21] MEDS: amLODIPine 5 MG TABLET PO SCH (15:37)
--- NOTE | 2017-03-21 15:47 | Electrocardiograph Report ---
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
[2017-03-21] MEDS: Insulin LISPRO 300 UNITS/3 ML VIAL SQ SCH ×2 (17:11→21:40)
[2017-03-21] MEDS ORDERED: *HR* Warfarin 5 MG TABLET PO SCH (18:00)
[2017-03-21] MEDS: hydrALAZINE 25 MG TABLET PO SCH (21:48)
[2017-03-21] MEDS: Cholecalciferol (D-3) 1,000 UNIT TABLET PO SCH (21:48)
[2017-03-22 05:02] LABS: Basophils # 0.1 K/mcL (0.0-0.2); Eosinophils # 1.1 K/mcL (0.0-0.6); Hematocrit 26.9 % (37.5-50.1); Hemoglobin 8.6 g/dL (12.9-16.9); Immature Granulocytes % 0.2 % (0-4); Lymphocytes % 10.6 %; Mean Corpuscular Hemoglobin 25.1 pg (28.0-33.3); Mean Corpuscular Volume 78.7 fL (83.0-100.0); Mean Platelet Volume 10.7 fL (9.4-12.4); Monocytes # 1.1 K/mcL (0.0-1.3); Monocytes % 11.3 %; Platelet Count 335 K/mcL (140-400); Red Blood Count 3.42 M/mcL (4.19-5.50); Red Cell Distribution Width 18.6 % (11.5-14.5); Segmented Neutrophils % 64.9 %
[2017-03-22 05:24] LABS: Potassium 4.3 mEq/L (3.5-4.5)
[2017-03-22 06:25] LABS: Bilirubin,Urine Negative (Negative); Blood,Urine Negative (Negative); Clarity,Urine Clear (Clear); Color,Urine Yellow (Yellow); Glucose,Urine (UA) Normal (Normal); Ketones,Urine Negative (Negative); Leukocyte Esterase,Urine Negative (Negative); Nitrite,Urine Negative (Negative); Protein,Urine 100 mg/dL (Neg-Trace); Specific Gravity,Urine 1.017 (1.010-1.025); Urobilinogen,Urine Normal (Normal)
[2017-03-22 06:26] LABS: Bacteria,Urine None Seen per hpf (None-Few); Hyaline Casts,Urine None Seen per lpf (None-Few); RBC,Urine 0-3 per hpf (0-3); Squamous Epithelial Cell,Urine Few per lpf (None-Few); WBC,Urine 0-3 per hpf (0-3)
[2017-03-22] MEDS: hydrALAZINE 25 MG TABLET PO SCH ×2 (07:53→21:22)
[2017-03-22] MEDS: Metoprolol XL (24 HR) Succ 50 MG TAB.ER.24H PO SCH ×2 (07:54→21:22)
[2017-03-22] MEDS: Aspirin 81 MG TAB.CHEW PO SCH (07:54)
[2017-03-22] MEDS: metOLazone 5 MG TABLET PO SCH (07:54)
[2017-03-22] MEDS: amLODIPine 5 MG TABLET PO SCH (07:54)
[2017-03-22] MEDS: Multivit/Ca/Min/Fe/FA 1 TAB TABLET PO SCH (07:54)
[2017-03-22] MEDS: Cholecalciferol (D-3) 1,000 UNIT TABLET PO SCH (07:54)
[2017-03-22] MEDS: Insulin LISPRO 300 UNITS/3 ML VIAL SQ SCH ×5 (08:02→21:42)
[2017-03-22] MEDS ORDERED: *HR* OxyCODONE Immed Rel 5 MG TABLET PO PRN (08:37)
[2017-03-22] MEDS ORDERED: Isosorbide MONOnitrate (24 HR) 30 MG TAB.ER.24H PO SCH (09:00)
--- NOTE | 2017-03-22 10:03 | Internal Med Progress Note ---
<Mu Hua - Last Filed: 03/22/17 10:58> Date of Encounter: 03/22/17 Time of Encounter: 09:55 - Assessment and plan (1) PAF (paroxysmal atrial fibrillation) Current Visit: No Status: Acute (2) Elevated troponin Current Visit: No Status: Acute Assessment and plan: Patient has dynamic troponins in the setting of severe triple vessel disease, significant coronary artery disease history, presented with atrial fibrillation with rapid ventricular rate. Patient is without chest pain. Given the patient' s significant history I suspect that this is secondary to supply demand ischemia. - Troponins elevated from 0.03-0.66-1.13 - EKG at the time of admission demonstrated atrial fibrillation with a left bundle-branch block - Cardiology has been contacted and they will evaluate the patient. - Restarted warfarin therapy per pharmacy to dose, INR ordered results pending. (3) History of coronary artery bypass graft Current Visit: No Status: Acute Assessment and plan: Stable. - Continue current medical treatment, aspirin, statin, beta regine, Imdur. (4) Hyperlipidemia Current Visit: No Status: Acute Assessment and plan: History of hyperlipidemia, current lipid panel appropriate. Continue statin. Qualifiers: Hyperlipidemia type: pure hypercholesterolemia Qualified Code(s): E78.00 - Pure hypercholesterolemia, unspecified; E78.0 - Pure hypercholesterolemia (5) Diabetes Current Visit: Yes Status: Chronic Assessment and plan: Known type 2 diabetes. Glucose is stable. Plan: - Continue current sliding scale insulin regimen - Continue before meals and at bedtime glucose checks Qualifiers: Diabetes mellitus type: type 2 Diabetes mellitus complication status: with unspecified complications Diabetes mellitus care home insulin use: unspecified care home insulin use status Qualified Code(s): E11.8 - Type 2 diabetes mellitus with unspecified complications (6) Chronic kidney disease, stage IV (severe) Current Visit: Yes Status: Chronic Assessment and plan: Known stage IV chronic kidney disease. Current renal function stable. Recently seen by Dr. Miranda during his last inpatient stay last week. Plan: - Avoid nephrotoxic medications and renally dose antibiotics - Monitor renal function daily - May be contributing to his elevation in troponins. (7) CAD (coronary artery disease) Current Visit: Yes Status: Chronic Assessment and plan: Known triple-vessel disease, previous IN, previous stents, CABG 2. - Continue to optimize cardiac medications. Qualifiers: Coronary Disease-Associated Artery/Lesion type: [place] artery [place] vs. transplanted heart: [place] heart Associated angina: without angina Qualified Code(s): I25.10 - Atherosclerotic heart disease of [place] coronary artery without angina pectoris (8) DVT prophylaxis Current Visit: Yes Status: Acute Assessment and plan: SCDs - Patient warfarin therapy for approximately triggered fibrillation (9) Anemia Current Visit: Yes Status: Acute Assessment and plan: Microcytic anemia with decreasing hemoglobin. Review of patient's hemoglobin levels demonstrates a drop from 10-8.6 in the last 3 months. The patient does have chronic stage IV kidney disease. MCV of 78. Plan: - Consult gastroenterology - Stool occult ordered - Iron profile ordered Qualifiers: Qualified Code(s): D64.9 - Anemia, unspecified - Subjective Interval history: Mr. Watson 51-year-old male with known CKD stage IV, triple-vessel disease and recent admission has been seen and evaluated patient bedside this morning. He denies any chest pain, chest pressure, palpitations, nausea vomiting diarrhea constipation, lightheadedness or any other acute symptoms. He feels back to his normal self and wishes to be discharged home. I discussed his elevated troponins and that cardiology will see him and he said that he will wait to see them today. He has no other concerns at this time. - Constitutional Vitals: Temp Pulse Resp BP Pulse Ox 97.4 F L 62 20 117/67 96 03/22/17 07:57 03/22/17 07:57 03/22/17 07:57 03/22/17 07:57 03/22/17 07:57 General appearance: Present: cooperative, A&O X 3, pleasant, no acute distress, answers questions appropriately Exam: General: Patient alert, awake, oriented 3, interactive, in no acute distress HEENT: Normocephalic, atraumatic, pupils equal reactive to light, nasal cavity patent and open septum median position, oral mucosa moist, uvula midline, neck supple trachea midline no palpable lymphadenopathy, no thyromegaly. Chest: Symmetric bilateral correlating with respiratory effort, effort nonlabored. Cardiac: Regular rate and rhythm, positive S1 with diminished S2. no bruits appreciated bilateral carotids, Radial pulses 2+ bilateral, posterior tibial and dorsal pedal pulses 2+ bilateral. Respiratory: Clear to auscultation all lung hoover Abdomen: Soft, nontender, positive bowel sounds, no palpable masses appreciated on examination Extremities: Symmetric bilateral, bilateral lower [place] trace edema patient moving all 4 extremities spontaneously. Neurologic: No focal deficits appreciated on examination. Face symmetric, muscle strength symmetric bilateral upper and lower extremities. Internal Medicine: Result - Labs CBC & Chem 7: 03/22/17 04:20 03/22/17 04:20 Labs: Short CBC 03/22/17 Range/Units 04:20 WBC 9.3 (4.3-11.1) K/mcL Hgb 8.6 L (12.9-16.9) g/dL Hct 26.9 L (37.5-50.1) % Plt Count 335 (140-400) K/mcL Neutrophils # 6.0 (1.6-8.9) K/mcL BMP 03/22/17 04:20 Sodium 134 L Potassium 4.3 Chloride 105 Carbon Dioxide 20 BUN 83 H Creatinine 2.91 H Glucose 148 H Calcium 9.0 Cardiac Enzymes 03/21/17 03/21/17 Range/Units 13:36 19:46 Troponin I 0.66 H* 1.13 H* (0-0.03) ng/mL Urine 03/22/17 Range/Units 06:09 Urine Color Yellow (Yellow) Urine Clarity Clear (Clear) Urine pH 6.0 (5.0-8.0) pH Units Ur Specific [place] 1.017 (1.010-1.025) Urine Protein 100 H (Neg-Trace) mg/dL Urine Glucose (UA) Normal (Normal) mg/dL - ABG Interpretation ABG results: PT/INR, D-dimer PT 25.1 Seconds (9.4-12.1) H D 03/21/17 07:58 Consult Discharge Plan - Plan Referrals: Betsy Salvador, NEVIN [Primary Care Provider] - 04/04/17 1:40 pm Girish Young DO [Partnered Physician] - 04/04/17 8:00 am <Aram Hoover - Last Filed: 03/22/17 12:37> Date of Encounter: 03/22/17 - Constitutional Vitals: Temp Pulse Resp BP Pulse Ox 97.4 F L 55 15 126/58 96 03/22/17 11:00 03/22/17 11:00 03/22/17 11:00 03/22/17 11:00 03/22/17 11:00 Internal Medicine: Result - Labs CBC & Chem 7: 03/22/17 04:20 03/22/17 04:20 Labs: Short CBC 03/22/17 Range/Units 04:20 WBC 9.3 (4.3-11.1) K/mcL Hgb 8.6 L (12.9-16.9) g/dL Hct 26.9 L (37.5-50.1) % Plt Count 335 (140-400) K/mcL Neutrophils # 6.0 (1.6-8.9) K/mcL BMP 03/22/17 04:20 Sodium 134 L Potassium 4.3 Chloride 105 Carbon Dioxide 20 BUN 83 H Creatinine 2.91 H Glucose 148 H Calcium 9.0 Cardiac Enzymes 03/21/17 03/21/17 Range/Units 13:36 19:46 Troponin I 0.66 H* 1.13 H* (0-0.03) ng/mL Urine 03/22/17 Range/Units 06:09 Urine Color Yellow (Yellow) Urine Clarity Clear (Clear) Urine pH 6.0 (5.0-8.0) pH Units Ur Specific [place] 1.017 (1.010-1.025) Urine Protein 100 H (Neg-Trace) mg/dL Urine Glucose (UA) Normal (Normal) mg/dL - ABG Interpretation ABG results: PT/INR, D-dimer PT 25.1 Seconds (9.4-12.1) H D 03/21/17 07:58 - Attending Attestation I examined this patient and my medical decision-making was reviewed with the FISHING INSTRUCTOR/PA/Advanced Practice Nurse/Resident Physician. I agree with the documented findings, disposition and treatment plan as described except to the extent set forth below.
--- NOTE | 2017-03-22 11:51 | Cardiology Consult Note ---
Date of Encounter: 03/22/17 Time of Encounter: 11:15 Assessment and Plan (1) Elevated troponin Current Visit: Yes Status: Acute Troponin 0.66, 1.13. Likely demand ischemia in the setting of atrial fibrillation with RVR with known severe three vessel CAD and stage IV CKD. LHC completed one week ago showed 2/2 patent bypass grafts (CAZARES-LAD, SVG-1st diagonal) , 100% occluded pLcx artery and 100% occluded pRCA with mature left to right collaterals. Describes stable angina. No indication fro repeat LHC. Continue medical management. Increase imdur. Continue asa, statin, and bb. (2) Atrial fibrillation Current Visit: Yes Status: Acute Presented with atrial fibrillation with RVR. Converted to NSR on IV cardizem. Now on oral cardizem. Continue coumadin for anticoagulation in the setting of stage IV CKD. Recent TTE completed 03/15/17: EF 40%. Global and segmental systolic dysfunction. RV mildly dilated with mild hypokenesis. Severely dilated LA. Moderate to severe mitral regurgitation, likely ischemia. Mild tricuspid regurgitation. Severe pulmonary hypertension. Trivial pericardial effusion. Qualifiers: Atrial fibrillation type: persistent Qualified Code(s): I48.1 - Persistent atrial fibrillation (3) Cardiomyopathy Current Visit: No Status: Acute Chronic systolic CHF. EF recently seen to be 29% at [facility]. Repeat echocardiogram showed improved EF at 40%. No significant fluid overload on exam. Continue maintenance diuretic, on metolazone. Low sodium diet reviewed. Qualifiers: Cardiomyopathy type: unspecified Qualified Code(s): I42.9 - Cardiomyopathy , unspecified Discussion w patient/family: The assessment and plan as outlined above was discussed with the patient and/or family members who expressed understanding and agreement. All questions were answered. Thank you for involving us in the care of your patient. Please call with any questions. History of Present Illness Consult date: 03/22/17 Requesting physician: Aram Hoover Consult reason: Elevated troponin Chief complaint: Palpitations History of present illness: Mr. Watson is a 51 year old male with PMH of CAD, prior 2V CABG (05/2013), cardiomyoapthy, recently diagnosed atrial fibrillation on coumadin, stage IV CKD , PAD, essential HTN, HLD, and DM type II who presented with palpitations and his heart racing at 5:00 am. He was found to have atrial fibrillation with RVR HR up to 130 bpm. He was given IV cardizem and converted to NSR. He is now on oral cardizem. Cardiology consulted for elevated troponin up to 1.13. He was recently hospitalized for new onset atrial fibrillation with RVR, acute on chronic kidney disease, and acute on chronic systolic CHF. Due to decreased EF forund on TTE at [facility] and mild troponin elevation he was recommended to undergo LHC at that time. He required one time dialysis prior to his procedure. His LHC reveled 2/2 patent bypass grafts and occluded RCA with left to right collaterals. Patient admits to chest discomfort with exertional activity that is unchanged. Denies SOB. Denies orthopnea, PND, or edema. C/o fluid building up on his abdomen again. He underwent paracentesis for ascites two weeks ago. Prior studies: Echocardiogram 03/15/17: EF 40%. Global and segmental systolic dysfunction. RV mildly dilated with mild hypokenesis. Severely dilated LA. Moderate to severe mitral regurgitation, likely ischemia. Mild tricuspid regurgitation. Severe pulmonary hypertension. Trivial pericardial effusion. Echocardiogram 06/04/2016: EF 40%. Moderate global hypokinesis. Grade 3, severe diastolic dysfunction. Mild mitral regurgitation. Moderate pulmonary hypertension, RVSP 50 mmHg. Lower extremity ELISE with exercise 11/03/2015: Bilateral lower extremities demonstrated moderately diminished hemodynamics. Severe ischemia of the bilateral lower extremities with exercise. Past Med Surg Social Fam HX - Past Medical History Medical history: atrial fibrillation, cardiomyopathy, CHF, coronary artery disease, CVA, diabetes, hyperlipidemia, hypertension, myocardial infarction, peripheral artery disease, renal disease, TIA Psychiatric history: no psych history - Past Surgical History Surgical History: coronary bypass (CABG), other (Bilateral eye surgery, PAD procedure) - Social History Smoking Status: Former smoker Smokeless Tobacco Status: No Alcohol use: none Drug use: none - Family History Mother Age: 78 Hx Family Cardiac Disorders: Yes (htn HLD) Hx Family Endocrine Disorder: Yes (DM) Father Adopted: No Family Member Ethnicity: Non- Living Status: Still Living Hx Family Cardiac Disorders: Yes ([place]) Hx Family Respiratory Disorders: No Hx Family Cancer: Yes (skin) Hx Family GI Disorders: No Hx Family Endocrine Disorder: No Medications and Allergies Amlodipine Besylate 10 mg PO DAILY 06/03/16 [History] Aspirin 81 mg PO DAILY 06/03/16 [History] Cholecalciferol (D-3) [Vitamin D] 1,000 unit PO BID 06/03/16 [History] Docusate [Colace] 100 mg PO DAILY PRN 06/03/16 [History] Insulin ASPART [Novolog Flexpen] 18 - 30 unit SQ TIDAC 06/03/16 [History] Insulin Glargine,Hum.rec.anlog [Lantus Solostar] 24 unit SQ HS 06/03/16 [History ] Lovastatin 80 mg PO DAILY 06/03/16 [History] Multivitamin [Multi-Day Vitamins] 1 each PO DAILY 06/03/16 [History] Sodium Bicarbonate 1,300 mg PO DAILY 06/03/16 [History] hydrALAZINE [HydrALAZINE] 25 mg PO BID 06/03/16 [History] Metoprolol XL (24 HR) Succ [Toprol Xl] 50 mg PO DAILY #30 tab.er.24h 06/07/16 [ Rx] Tamsulosin [Flomax] 0.4 mg PO DAILY #30 capsule 06/07/16 [Rx] Oxycodone HCl [Oxaydo] 5 mg PO Q4H PRN 03/14/17 [History] Oxygen 3.5 l NS HS 03/14/17 [History] metOLazone [Zaroxolyn] 5 mg PO DAILY 03/14/17 [History] Isosorbide MONOnitrate (24 HR) [Imdur] 30 mg PO DAILY #30 tab.er.24h 03/19/17 [ Rx] Potassium Chloride [K-Tab ER] 10 meq PO DAILY #0 03/19/17 [Rx] Warfarin [Coumadin] 5 mg PO DAILY@1800 #7 tablet 03/19/17 [Rx] Allergies DERMABOND Adverse Reaction (Uncoded 03/21/17 07:28) Itching All Systems Review: A 10-system review of systems was performed and is negative for pertinent findings except as documented above in the HPI. Physical Examination Vital Signs, Last 4 Hours Temp Pulse Resp BP Pulse Ox 03/22/17 11:00 97.4 F L 55 15 126/58 96 03/22/17 07:57 97.4 F L 62 20 117/67 96 General: Conversant, No Apparent Distress HEENT: Atraumatic, Normocephaly, Mucus Membranes Moist Neck: No JVD, Normal carotid pulses Cardiac: Reg Rate and Rhythm, Normal S1 and S2, No Murmur Lungs: Other (Faint rales bilateral posterior lower lobes. Respirations easy.) Neuro: Alert and responsive, No focal deficits noted Abdomen: Soft, Non-Tender, Other (mildly distended) Skin: No rashes noted on visualized skin Musculoskeletal: No Chest Wall Tenderness Extremities: No Clubbing, No Cyanosis, No Edema, Normal Pulses Results 03/22/17 04:20 03/22/17 04:20 Lab Results 03/21/17 03/21/17 03/22/17 13:36 19:46 04:20 WBC 9.3 Hgb 8.6 L Hct 26.9 L Plt Count 335 Sodium Potassium Chloride Carbon Dioxide BUN Creatinine Glucose Calcium Troponin I 0.66 H* 1.13 H* 03/22/17 04:20 WBC Hgb Hct Plt Count Sodium 134 L Potassium 4.3 Chloride 105 Carbon Dioxide 20 BUN 83 H Creatinine 2.91 H Glucose 148 H Calcium 9.0 Troponin I - Imaging and Cardiology Echo: report reviewed Cardiac cath: report reviewed - EKG Interpretation EKG results cardiology: personally reviewed (ATrial fibrillation, HR 85. LBBB) Consult Discharge Plan - Plan Referrals: Betsy Salvador CNP [Primary Care Provider] - 04/04/17 1:40 pm Girish Young DO [Partnered Physician] - 04/04/17 8:00 am
[2017-03-22] MEDS ORDERED: Isosorbide MONOnitrate (24 HR) 30 MG TAB.ER.24H PO ONE (12:40)
[2017-03-22 13:52] LABS: INR 2.7; Prothrombin Time 29.6 Seconds (9.4-12.1)
[2017-03-22] MEDS ORDERED: Warfarin perPT PO PRN (18:00)
[2017-03-22] MEDS ORDERED: *HR* Warfarin 2.5 MG TABLET PO ONE (18:00)
[2017-03-22] MEDS ORDERED: Insulin DETEMIR 100 UNIT/ML X5UNITS SQ SCH (21:30)
[2017-03-23 05:24] LABS: Basophils # 0.1 K/mcL (0.0-0.2); Basophils % 1.4 %; Eosinophils # 0.8 K/mcL (0.0-0.6); Eosinophils % 10.8 %; Hemoglobin 8.6 g/dL (12.9-16.9); Immature Granulocytes % 0.3 % (0-4); Lymphocytes # 1.2 K/mcL (0.6-4.6); Lymphocytes % 16.5 %; Mean Corpuscular HGB Conc 31.9 g/dL (31.6-35.5); Mean Corpuscular Hemoglobin 24.8 pg (28.0-33.3); Mean Corpuscular Volume 77.8 fL (83.0-100.0); Mean Platelet Volume 9.3 fL (9.4-12.4); Neutrophils # 4.1 K/mcL (1.6-8.9); Platelet Count 359 K/mcL (140-400); Red Blood Count 3.47 M/mcL (4.19-5.50); Red Cell Distribution Width 18.2 % (11.5-14.5)
[2017-03-23 05:27] LABS: Prothrombin Time 32.9 Seconds (9.4-12.1)
[2017-03-23 05:36] LABS: Albumin 2.6 g/dL (3.5-5.0); Albumin/Globulin Ratio 0.7 (1.1-2.2); Bilirubin,Total 0.5 mg/dL (0.2-1.2); Calcium 8.8 mg/dL (8.6-10.8); Globulin 3.8 g/dL (2.4-3.5); Potassium 3.8 mEq/L (3.5-4.5); Total Protein 6.4 g/dL (6.0-8.3)
[2017-03-23 07:08] LABS: Hypochromasia Present (Not Present); Platelet Estimate Normal (Normal)
[2017-03-23 07:09] LABS: Microcytosis Present (Not Present)
--- NOTE | 2017-03-23 08:28 | Electrocardiograph Report ---
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
[2017-03-23] MEDS ORDERED: Isosorbide MONOnitrate (24 HR) 30 MG TAB.ER.24H PO SCH (09:00)
[2017-03-23] MEDS: Insulin LISPRO 300 UNITS/3 ML VIAL SQ SCH ×2 (09:05→11:36)
[2017-03-23] MEDS: Multivit/Ca/Min/Fe/FA 1 TAB TABLET PO SCH (09:13)
[2017-03-23] MEDS: Metoprolol XL (24 HR) Succ 50 MG TAB.ER.24H PO SCH (09:13)
[2017-03-23] MEDS: hydrALAZINE 25 MG TABLET PO SCH (09:13)
[2017-03-23] MEDS: Aspirin 81 MG TAB.CHEW PO SCH (09:16)
[2017-03-23] MEDS: Cholecalciferol (D-3) 1,000 UNIT TABLET PO SCH (09:16)
[2017-03-23] MEDS: amLODIPine 5 MG TABLET PO SCH (09:16)
[2017-03-23] MEDS: metOLazone 5 MG TABLET PO SCH (09:16)
[2017-03-23] MEDS ORDERED: Iron Sucrose Complex 400 MG in 0.9 % Sodium Chloride 250 ML IVPB ONE (10:15)
[2017-03-23 11:37] VITALS: BP 139/69
--- NOTE | 2017-03-23 11:58 | Discharge Summary ---
<JavidMu Morataya - Last Filed: 03/23/17 13:29> Date of Encounter: 03/23/17 Time of Encounter: 11:56 - Discharge Diagnosis (1) PAF (paroxysmal atrial fibrillation) Priority: Primary Status: Acute (2) Elevated troponin Priority: Primary Status: Acute (3) History of coronary artery bypass graft Priority: Secondary Status: Acute (4) Hyperlipidemia Priority: Secondary Status: Acute Qualifiers: Hyperlipidemia type: pure hypercholesterolemia Qualified Code(s): E78.00 - Pure hypercholesterolemia, unspecified; E78.0 - Pure hypercholesterolemia (5) Diabetes Priority: Secondary Status: Chronic Qualifiers: Diabetes mellitus type: type 2 Diabetes mellitus complication status: with unspecified complications Diabetes mellitus mcfp insulin use: unspecified long term care pharmacist insulin use status Qualified Code(s): E11.8 - Type 2 diabetes mellitus with unspecified complications (6) Chronic kidney disease, stage IV (severe) Priority: Secondary Status: Chronic (7) CAD (coronary artery disease) Priority: Secondary Status: Chronic Qualifiers: Coronary Disease-Associated Artery/Lesion type: [place] artery [place] vs. transplanted heart: [place] heart Associated angina: without angina Qualified Code(s): I25.10 - Atherosclerotic heart disease of [place] coronary artery without angina pectoris (8) DVT prophylaxis Priority: Secondary Status: Acute (9) Anemia Priority: Secondary Status: Acute Qualifiers: Anemia type: iron deficiency Qualified Code(s): D50.0 - Iron deficiency anemia secondary to blood loss (chronic) - Discharge Medications Prescriptions: Ferrous Sulfate [Iron] 325 mg PO DAILY #30 capsule.er Warfarin [Coumadin] 2.5 mg PO 1800 #30 tablet Home Medications: Amlodipine Besylate 10 mg PO DAILY 06/03/16 [History] Aspirin 81 mg PO DAILY 06/03/16 [History] Cholecalciferol (D-3) [Vitamin D] 1,000 unit PO BID 06/03/16 [History] Docusate [Colace] 100 mg PO DAILY PRN 06/03/16 [History] Insulin ASPART [Novolog Flexpen] 18 - 30 unit SQ TIDAC 06/03/16 [History] Insulin Glargine,Hum.rec.anlog [Lantus Solostar] 24 unit SQ HS 06/03/16 [History ] Lovastatin 80 mg PO DAILY 06/03/16 [History] Multivitamin [Multi-Day Vitamins] 1 each PO DAILY 06/03/16 [History] Sodium Bicarbonate 1,300 mg PO DAILY 06/03/16 [History] hydrALAZINE [HydrALAZINE] 25 mg PO BID 06/03/16 [History] Metoprolol XL (24 HR) Succ [Toprol Xl] 50 mg PO DAILY #30 tab.er.24h 06/07/16 [ Rx] Tamsulosin [Flomax] 0.4 mg PO DAILY #30 capsule 06/07/16 [Rx] Oxycodone HCl [Oxaydo] 5 mg PO Q4H PRN 03/14/17 [History] Oxygen 3.5 l NS HS 03/14/17 [History] metOLazone [Zaroxolyn] 5 mg PO DAILY 03/14/17 [History] Isosorbide MONOnitrate (24 HR) [Imdur] 30 mg PO DAILY #30 tab.er.24h 03/19/17 [ Rx] Potassium Chloride [K-Tab ER] 10 meq PO DAILY #0 03/19/17 [Rx] Ferrous Sulfate [Iron] 325 mg PO DAILY #30 capsule.er 03/23/17 [Rx] Warfarin [Coumadin] 2.5 mg PO 1800 #30 tablet 03/23/17 [Rx] Allergies/Adverse Reactions: Allergies DERMABOND Adverse Reaction (Uncoded 03/21/17 07:28) Itching Procedures/tests Complete & Pending: Procedures Performed prior 72 hours Category Date Time Status ECG 12 lead ECG [ECG] Routine Y 03/21/17 14:21 Completed ECG 12 lead ECG [ECG] Routine Y 03/21/17 16:43 Completed Date of admission: 03/21/17 12:43 Primary care physician: Betsy Salvador CNP Consults: 03/22/17 10:06 Consult to Cardiology [CONS] Routine Comment: Consulting Provider: Cardiology Sarita Reason for Consult: Dynamic troponins in the setting of triple-vessel disease Call Completed: Yes Discharging clinician: Mu Hua Anticipated date of discharge: 03/23/17 - Patient Status Disposition: Home, Self-Care Condition: Fair Functional capacity at discharge: independent ambulation Overall status at discharge: patient is progressing back to baseline - Discharge Instructions Instructions: Iron Supplements (By mouth), Warfarin (By mouth), Myocardial Infarction (DC), Heart Failure (DC), Atrial Fibrillation (DC), Chest Pain (DC), Diabetes Mellitus Type 2 in Adults (DC), Chronic Hypertension (DC), Anemia (GEN) Follow Up With: Betsy Salvador CNP [Primary Care Provider] - 04/04/17 1:40 pm Girish Young DO [Partnered Physician] - 04/04/17 8:00 am Sean Mora MD [Partnered Physician] - 05/03/17 3:30 pm (if you have major issues before this appointment please call the office and they will try to get you in sooner) Additional Instructions: Follow-up with his primary care provider in the next 3-5 days as scheduled. Taking medications as prescribed Follow-up with gastroenterology, regarding iron deficiency anemia(microcytic anemia) Return to the emergency department if you have return of rapid heart rate, chest pain, chest pressure, palpitations, lightheadedness dizziness or any other concerning medical symptoms or findings. We made you an appt w/ the [facility] on March 30 @ 3:30pm. It is right in front of [facility] on [address], turn left, and first building on right that says "Anticoagulation Clinic" on the building. - Diet and Activity Activity: increase activity as tolerated Diet: diabetic diet, low fat, low cholesterol, low salt diet Interval History: Mr. Watson 51-year-old male with known past medical history of cardiomyopathy, coronary artery disease, CABG 2, CVA, hyperlipidemia, hypertension, previous [place] , peripheral artery disease, stage IV kidney disease, type 2 diabetes was admitted to the [facility] after he presented with palpitations shortness of breath and was found to have atrial fibrillation with rapid ventricular rate. He was provided a Cardizem bolus and placed on Cardizem drip with improvement in his rate. He was admitted to general medical floor placed on cardiac monitoring and continued on Cardizem 120 mg by mouth daily. He converted back into sinus rhythm. He was also found to have dynamic troponins and cardiology was consult to see him. Of note he was discharged from the hospital 2 days to this prior admission after having new onset atrial fibrillation with rapid ventricular rate. He had a cardiac catheterization was found to have severe triple-vessel disease. The patient remained a symptomatically during this inpatient stay after his rate was controlled. With his findings it was opted that he continue on medical management. Patient was also found to have chronic anemia with a slight decrease from hemoglobin of 10 in [place] -8.6 at this current admission. His hemoglobin remained stable throughout his inpatient stay. Iron studies were collected which demonstrated severe iron deficiency anemia. The patient was offered IV iron which she declined and opted for oral iron replacement. The patient was seen and evaluated on 03/15/2017 and deemed stable for discharge with very close follow- up with his primary care provider and schedule appointment with gastroenterology for workup of his iron deficiency anemia. Hospital course: Mr. Watson is a 51 year old male - Time Spent with Patient Total time spent providing and/or coordinating discharge services: - Constitutional Vitals: Temp Pulse Resp BP Pulse Ox 97.6 F 63 18 139/69 97 03/23/17 11:31 03/23/17 11:31 03/23/17 11:31 03/23/17 11:31 03/23/17 11:31 General appearance: Present: cooperative, A&O X 3, pleasant, no acute distress, answers questions appropriately Exam: General: Patient alert, awake, oriented 3, interactive, in no acute distress HEENT: Normocephalic, atraumatic, pupils equal reactive to light, nasal cavity patent and open septum median position, oral mucosa moist, uvula midline, neck supple trachea midline no palpable lymphadenopathy, no thyromegaly. Chest: Symmetric bilateral correlating with respiratory effort, effort nonlabored. Cardiac: Regular rate and rhythm, positive S1 and S2. no bruits appreciated bilateral carotids, Radial pulses 2+ bilateral, posterior tibial and dorsal pedal pulses 2+ bilateral. Respiratory: Clear to auscultation all lung hoover Abdomen: Soft, nontender, positive bowel sounds, no palpable masses appreciated on examination Extremities: Symmetric bilateral, bilateral lower extremities trace edema patient moving all 4 extremities spontaneously. Neurologic: No focal deficits appreciated on examination. Face symmetric, muscle strength symmetric bilateral upper and lower extremities. <Aram Hoover P - Last Filed: 03/23/17 17:14> Date of Encounter: 03/23/17 Procedures/tests Complete & Pending: Procedures Performed prior 72 hours Category Date Time Status ECG 12 lead ECG [ECG] Routine Y 03/21/17 14:21 Completed ECG 12 lead ECG [ECG] Routine Y 03/21/17 16:43 Completed Date of admission: 03/21/17 12:43 Primary care physician: Betsy Salvador CNP Consults: 03/22/17 10:06 Consult to Cardiology [CONS] Routine Comment: Consulting Provider: Cardiology Sarita Reason for Consult: Dynamic troponins in the setting of triple-vessel disease Call Completed: Yes Hospital course: Mr. Watson is a 51 year old male - Time Spent with Patient Total time spent providing and/or coordinating discharge services: - Constitutional Vitals: Temp Pulse Resp BP Pulse Ox 97.6 F 63 18 139/69 97 03/23/17 11:31 03/23/17 11:31 03/23/17 11:31 03/23/17 11:31 03/23/17 11:31 - Attending Attestation I examined this patient and my medical decision-making was reviewed with the BISQUE CLEANER/PA/Advanced Practice Nurse/Resident Physician. I agree with the documented findings, disposition and treatment plan as described except to the extent set forth below.
[2017-03-23] MEDS ORDERED: *HR* Warfarin 2 MG TABLET PO ONE (18:00)
== END 2017-03-23 14:14 | disposition home or self-care (01) ==
LOC: EMEROO 07:17 → 2NENU 07:17
PROVIDERS: ADMIT Internal Medicine; ATTEND Internal Medicine

== ENCOUNTER 2018-06-30 21:37 | Inpatient (IN) ==
[2018-06-30] MEDS ORDERED: *HR* FentaNYL (PF) 100 MCG/2 ML VIAL IVP ONE (22:04)
[2018-06-30] MEDS ORDERED: Aspirin 325 MG TABLET PO STA (22:04)
--- NOTE | 2018-06-30 22:06 | Emergency Department Note ---
Disposition Clinical Impression: Pulmonary hypertension, Abnormal EKG Chest pain Qualifiers: Chest pain type: unspecified Qualified Code(s): R07.9 - Chest pain, unspecified Pneumonia Qualifiers: Pneumonia type: due to unspecified organism Laterality: left Lung location: unspecified part of lung Qualified Code(s): J18.9 - Pneumonia, unspecified organism Disposition: Admitted As Inpatient Condition: Serious Chest Pain HPI - General Chief Complaint: ED Chest Pain Stated Complaint: Chest Pain Time Seen by Provider: 06/30/18 21:52 Source: patient Mode of arrival: ambulatory Limitations: no limitations Vital Signs Reviewed: Yes Nursing Notes Reviewed: Yes - History of Present Illness HPI Narrative: Past medical history of atrial fibrillation, cardiomyopathy, CHF, coronary artery disease, CVA, diabetes, hyperlipidemia, hypertension, previous GA, bypass 2, peripheral artery disease procedure, renal disease, TIA. 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 Presented today for evaluation of chest pain and left-sided chest radiates to the left arm is associated nausea with one episode of vomiting in the parking lot. Patient had last heart catheter approximately one year ago. Patient states that he is also having liver failure. Was evaluated at [facility] for kidney and liver transplant but was ruled out secondary to the other underlying comorbidities including pulmonary hypertension. The patient does take Coumadin on a regular basis. Patient post anticoagulation clinic. Patient does have a primary care physician. Patient will undergo further evaluation for concern for coronary artery disease time. Patient's EKG does show significant abnormalities but they are not significantly changed from previous of 03/21/2017. He did take nitroglycerin glycerin at home prior to arrival he states that it did not help. Onset was at 8 AM. Patient is stated that pain has been continuously getting worse. Patient also be evaluated for both his liver disease as well as possible underlying DKA. Severity scale (1-10): 9 - Related Data Home Medications Medication Instructions Recorded Confirmed Amlodipine Besylate 10 mg PO DAILY 06/03/16 10/25/17 Aspirin 81 mg PO DAILY 06/03/16 10/25/17 Cholecalciferol (D-3) [Vitamin D] 1,000 unit PO BID 06/03/16 10/25/17 Docusate [Colace] 100 mg PO DAILY PRN 06/03/16 10/25/17 Insulin ASPART [Novolog Flexpen] 18 - 30 unit SQ TIDAC 06/03/16 10/25/17 Insulin Glargine,Hum.rec.anlog 17 unit SQ HS 06/03/16 10/25/17 [Lantus Solostar] Lovastatin 80 mg PO DAILY 06/03/16 10/25/17 Multivitamin [Multi-Day Vitamins] 1 each PO DAILY 06/03/16 10/25/17 Sodium Bicarbonate 1,300 mg PO DAILY 06/03/16 10/25/17 hydrALAZINE [HydrALAZINE] 25 mg PO BID 06/03/16 10/25/17 Oxycodone HCl [Oxaydo] 5 mg PO Q4H PRN 03/14/17 10/25/17 Oxygen 3.5 l NS HS 03/14/17 10/25/17 metOLazone [Zaroxolyn] 5 mg PO DAILY 03/14/17 10/25/17 Furosemide [Lasix] 40 mg PO BID 10/25/17 10/25/17 Potassium Chloride [K-Tab ER] 20 meq PO BID 10/25/17 10/25/17 Warfarin [Coumadin] 5 mg PO SUMOWEFRSA 10/25/17 10/25/17 Warfarin [Coumadin] 7.5 mg PO TUTH 10/25/17 10/25/17 Previous Rx's Medication Instructions Recorded Metoprolol XL (24 HR) Succ [Toprol 50 mg PO DAILY #30 tab.er.24h 06/07/16 Xl] Tamsulosin [Flomax] 0.4 mg PO DAILY #30 capsule 06/07/16 Isosorbide MONOnitrate (24 HR) 30 mg PO DAILY #30 tab.er.24h 03/19/17 [Imdur] Ferrous Sulfate [Iron] 325 mg PO DAILY #30 capsule.er 03/23/17 Cephalexin [Keflex] 500 mg PO BID #10 capsule 05/18/18 Allergies Allergy/AdvReac Type Severity Reaction Status Date / Time DERMABOND AdvReac Itching Uncoded 06/30/18 21:48 Review of Systems: CONSTITUTIONAL: No weight loss, fever, chills, weakness or fatigue. HEENT: Eyes: No visual changes. Ears, Nose, Throat: No hearing loss, difficulty talking or unable to swallow. SKIN: No rash or itching. CARDIOVASCULAR: Chest pain with radiation to left shoulder and associated nausea with one episode of vomiting RESPIRATORY: No shortness of breath, cough or sputum. GASTROINTESTINAL: Decreased appetite with nausea and one episode of vomiting GENITOURINARY: Decreased urination NEUROLOGICAL: No headache, dizziness, syncope, paralysis, ataxia, numbness or tingling in the extremities. No change in bowel or bladder control. MUSCULOSKELETAL: No muscle pain, back pain, joint pain or stiffness. Chest Pain PMH - Past Medical History Medical history: Reports: atrial fibrillation, cardiomyopathy, CHF, coronary artery disease, CVA, diabetes, hyperlipidemia, hypertension, myocardial infarction, peripheral artery disease, renal disease, TIA Surgical history: Reports: cholecystectomy, coronary bypass (CABG), other Psychiatric history: Reports: no psych history - Social History Smoking Status: Former smoker Alcohol use: Reports: none Drug use: Reports: none Physical Exam General: Patient appears tired with very slow speech. Mother is at bedside. Head: Normocephalic Atraumatic Eyes: PERRL, EOMI ENT: Airway patent, no stridor Neck: supple, no meningismus Chest: Lungs clear to auscultation bilateral Cardiac: Regular rhythm without significant murmur at the left sternal border. Abdomen: soft, nontender, nondistended; no guarding, rebound, or tenderness to percussion Musculoskeletal: Calves symmetric, nontender Skin: No rash, normal skin tone Neuro: Alert and Oriented to person, place, and time; No obvious focal deficit. Patient does have fistula to the left forearm with thrill present. Course - Reevaluation(s) Reevaluation #1: Patient got up to bedside commode and went into A fib. Cardiology was consulted. No intervention at this time. Medical management recommendations were given below. Reevaluation #2: Patient continuing to have chest pain. He is improved after conversion back to sinus rhythm. Cardizem held. Patient receiving nonrebreather, Dustin glycerin drip, insulin drip. Antibiotics have been ordered and blood cultures have been taken. - Consultations Consultation #1: The patient got up to bedside and became significantly more short of breath with associated chest pain. The patient had an EKG that was repeated that shows worsening depressions throughout the leads the 6 and V5 with depressions in leads 3 and aVF. At this point interventional cardiology was consulted, Dr. Chapman, the case was discussed the patient's conversion from sinus rhythm to A. fib with RVR is likely explaining his significant EKG changes. The patient troponin is not elevated and given his length of time it is not likely correlating with ACS or acute STEMI and need for catheter lab activation at this point. Given all of his significant comorbidities include elevated ketones and glucose as well as his severe pulmonary hypertension which could be causing his symptoms, medical management is most appropriate at this time. At this time we did discuss that with comorbidities and with his concern for pulmonary hypertension and other comorbidities placing the patient on 100% nonrebreather to help dilate the pulmonary arteries as well as continuing to use liberal nitroglycerin as well as mild diuresis for fluid overload. He also recommends Cardizem and going low and slow with this to help with rate control as needed. The patient does have multiple comorbidities and will need continued management from multiple aspects. He does not recommend making any abrupt changes to any of the medications that we are given him given his cardiac history as well as severe pulmonary hypertension, any abrupt changes could cause cardiac collapse. Patient is receiving fluids at this time. The nitro drip has been started and he is being titrated as his blood pressure tolerates. The patient will be placed on Cardizem at a low rate of 5 and increased also as tolerated and as rate becomes controlled. No bolus has been given secondary to the concern for his overall cardiac standpoint. I am also currently giving him fluids as he appears dehydrated, I am holding off on Lasix at this point until he is more stable or becomes more clinically indicated. 0101a After the initial fluids have gone in and his nitroglycerin was titrated up, the patient did convert to sinus rhythm. Cardizem was not given within the emergency department. At this time the patient has become more stable but is continuing to complain of chest pain. Patient has been excepted by the hospitalist and will go to the ICU. Consultation #2: Discussed with Dr. Morales, hospitalist, the patient will be treated for possible pneumonia. Blood cultures have been obtained. The patient is currently getting fluids as well as titrating up his nitroglycerin. Patient will go to the ICU for further evaluation. Insulin drip has also been started. Vital Signs Temperature 98.7 F 06/30/18 21:46 Pulse Rate 83 06/30/18 21:46 Respiratory Rate 18 06/30/18 21:46 Blood Pressure 98/47 06/30/18 21:46 O2 Sat by Pulse Oximetry 95 06/30/18 21:46 Temperature 98.7 F 06/30/18 21:46 Pulse Rate 86 07/01/18 01:51 Respiratory Rate 18 07/01/18 01:51 Blood Pressure 103/51 07/01/18 01:51 O2 Sat by Pulse Oximetry 100 07/01/18 01:51 Oxygen Delivery Oxygen Delivery Non Rebreather Mask Chest Pain - MDM Narrative Medical decision making narrative: Patient with significant comorbidities presents to the emergency department for evaluation of chest pain that felt like previous STEMI. The patient was not found to have ST elevation GA. Patient does have significant kidney dysfunction as well as elevated glucose and concern for possible pneumonia. Antibiotics and blood cultures were started. The evolving cardiac etiology as discussed the rest of the chart was concerning for possible N STEMI. The precautions were given to both the hose tester as well as the hospitalist. These do seem to be dynamic changes related to A. fib at this time. He will need continued troponins for further evaluation of possible ischemia. Patient will also need medical management of his other abnormalities including pneumonia and elevated BUNs. The etiology of the underlying chest pain could be related to pulmonary hypertension but will need further evaluation and continued management as he is at high risk for significant mortality/ morbidity. - Medical Records Medical records reviewed: Yes I reviewed the patient's medical records. - Lab Data Lab results reviewed: Yes I reviewed the patient's lab results. Result diagrams: 06/30/18 22:15 06/30/18 22:15 Lab Results 06/30/18 06/30/18 06/30/18 Range/Units 22:15 22:15 22:15 WBC 12.9 H (4.3-11.1) K/mcL RBC 4.08 L (4.19-5.50) M/mcL Hgb 11.2 L (12.9-16.9) g/dL Hct 34.3 L (37.5-50.1) % MCV 84.1 (83.0-100.0) fL MCH 27.5 L (28.0-33.3) pg MCHC 32.7 (31.6-35.5) g/dL RDW 14.7 H (11.5-14.5) % Plt Count 425 H (140-400) K/mcL MPV 10.6 (9.4-12.4) fL Immature Gran % 0.3 (0-4) % Seg Neutrophils % 83.0 % Lymphocytes % 5.4 % Monocytes % 9.8 % Eosinophils % 1.0 % Basophils % 0.5 % Neutrophils # 10.7 H (1.6-8.9) K/mcL Lymphocytes # 0.7 (0.6-4.6) K/mcL Monocytes # 1.3 (0.0-1.3) K/mcL Eosinophils # 0.1 (0.0-0.6) K/mcL Basophils # 0.1 (0.0-0.2) K/mcL PT 26.8 H (9.4-12.1) Seconds INR 2.4 VBG pH (7.32-7.42) pH Units VBG pCO2 (41-51) mmHg VBG pO2 (25-50) mmHg VBG HCO3 (21-27) mEq/L Sodium (136-145) mEq/L Potassium (3.5-5.1) mEq/L Chloride (98-107) mEq/L Carbon Dioxide (23-29) mEq/L BUN (6-20) mg/dL Creatinine (0.70-1.30) mg/dL Est GFR ( Amer) (> 60) Est GFR (Non-Af Amer) (> 60) BUN/Creatinine Ratio Glucose (70-105) mg/dL Calculated Osmolality Calcium (8.6-10.3) mg/dL Total Bilirubin (0.3-1.0) mg/dL Direct Bilirubin (0.0-0.2) mg/dL Indirect Bilirubin (0.0-1.2) mg/dL AST (13-39) Units/L ALT (7-52) Units/L Alkaline Phosphatase (34-104) Units/L Troponin I (< 0.04) ng/mL B-Natriuretic Peptide 1285 H (Less than 100) pg/mL Serum Total Protein (6.4-8.9) g/dL Albumin (3.5-5.7) g/dL Globulin (2.4-3.5) g/dL Albumin/Globulin Ratio (1.1-2.2) Beta-Hydroxybutyric Acd (0.02-0.27) mmol/L 06/30/18 06/30/18 06/30/18 Range/Units 22:15 22:15 22:27 WBC (4.3-11.1) K/mcL RBC (4.19-5.50) M/mcL Hgb (12.9-16.9) g/dL Hct (37.5-50.1) % MCV (83.0-100.0) fL MCH (28.0-33.3) pg MCHC (31.6-35.5) g/dL RDW (11.5-14.5) % Plt Count (140-400) K/mcL MPV (9.4-12.4) fL Immature Gran % (0-4) % Seg Neutrophils % % Lymphocytes % % Monocytes % % Eosinophils % % Basophils % % Neutrophils # (1.6-8.9) K/mcL Lymphocytes # (0.6-4.6) K/mcL Monocytes # (0.0-1.3) K/mcL Eosinophils # (0.0-0.6) K/mcL Basophils # (0.0-0.2) K/mcL PT (9.4-12.1) Seconds INR VBG pH 7.46 H (7.32-7.42) pH Units VBG pCO2 34 L (41-51) mmHg VBG pO2 86 H (25-50) mmHg VBG HCO3 25 (21-27) mEq/L Sodium 132 L (136-145) mEq/L Potassium 3.3 L (3.5-5.1) mEq/L Chloride 90 L (98-107) mEq/L Carbon Dioxide 22 L (23-29) mEq/L BUN > 130 H (6-20) mg/dL Creatinine 3.59 H (0.70-1.30) mg/dL Est GFR ( Amer) 22 L (> 60) Est GFR (Non-Af Amer) 18 L (> 60) BUN/Creatinine Ratio TNP Glucose 567 H* (70-105) mg/dL Calculated Osmolality TNP Calcium 9.5 (8.6-10.3) mg/dL Total Bilirubin 0.6 (0.3-1.0) mg/dL Direct Bilirubin 0.2 (0.0-0.2) mg/dL Indirect Bilirubin 0.4 (0.0-1.2) mg/dL AST 24 (13-39) Units/L ALT 21 (7-52) Units/L Alkaline Phosphatase 120 H (34-104) Units/L Troponin I 0.03 (< 0.04) ng/mL B-Natriuretic Peptide (Less than 100) pg/mL Serum Total Protein 6.6 (6.4-8.9) g/dL Albumin 3.1 L (3.5-5.7) g/dL Globulin 3.5 (2.4-3.5) g/dL Albumin/Globulin Ratio 0.9 L (1.1-2.2) Beta-Hydroxybutyric Acd > 2.00 H (0.02-0.27) mmol/L 06/30/18 Range/Units 23:40 WBC (4.3-11.1) K/mcL RBC (4.19-5.50) M/mcL Hgb (12.9-16.9) g/dL Hct (37.5-50.1) % MCV (83.0-100.0) fL MCH (28.0-33.3) pg MCHC (31.6-35.5) g/dL RDW (11.5-14.5) % Plt Count (140-400) K/mcL MPV (9.4-12.4) fL Immature Gran % (0-4) % Seg Neutrophils % % Lymphocytes % % Monocytes % % Eosinophils % % Basophils % % Neutrophils # (1.6-8.9) K/mcL Lymphocytes # (0.6-4.6) K/mcL Monocytes # (0.0-1.3) K/mcL Eosinophils # (0.0-0.6) K/mcL Basophils # (0.0-0.2) K/mcL PT (9.4-12.1) Seconds INR VBG pH (7.32-7.42) pH Units VBG pCO2 (41-51) mmHg VBG pO2 (25-50) mmHg VBG HCO3 (21-27) mEq/L Sodium (136-145) mEq/L Potassium (3.5-5.1) mEq/L Chloride (98-107) mEq/L Carbon Dioxide (23-29) mEq/L BUN (6-20) mg/dL Creatinine (0.70-1.30) mg/dL Est GFR ( Amer) (> 60) Est GFR (Non-Af Amer) (> 60) BUN/Creatinine Ratio Glucose (70-105) mg/dL Calculated Osmolality Calcium (8.6-10.3) mg/dL Total Bilirubin (0.3-1.0) mg/dL Direct Bilirubin (0.0-0.2) mg/dL Indirect Bilirubin (0.0-1.2) mg/dL AST (13-39) Units/L ALT (7-52) Units/L Alkaline Phosphatase (34-104) Units/L Troponin I 0.03 (< 0.04) ng/mL B-Natriuretic Peptide (Less than 100) pg/mL Serum Total Protein (6.4-8.9) g/dL Albumin (3.5-5.7) g/dL Globulin (2.4-3.5) g/dL Albumin/Globulin Ratio (1.1-2.2) Beta-Hydroxybutyric Acd (0.02-0.27) mmol/L - Radiology Data Radiology results reviewed: Yes I reviewed the patient's radiology results. - EKG Data EKG attestation: Yes I reviewed and interpreted this EKG. EKG results narrative: Patient with multiple EKGs. EKG #1 at 2229 showing sinus rhythm with heart rate of 82, MA 185, QT C5-4-4, QRS 158, patient does have mild elevation in V2 but not in V1. He has concerning depressions in V5 V6 lead to lead 3 and aVF. There is no significant elevation on his EKG. Concern for possible ACS but no STEMI at this time. Patient received multiple EKGs. Repeat EKG #2 at 2321 shows atrial fibrillation with worsening depressions of the lead stated above. EKG #3 at 0049 shows sinus rhythm with resolution partially of the ST depressions. He is went back into atrial fibrillation for a short period of time and repeat EKG #64895 shows conversion back to sinus rhythm with again partial resolutions of the ST depressions in 2, 3, aVF, V5, V6, no ST elevations. Critical Care Time Critical Care Time: Yes Total Critical Care Time: 60 Attestation: Critical care time was exclusive of separately billable procedures and treating other patients. Critical care was necessary to treat or prevent imminent or life -threatening deterioration. Critical care was time spent personally by me on the following activities: development of treatment plan with patient and/or surrogate as well as nursing, discussions with consultants, evaluation of patient's response to treatment, examination of patient, obtaining history from patient or surrogate, ordering and performing treatments and interventions, ordering and review of laboratory studies, ordering and review of radiographic studies, pulse oximetry and re-evaluation of patient's condition.
[2018-06-30] MEDS: Nitroglycerin 0.4 MG TAB.SUBL SL STA ×2 (22:23→22:33)
[2018-06-30 22:28] LABS: Basophils # 0.1 K/mcL (0.0-0.2); Basophils % 0.5 %; Eosinophils # 0.1 K/mcL (0.0-0.6); Hematocrit 34.3 % (37.5-50.1); Hemoglobin 11.2 g/dL (12.9-16.9); Immature Granulocytes % 0.3 % (0-4); Lymphocytes # 0.7 K/mcL (0.6-4.6); Lymphocytes % 5.4 %; Mean Corpuscular HGB Conc 32.7 g/dL (31.6-35.5); Mean Corpuscular Hemoglobin 27.5 pg (28.0-33.3); Mean Corpuscular Volume 84.1 fL (83.0-100.0); Mean Platelet Volume 10.6 fL (9.4-12.4); Monocytes # 1.3 K/mcL (0.0-1.3); Monocytes % 9.8 %; Neutrophils # 10.7 K/mcL (1.6-8.9); Platelet Count 425 K/mcL (140-400); Red Blood Count 4.08 M/mcL (4.19-5.50); Red Cell Distribution Width 14.7 % (11.5-14.5)
[2018-06-30 22:31] LABS: VBG HCO3 25 mEq/L (21-27); VBG PCO2 34 mmHg (41-51); VBG PH 7.46 pH Units (7.32-7.42); VBG PO2 86 mmHg (25-50)
[2018-06-30 22:33] LABS: INR 2.4; Prothrombin Time 26.8 Seconds (9.4-12.1)
[2018-06-30 22:53] LABS: Alanine Aminotransferase 21 Units/L (7-52); Albumin 3.1 g/dL (3.5-5.7); Albumin/Globulin Ratio 0.9 (1.1-2.2); Alkaline Phosphatase 120 Units/L (34-104); Aspartate Amino Transferase 24 Units/L (13-39); Bilirubin,Direct 0.2 mg/dL (0.0-0.2); Bilirubin,Indirect 0.4 mg/dL (0.0-1.2); Bilirubin,Total 0.6 mg/dL (0.3-1.0); Blood Urea Nitrogen > 130 mg/dL (6-20); Calcium 9.5 mg/dL (8.6-10.3); Carbon Dioxide 22 mEq/L (23-29); Chloride 90 mEq/L (98-107); Globulin 3.5 g/dL (2.4-3.5); Glucose 567 mg/dL (70-105); Potassium 3.3 mEq/L (3.5-5.1); Sodium 132 mEq/L (136-145); Total Protein 6.6 g/dL (6.4-8.9); Troponin I 0.03 ng/mL (< 0.04); eGFR For Non-African Americans 18 (> 60)
[2018-06-30] MEDS ORDERED: Ondansetron 4 MG/2 ML VIAL ONE (23:27)
[2018-06-30] MEDS ORDERED: Nitroglycerin 0.4 MG TAB.SUBL SL ONE (23:28)
[2018-06-30] MEDS: Nitroglycerin 25 MG/250 ML INFUS..BTL IVC SCH (23:32)
[2018-06-30] MEDS ORDERED: 0.9 % Sodium Chloride 1,000 ML IVC ONE (23:33)
[2018-06-30] MEDS ORDERED: Ondansetron 4 MG/2 ML VIAL IVP ONE (23:33)
[2018-07-01] MEDS ORDERED: *HR* Dextrose 50 % in Water (Syg) 50 ML SYRINGE IVP PRN ×3 (00:42→14:01)
[2018-07-01] MEDS ORDERED: Azithromycin 500 MG in D5% in Water 250 ML IVPB ONE (00:43)
[2018-07-01] MEDS ORDERED: *HR* FentaNYL (PF) 100 MCG/2 ML VIAL IVP STA (00:45)
[2018-07-01] MEDS ORDERED: Insulin Human Regular 100 UNIT in 0.9 % Sodium Chloride 100 ML IVC SCH ×2 (00:45→02:15)
[2018-07-01] MEDS ORDERED: 0.9 % Sodium Chloride 1,000 ML IVC SCH (01:00)
[2018-07-01] MEDS ORDERED: Naloxone 0.4 MG/ML INJ IVP PRN (02:09)
[2018-07-01] MEDS ORDERED: Insulin Regular, Human 100 UNIT/ML IV PRN (02:09)
[2018-07-01] MEDS ORDERED: Potassium Chloride Elixir 20 MEQ/15 ML UDC PO ONE (02:22)
[2018-07-01 03:14] LABS: VBG HCO3 17 mEq/L (21-27); VBG PCO2 31 mmHg (41-51); VBG PH 7.34 pH Units (7.32-7.42); VBG PO2 74 mmHg (25-50)
[2018-07-01] MEDS: 0.45 % Sodium Chloride w/KCl 20 MEQ/1,000 ML MLS IVC SCH ×3 (03:23→19:46)
[2018-07-01 03:36] LABS: Basophils % 0.3 %; Blood Urea Nitrogen > 130 mg/dL (6-20); Calcium 8.6 mg/dL (8.6-10.3); Carbon Dioxide 15 mEq/L (23-29); Chloride 91 mEq/L (98-107); Eosinophils % 0.1 %; Glucose 710 mg/dL (70-105); Hematocrit 31.5 % (37.5-50.1); Hemoglobin 9.9 g/dL (12.9-16.9); Immature Granulocytes % 0.4 % (0-4); Lymphocytes # 0.2 K/mcL (0.6-4.6); Lymphocytes % 1.5 %; Mean Corpuscular HGB Conc 31.4 g/dL (31.6-35.5); Mean Corpuscular Hemoglobin 27.1 pg (28.0-33.3); Mean Corpuscular Volume 86.3 fL (83.0-100.0); Mean Platelet Volume 10.9 fL (9.4-12.4); Monocytes # 0.6 K/mcL (0.0-1.3); Monocytes % 3.7 %; Neutrophils # 14.6 K/mcL (1.6-8.9); Platelet Count 402 K/mcL (140-400); Potassium 3.3 mEq/L (3.5-5.1); Red Blood Count 3.65 M/mcL (4.19-5.50); Sodium 130 mEq/L (136-145); eGFR For Non-African Americans 18 (> 60)
--- NOTE | 2018-07-01 04:20 | Internal Med History&Physical ---
Date of Encounter: 07/01/18 Time of Encounter: 04:18 Internal Medicine - H&P: HPI Chief complaint: Back pain Admitted From: Emergency Dept Plans for Post Hospital Care: Home History of present illness: Mr. Watson is a 52 year old male with history of type 1 diabetes, coronary disease, stage IV kidney disease, pulmonary hypertension presents with "chest pain." Patient reports that he has some pain in the center of his chest but the pain is mainly on his upper back across his shoulders. He states the pain began suddenly at 8 PM. He states he has had this pain in the past but will not elaborate. He reports nausea and one episode of vomiting. Patient is constantly asking for water and pain medication and will not answer any other questions until he gets this. He would briefly states that he has been compliant with his medications. Past Med Surg Social Fam HX - Past Medical History Medical history: atrial fibrillation, cardiomyopathy, CHF, coronary artery disease, CVA, diabetes, hyperlipidemia, hypertension, myocardial infarction, peripheral artery disease, renal disease, TIA Additional medical history: PUML HTN Psychiatric history: no psych history - Past Surgical History Surgical History: cholecystectomy, coronary bypass (CABG), other Additional surgical history: L Iliac stent. L Fistula. Bilat eye surgery - Social History Smoking Status: Former smoker Smokeless Tobacco Status: No Alcohol use: none Drug use: none - Family History Mother Hx Family Cardiac Disorders: Yes (htn HLD) Hx Family Endocrine Disorder: Yes (DM) Father Adopted: No Family Member Ethnicity: Non- Living Status: Still Living Hx Family Cardiac Disorders: Yes (SD) Hx Family Respiratory Disorders: No Hx Family Cancer: Yes (skin) Hx Family GI Disorders: No Hx Family Endocrine Disorder: No Internal Medicine - H&P: Meds Amlodipine Besylate 10 mg PO DAILY 06/03/16 [History] Aspirin 81 mg PO DAILY 06/03/16 [History] Cholecalciferol (D-3) [Vitamin D] 1,000 unit PO BID 06/03/16 [History] Docusate [Colace] 100 mg PO DAILY PRN 06/03/16 [History] Insulin ASPART [Novolog Flexpen] 18 - 30 unit SQ TIDAC 06/03/16 [History] Insulin Glargine,Hum.rec.anlog [Lantus Solostar] 17 unit SQ HS 06/03/16 [History ] Lovastatin 80 mg PO DAILY 06/03/16 [History] Multivitamin [Multi-Day Vitamins] 1 each PO DAILY 06/03/16 [History] Sodium Bicarbonate 1,300 mg PO DAILY 06/03/16 [History] hydrALAZINE [HydrALAZINE] 25 mg PO BID 06/03/16 [History] Metoprolol XL (24 HR) Succ [Toprol Xl] 50 mg PO DAILY #30 tab.er.24h 06/07/16 [ Rx] Tamsulosin [Flomax] 0.4 mg PO DAILY #30 capsule 06/07/16 [Rx] Oxycodone HCl [Oxaydo] 5 mg PO Q4H PRN 03/14/17 [History] Oxygen 3.5 l NS HS 03/14/17 [History] metOLazone [Zaroxolyn] 5 mg PO DAILY 03/14/17 [History] Isosorbide MONOnitrate (24 HR) [Imdur] 30 mg PO DAILY #30 tab.er.24h 03/19/17 [ Rx] Ferrous Sulfate [Iron] 325 mg PO DAILY #30 capsule.er 03/23/17 [Rx] Furosemide [Lasix] 40 mg PO BID 10/25/17 [History] Potassium Chloride [K-Tab ER] 20 meq PO BID 10/25/17 [History] Warfarin [Coumadin] 5 mg PO SUMOWEFRSA 10/25/17 [History] Warfarin [Coumadin] 7.5 mg PO TUTH 10/25/17 [History] Cephalexin [Keflex] 500 mg PO BID #10 capsule 05/18/18 [Rx] 3 Allergy/AdvReac Type Severity Reaction Status Date / Time DERMABOND AdvReac Itching Uncoded 06/30/18 21:48 ROS unobtainable: other (Patient refuses to participate in review of systems) All Systems PM: A 10-system review of systems was performed and is negative for pertinent findings except as documented above in the HPI. - Constitutional Vitals: Temp Pulse Resp BP Pulse Ox 97.5 F L 88 18 127/59 100 07/01/18 03:50 07/01/18 03:00 07/01/18 03:00 07/01/18 03:00 07/01/18 03:00 General appearance: Present: A&O X 3 Exam: Does not appear in distress. Appears agitated that he is not receiving water or pain medication - Head Head exam: Present: atraumatic, normal inspection, normocephalic - Eye Eye exam: Present: EOMI, PERRL - ENT ENT exam: Present: mucous membranes dry - Neck Neck exam general surgery: Present: full ROM - Respiratory Respiratory exam: Present: CTAB. Absent: rales, rhonchi, wheezes - Cardiovascular Cardiovascular exam: Present: distant heart sounds, RRR. Absent: gallop, rubs, systolic murmur, tachycardia Additional comments: chest wall non tender to palpation - GI/Abdominal GI/Abdominal exam: Present: normal bowel sounds, soft. Absent: distended, tenderness - Extremities Exam Extremities exam: Present: warm. Absent: pedal edema, tenderness - Neurological Exam Neurological exam: Present: alert, CN II-XII intact, oriented X3, no focal deficits - Skin Skin exam: Present: dry, intact, warm Internal Med - H&P Results - Labs CBC & Chem 7: 07/01/18 02:59 07/01/18 02:59 Labs: Short CBC 07/01/18 Range/Units 02:59 WBC 15.6 H (4.3-11.1) K/mcL Hgb 9.9 L (12.9-16.9) g/dL Hct 31.5 L (37.5-50.1) % Plt Count 402 H (140-400) K/mcL Neutrophils # 14.6 H (1.6-8.9) K/mcL BMP 07/01/18 02:59 Sodium 130 L Potassium 3.3 L Chloride 91 L Carbon Dioxide 15 L BUN > 130 H Creatinine 3.66 H Glucose 710 H* Calcium 8.6 - ABG Interpretation ABG results: 07/01/18 03:10 VBG pH 7.34 D VBG pCO2 31 L VBG pO2 74 H VBG HCO3 17 L - Assessment and plan (1) Hyperglycemia Current Visit: Yes Status: Acute Assessment and plan: Patient presents with extremity elevated blood sugar and mildly elevated anion gap at 20 however ABG reveals alkalosis and bicarbonate is 22 so that I did not feel this is true DKA. Regardless we will treat with IV insulin infusion. Full DKA protocol fluid resuscitation will not be provided due to cardiology's recommendation for gentle fluid hydration in the setting of severe pulmonary hypertension. Continue insulin drip per protocol. BMP every 4 hours. Keep patient nothing by mouth. (2) High anion gap metabolic acidosis Current Visit: Yes Status: Acute Assessment and plan: Patient has elevated anion gap at 20 however has a normal pH. Likely multifactorial due to end-stage renal disease as well as hyperglycemia however not feel like the patient is in for blood DKA. Delta delta is greater than 2, likely indicative of concomittant metabolic alkalosis, also likely due to diuretic use. Treatment for hyperglycemia as above. (3) Pulmonary hypertension Current Visit: Yes Status: Acute Assessment and plan: Severe per previous echo. Cardiology was consulted by the emergency department and recommended gentle fluid hydration rather than fluid boluses as would be recommended in HHS protocol. Recommended oxygen supplementation which we are continuing. Cardiology also recommended nitro drip for vasodilatation which was started the emergency department, we will continue.. Cardiology following, will obtain repeat echo. (4) Chronic kidney disease, stage IV (severe) Current Visit: No Status: Chronic Assessment and plan: Creatinine appears to be baseline. Patient continues of urine output. BUN is greater than 130 however patient does not appear to be symptomatic from this. Pericarditis is a concern given the patient's chest pain however typical EKG findings of diffuse ST elevation is not present. No indication for acute dialysis however patient may need dialysis during this hospitalization. Check UA. We will consult nephrology. (5) Type 1 diabetes mellitus Current Visit: No Status: Acute Assessment and plan: Patient reports compliance with his medications. Tremor for hyperglycemia as above, currently on insulin drip. Check A1c in the morning. Qualifiers: Diabetes mellitus complication status: with hyperglycemia Qualified Code(s) : E10.65 - Type 1 diabetes mellitus with hyperglycemia (6) Chronic back pain Current Visit: No Status: Chronic Assessment and plan: Patient reports chronic oxycodone use at home. Concern for possible drug- seeking behavior as the patient is attempting to manipulate staff into obtaining more pain medication. We will hold opiates at this time as the patient appears to be improving and his blood pressure is borderline low. Qualifiers: Back pain location: back pain in unspecified location Back pain laterality : unspecified Qualified Code(s): M54.9 - Dorsalgia, unspecified; G89.29 - Other chronic pain (7) CAD (coronary artery disease) Current Visit: No Status: Chronic Assessment and plan: Patient has history of coronary disease with bypass several years ago. Currently on aspirin and Plavix, we will continue this. Patient presented with chest pain however the pain is more in his upper back. There was concern for possible ST elevation so the ER contacted interventional cardiology who felt the EKGs were concerning but did not feel this was a STEMI and required urgent intervention. Initial 2 troponins were negative making the concern for myocardial ischemia low, we will repeat a third. Check echo in the morning, cardiology consult pending. Qualifiers: Coronary Disease-Associated Artery/Lesion type: unspecified vessel or lesion type [place] vs. transplanted heart: [place] heart Associated angina: angina presence unspecified Qualified Code(s): I25.10 - Atherosclerotic heart disease of [place] coronary artery without angina pectoris (8) Ischemic cardiomyopathy Current Visit: No Status: Chronic Assessment and plan: Previous EF of 40-45%. No evidence of acute exacerbation of heart failure. (9) PAF (paroxysmal atrial fibrillation) Current Visit: Yes Status: Chronic Assessment and plan: She has paroxysmal A. fib is currently on warfarin for anticoagulation and beta regine for rate control. Patient currently in normal sinus rhythm however in the emergency department he did have an episode of paroxysmal atrial fibrillation that resolved with fluid administration. Continue cardiac monitoring. Rate controlled at this time. Continue Warfarin with a goal INR of 2-3. (10) DVT prophylaxis Current Visit: Yes Status: Acute Assessment and plan: Patient currently anticoagulated with warfarin with INR 2.5. No further DVT prophylaxis indicated. - Time Spent With Patient Total time spent is greater than 50% in coordination of care (as documented) at patient's floor/unit and/or counseling patient:
[2018-07-01 05:05] LABS: Bilirubin,Urine Negative (Negative); Blood,Urine Negative (Negative); Clarity,Urine Clear (Clear); Color,Urine Yellow (Yellow); Glucose,Urine (UA) >=1000 mg/dL (Normal); Ketones,Urine Trace mg/dL (Negative); Leukocyte Esterase,Urine Negative (Negative); Nitrite,Urine Negative (Negative); PH,Urine 5.5 pH Units (5.0-8.0); Protein,Urine Negative (Neg-Trace); Specific Gravity,Urine 1.015 (1.010-1.025); Urobilinogen,Urine Normal (Normal)
[2018-07-01] MEDS ORDERED: *HR* Heparin 5,000 UNIT/ML VIAL SQ SCH (06:00)
[2018-07-01 06:05] LABS: VBG HCO3 24 mEq/L (21-27); VBG PCO2 37 mmHg (41-51); VBG PH 7.43 pH Units (7.32-7.42); VBG PO2 185 mmHg (25-50)
[2018-07-01 06:24] LABS: Blood Urea Nitrogen > 130 mg/dL (6-20); Calcium 8.7 mg/dL (8.6-10.3); Carbon Dioxide 23 mEq/L (23-29); Chloride 94 mEq/L (98-107); Glucose 532 mg/dL (70-105); Potassium 3.7 mEq/L (3.5-5.1); Sodium 131 mEq/L (136-145); eGFR For Non-African Americans 18 (> 60)
[2018-07-01] MEDS ORDERED: *HR* Heparin 5,000 UNIT/ML VIAL IVP PRN (06:29)
[2018-07-01] MEDS ORDERED: *HR* Heparin 5,000 UNIT/ML VIAL IVP ONE (06:29)
--- NOTE | 2018-07-01 06:31 | Event Note ---
Date of Encounter: 07/01/18 Time of Encounter: 06:30 Repeat troponin obtained at 6 AM this morning came back positive at 2.67. Initial troponin 6 hours previously had been negative. Patient reports his chest pain has improved and there are no EKG changes. We will start heparin drip per ACS protocol. petroleum engineer, Dr. Chapman, was called and updated.
[2018-07-01 07:01] LABS: Heparin anti-factor XA UFH 0.08 IU/mL (0.30-0.70); INR 2.1; Prothrombin Time 23.4 Seconds (9.4-12.1)
[2018-07-01] MEDS: Heparin 25,000 UNIT/500 ML D5W 25,000 UNIT/500 ML BAG IVC SCH (07:52)
[2018-07-01] MEDS: Aspirin 81 MG TAB.CHEW PO SCH (07:53)
--- NOTE | 2018-07-01 08:51 | Pulmonology Consult Note ---
Date of Encounter: 07/01/18 Time of Encounter: 07:30 Assessment and Plan (1) Non-ST elevation DC (NSTEMI) Current Visit: No Status: Acute Worsening with non-ST elevation DC with troponin peaked around 2.67 highly concerning for obstructive coronary artery disease can be possible supply demand mismatch due to atrial fibrillation with RVR in the setting of DKA and some volume depletion. Agree with the heparin use of IV nitroglycerin as hemodynamically tolerated to keep the systolic blood pressure between 100-120. With MAP around 60-65. The planning for left heart catheterization this patient is high risk with chronic kidney disease and severe pulmonary hypertension. (2) DKA (diabetic ketoacidosis) Current Visit: Yes Status: Acute Patient has diabetic ketoacidosis patient will need volume repletion but we cannot do the usual volume protocol because of the severe pulmonary hypertension and acute on chronic combined systolic diastolic heart failure. Patient will need gentle hydration with close monitoring of his V/Q mismatch is a gap open's we have no other choice to give some more fluid if he gets fluid overload at that point patient should be started on BiPAP. Qualifiers: Diabetes mellitus type: type 1 Diabetes mellitus complication detail: without coma Qualified Code(s): E10.10 - Type 1 diabetes mellitus with ketoacidosis without coma (3) Acute on chronic combined systolic and diastolic CHF (congestive heart failure) Current Visit: No Status: Acute Patient has acute on chronic combined systolic and diastolic heart failure ideally he needs to be diuresed. Very hard to say the Goodman volume status the setting of right-sided failure plus with hyperosmolar state. Will need diuresis if he gets fluid overloaded. To control the afterload and preload. If the blood pressure was about 120 to start on IV nitroglycerin drip. If she gets fluid overloaded causing V/Q mismatch patient should be put on BiPAP. (4) Ischemic cardiomyopathy Current Visit: No Status: Chronic Due to significant coronary artery disease. (5) Pulmonary hypertension Current Visit: Yes Status: Acute Patient pulmonary hypertension is severe secondary to class II due to combined systolic and diastolic heart failure. We need to be Full to reduce the preload too much as it will cause hypotension. (6) Renal failure (ARF), acute on chronic Current Visit: No Status: Acute I will discourage diuresis at this point in the setting of diabetic ketoacidosis discussed with nephrology Dr. Rodas. If he is fluid overloaded we will start him on BiPAP at that point we can diurese some Qualifiers: Chronic kidney disease stage: stage 4 (severe) Qualified Code(s): N17.9 - Acute kidney failure, unspecified; N18.4 - Chronic kidney disease, stage 4 ( severe) (7) DVT prophylaxis Current Visit: No Status: Acute Patient is on heparin drip for acute coronary syndrome History of Present Illness Consult date: 07/01/18 Requesting physician: Oleksandr Garcia Reason for consult: chest pain Chief complaint: Chest pain History of present illness: 52 -year-old male with past medical history significant for diabetes mellitus, stage IV chronic kidney disease getting prepared for hemodialysis, severe coronary artery disease with combined systolic and diastolic heart failure with severe pulmonary hypertension coming to the hospital with symptoms of sudden onset of chest pain off and sputum production denies any fever or chills denies any palpitation or syncope came to the ER workup showed patient had nonketotic hyperosmolar state with hyperglycemia, non-ST elevation DC with elevated troponin and denies any GERD or neuro symptoms patient denies any urinary tract symptoms patient denies any headache or any other skin symptoms. Pulmonary was consult did for management of his diabetes and has acute on chronic hypoxic respiratory failure Past Med Surg Social Fam HX - Past Medical History Medical history: atrial fibrillation, cardiomyopathy, CHF, coronary artery disease, CVA, diabetes, hyperlipidemia, hypertension, myocardial infarction, peripheral artery disease, renal disease, TIA Additional medical history: PUML HTN Psychiatric history: no psych history - Past Surgical History Surgical History: cholecystectomy, coronary bypass (CABG), other Additional surgical history: L Iliac stent. L Fistula. Bilat eye surgery - Social History Smoking Status: Former smoker Smokeless Tobacco Status: No Alcohol use: none Drug use: none - Family History Mother Hx Family Cardiac Disorders: Yes (htn HLD) Hx Family Endocrine Disorder: Yes (DM) Father Adopted: No Family Member Ethnicity: Non- Living Status: Still Living Hx Family Cardiac Disorders: Yes (DC) Hx Family Respiratory Disorders: No Hx Family Cancer: Yes (skin) Hx Family GI Disorders: No Hx Family Endocrine Disorder: No Medications and Allergies Aspirin 81 mg PO DAILY 06/03/16 [History] Cholecalciferol (D-3) [Vitamin D] 1,000 unit PO BID 06/03/16 [History] Docusate [Colace] 100 mg PO DAILY PRN 06/03/16 [History] Insulin ASPART [Novolog Flexpen] 18 - 30 unit SQ TIDAC 06/03/16 [History] Insulin Glargine,Hum.rec.anlog [Lantus Solostar] 17 unit SQ HS 06/03/16 [History ] Sodium Bicarbonate 1,300 mg PO DAILY 06/03/16 [History] Oxycodone HCl [Oxaydo] 5 mg PO Q4H PRN 03/14/17 [History] Oxygen 3.5 l NS HS 03/14/17 [History] metOLazone [Zaroxolyn] 5 mg PO DAILY 03/14/17 [History] Isosorbide MONOnitrate (24 HR) [Imdur] 30 mg PO DAILY #30 tab.er.24h 03/19/17 [ Rx] Ferrous Sulfate [Iron] 325 mg PO DAILY #30 capsule.er 03/23/17 [Rx] Furosemide [Lasix] 80 mg PO BID 10/25/17 [History] Potassium Chloride [K-Tab ER] 20 meq PO BID 10/25/17 [History] Warfarin [Coumadin] 5 mg PO SUMOWEFRSA 10/25/17 [History] Warfarin [Coumadin] 7.5 mg PO TUTH 10/25/17 [History] Cranberry 500 mg PO BID 07/01/18 [History] Hydralazine HCl 100 mg PO TID 07/01/18 [History] Metoprolol Succinate 25 mg PO DAILY 07/01/18 [History] Multivit-Min/FA/Lycopen/Lutein [Adults 50+ Multivitamin Tablet] 1 each PO DAILY 07/01/18 [History] Sildenafil Citrate [Revatio] 20 mg PO TID 07/01/18 [History] Simvastatin [Zocor] 10 mg PO DAILY 07/01/18 [History] Tamsulosin [Flomax] 0.4 mg PO DAILY 07/01/18 [History] Torsemide [Demadex] 10 mg PO TID 07/01/18 [History] amLODIPine [Norvasc] 5 mg PO DAILY 07/01/18 [History] 3 Allergy/AdvReac Type Severity Reaction Status Date / Time DERMABOND AdvReac Itching Uncoded 07/01/18 16:06 All Systems: The remainder of the systems were reviewed and are negative Physical Examination Vital Signs: Vital Signs, Last 4 Hours Temp Pulse Resp BP Pulse Ox 07/01/18 07:24 98.0 F 07/01/18 05:53 71 19 126/82 100 07/01/18 05:00 74 17 132/70 100 General appearance: appears uncomfortable Effort: mildly labored Auscultation: bilateral: diminished breath sounds (in the bases) Cardiovascular: irregular rhythm Extremities: no edema Results - Laboratory Findings CBC and BMP: 07/01/18 02:59 07/01/18 11:42 PT/INR, D-dimer PT 23.4 Seconds (9.4-12.1) H 07/01/18 06:43 Abnormal lab findings: Abnormal lab results WBC 15.6 K/mcL (4.3-11.1) H 07/01/18 02:59 RBC 3.65 M/mcL (4.19-5.50) L 07/01/18 02:59 Hgb 9.9 g/dL (12.9-16.9) L 07/01/18 02:59 Hct 31.5 % (37.5-50.1) L 07/01/18 02:59 MCH 27.1 pg (28.0-33.3) L 07/01/18 02:59 MCHC 31.4 g/dL (31.6-35.5) L 07/01/18 02:59 RDW 15.0 % (11.5-14.5) H 07/01/18 02:59 Plt Count 402 K/mcL (140-400) H 07/01/18 02:59 Neutrophils # 14.6 K/mcL (1.6-8.9) H 07/01/18 02:59 Lymphocytes # 0.2 K/mcL (0.6-4.6) L 07/01/18 02:59 PT 23.4 Seconds (9.4-12.1) H 07/01/18 06:43 Heparin Anti-Xa, Unfract 0.08 IU/mL (0.30-0.70) L 07/01/18 06:43 VBG pH 7.43 pH Units (7.32-7.42) H 07/01/18 06:03 VBG pCO2 37 mmHg (41-51) L 07/01/18 06:03 VBG pO2 185 mmHg (25-50) H 07/01/18 06:03 Sodium 131 mEq/L (136-145) L 07/01/18 05:51 Chloride 94 mEq/L (98-107) L 07/01/18 05:51 BUN > 130 mg/dL (6-20) H 07/01/18 05:51 Creatinine 3.65 mg/dL (0.70-1.30) H 07/01/18 05:51 Est GFR ( Amer) 21 (> 60) L 07/01/18 05:51 Est GFR (Non-Af Amer) 18 (> 60) L 07/01/18 05:51 Glucose 532 mg/dL (70-105) H* 07/01/18 05:51 POC Glucose > 600 mg/dL (70-99) H* 07/01/18 02:01 Alkaline Phosphatase 120 Units/L (34-104) H 06/30/18 22:15 Troponin I 2.67 ng/mL (< 0.04) H* 07/01/18 05:51 B-Natriuretic Peptide 1285 pg/mL (Less than 100) H 06/30/18 22:15 Albumin 3.1 g/dL (3.5-5.7) L 06/30/18 22:15 Albumin/Globulin Ratio 0.9 (1.1-2.2) L 06/30/18 22:15 Beta-Hydroxybutyric Acd > 2.00 mmol/L (0.02-0.27) H 06/30/18 22:15 Urine Glucose (UA) >=1000 mg/dL (Normal) H 07/01/18 04:30 Urine Ketones Trace mg/dL (Negative) H 07/01/18 04:30 - Clinical Findings Intake & Output: Intake & Output 06/30/18 07/01/18 07/01/18 23:59 07:59 15:59 Intake Total 209.88 / 1329.28 Balance 209.88 / 1079.28 Consult Discharge Plan - Plan Referrals: Betsy Salvador, [employer] TECHNOLOGIST [Primary Care Provider] -
[2018-07-01] MEDS ORDERED: D5% in 0.45% NACL w KCl 20 MEQ/1,000 ML MLS IVC SCH (09:30)
--- NOTE | 2018-07-01 10:03 | Nephrology Consult Note ---
Date of Encounter: 07/01/18 Time of Encounter: 09:45 Assessment and Plan (1) Chest pain Current Visit: Yes Status: Acute Elevated troponin noted, cardio on board. Pt is currently chest pain free Qualifiers: Chest pain type: unspecified Qualified Code(s): R07.9 - Chest pain, unspecified (2) Hyperglycemia Current Visit: Yes Status: Acute Per primary team (3) Chronic kidney disease, stage IV (severe) Current Visit: No Status: Chronic SCr noted 3.65, GFR 18 which is his baseline BUN >130 and at baseline usually 80 -100s. Agree with gentle hydration today Discussed pros/cons of possible iv contrast exposure and the possible need for HD afterwards. Pt does not seem to grasp the entire situation. Will address again Avoid nephrotoxins if possible lytes stable for now; will monitor sodium and replete potassium as needed. No signs of uremia so far noted Will check PTH and vitamin D levels History of Present Illness - Reason for Consult Consult date: 07/01/18 Chronic Kidney Disease Requesting physician: Oleksandr Garcia - History of Present Illness 52 y o male with PMH of type 1 DM, HTN, CAD, CHF with pulm HTN and stage 4 CKD admitted with chest pain and noted with hyperglycemia. Troponin noted elevated at 2.67 with cardiology consulted. Pt follows with Dr Miranda outpatient for his CD management and has AVF placed last july per pt for when HD start needed. Renal consulted to help with management during stay. Pt is not the best historian and not giving up much history at all. Past Med Surg Social Fam HX - Past Medical History Medical history: atrial fibrillation, cardiomyopathy, CHF, coronary artery disease, CVA, diabetes, hyperlipidemia, hypertension, myocardial infarction, peripheral artery disease, renal disease, TIA Additional medical history: PUML HTN Psychiatric history: no psych history - Past Surgical History Surgical History: cholecystectomy, coronary bypass (CABG), other Additional surgical history: L Iliac stent. L Fistula. Bilat eye surgery - Social History Smoking Status: Former smoker Smokeless Tobacco Status: No Alcohol use: none Drug use: none - Family History Mother Hx Family Cardiac Disorders: Yes (htn HLD) Hx Family Endocrine Disorder: Yes (DM) Father Adopted: No Family Member Ethnicity: Non- Living Status: Still Living Hx Family Cardiac Disorders: Yes ([place]) Hx Family Respiratory Disorders: No Hx Family Cancer: Yes (skin) Hx Family GI Disorders: No Hx Family Endocrine Disorder: No Medications and Allergies Amlodipine Besylate 10 mg PO DAILY 06/03/16 [History] Aspirin 81 mg PO DAILY 06/03/16 [History] Cholecalciferol (D-3) [Vitamin D] 1,000 unit PO BID 06/03/16 [History] Docusate [Colace] 100 mg PO DAILY PRN 06/03/16 [History] Insulin ASPART [Novolog Flexpen] 18 - 30 unit SQ TIDAC 06/03/16 [History] Insulin Glargine,Hum.rec.anlog [Lantus Solostar] 17 unit SQ HS 06/03/16 [History ] Lovastatin 80 mg PO DAILY 06/03/16 [History] Multivitamin [Multi-Day Vitamins] 1 each PO DAILY 06/03/16 [History] Sodium Bicarbonate 1,300 mg PO DAILY 06/03/16 [History] hydrALAZINE [HydrALAZINE] 25 mg PO BID 06/03/16 [History] Metoprolol XL (24 HR) Succ [Toprol Xl] 50 mg PO DAILY #30 tab.er.24h 06/07/16 [ Rx] Tamsulosin [Flomax] 0.4 mg PO DAILY #30 capsule 06/07/16 [Rx] Oxycodone HCl [Oxaydo] 5 mg PO Q4H PRN 03/14/17 [History] Oxygen 3.5 l NS HS 03/14/17 [History] metOLazone [Zaroxolyn] 5 mg PO DAILY 03/14/17 [History] Isosorbide MONOnitrate (24 HR) [Imdur] 30 mg PO DAILY #30 tab.er.24h 03/19/17 [ Rx] Ferrous Sulfate [Iron] 325 mg PO DAILY #30 capsule.er 03/23/17 [Rx] Furosemide [Lasix] 40 mg PO BID 10/25/17 [History] Potassium Chloride [K-Tab ER] 20 meq PO BID 10/25/17 [History] Warfarin [Coumadin] 5 mg PO SUMOWEFRSA 10/25/17 [History] Warfarin [Coumadin] 7.5 mg PO TUTH 10/25/17 [History] Cephalexin [Keflex] 500 mg PO BID #10 capsule 05/18/18 [Rx] 3 Allergy/AdvReac Type Severity Reaction Status Date / Time DERMABOND AdvReac Itching Uncoded 06/30/18 21:48 Review of Systems All Systems: reviewed and no additional remarkable complaints except as stated All Systems review (narrative): The rest of the systems were negative Constitutional: weakness (admits) Cardiovascular: chest pain (currently pain free but did have) Respiratory: dyspnea (denies) Exam - Vital Signs Vital signs: Initial Vital Signs Temp Pulse Resp BP Pulse Ox 98.7 F 83 18 98/47 95 06/30/18 21:46 06/30/18 21:46 06/30/18 21:46 06/30/18 21:46 06/30/18 21:46 Vital Signs - Last 8 Hours Temp Pulse Resp BP Pulse Ox 07/01/18 09:00 75 19 123/73 94 07/01/18 08:00 75 19 138/69 94 07/01/18 07:45 84 07/01/18 07:24 98.0 F 07/01/18 07:00 71 19 134/69 100 07/01/18 05:53 71 19 126/82 100 07/01/18 05:00 74 17 132/70 100 Intake and Output 06/30/18 07/01/18 07/01/18 23:59 07:59 15:59 Intake Total 209.88 / 1329.28 125.52 / 125.52 Output Total 0 / 0 Balance 209.88 / 1079.28 125.52 / 125.52 Intake: IV Fluids 209.88 / 316.48 125.52 / 125.52 HumuLIN R 100 UNIT In 0.9 % 9.88 / 16.48 125.52 / 125.52 Sodium Chloride 100 ML @ 0.1 UNIT/KG/HR 6.59 mls/hr IVC CONT INO Rx#:[id number] Potassium Chloride 10 mEq/100mL 200 / 300 10 meq In 100 ml @ 100 mls/hr IVPB Q1H INO Rx#:[id number] Output: Urine 0 / 0 Other: Blood Glucose* 479 248 - General Appearance General appearance: well-developed, well-nourished EENT: ATNC, mucous membranes dry Neck: no JVD, supple Respiratory: clear Cardiology: no edema, normal S1, normal S2 - Dialysis Access Dialysis Vascular Access: Arteriovenous Fistula thrill: Yes bruit: Yes (immature) Gastrointestinal: no tenderness, no guarding Integumentary: warm and dry Neurologic: no focal deficit Musculoskeletal: no deformities Psychiatric: mood/affect appropriate Results - Lab Results 07/01/18 02:59 07/01/18 05:51 Most recent lab results Calcium 8.7 mg/dL (8.6-10.3) 07/01/18 05:51 Consult Discharge Plan - Plan Referrals: Betsy Salvador, NEVIN [Primary Care Provider] -
--- NOTE | 2018-07-01 10:34 | Cardiology Consult Note ---
Date of Encounter: 07/02/18 Time of Encounter: 10:30 Assessment and Plan (1) Non-ST elevation [place] (NSTEMI) Current Visit: No Status: Acute Likely demand ischemia due to severe three-vessel disease Possible demand ischemia related to pneumonia Continue heparin IV and IV nitroglycerin plans for LHC unless continued rise of troponins or recurrent chest pain High-risk LHC due to stage IV chronic kidney disease (2) Chronic kidney disease, stage IV (severe) Current Visit: No Status: Chronic Stage IV chronic kidney disease, likely not a candidate for a LHC, recent LHC 2017 unremarkable We will discuss with nephrology (3) Leukocytosis Current Visit: No Status: Acute Possibly related to underlying pneumonia Qualifiers: Leukocytosis type: other Qualified Code(s): D72.828 - Other elevated white blood cell count (4) CHF (congestive heart failure), NYHA class III Current Visit: Yes Status: Acute Mild hypervolemia with mild right-sided heart failure likely secondary to severe pulmonary hypertension Echocardiogram to evaluate for structural heart abnormalities Patient may or may not and if it from hemodialysis at this time, nephrology consult Continue IV nitroglycerin Possibly secondary to pulm HTN with recent LHC unremarkable, ECHO pending Qualifiers: Congestive heart failure type: systolic Congestive heart failure chronicity : acute on chronic Qualified Code(s): I50.23 - Acute on chronic systolic ( congestive) heart failure Discussion w patient/family: The assessment and plan as outlined above was discussed with the patient and/or family members who expressed understanding and agreement. All questions were answered. Thank you for involving us in the care of your patient. Please call with any questions. History of Present Illness Consult date: 07/01/18 Consult reason: NSTEMI Chief complaint: Chest pain History of present illness: Mr. Watson is a 52 year old male with history of hypertension, diabetes, hyperlipidemia, PAD, coronary artery disease status post CABG 2, chronic kidney disease presents to the emergency department complaining of chest pain. Patient is a poor historian and describes chest pain as retrosternal nonradiating with associated nausea and vomiting. His initial cardiac enzymes were unremarkable however 6 hours later peak of 2.67. Patient currently is chest pain-free. He has a history of atrial fibrillation which may have been a culprit for his demand ischemia as his heart rate increased to 120 bpm in the emergency department. Currently his heart rate is back at sinus rhythm 76 bpm. I have reviewed his left heart catheter from March 2017 reveals patent grafts including CAZARES to LAD and SVG to OM1. He has severe three-vessel disease with collaterals to his RCA from the left coronary system. Last ejection fraction in 2017 was 40-45% with severe diastolic dysfunction and severe pulmonary hypertension. Past Med Surg Social Fam HX - Past Medical History Medical history: atrial fibrillation, cardiomyopathy, CHF, coronary artery disease, CVA, diabetes, hyperlipidemia, hypertension, myocardial infarction, peripheral artery disease, renal disease, TIA Additional medical history: PUML HTN Psychiatric history: no psych history - Past Surgical History Surgical History: cholecystectomy, coronary bypass (CABG), other Additional surgical history: L Iliac stent. L Fistula. Bilat eye surgery - Social History Smoking Status: Former smoker Smokeless Tobacco Status: No Alcohol use: none Drug use: none - Family History Mother Hx Family Cardiac Disorders: Yes (htn HLD) Hx Family Endocrine Disorder: Yes (DM) Father Adopted: No Family Member Ethnicity: Non- Living Status: Still Living Hx Family Cardiac Disorders: Yes ([place]) Hx Family Respiratory Disorders: No Hx Family Cancer: Yes (skin) Hx Family GI Disorders: No Hx Family Endocrine Disorder: No Medications and Allergies Aspirin 81 mg PO DAILY 06/03/16 [History] Cholecalciferol (D-3) [Vitamin D] 1,000 unit PO BID 06/03/16 [History] Docusate [Colace] 100 mg PO BID 06/03/16 [History] Insulin ASPART [Novolog Flexpen] 12 - 25 unit SQ TIDAC 06/03/16 [History] Insulin Glargine,Hum.rec.anlog [Lantus Solostar] 14 unit SQ 06/03/16 [History ] Sodium Bicarbonate 1,300 mg PO DAILY 06/03/16 [History] Oxycodone HCl [Oxaydo] 5 mg PO Q4H PRN 03/14/17 [History] Oxygen 3.5 l NS HS 03/14/17 [History] metOLazone [Zaroxolyn] 5 mg PO DAILY 03/14/17 [History] Isosorbide MONOnitrate (24 HR) [Imdur] 30 mg PO DAILY #30 tab.er.24h 03/19/17 [ Rx] Ferrous Sulfate [Iron] 325 mg PO DAILY #30 capsule.er 03/23/17 [Rx] Furosemide [Lasix] 80 mg PO BID 10/25/17 [History] Potassium Chloride [K-Tab ER] 20 meq PO BID 10/25/17 [History] Warfarin [Coumadin] 5 mg PO SUMOTUTHFR 10/25/17 [History] Warfarin [Coumadin] 7.5 mg PO WESA 10/25/17 [History] Cranberry 500 mg PO BID 07/01/18 [History] Hydralazine HCl 100 mg PO TID 07/01/18 [History] Metoprolol Succinate 25 mg PO DAILY 07/01/18 [History] Multivit-Min/FA/Lycopen/Lutein [Adults 50+ Multivitamin Tablet] 1 each PO DAILY 07/01/18 [History] Sildenafil Citrate [Revatio] 20 mg PO BID 07/01/18 [History] Simvastatin [Zocor] 10 mg PO DAILY 07/01/18 [History] Tamsulosin [Flomax] 0.4 mg PO DAILY 07/01/18 [History] Torsemide [Demadex] 10 mg PO TID 07/01/18 [History] amLODIPine [Norvasc] 5 mg PO DAILY 07/01/18 [History] 3 Allergy/AdvReac Type Severity Reaction Status Date / Time DERMABOND AdvReac Itching Uncoded 07/01/18 16:06 All Systems Review: The remainder of the systems were reviewed and are negative Physical Examination Vital Signs, Last 4 Hours Temp Pulse Resp BP Pulse Ox 07/01/18 10:00 75 19 139/78 94 07/01/18 09:00 75 19 123/73 94 07/01/18 08:00 75 19 138/69 94 07/01/18 07:45 84 07/01/18 07:24 98.0 F 07/01/18 07:00 71 19 134/69 100 General: Conversant, No Apparent Distress HEENT: Atraumatic, Normocephaly, Mucus Membranes Moist Neck: No JVD, Normal carotid pulses Cardiac: Reg Rate and Rhythm, Normal S1 and S2, No Murmur Lungs: Normal Breath Sounds, No Wheeze, Rales, Rhonchi, Other (Diminished air entry bibasilar left more than right with fine bibasilar crackles) Neuro: Alert and responsive, No focal deficits noted Abdomen: Soft, Non-Tender Skin: No rashes noted on visualized skin Musculoskeletal: No Chest Wall Tenderness Extremities: No Clubbing, No Cyanosis, No Edema, Normal Pulses Results 07/02/18 03:44 07/02/18 03:44 Lab Results 07/01/18 07/01/18 07/01/18 05:51 05:51 06:43 INR 2.1 Sodium 131 L Potassium 3.7 Chloride 94 L Carbon Dioxide 23 BUN > 130 H Creatinine 3.65 H Glucose 532 H* Calcium 8.7 Troponin I 2.67 H* Consult Discharge Plan - Plan Referrals: Betsy Salvador, DINKEY OPERATOR [Primary Care Provider] -
[2018-07-01] MEDS: *HR* OxyCODONE Immed Rel 5 MG TABLET PO PRN (10:43)
[2018-07-01 12:25] LABS: Blood Urea Nitrogen > 130 mg/dL (6-20); Calcium 8.9 mg/dL (8.6-10.3); Carbon Dioxide 23 mEq/L (23-29); Chloride 98 mEq/L (98-107); Glucose 169 mg/dL (70-105); Potassium 4.3 mEq/L (3.5-5.1); Sodium 134 mEq/L (136-145); eGFR For Non-African Americans 17 (> 60)
[2018-07-01] MEDS ORDERED: Insulin DETEMIR 100 UNIT/ML X5UNITS SQ ONE (13:59)
[2018-07-01] MEDS ORDERED: Dextrose Gel 15 GM/37.5 ML TUBE PO PRN ×2 (14:01)
[2018-07-01] MEDS ORDERED: D5% in Water 1,000 ML IVC PRN (14:01)
[2018-07-01] MEDS: 0.9 % Sodium Chloride 1,000 ML IVC SCH (15:24)
[2018-07-01] MEDS: *HR* Heparin 5,000 UNIT/ML VIAL IVP PRN (15:40)
[2018-07-01] MEDS: Insulin LISPRO 300 UNITS/3 ML VIAL SQ SCH ×2 (15:43→19:41)
[2018-07-01] MEDS: Nitroglycerin 25 MG/250 ML INFUS..BTL IVC SCH ×3 (15:56→23:39)
[2018-07-01] MEDS: Doxycycline 200 MG in 0.9 % Sodium Chloride 250 ML IVPB SCH (17:55)
[2018-07-01] MEDS ORDERED: *HR* Warfarin 5 MG TABLET PO ONE (18:00)
[2018-07-01] MEDS ORDERED: Warfarin perPT PO PRN (18:00)
[2018-07-01] MEDS ORDERED: *HR* Warfarin 5 MG TABLET PO SCH (18:00)
[2018-07-01] MEDS ORDERED: Insulin LISPRO 300 UNITS/3 ML VIAL SQ SCH (21:00)
[2018-07-02] MEDS: 0.9 % Sodium Chloride 1,000 ML IVC SCH ×2 (00:06→09:56)
[2018-07-02] MEDS: *HR* OxyCODONE Immed Rel 5 MG TABLET PO PRN ×3 (00:06→21:53)
[2018-07-02 03:57] LABS: Basophils # 0.1 K/mcL (0.0-0.2); Basophils % 0.7 %; Eosinophils # 0.3 K/mcL (0.0-0.6); Hematocrit 29.1 % (37.5-50.1); Hemoglobin 9.4 g/dL (12.9-16.9); Immature Granulocytes % 0.4 % (0-4); Lymphocytes % 8.4 %; Mean Corpuscular HGB Conc 32.3 g/dL (31.6-35.5); Mean Corpuscular Hemoglobin 27.2 pg (28.0-33.3); Mean Corpuscular Volume 84.1 fL (83.0-100.0); Mean Platelet Volume 9.6 fL (9.4-12.4); Monocytes # 1.6 K/mcL (0.0-1.3); Monocytes % 14.1 %; Neutrophils # 8.4 K/mcL (1.6-8.9); Platelet Count 355 K/mcL (140-400); Red Blood Count 3.46 M/mcL (4.19-5.50); Red Cell Distribution Width 14.7 % (11.5-14.5); Segmented Neutrophils % 73.4 %
[2018-07-02 04:07] LABS: Heparin anti-factor XA UFH 0.17 IU/mL (0.30-0.70); Prothrombin Time 33.3 Seconds (9.4-12.1)
[2018-07-02 04:26] LABS: Blood Urea Nitrogen > 130 mg/dL (6-20); Calcium 8.7 mg/dL (8.6-10.3); Carbon Dioxide 23 mEq/L (23-29); Chloride 98 mEq/L (98-107); Glucose 198 mg/dL (70-105); Potassium 3.3 mEq/L (3.5-5.1); Sodium 131 mEq/L (136-145); eGFR For Non-African Americans 19 (> 60)
[2018-07-02] MEDS: *HR* Heparin 5,000 UNIT/ML VIAL IVP PRN (04:26)
[2018-07-02] MEDS: Nitroglycerin 25 MG/250 ML INFUS..BTL IVC SCH ×3 (04:27→15:44)
[2018-07-02] MEDS: Doxycycline 200 MG in 0.9 % Sodium Chloride 250 ML IVPB SCH ×2 (04:27→18:00)
[2018-07-02] MEDS: Insulin LISPRO 300 UNITS/3 ML VIAL SQ SCH ×4 (07:34→21:54)
[2018-07-02] MEDS: Heparin 25,000 UNIT/500 ML D5W 25,000 UNIT/500 ML BAG IVC SCH (07:35)
[2018-07-02] MEDS: Aspirin 81 MG TAB.CHEW PO SCH (07:42)
[2018-07-02] MEDS ORDERED: Saline Nasal Spray 44 ML BOTTLE NS PRN ×2 (08:49→13:28)
--- NOTE | 2018-07-02 08:51 | Pulmonology Progress Note ---
Date of Encounter: 07/02/18 Time of Encounter: 08:00 Assessment and Plan (1) Non-ST elevation [place] (NSTEMI) Current Visit: No Status: Acute Patient had significant non-ST elevation OR with significant troponin leak patient will be going to her left heart catheterization soon according to cardiology patient is therapeutic with INR. Heparin drip as he is bleeding from his nose. Cardiology to do left heart catheterization once the INR is less than 1.8 because of his underlying coronary artery disease will aggressively correct the INR will hold all anticoagulants Coumadin was stopped on admission. If the bleeding continues will reverse the INR (2) DKA (diabetic ketoacidosis) Current Visit: Yes Status: Acute Anion gap is closed to increase basal insulin and will continue with medium strength sliding scale . Qualifiers: Diabetes mellitus type: type 1 Diabetes mellitus complication detail: without coma Qualified Code(s): E10.10 - Type 1 diabetes mellitus with ketoacidosis without coma (3) Acute on chronic combined systolic and diastolic CHF (congestive heart failure) Current Visit: No Status: Acute Patient has acceptable oxygenation and ventilation will hold of diuresis now we will start on his home antihypertensive to keep his blood pressure less than 140. Blood pressure is controlled with this oral regimen we will discontinue the nitroglycerin drip. (4) Ischemic cardiomyopathy Current Visit: No Status: Chronic Management as above (5) Pulmonary hypertension Current Visit: Yes Status: Acute Pulmonary hypertension secondary to Combined systolic and diastolic heart failure. (6) Renal failure (ARF), acute on chronic Current Visit: No Status: Acute Serum creatinine is trending down nephrology following appreciate their recommendations. Qualifiers: Chronic kidney disease stage: stage 4 (severe) Qualified Code(s): N17.9 - Acute kidney failure, unspecified; N18.4 - Chronic kidney disease, stage 4 ( severe) (7) DVT prophylaxis Current Visit: No Status: Acute Patient INR is therapeutic. To stop Heparin drip. Subjective Principal diagnosis: NSTEMI with acute on chronic heart failure Interval history: Patient says that he is feeling a lot better denies much chest pain or chest tightness denies any abdominal pain has some bleeding from his nose. Denies any issues overnight. Objective PUL Vital signs: Last Vital Signs Temp 98.4 F 07/02/18 08:00 Pulse 78 07/02/18 08:00 Resp 20 07/02/18 08:00 BP 129/70 07/02/18 08:00 Pulse Ox 97 07/02/18 08:00 Auscultation: bilateral: diminished breath sounds (basilar diminshed breadth sounds ) Cardiovascular: regular rate and rhythm Results - Laboratory Findings CBC and BMP: 07/02/18 03:44 07/02/18 03:44 PT/INR, D-dimer PT 33.3 Seconds (9.4-12.1) H 07/02/18 03:44 Abnormal lab findings: Abnormal lab results WBC 11.4 K/mcL (4.3-11.1) H 07/02/18 03:44 RBC 3.46 M/mcL (4.19-5.50) L 07/02/18 03:44 Hgb 9.4 g/dL (12.9-16.9) L 07/02/18 03:44 Hct 29.1 % (37.5-50.1) L 07/02/18 03:44 MCH 27.2 pg (28.0-33.3) L 07/02/18 03:44 RDW 14.7 % (11.5-14.5) H 07/02/18 03:44 Monocytes # 1.6 K/mcL (0.0-1.3) H 07/02/18 03:44 PT 33.3 Seconds (9.4-12.1) H 07/02/18 03:44 Heparin Anti-Xa, Unfract 0.17 IU/mL (0.30-0.70) L 07/02/18 03:44 VBG pH 7.43 pH Units (7.32-7.42) H 07/01/18 06:03 VBG pCO2 37 mmHg (41-51) L 07/01/18 06:03 VBG pO2 185 mmHg (25-50) H 07/01/18 06:03 Sodium 131 mEq/L (136-145) L 07/02/18 03:44 Potassium 3.3 mEq/L (3.5-5.1) L 07/02/18 03:44 BUN > 130 mg/dL (6-20) H 07/02/18 03:44 Creatinine 3.36 mg/dL (0.70-1.30) H 07/02/18 03:44 Est GFR ( Amer) 24 (> 60) L 07/02/18 03:44 Est GFR (Non-Af Amer) 19 (> 60) L 07/02/18 03:44 Glucose 198 mg/dL (70-105) H 07/02/18 03:44 POC Glucose 208 mg/dL (70-99) H 07/01/18 23:47 Alkaline Phosphatase 120 Units/L (34-104) H 06/30/18 22:15 Troponin I 2.67 ng/mL (< 0.04) H* 07/01/18 05:51 B-Natriuretic Peptide 1285 pg/mL (Less than 100) H 06/30/18 22:15 Albumin 3.1 g/dL (3.5-5.7) L 06/30/18 22:15 Albumin/Globulin Ratio 0.9 (1.1-2.2) L 06/30/18 22:15 Beta-Hydroxybutyric Acd > 2.00 mmol/L (0.02-0.27) H 06/30/18 22:15 PTH Intact 184.8 pg/ml (10.0-65.0) H 07/02/18 03:44 Urine Glucose (UA) >=1000 mg/dL (Normal) H 07/01/18 04:30 Urine Ketones Trace mg/dL (Negative) H 07/01/18 04:30 - Clinical Findings Intake & Output: Intake & Output 07/01/18 07/02/18 07/02/18 23:59 07:59 15:59 Intake Total 980 / 980 2150 / 2150 Output Total 750 / 750 600 / 600 Balance 230 / 230 1550 / 1550 Weight 68 kg Consult Discharge Plan - Plan Referrals: Betsy Salvador, PATIENT CARE [Primary Care Provider] -
[2018-07-02] MEDS ORDERED: amLODIPine 5 MG TABLET PO SCH (09:00)
[2018-07-02] MEDS ORDERED: metOLazone 5 MG TABLET PO SCH (09:00)
[2018-07-02] MEDS ORDERED: Isosorbide MONOnitrate (24 HR) 30 MG TAB.ER.24H PO SCH (09:00)
--- NOTE | 2018-07-02 10:58 | Nephrology Progress Note ---
Date of Encounter: 07/02/18 Time of Encounter: 10:40 - Assessment and Plan (1) Chest pain Current Visit: Yes Status: Acute Elevated troponin noted, cardio on board. Pt is currently chest pain free Qualifiers: Chest pain type: unspecified Qualified Code(s): R07.9 - Chest pain, unspecified (2) Hyperglycemia Current Visit: Yes Status: Acute Per primary team, sugars have improved (3) Chronic kidney disease, stage IV (severe) Current Visit: No Status: Chronic SCr slightly better at 3.36, GFR 19 at baseline. BUN still >130 with baseline usually 80-100s. Continue to avoid nephrotoxins if possible lytes stable for now; will monitor sodium and replete potassium as needed. No signs of uremia so far noted PTH elevated and vitamin D level pending Subjective Interval history: Pt seen and examined Objective - Vital Signs Vital signs: Vital Signs Temp Pulse Resp BP Pulse Ox 07/02/18 10:00 76 20 143/67 96 07/02/18 09:00 78 20 152/67 97 07/02/18 08:00 98.4 F 78 20 129/70 97 07/02/18 07:00 76 20 130/65 97 07/02/18 06:00 74 16 142/79 94 07/02/18 05:00 75 12 136/66 97 07/02/18 03:55 97.9 F 07/02/18 03:00 76 12 120/66 94 07/02/18 02:00 73 12 122/68 98 07/02/18 01:00 88 12 117/68 96 07/01/18 23:57 85 12 139/75 96 07/01/18 23:46 97.8 F 07/01/18 23:00 80 07/01/18 22:00 80 18 132/80 96 07/01/18 21:00 70 18 140/72 96 07/01/18 19:50 73 18 135/61 96 07/01/18 19:00 97.6 F 76 20 128/62 96 07/01/18 18:00 77 21 139/63 97 07/01/18 17:00 77 18 144/66 97 07/01/18 16:00 77 18 136/69 97 07/01/18 15:22 77 16 155/76 97 07/01/18 15:00 97.5 F L 07/01/18 14:30 84 07/01/18 14:00 77 16 147/76 97 07/01/18 13:00 96 16 138/78 97 07/01/18 12:00 80 16 136/69 97 07/01/18 11:34 98.1 F 07/01/18 11:00 84 19 129/66 97 Intake and Output 07/01/18 07/02/18 07/02/18 23:59 07:59 15:59 Intake Total 980 / 980 2150 / 2150 1490 / 1490 Output Total 750 / 750 600 / 600 Balance 230 / 230 1550 / 1550 1490 / 1490 Intake: IV Fluids 500 / 500 1550 / 1550 1250 / 1250 0.9 % Sodium Chloride 1,000 ML 1000 / 1000 1000 / 1000 @ 100 mls/hr IVC .Q10H INO Rx#: [id number] Heparin 25,000 UNIT/500 ML D5W 300 / 300 25,000 unit In 500 ml @ 12 UNIT /KG/HR 15.888 mls/hr IVC .Q24H INO Rx#:[id number] Nitroglycerin Premix 25 MG/250 250 / 250 250 / 250 250 / 250 ML 25 mg In 250 ml @ 20 MCG/MIN 12 mls/hr IVC .[id number] INO Rx# :[id number] Doxycycline 200 MG In 0.9 % 250 / 250 Sodium Chloride 250 ML @ 250 mls/hr IVPB Q12HR INO Rx#: [id number] Oral 480 / 480 600 / 600 240 / 240 Output: Urine 750 / 750 600 / 600 Other: Meal Dinner Breakfast Percent of Meal Consumed 80% 50% Weight 68 kg Blood Glucose* 208 Patient Weight 07/02/18 23:59 Weight 68 kg - Lab 07/02/18 03:44 07/02/18 03:44 Most recent lab results Calcium 8.7 mg/dL (8.6-10.3) 07/02/18 03:44 Consult Discharge Plan - Plan Referrals: Betsy Salvador, LAUNDRY ROUTEMAN [Primary Care Provider] -
--- NOTE | 2018-07-02 12:26 | Cardiology Progress Note ---
Date of Encounter: 07/02/18 Time of Encounter: 12:24 Assessment and Plan (1) Non-ST elevation [place] (NSTEMI) Current Visit: No Status: Acute Patient presented with typical chest pain symptoms. CXR showed findings concerning for PNA verses edema. He is being treated with IV antibiotic and diuretic. Possible pulmonary edema secondary to CHFrEF, severe pulmonary HTN, and CKD stage IV. Troponin elevation up to 2.67. EKG Shows SR with mild ST depression in the inferior leads increased from prior EKG. He has known CAD s/p 2V CABG and [employer]OR [employer] of the RCA. Last C 02/2017 showed patent 2/2 bypass grafts and collaterals to RCA. TTE this admit showed reduced EF at 35% compared to 40-45% previously. WMA unchanged from prior echo. There is mild MR and TR. Severe PAH. [facility] recommended and discussed. Patient hesitant due to Stage IV CKD. SCr stable and nephrology following. ALso concern due to known liver disease and INR 3.0 despite holding coumadin. I will d/c heparin gtt. Can restart when INR 2.0 or less. Once INR at least 1.8 or less can reconsider C if patient willing. (2) CAD (coronary artery disease) Current Visit: No Status: Chronic H/o 2 vessel CABG area last cardiac catheterization in February 2017 showed 2 of 2 patent bypass grafts including SVG to the first diagonal artery and CAZARES to the LAD. There is [employer] of the RCA with collaterals. Continue aspirin, statin, and beta regine. Qualifiers: Coronary Disease-Associated Artery/Lesion type: unspecified vessel or lesion type [place] vs. transplanted heart: [place] heart Associated angina: angina presence unspecified Qualified Code(s): I25.10 - Atherosclerotic heart disease of [place] coronary artery without angina pectoris (3) Acute on chronic systolic CHF (congestive heart failure), NYHA class 2 Current Visit: No Status: Acute TTE completed during stay shows EF 35% with moderate segmental and global systolic dysfunction. There is severe pulmonary artery hypertension. EF mildly reduced compared to previous echo in 2017, EF 40-45%. EF previously 40%. Mild fluid overload on exam. Likely multifactorial in the setting of CHF, PA H , and stage IV CKD. Appreciate nephrology recommendation for diuretic. Currently on metolazone. Strict I&O and daily weights. Low-sodium diet. Discussion w patient/family: The assessment and plan as outlined above was discussed with the patient and/or family members who expressed understanding and agreement. All questions were answered. Thank you for involving us in the care of your patient. Please call with any questions. Subjective Principal diagnosis: Elevated troponin, NSTEMI Interval history: Mr. Watson is ambulating in his room. Denies chest pain. C/o chronic SOB at baseline. Objective Vital Signs, Last 4 Hours Pulse Resp BP Pulse Ox 07/02/18 12:00 76 16 150/81 96 07/02/18 11:00 78 16 130/74 96 07/02/18 10:00 76 20 143/67 96 07/02/18 09:00 78 20 152/67 97 General: Conversant, No Apparent Distress HEENT: Atraumatic, Normocephaly, Mucus Membranes Moist Neck: No JVD, Normal carotid pulses Cardiac: Reg Rate and Rhythm, Normal S1 and S2, No Murmur Lungs: Normal Breath Sounds, No Wheeze, Rales, Rhonchi Neuro: Alert and responsive, No focal deficits noted Abdomen: Soft, Non-Tender Skin: No rashes noted on visualized skin Musculoskeletal: No Chest Wall Tenderness Extremities: No Clubbing, No Cyanosis, No Edema, Normal Pulses Results 07/02/18 03:44 07/02/18 03:44 Lab Results 07/01/18 07/02/18 07/02/18 11:42 03:44 03:44 WBC 11.4 H Hgb 9.4 L Hct 29.1 L Plt Count 355 INR Sodium 134 L 131 L Potassium 4.3 3.3 L Chloride 98 98 Carbon Dioxide 23 23 BUN > 130 H > 130 H Creatinine 3.71 H 3.36 H Glucose 169 H 198 H Calcium 8.9 8.7 07/02/18 03:44 WBC Hgb Hct Plt Count INR 3.0 Sodium Potassium Chloride Carbon Dioxide BUN Creatinine Glucose Calcium - Imaging and Cardiology Echo: report reviewed - EKG Interpretation EKG results cardiology: personally reviewed Consult Discharge Plan - Plan Referrals: Betsy Salvador, NUTRITION INTERN [Primary Care Provider] -
[2018-07-02] MEDS ORDERED: Dextrose Gel 15 GM/37.5 ML TUBE PO PRN ×2 (13:28)
[2018-07-02] MEDS ORDERED: Naloxone 0.4 MG/ML INJ IVP PRN (13:28)
[2018-07-02] MEDS ORDERED: *HR* Dextrose 50 % in Water (Syg) 50 ML SYRINGE IVP PRN ×3 (13:28)
[2018-07-02] MEDS: hydrALAZINE 25 MG TABLET PO SCH (15:47)
[2018-07-02] MEDS ORDERED: hydrALAZINE 25 MG TABLET PO SCH ×2 (16:00)
[2018-07-02] MEDS ORDERED: Insulin DETEMIR 100 UNIT/ML X5UNITS SQ SCH (21:00)
[2018-07-02] MEDS: Insulin DETEMIR 100 UNIT/ML X5UNITS SQ SCH (21:53)
[2018-07-03] MEDS: hydrALAZINE 25 MG TABLET PO SCH ×3 (00:24→18:11)
[2018-07-03 04:20] LABS: Basophils # 0.1 K/mcL (0.0-0.2); Basophils % 0.9 %; Eosinophils # 0.5 K/mcL (0.0-0.6); Eosinophils % 4.2 %; Hematocrit 35.3 % (37.5-50.1); Hemoglobin 11.4 g/dL (12.9-16.9); Immature Granulocytes % 0.4 % (0-4); Lymphocytes % 8.3 %; Mean Corpuscular HGB Conc 32.3 g/dL (31.6-35.5); Mean Corpuscular Hemoglobin 27.3 pg (28.0-33.3); Mean Corpuscular Volume 84.4 fL (83.0-100.0); Mean Platelet Volume 10.2 fL (9.4-12.4); Monocytes # 1.5 K/mcL (0.0-1.3); Monocytes % 12.7 %; Neutrophils # 8.6 K/mcL (1.6-8.9); Platelet Count 441 K/mcL (140-400); Red Blood Count 4.18 M/mcL (4.19-5.50); Segmented Neutrophils % 73.5 %
[2018-07-03 04:22] LABS: INR 1.6; Prothrombin Time 18.5 Seconds (9.4-12.1)
[2018-07-03 04:41] LABS: Calcium 9.2 mg/dL (8.6-10.3); Potassium 3.6 mEq/L (3.5-5.1)
[2018-07-03] MEDS: Doxycycline 200 MG in 0.9 % Sodium Chloride 250 ML IVPB SCH ×2 (05:57→18:13)
[2018-07-03] MEDS: Insulin LISPRO 300 UNITS/3 ML VIAL SQ SCH ×4 (07:38→20:11)
[2018-07-03] MEDS: Isosorbide MONOnitrate (24 HR) 30 MG TAB.ER.24H PO SCH (08:13)
[2018-07-03] MEDS: amLODIPine 5 MG TABLET PO SCH (08:13)
[2018-07-03] MEDS: metOLazone 5 MG TABLET PO SCH (08:13)
[2018-07-03] MEDS: Aspirin 81 MG TAB.CHEW PO SCH (08:14)
[2018-07-03] MEDS: *HR* OxyCODONE Immed Rel 5 MG TABLET PO PRN ×3 (08:20→23:14)
[2018-07-03] MEDS: Nitroglycerin 25 MG/250 ML INFUS..BTL IVC SCH (09:34)
--- NOTE | 2018-07-03 09:41 | Internal Med Progress Note ---
Hospitalist Progress Note - Encounter Date of Encounter: 07/03/18 Time of Encounter: 09:37 - Subjective Interval History: Initial encounter EMR reviewed and patient seen and examined at the bedside 52 M with Stage IV CKD, Chronic liver disease, Afib on Coumadin, Severe PAH, DM , HLD, PAD, CAD s/p CABGX2, Combined chronic CHF, chronic anemia He was admitted and being managed for NSTEMI, DKA, Acute on chronic CHF He is been seen and managed with cardio, renal, and pulm He is planned for [facility] when INR <1.8 Coumadin had been held due to supra-INR He is now on heparin infusion - Exam Vitals: Temp Pulse Resp BP Pulse Ox 97.6 F 71 18 158/89 97 07/03/18 07:32 07/03/18 08:28 07/03/18 07:32 07/03/18 07:32 07/03/18 07:32 Exam: Gen: VSS Psych: Normal mood Neuro: AAOX3, moves all extremities , no focal deficits HEENT: not cyanotic, not pale, no JVD Chest: CTAB Heart: S1, S2 only, no m/g/r Abdomen: Soft, not tender Extremities: NO pedal edema Skin: No rash - Assessment and Plan (1) Non-ST elevation [place] (NSTEMI) Current Visit: Yes Status: Acute Assessment and Plan: Patient presented with chest pain, with EKG changed in ST depression in inferior leads High risk patient with known CAD s/p 2V CABG and 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 Peak Troponin 2.67. ECHo now showed reduced EF at 35% compared to 40-45% previously. WMA unchanged from prior echo. There is mild MR and TR. Severe PAH. Was on heparin , coumadin , both held 07/02 due to INR of 3.0 INR this a.m 1.6 Cardio following for possible cath Continue ASA, BB, He is not currently on statin, unknown why? Will start lipitor (2) Chronic back pain Current Visit: Yes Status: Chronic Assessment and Plan: Continue home dose (3) Chronic kidney disease, stage IV (severe) Current Visit: Yes Status: Chronic Assessment and Plan: Creatinine appears to be baseline. Nephrology following, appreciate recommendations (4) CAD (coronary artery disease) Current Visit: Yes Status: Chronic Assessment and Plan: See NSTEMI (5) Ischemic cardiomyopathy Current Visit: Yes Status: Chronic Assessment and Plan: Previous EF of 40-45%. New EF 35%. No evidence of acute exacerbation of heart failure. (6) Type 1 diabetes mellitus Current Visit: Yes Status: Chronic Assessment and Plan: FS ACHS SQ insulin ADA diet A1C 7.3% (7) PAF (paroxysmal atrial fibrillation) Current Visit: Yes Status: Chronic Assessment and Plan: HR controlled Warfarin on hold due to elevated INR Patient is on heparin infusion, INR now 1.6 (8) Pulmonary hypertension Current Visit: Yes Status: Chronic Assessment and Plan: Severe per previous echo. Due to combined CHF Patient reports being screened for CHANDRA He also reports being on Sidenafil at home, held since admissions Consider restarting meds, after [facility] (9) Hyperglycemia Current Visit: Yes Status: Acute Assessment and Plan: See DKA (10) DVT prophylaxis Current Visit: Yes Status: Acute Assessment and Plan: On heparin infusion (11) High anion gap metabolic acidosis Current Visit: Yes Status: Acute Assessment and Plan: resolved (12) DKA (diabetic ketoacidosis) Current Visit: Yes Status: Suspected Assessment and Plan: suspected, resolved (13) Hyperlipidemia Current Visit: Yes Status: Chronic Assessment and Plan: continue home meds (14) Acute on chronic combined systolic and diastolic CHF (congestive heart failure) Current Visit: Yes Status: Acute Assessment and Plan: diuretics on hold as patient presented with worsening renal function ECHO done in this admission noted for EF 35% and moderate segmental and global systolic dysfunction No diuresis at this time Continue BB, Imdur, hydralazine No ACEi/ARB due to CKD IV - Time Spent with Patient Total time spent is greater than 50% in coordination of care (as documented) at patient's floor/unit and/or counseling patient: Plan of Care Discussed with: patient Internal Medicine: Result - Labs CBC & Chem 7: 07/03/18 04:05 07/03/18 04:05 Labs: Short CBC 07/03/18 Range/Units 04:05 WBC 11.7 H (4.3-11.1) K/mcL Hgb 11.4 L D (12.9-16.9) g/dL Hct 35.3 L (37.5-50.1) % Plt Count 441 H (140-400) K/mcL Neutrophils # 8.6 (1.6-8.9) K/mcL BMP 07/03/18 04:05 Sodium 133 L Potassium 3.6 Chloride 101 Carbon Dioxide 23 BUN 129 H Creatinine 3.03 H Glucose 172 H Calcium 9.2 - ABG Interpretation ABG results: PT/INR, D-dimer PT 18.5 Seconds (9.4-12.1) H 07/03/18 04:05 Consult Discharge Plan - Plan Referrals: Betsy Salvador, YARN CLEANER [Primary Care Provider] - (2) Chronic back pain Qualifiers: Back pain location: back pain in unspecified location Back pain laterality: unspecified Qualified Code(s): M54.9 - Dorsalgia, unspecified; G89.29 - Other chronic pain (4) CAD (coronary artery disease) Qualifiers: Coronary Disease-Associated Artery/Lesion type: unspecified vessel or lesion type [place] vs. transplanted heart: [place] heart Associated angina: with unspecified angina Qualified Code(s): I25.119 - Atherosclerotic heart disease of [place] coronary artery with unspecified angina pectoris (6) Type 1 diabetes mellitus Qualifiers: Diabetes mellitus complication status: with hyperglycemia Qualified Code(s): E10.65 - Type 1 diabetes mellitus with hyperglycemia (12) DKA (diabetic ketoacidosis) Qualifiers: Diabetes mellitus type: type 1 Diabetes mellitus complication detail: without coma Qualified Code(s): E10.10 - Type 1 diabetes mellitus with ketoacidosis without coma (13) Hyperlipidemia Qualifiers: Hyperlipidemia type: pure hypercholesterolemia Qualified Code(s): E78.00 - Pure hypercholesterolemia, unspecified; E78.0 - Pure hypercholesterolemia
[2018-07-03] MEDS ORDERED: *HR* Heparin 5,000 UNIT/ML VIAL IVP PRN ×2 (10:00)
[2018-07-03] MEDS ORDERED: *HR* Heparin 5,000 UNIT/ML VIAL IVP ONE (10:00)
[2018-07-03] MEDS: Heparin 25,000 UNIT/500 ML D5W 25,000 UNIT/500 ML BAG IVC SCH ×2 (11:09→21:32)
[2018-07-03] MEDS ORDERED: 0.9 % Sodium Chloride 1,000 ML IVC SCH (12:00)
[2018-07-03] MEDS: *HR* Acetylcysteine 20% 600 MG/3 ML ORAL SYRINGE PO SCH ×2 (12:36→20:11)
--- NOTE | 2018-07-03 13:40 | Nephrology Progress Note ---
Date of Encounter: 07/03/18 Time of Encounter: 13:38 - Assessment and Plan (1) Chronic kidney disease, stage IV (severe) Current Visit: No Status: Chronic SCr improved at 3.03, GFR is 22. Continue to avoid nephrotoxins if possible lytes stable for now No signs of uremia so far noted PTH 184 Vitamin D is 169. May proceed with heart cath from a renal perspective. NS and mucomyst ordered. (2) Chest pain Current Visit: Yes Status: Acute Elevated troponin noted, cardio on board. Pt is currently chest pain free. Qualifiers: Chest pain type: unspecified Qualified Code(s): R07.9 - Chest pain, unspecified (3) Hyperglycemia Current Visit: Yes Status: Acute Per primary team, sugars have improved. Code(s): R73.9 - Hyperglycemia, unspecified Subjective Principal diagnosis: NSTEMI with acute on chronic heart failure Interval history: PT seen and examined. Doing well. Denies CP or SOB. Denies nausea/vomiting/ diarrhea. Objective - Vital Signs Vital signs: Vital Signs Temp Pulse Resp BP Pulse Ox 07/03/18 11:29 67 07/03/18 11:16 97.8 F 73 16 155/81 96 07/03/18 08:28 71 07/03/18 07:32 97.6 F 89 18 158/89 97 07/03/18 03:45 98.1 F 73 18 131/74 96 07/02/18 23:51 97.8 F 71 18 131/76 95 07/02/18 20:55 98 F 79 18 157/95 95 07/02/18 17:46 97.7 F 80 18 159/63 96 07/02/18 15:00 97.7 F 76 20 122/60 96 07/02/18 14:00 74 20 109/51 96 Intake and Output 07/02/18 07/03/18 07/03/18 23:59 07:59 15:59 Intake Total 750 / 750 0 / 0 250 / 250 Output Total 675 / 675 275 / 275 Balance 75 / 75 -275 / -275 250 / 250 Intake: IV Fluids 250 / 250 0 / 0 250 / 250 Doxycycline 200 MG In 0.9 % 250 / 250 0 / 0 250 / 250 Sodium Chloride 250 ML @ 250 mls/hr IVPB Q12HR [facility] Rx#: [id number] Oral 500 / 500 Output: Urine 675 / 675 275 / 275 Other: Blood Glucose* 235 78 81 - General Appearance General appearance: Present: well-developed, well-nourished EENT: Present: ATNC, hearing intact, vision intact Neck: Present: supple Respiratory: Present: clear Cardiology: Present: no edema, normal S1, normal S2 Gastrointestinal: Present: normoactive bowel sounds, no tenderness, no guarding Integumentary: Present: no rash, warm and dry Neurologic: Present: alert and oriented x3 Psychiatric: Present: mood/affect appropriate, cooperative - Lab 07/03/18 04:05 07/03/18 04:05 Most recent lab results Calcium 9.2 mg/dL (8.6-10.3) 07/03/18 04:05 Consult Discharge Plan - Plan Referrals: Betsy Salvador, NARROW GAUGE BRAKEMAN [Primary Care Provider] -
--- NOTE | 2018-07-03 14:08 | Event Note ---
Date of Encounter: 07/03/18 Time of Encounter: 14:06 - Cardiology Event Note Patient with NSTEMI. Troponin uptrending to 4.01. INR 1.6, heparin drip ordered. Nephrology note reviewed, ok to proceed with LHC. Recommend LHC. RIsks versus benefits of LHC explained to patient and family, educated on risk of worsening renal function, possibly leading to dialysis. Patient states undestanding and agreeable to proceed. Further recommendations pending LHC.
[2018-07-03] MEDS ORDERED: 0.9 % Sodium Chloride 1,000 ML ONE (16:24)
[2018-07-03] MEDS ORDERED: Heparin 1,000 UNITS/500 mL 500 ML ONE (16:25)
[2018-07-03] MEDS ORDERED: Nitroglycerin 1,000 MCG/10 ML VIAL IV ONE (16:25)
[2018-07-03] MEDS ORDERED: ISOVUE-370 200 ML INFUS..BTL IV ONE (16:25)
[2018-07-03] MEDS ORDERED: *HR* Heparin 10,000 UNIT/10 ML VIAL ONE (16:25)
[2018-07-03] MEDS ORDERED: *HR* FentaNYL (PF) 100 MCG/2 ML VIAL ONE (17:07)
[2018-07-03] MEDS ORDERED: *HR* Midazolam HCl 2 MG/2 ML VIAL ONE (17:07)
--- NOTE | 2018-07-03 18:09 | Invasive Diagnostic Lab Proc ---
Name: Naman Watson Date of Study: 07/03/2018 Date: 1965 Ht: 66.1in Medical Record#: [id number] Age: 52 Wt: 149.91lb Gender: Male BSA: 1.77 Order #: [id number] BMI: 24.09 Physicians Procedure Physician: Wayne Chapman MD Referring MD: Referring MD: Staff Name Position Time In Sites, Kathleen RT (R) Monitor 05:06 PM Kathleen Elise RT (R) Scrub 05:06 PM Marlen Zeng RN Tractor Sweeper Driver 05:06 PM Curtis Be RN Monitor 05:25 PM Indications Indication Non-Stemi Procedures Performed Procedure CORONARY ART/GRFT ANGIO S&I Pre-Procedure Checklist Informed consent is complete signed and on chart. H&P is on chart. ID band is on and ID verified with patient. Patient NPO for procedure The procedure was described for the patient and questions were answered. Blood Pressure: 155/81 ECG is on chart. Rhythm: Atrial Fibrillation Plan of Care Patient will tolerate the procedure without complications. Adequate level of comfort will be maintained. Hemodynamics will remain stable Patient will recover from procedure without complications. Respiratory function will be maintained. Cardiac rhythm will remain stable. Patient temperature will be maintained. Patient and/or family have verbalized understanding of the procedure. Patient Education Chief Complaint/Reason for Test: Cardiac Cath Developmental Category: Adult (18-64 years) Learning Barriers: None Education Needs: Procedure Education Method: Verbal Information Taught: Cardiac Cath Educational Evaluation: Able to repeat information Intravenous Access Time IV Size Location DC'd Fluid/Drip Rate Units RN 20g 1 /" Patent On Arrival Rt Wrist 0.9NaCl 25 ml/hr Marlen Zeng RN Allergies DERMABOND Vital Signs Time BP (mmHg) HR (bpm) O2 Sat. RR (bpm) LOC 05:26 PM 88 / 73 73 98 % 26 Procedural Medications Time Medication Dose Units Method Given By 05:08 PM Oxygen 2 L/min nasal cannula Marlen Zeng RN 05:21 PM Versed 1 mg Intravenous Marlen Zeng RN 05:21 PM Fentanyl 50 mcg Intravenous Marlen Zeng RN 05:22 PM Lidocaine 2% 19 ml Subcutaneous Wayne Chapman MD Mercedes Score Preprocedure Postprocedure Activity 2- Moves 4 extremities sustained head lift Activity 2- Moves 4 extremities sustained head lift Circulation 2- SBP +/= 20 points of pre-anesthetic level Circulation 2- SBP +/= 20 points of pre-anesthetic level Consciousness 2- Awake and alert oriented x 3 Consciousness 2- Awake and alert oriented x 3 O2 Saturation 2- Able to maintain O2 satruation of 92% on room air O2 Saturation 2- Able to maintain O2 satruation of 92% on room air Respiratory 2- Able to deep breathe and cough well Respiratory 2- Able to deep breathe and cough well Total Score 10 Total Score 10 Contrast Agent: Isovue Diagnostic Contrast: 16 ml Total Contrast: 16 ml Fluoro Dose: 1986 mGy Procedure Log Time Note Enter By 05:06 PM Pt arrived to brick and blocker aid labor 2 at 17:06 tsites 05:06 PM Kathleen Talamantes (R) Position: Monitor Time in: 17:06 tsites 05:06 PM Kathleen Elise (R) Position: Scrub Time in: 17:06 tsites 05:07 PM Marlen Zeng RN Position: Tractor Sweeper Driver Time in: 17:06 tsites 05:07 PM Patient charges- Angio tray pack, Navilyst 3mm J, Pulse Oximetry and ACIST tubing and transducer tsites 05:07 PM Case Delayed No tsites 05:07 PM Physician arrived 17:07 tsites 05:07 PM Meet and greet completed tsites 05:07 PM Sign in performed according to hospital policy. Informed consent was obtained. tsites 05:08 PM Procedure start 17:07 tsites 05:08 PM Hair removed from procedure site in holding area using clippers. Bilateral groin prepped with Chloraprep by Kathleen Talamantes (R), then patient was draped. Skin intact. tsites 05:08 PM Time: 17:08 Oxygen on at 2 L/min per nasal cannula by Marlen Zeng RN tsites 05:08 PM Time: 17:08 Patient comfortable and pain free: Yes tsites 05:16 PM CathStat 05:16 PM Vitals capture started with the following parameters, Patient=Adult, Interval=5 min, Initial Mhtavumn=520 mmHg, Deflation Rate=5 mmHg, Cuff placed on Right Arm 05:18 PM Vitals capture stopped. 05:19 PM Vitals capture started with the following parameters, Patient=Adult, Interval=5 min, Initial Oqulfycc=657 mmHg, Deflation Rate=5 mmHg, Cuff placed on Right Arm 05:21 PM Time: 17:21 Versed 1 mg Intravenous Given by Marlen Zeng RN tsites 05: PM Time: 17:21 Fentanyl 50 mcg Intravenous Given by Marlen Zeng RN tsites 05:22 PM Vitals capture stopped. 05:22 PM Time out was performed according to hospital policy. Conscious sedation and anesthesia was achieved (see medication log with in this report above) tsites 05: PM Time: 17:22 19 ml Lidocaine 2% to right groin Subcutaneous Given by Wayne Chapman MD tsites 05:22 PM Micro-Introducer Kit utilized for sheath placement tsites 05:23 PM Vitals capture started with the following parameters, Patient=Adult, Interval=5 min, Initial Csmljyvd=809 mmHg, Deflation Rate=5 mmHg, Cuff placed on Right Arm 05:23 PM Access obtained by percutaneous puncture. 4Fr 10cm Micro kit sheath placed in right Femoral artery. [id number] tsites 05:23 PM Time: 17:08 Patient comfortable and pain free: Yes tsites 05:23 PM 2cc of contrast injected tsites 05:23 PM Sheath exchanged for a 6 Fr 11 cm Terumo Isabella sheath [id number] tsites 05:25 PM Vitals capture stopped. 05:25 PM Curtis Be RN Position: Monitor Time in: 17:25 tsites 05:25 PM NIBP STAT measurement started. 05:26 PM HR=73 bpm, NIBP=88/73 mmhg, SpO2=98.0 %, Resp=26 B/min 05:26 PM Recorded Pressure: Ao, HR=74, Condition=Condition 1 (Aorta) Ao 146/62/94 05:26 PM 5Fr FR 4 catheter inserted over the wire DNC tsites 05:27 PM Recorded Pressure: Ao, HR=78, Condition=Condition 1 (Aorta) Ao 128/69/95 05:28 PM SVG to the 1st Diagonal angio performed in multiple views. tsites 05:28 PM Left DENA to the LAD angio performed in multiple views. tsites 05:29 PM Right coronary artery is known to be occluded. contrast not used to preserve due to kidney function. tsites 05:29 PM Catheter removed tsites 05:29 PM Coronary Dominance: right tsites 05:30 PM 5Fr FL 4 catheter inserted over the wire DNC tsites 05:30 PM Recorded Pressure: Ao, HR=76, Condition=Condition 1 (Aorta) Ao 128/64/90 05:31 PM LCA angiography performed in multiple views. tsites 05:33 PM Catheter removed tsites 05:33 PM Wire removed tsites 05:38 PM Procedure completed at 17:38 07/03/2018 tsites 05:39 PM Time: 17:23 Patient comfortable and pain free: Yes tsites 05:39 PM What is the NYHA Class? Class 3 tsites 05:39 PM Did you address REGGIE flow and Dominance? Yes tsites 05:39 PM Sign out completed: Radiation Dose 174.97 mGy, 1985.58 cGy/cm2 Fluoro Time: 2.0 Isovue 370 - 200ml contrast 15.5 ml given by Wayne Chapman MD. Complications: None. 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 Cardiac Rehab Consult needed: NoConfirmed administered medications: Yes tsites 05:40 PM Isovue 370 - 200ml,1 Bottle(s) used. tsites 05:40 PM Arterial sheath pulled, Mynx closure device used and was Successful [id number] S/N. tsites 05:40 PM Estimated Blood Loss: minimal tsites 05:41 PM Post ECG NSR tsites 05:41 PM Post Blood Pressure 128/64 tsites 05:41 PM 17:41 Post Pulses Bilateral DP & PT 1+ tsites 05:41 PM Information taught Cardiac Cath and Mynx tsites 05:43 PM Education needs Procedure, Plan of Care, and Responsibilities of Patient in Care tsites 05:44 PM Learning barriers :None tsites 05:44 PM Education Methods Verbal tsites 05:44 PM Education evaluation Able to repeat information tsites 05:45 PM Site status No bleeding/hematoma - Rt Groin as reported by Kathleen Elise RT (R) at 17:44 tsites 05:45 PM Opsite applied tsites 05:45 PM Report given to Wendy GARAY Pt taken to 2N Room #3. 17:45 tsites 05:45 PM Plavix, Effient or Brilinta given No tsites 05:45 PM Patient out of room: 17:45 tsites 05:45 PM Family placed in consult room. tsites 05:45 PM Complications: None tsites 05:46 PM Lesion found in Proximal LAD. Pre Stenosis: 65 Pre REGGIE Flow: tsites 05:46 PM Lesion found in Proximal LMCA. Pre Stenosis: 60 Pre REGGIE Flow: tsites 05:47 PM Lesion found in Proximal Circumflex. Pre Stenosis: 100 Pre REGGIE Flow: tsites 05:47 PM Lesion found in Mid LAD. Pre Stenosis: 70 Pre REGGIE Flow: tsites 05:47 PM Lesion found in Proximal RCA. Pre Stenosis: 100 Pre REGGIE Flow: tsites 05:47 PM Left Main Coronary Artery with 60% stenosis tsites 05:48 PM Proximal Left Anterior Descending Coronary Artery with 65% stenosis. If graft is supplying this territory, 0 % stenosis. tsites 05:48 PM Mid/Distal Left Anterior Descending Coronary Artery and diagonal branches with 70% stenosis. If graft is supplying this area, 0 % stenosis tsites 05:48 PM Circumflex, Obtuse Marginal, Left Posterior Descending, and Left Posterolateral Coronary Arteries with 100 % stenosis. If graft is supplying this area, 0 % stenosis tsites 05:48 PM Right Coronary, Right Posterior Descending Arteries with Right Posterolateral and Acute Marginal branches with 100 % stenosis. If graft is supplying this area, 0 % stenosis tsites Complications Complication None None Hemodynamics Pressures Site Systolic/A Wave Diastolic/V Wave Mean AO 146 62 94 AO 128 69 95 AO 128 64 90 Post Procedure Information Blood Pressure: 128/64 mmHg Rhythm: NSR Post procedural instructions were given Closure Device Time Device Success/Fail 07/03/2018 5:45:00 PM MynxGrip Successful Site Checks Time Location Status Staff Sheath In? Note 05:44 PM Rt Groin No bleeding/hematoma Kathleen Elise RT (R) Pulses Time Site Pre-Procedure Post-Procedure Note Bilateral radial 2+ Bilateral DP & PT 1+ 5:41:00 PM Bilateral DP & PT 1+ Updated by Curtis Be RN on 07/03/2018 6:02:17 PM electronically signed on 07/03/2018 6:03:32 PM with status of Final
[2018-07-03] MEDS: Insulin DETEMIR 100 UNIT/ML X5UNITS SQ SCH (20:13)
[2018-07-04] MEDS: hydrALAZINE 25 MG TABLET PO SCH ×3 (02:02→16:14)
[2018-07-04 03:44] LABS: Basophils # 0.1 K/mcL (0.0-0.2); Basophils % 1.4 %; Eosinophils # 0.3 K/mcL (0.0-0.6); Eosinophils % 3.9 %; Hematocrit 33.3 % (37.5-50.1); Hemoglobin 10.9 g/dL (12.9-16.9); Immature Granulocytes % 0.2 % (0-4); Lymphocytes # 0.9 K/mcL (0.6-4.6); Lymphocytes % 11.1 %; Mean Corpuscular HGB Conc 32.7 g/dL (31.6-35.5); Mean Corpuscular Hemoglobin 27.3 pg (28.0-33.3); Mean Corpuscular Volume 83.5 fL (83.0-100.0); Monocytes # 1.3 K/mcL (0.0-1.3); Monocytes % 15.5 %; Neutrophils # 5.5 K/mcL (1.6-8.9); Platelet Count 399 K/mcL (140-400); Red Blood Count 3.99 M/mcL (4.19-5.50); Red Cell Distribution Width 15.3 % (11.5-14.5); Segmented Neutrophils % 67.9 %
[2018-07-04 04:01] LABS: Potassium 3.5 mEq/L (3.5-5.1)
[2018-07-04] MEDS: Doxycycline 200 MG in 0.9 % Sodium Chloride 250 ML IVPB SCH (06:50)
[2018-07-04] MEDS: Insulin LISPRO 300 UNITS/3 ML VIAL SQ SCH ×3 (08:12→16:16)
[2018-07-04] MEDS: amLODIPine 5 MG TABLET PO SCH (08:25)
[2018-07-04] MEDS: Isosorbide MONOnitrate (24 HR) 30 MG TAB.ER.24H PO SCH (08:25)
[2018-07-04] MEDS: Aspirin 81 MG TAB.CHEW PO SCH (08:26)
[2018-07-04] MEDS: metOLazone 5 MG TABLET PO SCH (08:26)
[2018-07-04] MEDS: *HR* Acetylcysteine 20% 600 MG/3 ML ORAL SYRINGE PO SCH (08:26)
[2018-07-04] MEDS: Nitroglycerin 25 MG/250 ML INFUS..BTL IVC SCH (08:36)
[2018-07-04] MEDS ORDERED: Doxycycline 100 MG CAPSULE PO SCH (09:00)
--- NOTE | 2018-07-04 09:39 | Electrocardiograph Report ---
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
--- NOTE | 2018-07-04 09:40 | Electrocardiograph Report ---
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
--- NOTE | 2018-07-04 09:47 | Electrocardiograph Report ---
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
--- NOTE | 2018-07-04 09:51 | Electrocardiograph Report ---
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
--- NOTE | 2018-07-04 10:41 | Internal Med Progress Note ---
Hospitalist Progress Note - Encounter Date of Encounter: 07/04/18 Time of Encounter: 10:41 - Subjective Interval History: Initial encounter EMR reviewed and patient seen and examined at the bedside 52 M with Stage IV CKD, Chronic liver disease, Afib on Coumadin, Severe PAH, DM , HLD, PAD, CAD s/p CABGX2, Combined chronic CHF, chronic anemia He was admitted and being managed for NSTEMI, DKA, Acute on chronic CHF He is been seen and managed with cardio, renal, and pulm He is planned for [facility] when INR <1.8 Coumadin had been held due to supra-INR He is now on heparin infusion - Exam Vitals: Temp Pulse Resp BP Pulse Ox 97.6 F 77 18 133/82 97 07/04/18 07:20 07/04/18 07:20 07/04/18 07:20 07/04/18 07:20 07/04/18 07:20 - Assessment and Plan (1) Non-ST elevation [place] (NSTEMI) Current Visit: Yes Status: Acute (2) Chronic back pain Current Visit: Yes Status: Chronic (3) Chronic kidney disease, stage IV (severe) Current Visit: Yes Status: Chronic (4) CAD (coronary artery disease) Current Visit: Yes Status: Chronic (5) Ischemic cardiomyopathy Current Visit: Yes Status: Chronic (6) Type 1 diabetes mellitus Current Visit: Yes Status: Chronic (7) PAF (paroxysmal atrial fibrillation) Current Visit: Yes Status: Chronic (8) Pulmonary hypertension Current Visit: Yes Status: Chronic (9) Hyperglycemia Current Visit: Yes Status: Acute (10) DVT prophylaxis Current Visit: Yes Status: Acute (11) High anion gap metabolic acidosis Current Visit: Yes Status: Acute (12) DKA (diabetic ketoacidosis) Current Visit: Yes Status: Suspected (13) Hyperlipidemia Current Visit: Yes Status: Chronic (14) Acute on chronic combined systolic and diastolic CHF (congestive heart failure) Current Visit: Yes Status: Acute - Time Spent with Patient Total time spent is greater than 50% in coordination of care (as documented) at patient's floor/unit and/or counseling patient: Internal Medicine: Result - Labs CBC & Chem 7: 07/04/18 03:30 07/04/18 03:30 Labs: Short CBC 07/04/18 Range/Units 03:30 WBC 8.1 (4.3-11.1) K/mcL Hgb 10.9 L (12.9-16.9) g/dL Hct 33.3 L (37.5-50.1) % Plt Count 399 (140-400) K/mcL Neutrophils # 5.5 (1.6-8.9) K/mcL BMP 07/04/18 03:30 Sodium 135 L Potassium 3.5 Chloride 105 Carbon Dioxide 20 L BUN 121 H Creatinine 2.75 H Glucose 86 Calcium 9.0 Cardiac Enzymes 07/03/18 Range/Units 10:22 Troponin I 4.01 H* (< 0.04) ng/mL - ABG Interpretation ABG results: PT/INR, D-dimer PT 18.5 Seconds (9.4-12.1) H 07/03/18 04:05 Consult Discharge Plan - Plan Referrals: Betsy Salvador, [employer]ER [Primary Care Provider] - 07/10/18 10:20 am (2) Chronic back pain Qualifiers: Back pain location: back pain in unspecified location Back pain laterality: unspecified Qualified Code(s): M54.9 - Dorsalgia, unspecified; G89.29 - Other chronic pain (4) CAD (coronary artery disease) Qualifiers: Coronary Disease-Associated Artery/Lesion type: unspecified vessel or lesion type [place] vs. transplanted heart: [place] heart Associated angina: with unspecified angina Qualified Code(s): I25.119 - Atherosclerotic heart disease of [place] coronary artery with unspecified angina pectoris (6) Type 1 diabetes mellitus Qualifiers: Diabetes mellitus complication status: with hyperglycemia Qualified Code(s): E10.65 - Type 1 diabetes mellitus with hyperglycemia (12) DKA (diabetic ketoacidosis) Qualifiers: Diabetes mellitus type: type 1 Diabetes mellitus complication detail: without coma Qualified Code(s): E10.10 - Type 1 diabetes mellitus with ketoacidosis without coma (13) Hyperlipidemia Qualifiers: Hyperlipidemia type: pure hypercholesterolemia Qualified Code(s): E78.00 - Pure hypercholesterolemia, unspecified; E78.0 - Pure hypercholesterolemia
--- NOTE | 2018-07-04 10:59 | Cardiology Progress Note ---
Date of Encounter: 07/04/18 Time of Encounter: 10:57 Assessment and Plan (1) Non-ST elevation ID (NSTEMI) Current Visit: Yes Status: Acute Patient presented with typical chest pain symptoms. CXR showed findings concerning for PNA verses edema. He is being treated with IV antibiotic and diuretic. Possible pulmonary edema secondary to CHFrEF, severe pulmonary HTN, and CKD stage IV. Troponin elevation up to 4.01. EKG Shows SR with mild ST depression in the inferior leads increased from prior EKG. 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 TTE this admit showed reduced EF at 35% compared to 40-45% previously. WMA unchanged from prior echo. There is mild MR and TR. Severe PAH. Underwent LHC yesterday--severe 3V CAD. S/P CABG 2 of 2 patent bypass grafts. Final report pending. No intervention. Continue ASA, Statin, BB, Imdur--will increase. Not on Plavix due to avoiding triple therapy since he is on ASA and Coumadin. Right femoral access site healing well. No bleeding, hematoma or ecchymosis noted. Restrictions discussed. Denies chest pain overnight. SCr stable/improved today. Cardiology signing off. Reconsult PRN. Will coordinate outpt follow-up in 1 week. (2) Acute on chronic systolic CHF (congestive heart failure), NYHA class 2 Current Visit: No Status: Acute TTE completed during stay shows EF 35% with moderate segmental and global systolic dysfunction. There is severe pulmonary artery hypertension. EF mildly reduced compared to previous echo in 2017, EF 40-45%. EF previously 40%. Mild fluid overload on exam. Likely multifactorial in the setting of CHF, PAH, and stage IV CKD. Appreciate nephrology recommendation for diuretic. Currently on metolazone. Strict I&O and daily weights. Low-sodium diet. (3) CAD (coronary artery disease) Current Visit: Yes Status: Chronic H/O 2 vessel CABG LHC completed yesterday 2/2 patent bypass grafts. No intervention. Continue aspirin, statin, and beta regine. Qualifiers: Coronary Disease-Associated Artery/Lesion type: unspecified vessel or lesion type [place] vs. transplanted heart: [place] heart Associated angina: with unspecified angina Qualified Code(s): I25.119 - Atherosclerotic heart disease of [place] coronary artery with unspecified angina pectoris (4) Atrial fibrillation Current Visit: Yes Status: Acute Known PAF. Anticoagulated on Coumadin, held for LHC. Resume Coumadin. Currently on heparin gtt. Continue BB. Qualifiers: Atrial fibrillation type: paroxysmal Qualified Code(s): I48.0 - Paroxysmal atrial fibrillation Discussion w patient/family: The assessment and plan as outlined above was discussed with the patient and/or family members who expressed understanding and agreement. All questions were answered. Thank you for involving us in the care of your patient. Please call with any questions. I will discuss all the above with Dr. Sanz and make changes as necessary. Subjective Principal diagnosis: NSTEMI with acute on chronic heart failure Interval history: S/P LHC yesterday for NSTEMI. LHC showed severe 3 vessel CAD, S/P CABG 2/2 patent bypass grafts. No intervention. Medical management recommended. Pt denies chest pain overnight. Reports dyspnea is mildly improved. Objective Vital Signs, Last 4 Hours Temp Pulse Resp BP Pulse Ox 07/04/18 07:20 97.6 F 77 18 133/82 97 Vital Signs Temp Pulse Resp BP Pulse Ox 07/04/18 07:20 97.6 F 77 18 133/82 97 07/04/18 03:37 97.7 F 80 18 140/79 94 07/03/18 23:09 98.2 F 80 18 161/87 92 07/03/18 22:00 74 18 154/76 94 07/03/18 21:10 93 18 168/78 94 07/03/18 20:00 83 18 145/64 96 07/03/18 19:30 72 18 155/80 96 07/03/18 19:00 97.6 F 79 18 150/69 95 07/03/18 18:45 79 16 151/78 96 07/03/18 18:30 71 16 156/89 95 07/03/18 18:15 78 16 161/88 94 07/03/18 18:00 97.6 F 75 16 162/82 93 07/03/18 16:04 77 18 07/03/18 15:52 71 07/03/18 11:29 67 07/03/18 11:16 97.8 F 73 16 155/81 96 Intake and Output 07/03/18 07/04/18 07/04/18 23:59 07:59 15:59 Intake Total 750 / 750 139 / 139 360 / 360 Output Total 600 / 600 120 / 120 Balance 150 / 150 19 / 19 360 / 360 Intake: IV Fluids 750 / 750 139 / 139 Heparin 25,000 UNIT/500 ML D5W 500 / 500 139 / 139 25,000 unit In 500 ml @ 12 UNIT /KG/HR 16.32 mls/hr IVC .Q24H INO Rx#:[id number] Doxycycline 200 MG In 0.9 % 250 / 250 Sodium Chloride 250 ML @ 250 mls/hr IVPB Q12HR INO Rx#: [id number] Oral 360 / 360 Output: Urine 600 / 600 120 / 120 Other: Meal NPO Breakfast Percent of Meal Consumed 0% 100% Weight 69.9 kg Blood Glucose* 239 62 Patient Weight 07/04/18 23:59 Weight 69.9 kg General: Conversant, No Apparent Distress HEENT: Atraumatic, Normocephaly, Mucus Membranes Moist Neck: No JVD, Normal carotid pulses Cardiac: Other (irregularly irregular) Lungs: Normal Breath Sounds, No Wheeze, Rales, Rhonchi Neuro: Alert and responsive, No focal deficits noted Abdomen: Soft, Non-Tender Skin: Other (right femoral access site healing well. No bleeding, hematoma or ecchymosis noted.) Musculoskeletal: No Chest Wall Tenderness Extremities: No Clubbing, No Cyanosis, No Edema, Normal Pulses Results 07/04/18 03:30 07/04/18 03:30 Lab Results 07/03/18 07/04/18 07/04/18 10:22 03:30 03:30 WBC 8.1 Hgb 10.9 L Hct 33.3 L Plt Count 399 Sodium 135 L Potassium 3.5 Chloride 105 Carbon Dioxide 20 L BUN 121 H Creatinine 2.75 H Glucose 86 Calcium 9.0 Troponin I 4.01 H* Short CBC 07/04/18 Range/Units 03:30 WBC 8.1 (4.3-11.1) K/mcL Hgb 10.9 L (12.9-16.9) g/dL Hct 33.3 L (37.5-50.1) % Plt Count 399 (140-400) K/mcL Neutrophils # 5.5 (1.6-8.9) K/mcL BMP 07/04/18 Range/Units 03:30 Sodium 135 L (136-145) mEq/L Potassium 3.5 (3.5-5.1) mEq/L Chloride 105 (98-107) mEq/L Carbon Dioxide 20 L (23-29) mEq/L BUN 121 H (6-20) mg/dL Creatinine 2.75 H (0.70-1.30) mg/dL Glucose 86 (70-105) mg/dL Calcium 9.0 (8.6-10.3) mg/dL Cardiac Enzymes 07/03/18 Range/Units 10:22 Troponin I 4.01 H* (< 0.04) ng/mL Active Medications Acetylcysteine (Acetylcysteine 20%) 600 mg PO BID [facility] Stop: 07/05/18 12:01 Last Admin: 07/04/18 08:26 Dose: 600 mg Amlodipine Besylate (Norvasc) 5 mg PO DAILY [facility] PRN Reason: Protocol Stop: 01/01/19 09:01 Last Admin: 07/04/18 08:25 Dose: 5 mg Aspirin (Aspirin) 81 mg PO DAILY [facility] Stop: 12/31/18 09:01 Last Admin: 07/04/18 08:26 Dose: 81 mg Atorvastatin Calcium (Lipitor) 20 mg PO HS [facility] Stop: 01/02/19 21:01 Last Admin: 07/03/18 20:10 Dose: 20 mg Dextrose/Water (Dextrose 50% (Syg)) 50 ml IVP ONCE PRN PRN Reason: Hypoglycemia Stop: 12/31/18 00:43 Dextrose/Water (Dextrose 50% (Syg)) 25 ml IVP Q15MIN PRN PRN Reason: Hypoglycemia Stop: 12/31/18 02:10 Dextrose/Water (Dextrose 50% (Syg)) 25 ml IVP AD PRN PRN Reason: Hypoglycemia Stop: 12/31/18 14:02 Doxycycline Hyclate (Doxycycline) 100 mg PO BID [facility] Stop: 01/03/19 09:01 Last Admin: 07/04/18 09:53 Dose: 100 mg Glucagon (Glucagen) 1 mg IM ONCE PRN PRN Reason: Hypoglycemia Stop: 12/31/18 14:02 Glucose (Gluctose) 15 gm PO ONCE PRN PRN Reason: Hypoglycemia Stop: 12/31/18 14:02 Glucose (Gluctose) 30 gm PO ONCE PRN PRN Reason: Hypoglycemia Stop: 12/31/18 14:02 Heparin Sodium (Porcine) (Heparin) 4,000 unit IVP Q6HR PRN PRN Reason: SEE COMMENTS Stop: 01/02/19 10:01 Heparin Sodium (Porcine) (Heparin) 2,000 unit 30 unit/kg (2000 unit) IVP Q6H PRN PRN Reason: SEE COMMENTS Stop: 01/02/19 10:01 Last Admin: 07/04/18 06:52 Dose: 2,000 unit Hydralazine HCl (Hydralazine) 50 mg PO Q8HR INO Stop: 01/01/19 16:01 Last Admin: 07/04/18 08:25 Dose: 50 mg Nitroglycerin (Nitroglycerin Premix 25 Mg/250 Ml) 25 mg in 250 mls @ 12 mls/hr IVC .[id number] INO; 20 MCG/MIN PRN Reason: Protocol Stop: 12/30/18 22:46 Last Admin: 07/04/18 08:36 Dose: Not Given Heparin Sodium/Dextrose (Heparin 25,000 Unit/500 Ml D5w) 25,000 unit in 500 mls @ 16.32 mls/hr IVC .Q24H INO; 12 UNIT/KG/HR PRN Reason: Protocol Stop: 01/02/19 10:01 Last Titration: 07/04/18 06:50 Dose: 14 unit/kg/hr, 19.04 mls/hr Insulin Detemir (Levemir) 15 unit SQ HS [facility] Stop: 01/01/19 21:01 Last Admin: 07/03/18 20:13 Dose: 15 unit Insulin Human Lispro (Humalog) 0 units SQ TIDAC [facility] PRN Reason: Protocol Stop: 12/31/18 16:31 Last Admin: 07/04/18 08:12 Dose: Not Given Insulin Human Lispro (Humalog) 0 units SQ HS [facility] PRN Reason: Protocol Stop: 12/31/18 21:01 Last Admin: 07/03/18 20:11 Dose: 4 units Isosorbide Mononitrate (Imdur) 30 mg PO DAILY [facility] Stop: 01/01/19 09:01 Last Admin: 07/04/18 08:25 Dose: 30 mg Metolazone (Zaroxolyn) 5 mg PO DAILY [facility] Stop: 01/01/19 09:01 Last Admin: 10/09/18 08:26 Dose: 5 mg Metoprolol Tartrate (Lopressor) 12.5 mg PO BID [facility] Stop: 01/01/19 09:01 Last Admin: 07/04/18 08:26 Dose: 12.5 mg Naloxone HCl (Narcan) 0.4 mg IVP Q2MIN PRN PRN Reason: SEE COMMENTS Stop: 12/31/18 02:10 Oxycodone HCl (Roxicodone) 5 mg PO Q6HR PRN; Protocol PRN Reason: Pain Stop: 12/31/18 10:18 Last Admin: 07/03/18 23:14 Dose: 5 mg Sodium Chloride ([place] Nasal [place]) 2 spray NS Q2H PRN PRN Reason: Congestion Stop: 01/01/19 08:50 - Imaging and Cardiology Echo: report reviewed Cardiac cath: report reviewed - EKG Interpretation EKG results cardiology: other (12 hr tele AVG HR 77, PAF) Consult Discharge Plan - Plan Additional Instructions: RISK FACTORS: STOP SMOKING: If you smoke, STOP. Smoking or tobacco use significantly increases your risk of heart disease because nicotine causes the arteries to narrow or constrict. It also causes fats to stick to the artery. Your chances of having a heart attack are greatly increased if you continue to smoke. For more information, call the education line for smoking cessation 1-314-GAXPXYD EAT A LOW FAT/CHOLESTEROL/SODIUM DIET: This diet may help reduce your chances of having a heart attack. LIFTING: Avoid lifting anything more than 10 pounds for 5-7 days Prior to straining, laughing, sneezing and/or coughing, apply manual pressure directly over insertion site. ACTIVITY: You may walk or climb stairs as tolerated You can resume sexual activity as tolerated In general, you are encouraged to engage in a minimum of 30 minutes or more of moderate intensity physical activity, such as brisk walking, daily or at least 3 -4 times weekly BATHING Do not submerge the site into water (bath tub, hot tub, swimming pool) for 1 week. This can be a source for infection into the blood stream. You may shower after 24 hours SITE CARE: After 24 hours, you may remove the dressing and leave the site open to air. Keep the site clean and dry. Clean gently and pat dry. You can expect bruising and tenderness that gradually resolve within a week or two. Return to work as instructed per your physician Resume driving as instructed per physician Keep all scheduled follow up appointments Resume medications as instructed IMPORTANT: If prescribed a Platelet Aggregation Inhibitor such as, Plavix, Brilinta or Effient: Duration of therapy is minimum one year These medications are often used in combination with Aspirin in prevention of future heart attacks Never discontinue unless consult with your Associate Professor Of Musicology STROKE (CVA) Risk factors for a stroke are: Age, cigarette smoking, diabetes, excessive alcohol consumption, family history, high blood pressure, overweight, physical inactivity, prior stroke, heart attack, diagnosis of carotid artery stenosis or other artery disease. Warning signs: Sudden numbness or weakness of the face, arm or leg; especially on one side of the body, sudden confusion, trouble speaking or understanding, sudden trouble seeing in one or both eyes, sudden trouble walking, dizziness, loss of balance or coordination, sudden severe headache with no cause. Call 911 or go to the Emergency Room. CONGESTIVE HEART FAILURE: If you have been diagnosed with Congestive Heart Failure (CHF) and your symptoms return, make an appointment with your physician Weigh yourself daily. Notify your physician if you have a weight gain of two or more pounds in one day or five or more pounds in one week. If you experience any difficulty breathing, please call 911 BLEEDING: Although the risk of bleeding is minimal, it can happen. If you have any bleeding from the site, apply firm pressure above the puncture site for 10-15 minutes. If the bleeding does not stop, continue manual pressure and call 911 Contact your physician if: You develop a fever greater than 101 degrees Fahrenheit Your site becomes reddened or has any drainage You have an increase in pain or burning at the site or if a large knot forms at the site. If you experience chest pain, shortness of breath, dizziness, or extreme tiredness, stop the activity and rest. Please notify your physicians office if you experience any of these symptoms and they are not relieved by rest please call 911! Referrals: Betsy Salvador CNP [Primary Care Provider] - 07/10/18 10:20 am
--- NOTE | 2018-07-04 11:41 | Nephrology Progress Note ---
Date of Encounter: 07/04/18 Time of Encounter: 11:38 - Assessment and Plan (1) Chronic kidney disease, stage IV (severe) Current Visit: Yes Status: Chronic SCr improved at 2.75 and GFR at 25. Continue to avoid nephrotoxins if possible Electrolytes stable. s/p LHC with no intervention. Cardio recommends f/u in 1 week. Is a patient of Dr. Miranda, he sees him in July of this year for follow up. (2) Chest pain Current Visit: Yes Status: Acute Elevated troponin noted, cardio on board. Pt is currently chest pain free. Qualifiers: Chest pain type: unspecified Qualified Code(s): R07.9 - Chest pain, unspecified (3) Hyperglycemia Current Visit: Yes Status: Acute Per primary team, sugars have improved. Subjective Principal diagnosis: NSTEMI with acute on chronic heart failure Interval history: PT seen and examined. Doing well. Denies CP or SOB. Denies nausea/vomiting/ diarrhea. States he is ready to go home. Objective - Vital Signs Vital signs: Vital Signs Temp Pulse Resp BP Pulse Ox 07/04/18 11:22 97.9 F 69 18 96 07/04/18 07:20 97.6 F 77 18 133/82 97 07/04/18 03:37 97.7 F 80 18 140/79 94 07/03/18 23:09 98.2 F 80 18 161/87 92 07/03/18 22:00 74 18 154/76 94 07/03/18 21:10 93 18 168/78 94 07/03/18 20:00 83 18 145/64 96 07/03/18 19:30 72 18 155/80 96 07/03/18 19:00 97.6 F 79 18 150/69 95 07/03/18 18:45 79 16 151/78 96 07/03/18 18:30 71 16 156/89 95 07/03/18 18:15 78 16 161/88 94 07/03/18 18:00 97.6 F 75 16 162/82 93 07/03/18 16:04 77 18 07/03/18 15:52 71 Intake and Output 07/03/18 07/04/18 07/04/18 23:59 07:59 15:59 Intake Total 750 / 750 139 / 139 360 / 360 Output Total 600 / 600 120 / 120 Balance 150 / 150 19 / 19 360 / 360 Intake: IV Fluids 750 / 750 139 / 139 Heparin 25,000 UNIT/500 ML D5W 500 / 500 139 / 139 25,000 unit In 500 ml @ 12 UNIT /KG/HR 16.32 mls/hr IVC .Q24H [facility] Rx#:[id number] Doxycycline 200 MG In 0.9 % 250 / 250 Sodium Chloride 250 ML @ 250 mls/hr IVPB Q12HR INO Rx#: [id number] Oral 360 / 360 Output: Urine 600 / 600 120 / 120 Other: Meal NPO Breakfast Percent of Meal Consumed 0% 100% Weight 69.9 kg Blood Glucose* 239 62 286 Patient Weight 07/04/18 23:59 Weight 69.9 kg - General Appearance General appearance: Present: well-developed, well-nourished EENT: Present: ATNC, hearing intact, vision intact Neck: Present: supple Respiratory: Present: clear Cardiology: Present: no edema, normal S1, normal S2 Gastrointestinal: Present: normoactive bowel sounds, no tenderness, no guarding Integumentary: Present: no rash, warm and dry Neurologic: Present: alert and oriented x3 Psychiatric: Present: mood/affect appropriate, cooperative - Lab 07/04/18 03:30 07/04/18 03:30 Most recent lab results Calcium 9.0 mg/dL (8.6-10.3) 07/04/18 03:30 Consult Discharge Plan - Plan Additional Instructions: RISK FACTORS: STOP SMOKING: If you smoke, STOP. Smoking or tobacco use significantly increases your risk of heart disease because nicotine causes the arteries to narrow or constrict. It also causes fats to stick to the artery. Your chances of having a heart attack are greatly increased if you continue to smoke. For more information, call the education line for smoking cessation 2-665-YSQUQGY EAT A LOW FAT/CHOLESTEROL/SODIUM DIET: This diet may help reduce your chances of having a heart attack. LIFTING: Avoid lifting anything more than 10 pounds for 5-7 days Prior to straining, laughing, sneezing and/or coughing, apply manual pressure directly over insertion site. ACTIVITY: You may walk or climb stairs as tolerated You can resume sexual activity as tolerated In general, you are encouraged to engage in a minimum of 30 minutes or more of moderate intensity physical activity, such as brisk walking, daily or at least 3 -4 times weekly BATHING Do not submerge the site into water (bath tub, hot tub, swimming pool) for 1 week. This can be a source for infection into the blood stream. You may shower after 24 hours SITE CARE: After 24 hours, you may remove the dressing and leave the site open to air. Keep the site clean and dry. Clean gently and pat dry. You can expect bruising and tenderness that gradually resolve within a week or two. Return to work as instructed per your physician Resume driving as instructed per physician Keep all scheduled follow up appointments Resume medications as instructed IMPORTANT: If prescribed a Platelet Aggregation Inhibitor such as, Plavix, Brilinta or Effient: Duration of therapy is minimum one year These medications are often used in combination with Aspirin in prevention of future heart attacks Never discontinue unless consult with your [employer] STROKE (CVA) Risk factors for a stroke are: Age, cigarette smoking, diabetes, excessive alcohol consumption, family history, high blood pressure, overweight, physical inactivity, prior stroke, heart attack, diagnosis of carotid artery stenosis or other artery disease. Warning signs: Sudden numbness or weakness of the face, arm or leg; especially on one side of the body, sudden confusion, trouble speaking or understanding, sudden trouble seeing in one or both eyes, sudden trouble walking, dizziness, loss of balance or coordination, sudden severe headache with no cause. Call 911 or go to the Emergency Room. CONGESTIVE HEART FAILURE: If you have been diagnosed with Congestive Heart Failure (CHF) and your symptoms return, make an appointment with your physician Weigh yourself daily. Notify your physician if you have a weight gain of two or more pounds in one day or five or more pounds in one week. If you experience any difficulty breathing, please call 911 BLEEDING: Although the risk of bleeding is minimal, it can happen. If you have any bleeding from the site, apply firm pressure above the puncture site for 10-15 minutes. If the bleeding does not stop, continue manual pressure and call 911 Contact your physician if: You develop a fever greater than 101 degrees Fahrenheit Your site becomes reddened or has any drainage You have an increase in pain or burning at the site or if a large knot forms at the site. If you experience chest pain, shortness of breath, dizziness, or extreme tiredness, stop the activity and rest. Please notify your physicians office if you experience any of these symptoms and they are not relieved by rest please call 911! Referrals: Betsy Salvador, NEVIN [Primary Care Provider] - 07/10/18 10:20 am
--- NOTE | 2018-07-04 14:53 | Discharge Summary ---
- NOTES TO OUTPATIENT PROVIDER Notes to Outpatient Provider: Patient was admitted for acute n chronic CHFE, DKA , elevated troponin, PNA. He also has supratherapeutic INR on arrival , which made us hold Coumadin till INR was ,1.8, he underwent a LHC on 07/03 wit severe 3V CAD. S/P CABG 2 of 2 patent bypass grafts, no intervention. His renal function is stable this mrn, and patient declined waiting to recheck his labs a.m, we will schedule a Chem adn PTINR and recommend following with PCP on . Imdur has been increased from 30 to 60, hydralazine has been decreased to 50mg q8hr, and his other home meds have been resumed. Plan of care discussed, verbalized understanding Orders not resulted at time of discharge: Pending orders 07/03/18 14:06 CL Cardiac Catheterization [CL] Routine 07/04/18 04:00 Osmolality,Urine [UCHEM] AM 0400 Sodium, Urine [UCHEM] AM 0400 07/05/18 04:00 Chem 7 [Basic Metabolic Panel] AM 0400 Complete Blood Count [HEME] AM 0400 INR/PT [Prothrombin Time INR] [COAG] AM 0400 07/06/18 04:00 INR/PT [Prothrombin Time INR] [COAG] AM 0400 07/07/18 04:00 INR/PT [Prothrombin Time INR] [COAG] AM 0400 07/08/18 04:00 INR/PT [Prothrombin Time INR] [COAG] AM 0400 07/09/18 04:00 INR/PT [Prothrombin Time INR] [COAG] AM 0400 Date of Encounter: 07/04/18 Time of Encounter: 10:45 - Discharge Diagnosis (1) Non-ST elevation MS (NSTEMI) Priority: Primary Status: Ruled-out Assessment and Plan: Ruled out Patient presented with chest pain, with EKG changed in ST depression in inferior leads High risk patient with known CAD s/p 2V CABG and 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 Peak Troponin 2.67. ECHO in this admission howed reduced EF at 35% compared to 40-45% previously. WMA unchanged from prior echo. There is mild MR and TR. Severe PAH. Was on heparin , coumadin , both held 07/02 due to INR of 3.0 s/p [facility] 07/03 with findings of severe 3V CAD. S/P CABG 2 of 2 patent bypass grafts. Discharged home to continue ASA, Statin, BB, Imdur(increased to 60mg po daily). Not on Plavix due to avoiding triple therapy since he is on ASA and Coumadin Continue ASA, BB, (2) Chronic back pain Priority: Secondary Status: Chronic Assessment and Plan: continue home meds Qualifiers: Back pain location: back pain in unspecified location Back pain laterality : unspecified Qualified Code(s): M54.9 - Dorsalgia, unspecified; G89.29 - Other chronic pain (3) Chronic kidney disease, stage IV (severe) Priority: Secondary Status: Chronic Assessment and Plan: Creatinine appears to be baseline. s/p LH with very minimal contrast exposure Follow up Chem scheduled for 07/07, patient to follow up with his PCP and own corporate trust officer (4) CAD (coronary artery disease) Priority: Secondary Status: Chronic Assessment and Plan: see NSTEMI Qualifiers: Coronary Disease-Associated Artery/Lesion type: unspecified vessel or lesion type [place] vs. transplanted heart: [place] heart Associated angina: with unspecified angina Qualified Code(s): I25.119 - Atherosclerotic heart disease of [place] coronary artery with unspecified angina pectoris (5) Ischemic cardiomyopathy Priority: Secondary Status: Chronic Assessment and Plan: Previous EF of 40-45%. New EF 35%. No evidence of acute exacerbation of heart failure. Continue home doses of lasix and metolazone Hold torsemide, may be resumed by PCP if chem done as out-patient is stable (6) Type 1 diabetes mellitus Priority: Secondary Status: Chronic Assessment and Plan: continue home insulin Qualifiers: Diabetes mellitus complication status: with hyperglycemia Qualified Code(s) : E10.65 - Type 1 diabetes mellitus with hyperglycemia (7) PAF (paroxysmal atrial fibrillation) Priority: Secondary Status: Chronic Assessment and Plan: Known PAF. Anticoagulated on Coumadin, continue same INR check scheduled for 07/07, follow up with PCP (8) Pulmonary hypertension Priority: Secondary Status: Chronic Assessment and Plan: resume sidenafil (9) Hyperglycemia Priority: Primary Status: Resolved (10) DVT prophylaxis Priority: Primary Status: Resolved (11) High anion gap metabolic acidosis Priority: Primary Status: Resolved (12) DKA (diabetic ketoacidosis) Priority: Primary Status: Resolved Qualifiers: Diabetes mellitus type: type 1 Diabetes mellitus complication detail: without coma Qualified Code(s): E10.10 - Type 1 diabetes mellitus with ketoacidosis without coma (13) Hyperlipidemia Priority: Secondary Status: Chronic Qualifiers: Hyperlipidemia type: pure hypercholesterolemia Qualified Code(s): E78.00 - Pure hypercholesterolemia, unspecified; E78.0 - Pure hypercholesterolemia (14) Acute on chronic combined systolic and diastolic CHF (congestive heart failure) Priority: Primary Status: Resolved Hospital course: Mr. Watson is a 52 M with Stage IV CKD, Chronic liver disease, Afib on Coumadin , Severe PAH, DM, HLD, PAD, CAD s/p CABGX2, Combined chronic CHF, chronic anemia He was admitted and being managed for NSTEMI, DKA, Acute on chronic CHF He was seen and managed with cardio, renal, and pulm Seen and evaluated at bedside this mrn, no new symptoms, requesting to be discharge He has a follow up appointment with PCP on 07/10 Will schedule labs for 07/07 Follow up labs with PCP See details of hospital course in each diagnoses Discharge discussed with: patient, nurse - Time Spent with Patient Total time spent providing and/or coordinating discharge services: Greater than 30 minutes - Discharge Medications Home Medications: Aspirin 81 mg PO DAILY 06/03/16 [History] Cholecalciferol (D-3) [Vitamin D] 1,000 unit PO BID 06/03/16 [History] Docusate [Colace] 100 mg PO BID 06/03/16 [History] Insulin ASPART [Novolog Flexpen] 12 - 25 unit SQ TIDAC 06/03/16 [History] Insulin Glargine,Hum.rec.anlog [Lantus Solostar] 14 unit SQ HS 06/03/16 [History ] Sodium Bicarbonate 1,300 mg PO DAILY 06/03/16 [History] Oxycodone HCl [Oxaydo] 5 mg PO Q4H PRN 03/14/17 [History] Oxygen 3.5 l NS HS 03/14/17 [History] metOLazone [Zaroxolyn] 5 mg PO DAILY 03/14/17 [History] Ferrous Sulfate [Iron] 325 mg PO DAILY #30 capsule.er 03/23/17 [Rx] Furosemide [Lasix] 80 mg PO BID 10/25/17 [History] Potassium Chloride [K-Tab ER] 20 meq PO BID 10/25/17 [History] Warfarin [Coumadin] 5 mg PO SUMOTUTHFR 10/25/17 [History] Warfarin [Coumadin] 7.5 mg PO WESA 10/25/17 [History] Cranberry 500 mg PO BID 07/01/18 [History] Metoprolol Succinate 25 mg PO DAILY 07/01/18 [History] Multivit-Min/FA/Lycopen/Lutein [Adults 50+ Multivitamin Tablet] 1 each PO DAILY 07/01/18 [History] Sildenafil Citrate [Revatio] 20 mg PO BID 07/01/18 [History] Simvastatin [Zocor] 10 mg PO DAILY 07/01/18 [History] Tamsulosin [Flomax] 0.4 mg PO DAILY 07/01/18 [History] amLODIPine [Norvasc] 5 mg PO DAILY 07/01/18 [History] Doxycycline 100 mg PO BID #4 capsule 07/04/18 [Rx] Hydralazine HCl 50 mg PO TID #90 tablet 07/04/18 [Rx] Isosorbide MONOnitrate (24 HR) [Imdur] 60 mg PO DAILY #60 tab.er.24h 07/04/18 [ Rx] Allergies/Adverse Reactions: 3 Allergy/AdvReac Type Severity Reaction Status Date / Time DERMABOND AdvReac Itching Uncoded 07/01/18 16:06 Date of admission: 07/01/18 04:54 Primary care physician: Betsy Salvador CNP Discharging clinician: Keegan Mcclain Anticipated date of discharge: 07/04/18 - Constitutional Vitals: Temp Pulse Resp BP Pulse Ox 97.9 F 69 18 133/82 96 07/04/18 11:22 07/04/18 11:22 07/04/18 11:22 07/04/18 07:20 07/04/18 11:22 General appearance: Present: A&O X 3, pleasant, no acute distress Exam: see below - Head Head exam: Present: atraumatic, normocephalic - Eye Eye exam: Present: PERRL, conjuntiva pink, sclera anicteric Pupils: Present: PERRL - Neck Neck exam general surgery: Present: supple, trachea midline. Absent: lymphadenopathy - Respiratory Respiratory exam: Present: CTAB. Absent: accessory muscle use, rales, rhonchi, wheezes - Cardiovascular Cardiovascular exam: Present: RRR, +S1, +S2. Absent: diastolic murmur, gallop, rubs, systolic murmur - GI/Abdominal GI/Abdominal exam: Present: normal bowel sounds, soft, no peritoneal signs. Absent: distended, tenderness - Extremities Exam Extremities exam: Present: warm, radial pulses palpable and symmetrical. Absent : calf tenderness, cyanotic, pedal edema - Neurological Exam Neurological exam: Present: CN II-XII intact, oriented X3, no focal deficits. Absent: pronater drift, facial droop, speech deficit - Skin Skin exam: Present: dry, intact - Patient Status Disposition: Home, Self-Care Condition: Good Functional capacity at discharge: independent ambulation Overall status at discharge: patient is progressing back to baseline - Discharge Instructions Follow Up With: Betsy Salvador CNP [Primary Care Provider] - 07/10/18 10:20 am Additional Instructions: RISK FACTORS: STOP SMOKING: If you smoke, STOP. Smoking or tobacco use significantly increases your risk of heart disease because nicotine causes the arteries to narrow or constrict. It also causes fats to stick to the artery. Your chances of having a heart attack are greatly increased if you continue to smoke. For more information, call the education line for smoking cessation 0-216-DEHLVXC EAT A LOW FAT/CHOLESTEROL/SODIUM DIET: This diet may help reduce your chances of having a heart attack. LIFTING: Avoid lifting anything more than 10 pounds for 5-7 days Prior to straining, laughing, sneezing and/or coughing, apply manual pressure directly over insertion site. ACTIVITY: You may walk or climb stairs as tolerated You can resume sexual activity as tolerated In general, you are encouraged to engage in a minimum of 30 minutes or more of moderate intensity physical activity, such as brisk walking, daily or at least 3 -4 times weekly BATHING Do not submerge the site into water (bath tub, hot tub, swimming pool) for 1 week. This can be a source for infection into the blood stream. You may shower after 24 hours SITE CARE: After 24 hours, you may remove the dressing and leave the site open to air. Keep the site clean and dry. Clean gently and pat dry. You can expect bruising and tenderness that gradually resolve within a week or two. Return to work as instructed per your physician Resume driving as instructed per physician Keep all scheduled follow up appointments Resume medications as instructed IMPORTANT: If prescribed a Platelet Aggregation Inhibitor such as, Plavix, Brilinta or Effient: Duration of therapy is minimum one year These medications are often used in combination with Aspirin in prevention of future heart attacks Never discontinue unless consult with your Motor Vehicle Parts Interpreter STROKE (CVA) Risk factors for a stroke are: Age, cigarette smoking, diabetes, excessive alcohol consumption, family history, high blood pressure, overweight, physical inactivity, prior stroke, heart attack, diagnosis of carotid artery stenosis or other artery disease. Warning signs: Sudden numbness or weakness of the face, arm or leg; especially on one side of the body, sudden confusion, trouble speaking or understanding, sudden trouble seeing in one or both eyes, sudden trouble walking, dizziness, loss of balance or coordination, sudden severe headache with no cause. Call 911 or go to the Emergency Room. CONGESTIVE HEART FAILURE: If you have been diagnosed with Congestive Heart Failure (CHF) and your symptoms return, make an appointment with your physician Weigh yourself daily. Notify your physician if you have a weight gain of two or more pounds in one day or five or more pounds in one week. If you experience any difficulty breathing, please call 911 BLEEDING: Although the risk of bleeding is minimal, it can happen. If you have any bleeding from the site, apply firm pressure above the puncture site for 10-15 minutes. If the bleeding does not stop, continue manual pressure and call 911 Contact your physician if: You develop a fever greater than 101 degrees Fahrenheit Your site becomes reddened or has any drainage You have an increase in pain or burning at the site or if a large knot forms at the site. If you experience chest pain, shortness of breath, dizziness, or extreme tiredness, stop the activity and rest. Please notify your physicians office if you experience any of these symptoms and they are not relieved by rest please call 911! - Diet and Activity Activity: resume usual activities as tolerated, wear oxygen at all times Diet: diabetic diet, low fat, low cholesterol, low salt diet
[2018-07-04 16:09] VITALS: BP 91/59
[2018-07-04] MEDS ORDERED: Warfarin perPT PO PRN (18:00)
[2018-07-04] MEDS ORDERED: *HR* Warfarin 7.5 MG TABLET PO SCH (18:00)
[2018-07-04] MEDS ORDERED: *HR* Warfarin 7.5 MG TABLET PO ONE (18:00)
[2018-07-05] MEDS ORDERED: Isosorbide MONOnitrate (24 HR) 30 MG TAB.ER.24H PO SCH (09:00)
== END 2018-07-04 19:10 | disposition home or self-care (01) | DRG 286 ==
LOC: ICNU 21:37 → EMEROOARM 21:37 → ICNU 07-01 02:09 → 2NNU 07-02 17:37
PROVIDERS: ADMIT Pediatrics; ATTEND Pediatrics

== ENCOUNTER 2018-10-28 01:42 | Observation (INO) ==
[2018-10-28] MEDS ORDERED: *HR* Metoprolol 5 MG/5 ML VIAL IVP ONE (03:06)
[2018-10-28] MEDS ORDERED: 0.9 % Sodium Chloride 500 ML IVC ONE (03:07)
--- NOTE | 2018-10-28 03:22 | Emergency Department Note ---
Disposition Clinical Impression: Atrial fibrillation with RVR, Elevated troponin Disposition: Admitted As Inpatient Condition: Fair Referrals: Betsy Salvador CNP [Primary Care Provider] - Forms: ED Satisfaction Letter Time of Disposition: 05:39 Arrhythmia/Palpitations HPI - General Chief Complaint: ED Arrhythmia/Palpitations Stated Complaint: AFIB Time Seen by Provider: 10/28/18 01:48 Source: patient Limitations: no limitations Nursing Notes Reviewed: Yes Vital Signs Reviewed: Yes - History of Present Illness HPI Narrative: Patient is a 53-year-old male presenting with atrial fibrillation. Patient has history of CAD status post CABG 2, hypertension, hyperlipidemia, atrial fibrillation, cirrhosis, renal disease, insulin dependent diabetes mellitus type 1. Patient states that today he noticed that he was having palpitations in his chest, no chest pain or shortness of breath, he states however as he knows that he has atrial fibrillation he felt as though he was getting tachycardic. He did take his heart rate at home and it was bouncing in the 120s to 130s beats per minute. He states that he was told by his tubular products fabricator that this occurs, he needs to go to the ER for further evaluation. Patient states that he was recently taken off metoprolol 25 mg per his tubular products fabricator, Dr. Young. He states that this episode today occurred spontaneously, no recent fever or chills. No chest pain, shortness of breath or recent illness. - Related Data Home Medications Medication Instructions Recorded Confirmed Aspirin 81 mg PO DAILY 06/03/16 07/01/18 Cholecalciferol (D-3) [Vitamin D] 1,000 unit PO BID 06/03/16 07/01/18 Docusate [Colace] 100 mg PO BID 06/03/16 07/01/18 Insulin ASPART [Novolog Flexpen] 12 - 25 unit SQ TIDAC 06/03/16 07/01/18 Insulin Glargine,Hum.rec.anlog 14 unit SQ HS 06/03/16 07/01/18 [Lantus Solostar] Sodium Bicarbonate 1,300 mg PO DAILY 06/03/16 07/01/18 Oxycodone HCl [Oxaydo] 5 mg PO Q4H PRN 03/14/17 07/01/18 Oxygen 3.5 l NS HS 03/14/17 07/01/18 metOLazone [Zaroxolyn] 5 mg PO DAILY 03/14/17 07/01/18 Furosemide [Lasix] 80 mg PO BID 10/25/17 07/01/18 Potassium Chloride [K-Tab ER] 20 meq PO BID 10/25/17 07/01/18 Warfarin [Coumadin] 5 mg PO SUMOTUTHFR 10/25/17 07/01/18 Warfarin [Coumadin] 7.5 mg PO WESA 10/25/17 07/01/18 Cranberry 500 mg PO BID 07/01/18 07/01/18 Metoprolol Succinate 25 mg PO DAILY 07/01/18 07/01/18 Multivit-Min/FA/Lycopen/Lutein 1 each PO DAILY 07/01/18 07/01/18 [Adults 50+ Multivitamin Tablet] Sildenafil Citrate [Revatio] 20 mg PO BID 07/01/18 07/01/18 Simvastatin [Zocor] 10 mg PO DAILY 07/01/18 07/01/18 Tamsulosin [Flomax] 0.4 mg PO DAILY 07/01/18 07/01/18 amLODIPine [Norvasc] 5 mg PO DAILY 07/01/18 07/01/18 Previous Rx's Medication Instructions Recorded Ferrous Sulfate [Iron] 325 mg PO DAILY #30 capsule.er 03/23/17 Doxycycline 100 mg PO BID #4 capsule 07/04/18 Hydralazine HCl 50 mg PO TID #90 tablet 07/04/18 Isosorbide MONOnitrate (24 HR) 60 mg PO DAILY #60 tab.er.24h 07/04/18 [Imdur] Allergies Allergy/AdvReac Type Severity Reaction Status Date / Time DERMABOND AdvReac Itching Uncoded 07/01/18 16:06 All systems ED: reviewed and negative except as stated. Review of Systems: As Per HPI Constitutional: Denies: fever, chills, weakness, weight change ENT ED: Denies: ear pain, throat pain, dental pain, hearing loss, epistaxis, congestion, dysphagia Cardiovascular: Reports: palpitations. Denies: chest pain, syncope Respiratory: Denies: cough, dyspnea, wheezes Gastrointestinal: Denies: abdominal pain, nausea, vomiting Genitourinary: Denies: dysuria Musculoskeletal: Denies: back pain Integumentary: Denies: rash Neurological: Denies: headache, weakness, confusion Endocrine: Denies: fatigue Past Medical History - Past Medical History Attestation: Yes The following information was validated with the patient. Source: patient Medical history: Reports: atrial fibrillation, diabetes, hyperlipidemia, hy pertension Surgical history: Reports: cholecystectomy, coronary bypass (CABG), other Psychiatric history: Reports: no psych history - Social History Smoking Status: Former smoker Smokeless Tobacco Status: No Alcohol use: Reports: none Drug use: Reports: none Physical Exam - General Limitations: no limitations General appearance: alert, in no apparent distress, cachectic - Head Head exam: atraumatic, normocephalic, normal inspection - Eye Eye exam: Present: normal appearance, PERRL, EOMI - ENT ENT exam: normal exam, normal oropharynx, mucous membranes moist - Neck Neck exam: Present: normal inspection - Chest Chest inspection: Present: normal inspection, symmetric chest wall rise - Respiratory Respiratory exam: Present: normal lung sounds bilaterally - Cardiovascular Cardiovascular exam: Present: tachycardia, irregular rhythm - Abdominal Exam Abdominal exam: Present: soft, Non-Tender, ascites (but unchanged from baseline ). Absent: tenderness, distention, guarding, rebound, rigidity - Extremities Exam Extremities exam: Present: normal inspection, full ROM. Absent: tenderness, p edal edema - Expanded Lower Extremity Exam Neurovascular/Tendon exam: Present: normal capillary refill - Neurological Exam Neurological exam: Present: alert, oriented X3 - Psychiatric Psychiatric exam: Present: normal affect, normal mood - Skin Skin exam: Present: warm, dry, intact. Absent: rash Course Vital Signs Temperature 97.9 F 10/28/18 01:51 Pulse Rate 125 10/28/18 01:51 Respiratory Rate 16 10/28/18 01:51 Blood Pressure 129/68 10/28/18 01:51 O2 Sat by Pulse Oximetry 98 10/28/18 01:51 Temperature 97.9 F 10/28/18 01:51 Pulse Rate 125 10/28/18 01:51 Respiratory Rate 16 10/28/18 01:51 Blood Pressure 129/68 10/28/18 01:51 O2 Sat by Pulse Oximetry 98 10/28/18 01:51 Oxygen Delivery Oxygen Delivery Room Air Arrhythmia/Palpitations - MDM Narrative Medical decision making narrative: Patient is a 53-year-old male presenting with atrial fibrillation RVR. Patient has known history of CAD status post CABG 2, hypertension, hyperlipidemia, chronic kidney disease stage IV, insulin-dependent diabetes mellitus type 1, atrial fibrillation currently on Coumadin. Patient on arrival is in atrial fibrillation RVR with ventricular rate of 117 on the monitor, he is in no acute distress and denies chest pain. Patient denies any short of breath. Patient states he was at home and began to have palpitations. On examination, patient is irregularly irregular rhythm, no chest pain, does appear cachectic, this does appear chronic and not acute. Per family in the room this is patient's baseline appearance. EKG shows ST elevation, which however is unchanged from prior EKG, patient also denies chest pain. Patient was given aspirin. Patient was also given 500 mils fluids to try to convert. Prior to fluid or medication given, patient did convert to normal sinus with ventricular rate of 75. Patient was given 12.5 mg of metoprolol. Patient does have elevated troponin 0.08, suspect this is most likely demand ischemia in light of A. fib with RVR. CBC does continue to show a stable anemia, serum creatinine is elevated, however appears to be at patient's baseline. Further laboratory work stopped appears that the patient is at baseline. Given the patient is in atrial fibrillation with RVR, did convert while in the ER, however does have elevated troponin was significant history of CAD, patient will be admitted for further trending of troponin as well as symptomatic management. Patient agrees with disposition. - Medical Records Medical records reviewed: Yes I reviewed the patient's medical records. - Lab Data Lab results reviewed: Yes I reviewed the patient's lab results. Result diagrams: 10/28/18 04:10 10/28/18 04:10 Lab Results 10/28/18 10/28/18 10/28/18 Range/Units 04:10 04:10 04:10 WBC 7.4 (4.3-11.1) K/mcL RBC 3.38 L (4.19-5.50) M/mcL Hgb 9.1 L (12.9-16.9) g/dL Hct 28.6 L (37.5-50.1) % MCV 84.6 (83.0-100.0) fL MCH 26.9 L (28.0-33.3) pg MCHC 31.8 (31.6-35.5) g/dL RDW 15.9 H (11.5-14.5) % Plt Count 392 (140-400) K/mcL MPV 10.0 (9.4-12.4) fL Immature Gran % 0.5 (0-4) % Seg Neutrophils % 68.4 % Lymphocytes % 7.5 % Monocytes % 15.9 % Eosinophils % 6.2 % Basophils % 1.5 % Neutrophils # 5.1 (1.6-8.9) K/mcL Lymphocytes # 0.6 (0.6-4.6) K/mcL Monocytes # 1.2 (0.0-1.3) K/mcL Eosinophils # 0.5 (0.0-0.6) K/mcL Basophils # 0.1 (0.0-0.2) K/mcL PT 24.2 H (9.4-12.1) Seconds INR 2.1 APTT 43.7 H (26.0-36.0) Seconds Sodium 137 (136-145) mEq/L Potassium 4.0 (3.5-5.1) mEq/L Chloride 100 (98-107) mEq/L Carbon Dioxide 27 (23-29) mEq/L BUN 128 H (6-20) mg/dL Creatinine 3.58 H (0.70-1.30) mg/dL Est GFR ( Amer) 22 L (> 60) Est GFR (Non-Af Amer) 18 L (> 60) BUN/Creatinine Ratio 36 H (6-26) Glucose 184 H (70-105) mg/dL Calculated Osmolality 330 H (280-300) Calcium 9.1 (8.6-10.3) mg/dL Magnesium 1.9 (1.6-2.6) mg/dL Troponin I 0.08 H* (< 0.04) ng/mL - Radiology Data Radiology results reviewed: Yes I reviewed the patient's radiology results. Chest X-Ray 10/28/18 03:06 IMPRESSION: Mild heart failure, including cardiomegaly with mild interstitial edema and small right effusion, similar to the prior exam. D/ / Reilly Contreras / Reilly Contreras Interpreting Provider: Reilly Contreras - EKG Data EKG attestation: Yes I reviewed and interpreted this EKG. EKG results narrative: EKG performed at 148 with ventricular rate of 126, irregularly irregular rhythm appears to be atrial fibrillation with RVR appears unchanged from previous Repeat EKG performed at 222 with ventricular rate of 117, right axis deviation with extra fibrillation, there is ST elevation and depression, however this is unchanged from EKG performed in 2018. Repeat EKG performed at 341 with ventricular rate of 75, regular rhythm, right axis deviation, continued ST elevation which is unchanged from previous. S.Terri.Sheryl - Viral.Huang Situation: Demographics, MOA Background: Presenting Complaint, Relevant PMH, Meds, & Allergies Assessment: Vital Signs, Course and respsone to treatment, Exam Concerns, Patien t/Family Expectation, Pertinant Lab Results, Outstanding Labs Recommendation: Barrier(s) to disposition, Recommendation based on pending studies, treatments, or consults S.B.A.RNando Report Given to: hospitalist Darron Repor Time: 05:58 (accepted)
[2018-10-28 04:31] LABS: Basophils # 0.1 K/mcL (0.0-0.2); Basophils % 1.5 %; Eosinophils # 0.5 K/mcL (0.0-0.6); Eosinophils % 6.2 %; Hematocrit 28.6 % (37.5-50.1); Hemoglobin 9.1 g/dL (12.9-16.9); Immature Granulocytes % 0.5 % (0-4); Lymphocytes # 0.6 K/mcL (0.6-4.6); Lymphocytes % 7.5 %; Mean Corpuscular HGB Conc 31.8 g/dL (31.6-35.5); Mean Corpuscular Hemoglobin 26.9 pg (28.0-33.3); Mean Corpuscular Volume 84.6 fL (83.0-100.0); Monocytes # 1.2 K/mcL (0.0-1.3); Monocytes % 15.9 %; Neutrophils # 5.1 K/mcL (1.6-8.9); Platelet Count 392 K/mcL (140-400); Red Blood Count 3.38 M/mcL (4.19-5.50); Red Cell Distribution Width 15.9 % (11.5-14.5); Segmented Neutrophils % 68.4 %
[2018-10-28 04:36] LABS: INR 2.1; Prothrombin Time 24.2 Seconds (9.4-12.1)
[2018-10-28 04:39] LABS: Activated Partial Thrombo Time 43.7 Seconds (26.0-36.0)
[2018-10-28 04:50] LABS: Calcium 9.1 mg/dL (8.6-10.3); Magnesium 1.9 mg/dL (1.6-2.6)
[2018-10-28 04:54] LABS: Troponin I 0.08 ng/mL (< 0.04)
[2018-10-28] MEDS ORDERED: Aspirin 325 MG TABLET PO ONE (04:59)
[2018-10-28] MEDS ORDERED: *HR* OxyCODONE Immed Rel 5 MG TABLET PO ONE (05:32)
--- NOTE | 2018-10-28 05:46 | Emergency Department Note ---
Disposition Clinical Impression: Atrial fibrillation with RVR, Elevated troponin Disposition: Admitted As Inpatient Condition: Fair Referrals: Betsy Salvador [employer] SYSTEM[employer]PENTER [Primary Care Provider] - Forms: ED Satisfaction Letter General Adult HPI - General Chief complaint: ED Arrhythmia/Palpitations Stated complaint: AFIB Time Seen by Provider: 10/28/18 01:48 Source: patient Limitations: no limitations Nursing Notes Reviewed: Yes Vital Signs Reviewed: Yes - History of Present Illness Pain Scale: 0 - Related Data Home Medications Medication Instructions Recorded Confirmed Aspirin 81 mg PO DAILY 06/03/16 07/01/18 Cholecalciferol (D-3) [Vitamin D] 1,000 unit PO BID 06/03/16 07/01/18 Docusate [Colace] 100 mg PO BID 06/03/16 07/01/18 Insulin ASPART [Novolog Flexpen] 12 - 25 unit SQ TIDAC 06/03/16 07/01/18 Insulin Glargine,Hum.rec.anlog 14 unit SQ HS 06/03/16 07/01/18 [Lantus Solostar] Sodium Bicarbonate 1,300 mg PO DAILY 06/03/16 07/01/18 Oxycodone HCl [Oxaydo] 5 mg PO Q4H PRN 03/14/17 07/01/18 Oxygen 3.5 l NS HS 03/14/17 07/01/18 metOLazone [Zaroxolyn] 5 mg PO DAILY 03/14/17 07/01/18 Furosemide [Lasix] 80 mg PO BID 10/25/17 07/01/18 Potassium Chloride [K-Tab ER] 20 meq PO BID 10/25/17 07/01/18 Warfarin [Coumadin] 5 mg PO SUMOTUTHFR 10/25/17 07/01/18 Warfarin [Coumadin] 7.5 mg PO WESA 10/25/17 07/01/18 Cranberry 500 mg PO BID 07/01/18 07/01/18 Metoprolol Succinate 25 mg PO DAILY 07/01/18 07/01/18 Multivit-Min/FA/Lycopen/Lutein 1 each PO DAILY 07/01/18 07/01/18 [Adults 50+ Multivitamin Tablet] Sildenafil Citrate [Revatio] 20 mg PO BID 07/01/18 07/01/18 Simvastatin [Zocor] 10 mg PO DAILY 07/01/18 07/01/18 Tamsulosin [Flomax] 0.4 mg PO DAILY 07/01/18 07/01/18 amLODIPine [Norvasc] 5 mg PO DAILY 07/01/18 07/01/18 Previous Rx's Medication Instructions Recorded Ferrous Sulfate [Iron] 325 mg PO DAILY #30 capsule.er 03/23/17 Doxycycline 100 mg PO BID #4 capsule 07/04/18 Hydralazine HCl 50 mg PO TID #90 tablet 07/04/18 Isosorbide MONOnitrate (24 HR) 60 mg PO DAILY #60 tab.er.24h 07/04/18 [Imdur] Allergies Allergy/AdvReac Type Severity Reaction Status Date / Time DERMABOND AdvReac Itching Uncoded 07/01/18 16:06 Constitutional: Denies: fever, chills, weakness, weight change ENT ED: Denies: ear pain, throat pain, dental pain, hearing loss, epistaxis, congestion, dysphagia Cardiovascular: Reports: palpitations. Denies: chest pain, syncope Respiratory: Denies: cough, dyspnea, wheezes Gastrointestinal: Denies: abdominal pain, nausea, vomiting Genitourinary: Denies: dysuria Musculoskeletal: Denies: back pain Integumentary: Denies: rash Neurological: Denies: headache, weakness, confusion Endocrine: Denies: fatigue Past Medical History - Past Medical History Medical history: Reports: atrial fibrillation, diabetes, hyperlipidemia, hypertension Surgical history: Reports: cholecystectomy, coronary bypass (CABG), other Psychiatric history: Reports: no psych history - Social History Smoking Status: Former smoker Smokeless Tobacco Status: No Alcohol use: Reports: none Drug use: Reports: none Physical Exam - General Limitations: no limitations General appearance: alert, in no apparent distress, cachectic Course Vital Signs Temperature 97.9 F 10/28/18 01:51 Pulse Rate 125 10/28/18 01:51 Respiratory Rate 16 10/28/18 01:51 Blood Pressure 129/68 10/28/18 01:51 O2 Sat by Pulse Oximetry 98 10/28/18 01:51 Temperature 97.9 F 10/28/18 01:51 Pulse Rate 125 10/28/18 01:51 Respiratory Rate 16 10/28/18 01:51 Blood Pressure 129/68 10/28/18 01:51 O2 Sat by Pulse Oximetry 98 10/28/18 01:51 Oxygen Delivery Oxygen Delivery Room Air Medical Decision Making - Medical Records Medical records reviewed: Yes I reviewed the patient's medical records. - Lab Data Lab results reviewed: Yes I reviewed the patient's lab results. Result diagrams: 10/28/18 04:10 10/28/18 04:10 Lab Results 10/28/18 10/28/18 10/28/18 Range/Units 04:10 04:10 04:10 WBC 7.4 (4.3-11.1) K/mcL RBC 3.38 L (4.19-5.50) M/mcL Hgb 9.1 L (12.9-16.9) g/dL Hct 28.6 L (37.5-50.1) % MCV 84.6 (83.0-100.0) fL MCH 26.9 L (28.0-33.3) pg MCHC 31.8 (31.6-35.5) g/dL RDW 15.9 H (11.5-14.5) % Plt Count 392 (140-400) K/mcL MPV 10.0 (9.4-12.4) fL Immature Gran % 0.5 (0-4) % Seg Neutrophils % 68.4 % Lymphocytes % 7.5 % Monocytes % 15.9 % Eosinophils % 6.2 % Basophils % 1.5 % Neutrophils # 5.1 (1.6-8.9) K/mcL Lymphocytes # 0.6 (0.6-4.6) K/mcL Monocytes # 1.2 (0.0-1.3) K/mcL Eosinophils # 0.5 (0.0-0.6) K/mcL Basophils # 0.1 (0.0-0.2) K/mcL PT 24.2 H (9.4-12.1) Seconds INR 2.1 APTT 43.7 H (26.0-36.0) Seconds Sodium 137 (136-145) mEq/L Potassium 4.0 (3.5-5.1) mEq/L Chloride 100 (98-107) mEq/L Carbon Dioxide 27 (23-29) mEq/L BUN 128 H (6-20) mg/dL Creatinine 3.58 H (0.70-1.30) mg/dL Est GFR ( Amer) 22 L (> 60) Est GFR (Non-Af Amer) 18 L (> 60) BUN/Creatinine Ratio 36 H (6-26) Glucose 184 H (70-105) mg/dL Calculated Osmolality 330 H (280-300) Calcium 9.1 (8.6-10.3) mg/dL Magnesium 1.9 (1.6-2.6) mg/dL Troponin I 0.08 H* (< 0.04) ng/mL - Radiology Data Radiology results reviewed: Yes I reviewed the patient's radiology results. Chest X-Ray 10/28/18 03:06 IMPRESSION: Mild heart failure, including cardiomegaly with mild interstitial edema and small right effusion, similar to the prior exam. D/ / Reilly Contreras / Reilly Contreras Interpreting Provider: Reilly Contreras - EKG Data EKG #1 EKG attestation: Yes I reviewed and interpreted this EKG. EKG results narrative: Atrial fibrillation with RVR. Ventricular rate 126. Left bundle branch block which was present on prior EKGs. EKG #2 EKG attestation: Yes I reviewed and interpreted this EKG. EKG results narrative: Repeat EKG after spontaneous conversion showed a normal sinus rhythm with ventricular rate is 75. Left bundle branch block. No change from prior EKG dated 07/01/2018. Attestation Statement - Attestation Attestation: I, Bruce Abarca MD, personally evaluated this patient and discussed their management with the resident physician. I reviewed the resident's note and agree with the documented findings, medical decision making, and plan of care. 53-year-old male presents to the emergency department with a complaint of rapid heartbeat which he noted about 10:30 PM this evening. He has a history of atrial fibrillation previously and is on Coumadin. He denies any chest pain. Some shortness of breath. He complains of just feeling generally weak and not feeling well. No syncope. On examination patient is a well-developed well-nourished chronically ill- appearing male in no acute distress. He is alert and oriented 3. There is no cyanosis or diaphoresis. Breath sounds are equal bilaterally with a few scattered bibasilar rales. Heart is irregularly irregular and tachycardic. Abdomen is soft and nontender with normal bowel sounds. X-ray shows mild heart failure with cardiomegaly and mild interstitial edema. Small pleural effusion. Initial EKG shows atrial fibrillation with RVR. Ventricular rate 126. Left bundle branch block which was present on prior EKGs. A repeat EKG later after patient converted showed a normal sinus rhythm with ventricular rate is 75 and left bundle branch block. No significant change from prior EKG dated 07/01/2018. Labs reviewed. Patient has chronic kidney disease and is at baseline. He does have an elevated troponin at 0.08. The hospitalist, Dr. Alcaraz, was consulted and accepted admission of the patient.
[2018-10-28] MEDS ORDERED: Naloxone 0.4 MG/ML INJ IVP PRN (07:16)
[2018-10-28] MEDS ORDERED: *HR* Dextrose 50 % in Water (Syg) 50 ML SYRINGE IVP PRN (07:46)
[2018-10-28] MEDS ORDERED: D5% in Water 1,000 ML IVC PRN (07:46)
[2018-10-28] MEDS ORDERED: Dextrose Gel 15 GM/37.5 ML TUBE PO PRN ×2 (07:46)
[2018-10-28] MEDS ORDERED: Isosorbide MONOnitrate (24 HR) 30 MG TAB.ER.24H PO SCH (09:00)
[2018-10-28] MEDS: Insulin LISPRO 300 UNITS/3 ML VIAL SQ SCH ×3 (09:02→16:46)
--- NOTE | 2018-10-28 09:26 | Internal Med History&Physical ---
Date of Encounter: 10/28/18 Time of Encounter: 09:00 Internal Medicine - H&P: HPI Chief complaint: Rapid heartbeat and palpitations since 10.30pm last night History of present illness: Mr. Watson is a 53 year old male with pmh of CAD s/p stent, afib, diabetes, hypertension presenting with complaints of a rapid heart beat since last night at 10.30pm. 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 He began to experience palpitaions last night accompanied with some shortness of breath and that's why he came to the ER. He denies any other acute symptoms such as chest pain , nausea or vomiting. In the ER, HR was elevated in the high 120s and he was given one dose of IV lopressor and he is being admitted for further management Past Med Surg Social Fam HX - Past Medical History Medical history: atrial fibrillation, CVA, diabetes, hyperlipidemia, hypertension, liver disease, peripheral artery disease, renal disease Additional medical history: PUML HTN Psychiatric history: depression - Past Surgical History Surgical History: cholecystectomy, coronary bypass (CABG), other Additional surgical history: L Iliac stent. L Fistula. Bilat eye surgery - Social History Smoking Status: Former smoker Smokeless Tobacco Status: No Alcohol use: none Drug use: none - Family History Mother Hx Family Cardiac Disorders: Yes (htn HLD) Hx Family Endocrine Disorder: Yes (DM) Father Adopted: No Family Member Ethnicity: Non- Living Status: Still Living Hx Family Cardiac Disorders: Yes ([place]) Hx Family Respiratory Disorders: No Hx Family Cancer: Yes (skin) Hx Family GI Disorders: No Hx Family Endocrine Disorder: No Internal Medicine - H&P: Meds Aspirin 81 mg PO DAILY 06/03/16 [History] Cholecalciferol (D-3) [Vitamin D] 1,000 unit PO BID 06/03/16 [History] Docusate [Colace] 100 mg PO BID 06/03/16 [History] Insulin ASPART [Novolog Flexpen] 12 - 25 unit SQ TIDAC 06/03/16 [History] Insulin Glargine,Hum.rec.anlog [Lantus Solostar] 14 unit SQ HS 06/03/16 [History] Sodium Bicarbonate 1,300 mg PO DAILY 06/03/16 [History] Oxycodone HCl [Oxaydo] 5 mg PO Q4H PRN 03/14/17 [History] Oxygen 3.5 l NS HS 03/14/17 [History] metOLazone [Zaroxolyn] 5 mg PO DAILY 03/14/17 [History] Ferrous Sulfate [Iron] 325 mg PO DAILY #30 capsule.er 03/23/17 [Rx] Furosemide [Lasix] 80 mg PO BID 10/25/17 [History] Potassium Chloride [K-Tab ER] 20 meq PO BID 10/25/17 [History] Warfarin [Coumadin] 5 mg PO SUMOTUTHFR 10/25/17 [History] Warfarin [Coumadin] 7.5 mg PO WESA 10/25/17 [History] Cranberry 500 mg PO BID 07/01/18 [History] Metoprolol Succinate 25 mg PO DAILY 07/01/18 [History] Multivit-Min/FA/Lycopen/Lutein [Adults 50+ Multivitamin Tablet] 1 each PO DAILY 07/01/18 [History] Sildenafil Citrate [Revatio] 20 mg PO BID 07/01/18 [History] Simvastatin [Zocor] 10 mg PO DAILY 07/01/18 [History] Tamsulosin [Flomax] 0.4 mg PO DAILY 07/01/18 [History] amLODIPine [Norvasc] 5 mg PO DAILY 07/01/18 [History] Doxycycline 100 mg PO BID #4 capsule 07/04/18 [Rx] Hydralazine HCl 50 mg PO TID #90 tablet 07/04/18 [Rx] Isosorbide MONOnitrate (24 HR) [Imdur] 60 mg PO DAILY #60 tab.er.24h 07/04/18 [Rx] Allergy/AdvReac Type Severity Reaction Status Date / Time DERMABOND AdvReac Itching Uncoded 07/01/18 16:06 All Systems PM: A 10-system review of systems was performed and is negative for pertinent findings except as documented above in the HPI. - Constitutional Constitutional: no chills, no fever(s), no night sweats - EENT Eyes: no change in vision, no discharge, no pain, no photophobia Ears: no ear discharge, no ear pain, no tinnitus Nose, mouth and throat: no dysphagia, no nasal discharge, no neck pain, no sore throat - Cardiovascular Cardiovascular ROS IM: dyspnea, irregular heart rhythm, no chest pain, no diaphoresis, no lightheadedness, no palpitations, no syncope - Respiratory Respiratory: no cough, no dyspnea, no wheezing, no excessive phlegm production - Gastrointestinal Gastrointestinal: no abdominal pain, no diarrhea, no hematemesis, no hematochezia, no melena, no nausea, no vomiting - Musculoskeletal Musculoskeletal ROS IM: no numbness, no tingling - Integumentary Integumentary IM: no rash, no unusual bruising - Neurological Neurological ROS: no confusion, no convulsions, no focal weakness, no numbness, no tingling, no tremor(s) - Hematologic/Lymphatic Hematologic/Lymphatic: no easy bruising - Constitutional Vitals: Temp Pulse Resp BP Pulse Ox 97.7 F 75 18 138/63 98 10/28/18 07:11 10/28/18 07:11 10/28/18 07:11 10/28/18 07:11 10/28/18 07:11 Exam: NAD - Head Head exam: Present: atraumatic, normocephalic - Eye Eye exam: Present: PERRL, conjuntiva pink, sclera anicteric Pupils: Present: PERRL - Neck Neck exam general surgery: Present: supple, trachea midline. Absent: lymp hadenopathy - Respiratory Respiratory exam: Present: CTAB. Absent: accessory muscle use, rales, rhonchi, wheezes - Cardiovascular Cardiovascular exam: Present: irregular rhythm, +S1, +S2. Absent: diastolic murmur, gallop, rubs, systolic murmur - GI/Abdominal GI/Abdominal exam: Present: normal bowel sounds, soft, no peritoneal signs. Absent: distended, tenderness - Extremities Exam Extremities exam: Present: warm, radial pulses palpable and symmetrical. Absent: calf tenderness, cyanotic, pedal edema - Neurological Exam Neurological exam: Present: CN II-XII intact, oriented X3, no focal deficits. Absent: pronater drift, facial droop, speech deficit - Skin Skin exam: Present: dry, intact Internal Med - H&P Results - Labs CBC & Chem 7: 10/28/18 04:10 10/28/18 04:10 Labs: Short CBC 02/02/19 Range/Units 04:10 WBC 7.4 (4.3-11.1) K/mcL Hgb 9.1 L (12.9-16.9) g/dL Hct 28.6 L (37.5-50.1) % Plt Count 392 (140-400) K/mcL Neutrophils # 5.1 (1.6-8.9) K/mcL BMP 10/28/18 04:10 Sodium 137 Potassium 4.0 Chloride 100 Carbon Dioxide 27 BUN 128 H Creatinine 3.58 H Glucose 184 H Calcium 9.1 Cardiac Enzymes 10/28/18 Range/Units 04:10 Troponin I 0.08 H* (< 0.04) ng/mL - Impressions ITS Impressions Chest X-Ray 10/28/18 03:06 IMPRESSION: Mild heart failure, including cardiomegaly with mild interstitial edema and small right effusion, similar to the prior exam. D/ / Reilly Contreras / Reilly Contreras Interpreting Provider: Reilly Contreras - Assessment and plan (1) Atrial fibrillation with RVR Current Visit: Yes Status: Acute Assessment and plan: Pt comes in with afib with RVR 10/28 to non compliance with beta blockers. Received one dose of iV lopressor in the ER Currently rate controlled. resume po beta blockers and coumadin (2) Systolic CHF Current Visit: Yes Status: Acute Assessment and plan: No acute exacerbation. Continue home dose of lasix Qualifiers: Heart failure chronicity: chronic Qualified Code(s): I50.22 - Chronic systolic (congestive) heart failure (3) Chronic kidney disease, stage IV (severe) Current Visit: Yes Status: Acute Assessment and plan: No acute worsening. Continue lasix for CHF. Monitor creatinine (4) Diabetes Current Visit: Yes Status: Acute Assessment and plan: resume insulin with short and long acting insulin. Monitor fingersticks Qualifiers: Diabetes mellitus type: type 2 Diabetes mellitus assisted insulin use: unspecified assisted insulin use status Diabetes mellitus complication status: with unspecified complications Qualified Code(s): E11.8 - Type 2 diabetes mellitus with unspecified complications (5) Hyperlipidemia Current Visit: Yes Status: Acute Assessment and plan: Continue home meds Qualifiers: Hyperlipidemia type: pure hypercholesterolemia Qualified Code(s): E78.00 - Pure hypercholesterolemia, unspecified; E78.0 - Pure hypercholesterolemia (6) DVT prophylaxis Current Visit: Yes Status: Acute Assessment and plan: Heparin sc - Time Spent With Patient Total time spent is greater than 50% in coordination of care (as documented) at patient's floor/unit and/or counseling patient:
[2018-10-28] MEDS: (Cranberry [Cranberry] 500 MG) PO SCH ×2 (10:24→21:06)
[2018-10-28] MEDS: *HR* OxyCODONE Immed Rel 5 MG TABLET PO PRN ×3 (10:29→21:06)
[2018-10-28] MEDS: Cholecalciferol (D-3) 1,000 UNIT TABLET PO SCH (10:30)
[2018-10-28] MEDS: metOLazone 5 MG TABLET PO SCH (10:30)
[2018-10-28] MEDS: Sildenafil Citrate 20 MG TABLET PO SCH ×2 (10:30→21:06)
[2018-10-28] MEDS: Metoprolol XL (24 HR) Succ 25 MG TAB.ER.24H PO SCH (10:30)
[2018-10-28] MEDS: Multivit/Ca/Min/Fe/FA 1 TAB TABLET PO SCH (10:30)
[2018-10-28] MEDS: Aspirin 81 MG TAB.CHEW PO SCH (10:31)
[2018-10-28] MEDS: hydrALAZINE 25 MG TABLET PO SCH ×3 (10:31→21:07)
[2018-10-28] MEDS: amLODIPine 5 MG TABLET PO SCH (10:31)
[2018-10-28] MEDS: Furosemide 40 MG TABLET PO SCH ×2 (10:33→17:47)
[2018-10-28] MEDS ORDERED: *HR* Warfarin 7.5 MG TABLET PO SCH (18:00)
[2018-10-28] MEDS ORDERED: Insulin LISPRO 300 UNITS/3 ML VIAL SQ SCH (21:00)
[2018-10-28] MEDS ORDERED: Insulin DETEMIR 100 UNIT/ML X5UNITS SQ SCH (21:00)
[2018-10-29 06:47] LABS: Estimated Average Glucose 160 mg/dl; Hemoglobin A1C 7.2 %
[2018-10-29 07:56] VITALS: BP 146/75
[2018-10-29] MEDS: Insulin LISPRO 300 UNITS/3 ML VIAL SQ SCH (08:01)
[2018-10-29] MEDS: Sildenafil Citrate 20 MG TABLET PO SCH (08:43)
[2018-10-29] MEDS: Cholecalciferol (D-3) 1,000 UNIT TABLET PO SCH (08:43)
[2018-10-29] MEDS: Aspirin 81 MG TAB.CHEW PO SCH (08:43)
[2018-10-29] MEDS: metOLazone 5 MG TABLET PO SCH (08:43)
[2018-10-29] MEDS: Furosemide 40 MG TABLET PO SCH (08:43)
[2018-10-29] MEDS: Multivit/Ca/Min/Fe/FA 1 TAB TABLET PO SCH (08:44)
[2018-10-29] MEDS: Metoprolol XL (24 HR) Succ 25 MG TAB.ER.24H PO SCH (08:44)
[2018-10-29] MEDS: amLODIPine 5 MG TABLET PO SCH (08:44)
[2018-10-29] MEDS: hydrALAZINE 25 MG TABLET PO SCH (08:44)
[2018-10-29] MEDS: (Cranberry [Cranberry] 500 MG) PO SCH (08:45)
[2018-10-29 08:55] LABS: Basophils # 0.1 K/mcL (0.0-0.2); Basophils % 1.4 %; Eosinophils # 0.4 K/mcL (0.0-0.6); Eosinophils % 4.4 %; Hemoglobin 10.6 g/dL (12.9-16.9); Immature Granulocytes % 0.5 % (0-4); Lymphocytes # 0.7 K/mcL (0.6-4.6); Lymphocytes % 8.7 %; Mean Corpuscular HGB Conc 32.1 g/dL (31.6-35.5); Mean Corpuscular Hemoglobin 26.6 pg (28.0-33.3); Mean Corpuscular Volume 82.9 fL (83.0-100.0); Mean Platelet Volume 9.5 fL (9.4-12.4); Monocytes # 1.4 K/mcL (0.0-1.3); Monocytes % 17.3 %; Neutrophils # 5.4 K/mcL (1.6-8.9); Platelet Count 466 K/mcL (140-400); Red Blood Count 3.98 M/mcL (4.19-5.50); Red Cell Distribution Width 15.8 % (11.5-14.5); Segmented Neutrophils % 67.7 %
[2018-10-29 09:16] LABS: Blood Urea Nitrogen > 130 mg/dL (6-20); Calcium 9.3 mg/dL (8.6-10.3); Carbon Dioxide 28 mEq/L (23-29); Chloride 97 mEq/L (98-107); Glucose 126 mg/dL (70-105); Phosphorous 4.6 mg/dL (2.7-4.5); Potassium 3.5 mEq/L (3.5-5.1); Sodium 136 mEq/L (136-145); eGFR For Non-African Americans 18 (> 60)
--- NOTE | 2018-10-29 10:28 | Discharge Summary ---
Orders not resulted at time of discharge: Pending orders 10/28/18 03:06 ECG 12 lead ECG [ECG] Stat Date of Encounter: 10/29/18 Time of Encounter: 10:26 - Discharge Diagnosis (1) Diabetes Priority: Secondary Status: Chronic Qualifiers: Diabetes mellitus type: type 2 Diabetes mellitus termite control service representative insulin use: unspecified termite control service representative insulin use status Diabetes mellitus complication status: with unspecified complications Qualified Code(s): E11.8 - Type 2 diabetes mellitus with unspecified complications (2) Chronic kidney disease, stage IV (severe) Priority: Secondary Status: Chronic (3) CAD (coronary artery disease) Priority: Secondary Status: Chronic Qualifiers: Coronary Disease-Associated Artery/Lesion type: unspecified vessel or lesion type [place] vs. transplanted heart: elem heart Associated angina: with unspecified angina Qualified Code(s): I25.119 - Atherosclerotic heart disease of elem coronary artery with unspecified angina pectoris (4) Ischemic cardiomyopathy Priority: Secondary Status: Chronic (5) Atrial fibrillation with RVR Priority: Primary Status: Resolved (6) Systolic CHF Priority: Secondary Status: Resolved Qualifiers: Heart failure chronicity: chronic Qualified Code(s): I50.22 - Chronic systolic (congestive) heart failure Hospital course: Mr. Watson is a 53 year old male with pmh of CAD s/p stent, afib, diabetes, hypertension presenting with complaints of a rapid heart beat since last night at 10.30pm. 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 He began to experience palpitaions last night accompanied with some shortness of breath and that's why he came to the ER. He denies any other acute symptoms such as chest pain , nausea or vomiting. In the ER, HR was elevated in the high 120s and he was given one dose of IV lopressor and he is being admitted for further management Patient is doing well, HR converted to sinus rythm HR 70-80, he feels well, ready to go home. He has enough metoprolol and lasix at home, on 3 L NC at home. (1) Atrial fibrillation with RVR, resolved back to sinus rhythm, INR is therapeutic Current Visit: Yes Status: Acute Assessment and plan: Pt comes in with afib with RVR 2/2 to non compliance with beta blockers. Received one dose of iV lopressor in the ER Currently rate controlled. resume po beta blockers and coumadin (2) Systolic CHF Current Visit: Yes Status: Acute Assessment and plan: No acute exacerbation. Continue home dose of lasix Qualifiers: Heart failure chronicity: chronic Qualified Code(s): I50.22 - Chronic systolic (congestive) heart failure (3) Chronic kidney disease, stage IV (severe), Cr stable Current Visit: Yes Status: Acute Assessment and plan: No acute worsening. Continue lasix for CHF. Monitor creatinine (4) Diabetes Current Visit: Yes Status: Acute Assessment and plan: resume insulin with short and long acting insulin. Monitor fingersticks Qualifiers: Diabetes mellitus type: type 2 Diabetes mellitus termite control service representative insulin use: unspecified termite control service representative insulin use status Diabetes mellitus complication status: with unspecified complications Qualified Code(s): E11.8 - Type 2 diabetes mellitus with unspecified complications (5) Hyperlipidemia Current Visit: Yes Status: Acute Assessment and plan: Continue home meds Qualifiers: Hyperlipidemia type: pure hypercholesterolemia Qualified Code(s): E78.00 - Pure hypercholesterolemia, unspecified; E78.0 - Pure hypercholesterolemia (6) DVT prophylaxis Current Visit: Yes Status: Acute Assessment and plan: Heparin sc Discharge discussed with: patient Time spent discussing smoking cessation with patient: 3 to 10 minutes - Time Spent with Patient Total time spent providing and/or coordinating discharge services: Less than 30 minutes - Discharge Medications Home Medications: Aspirin 81 mg PO DAILY 06/03/16 [History] Cholecalciferol (D-3) [Vitamin D] 1,000 unit PO BID 06/03/16 [History] Docusate [Colace] 100 mg PO BID 06/03/16 [History] Insulin ASPART [Novolog Flexpen] 12 - 25 unit SQ TIDAC 06/03/16 [History] Insulin Glargine,Hum.rec.anlog [Lantus Solostar] 14 unit SQ HS 06/03/16 [History] Sodium Bicarbonate 1,300 mg PO DAILY 06/03/16 [History] Oxycodone HCl [Oxaydo] 5 mg PO Q4H PRN 03/14/17 [History] Oxygen 3.5 l NS HS 03/14/17 [History] metOLazone [Zaroxolyn] 5 mg PO DAILY 03/14/17 [History] Ferrous Sulfate [Iron] 325 mg PO DAILY #30 capsule.er 03/23/17 [Rx] Furosemide [Lasix] 80 mg PO BID 10/25/17 [History] Potassium Chloride [K-Tab ER] 20 meq PO BID 10/25/17 [History] Warfarin [Coumadin] 5 mg PO SUMOTUTHFR 10/25/17 [History] Warfarin [Coumadin] 7.5 mg PO WESA 10/25/17 [History] Cranberry 500 mg PO BID 07/01/18 [History] Metoprolol Succinate 25 mg PO DAILY 07/01/18 [History] Multivit-Min/FA/Lycopen/Lutein [Adults 50+ Multivitamin Tablet] 1 each PO DAILY 07/01/18 [History] Sildenafil Citrate [Revatio] 20 mg PO BID 07/01/18 [History] Simvastatin [Zocor] 10 mg PO DAILY 07/01/18 [History] Tamsulosin [Flomax] 0.4 mg PO DAILY 07/01/18 [History] amLODIPine [Norvasc] 5 mg PO DAILY 07/01/18 [History] Doxycycline 100 mg PO BID #4 capsule 07/04/18 [Rx] Hydralazine HCl 50 mg PO TID #90 tablet 07/04/18 [Rx] Isosorbide MONOnitrate (24 HR) [Imdur] 60 mg PO DAILY #60 tab.er.24h 07/04/18 [Rx] Allergies/Adverse Reactions: Allergy/AdvReac Type Severity Reaction Status Date / Time DERMABOND AdvReac Itching Uncoded 07/01/18 16:06 Date of admission: 10/28/18 06:02 Primary care physician: Betsy Salvador CNP - Constitutional Vitals: Temp Pulse Resp BP Pulse Ox 98.0 F 75 15 146/75 93 10/29/18 05:05 10/29/18 07:50 10/29/18 07:50 10/29/18 07:50 10/29/18 07:50 General appearance: Present: A&O X 3, pleasant Exam: CONSTITUTIONAL: patient appears as an age appropriate male in no acute distress. EYES Clear sclerae, bilateral pupils are equal, reactive to light. EMOI. RESPIRATORY: No accessory muscle use, bilateral clear to auscultation, no wheezing, no crackles/rales. CARDIOVASCULAR: Regular heart rate, normal S1 and S2, no murmurs GASTROINTESTINAL: bowel sounds present, soft, no tenderness. MUSCULOSKELETAL: Joints in normal range of motion, no clubbing, 2+ edema, no cyanosis. Bilateral peripheral pulses 2+. NEUROLOGIC: CN II to XII are grossly intact, no focal neurological deficit. - Patient Status Disposition: Home, Self-Care Condition: Good Overall status at discharge: patient is back to baseline - Discharge Instructions Follow Up With: Betsy Salvador, ELEMENTARY SCHOOL PRINCIPAL [Primary Care Provider] - - Diet and Activity Diet: diabetic diet, low fat, low cholesterol, low salt diet
[2018-10-29] MEDS ORDERED: *HR* Warfarin 5 MG TABLET PO SCH (18:00)
--- NOTE | 2018-10-30 17:21 | Electrocardiograph Report ---
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
--- NOTE | 2018-10-31 14:43 | Electrocardiograph Report ---
[place] [id number] Test Date: 2018-10-28 Pat Name: Naman Watson Department: [id number] Room: 2NE33 Gender: M Supervisor [employer]illing: : 1965 Requested By: Jakob Melo Order Number: [id number] Reading MD: Nixon Ibarra Measurements Intervals [place] Rate: 117 P: [place]: QRS: 178 QRSD: 140 T: -4 QT: 409 QTc: 571 Interpretive Statements Atrial fibrillation with rapid ventricular response Ventricular premature complex Right axis deviation IVCD Prolonged QT interval Electronically Signed On 10-31-2018 14:41:13 EST by Nixon Ibarra
--- NOTE | 2018-11-01 14:02 | Electrocardiograph Report ---
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
== END 2018-10-29 11:49 | disposition home or self-care (01) ==
LOC: 2NENU 01:42 → EMEROOARM 01:42 → 2NENU 06:41
PROVIDERS: ADMIT Internal Medicine; ATTEND Internal Medicine

== ENCOUNTER 2018-11-01 12:32 | Inpatient (IN) ==
[2018-11-01] MEDS ORDERED: Aspirin 81 MG TAB.CHEW PO ONE (13:06)
[2018-11-01] MEDS ORDERED: Aspirin 81 MG TAB.CHEW ONE (13:08)
[2018-11-01] MEDS ORDERED: *HR* Heparin 5,000 UNIT/ML VIAL ONE (13:08)
[2018-11-01] MEDS ORDERED: 0.9 % Sodium Chloride 1,000 ML ONE (13:09)
[2018-11-01] MEDS: *HR* Ticagrelor 90 MG TABLET ONE (13:13)
--- NOTE | 2018-11-01 13:15 | Emergency Department Note ---
Disposition Clinical Impression: Epistaxis Atrial fibrillation Qualifiers: Atrial fibrillation type: unspecified Qualified Code(s): I48.91 - Unspecified atrial fibrillation Disposition: Still a Patient Epistaxis HPI - General Chief complaint: ED Epistaxis Stated complaint: Nose bleed Time Seen by Provider: 11/01/18 12:53 Source: patient Limitations: no limitations Nursing Notes Reviewed: Yes Vital Signs Reviewed: Yes - History of Present Illness HPI Narrative: Patient is a 53-year-old male presenting to [facility] ED for a 4 hour history of epistaxis. Patient states that he has had previous nosebleeds which required packing. Patient states that he is on Coumadin for atrial fibrillation which was recently stopped for eye surgery and restarted either yesterday or the day before. Upon initial examination patient sitting upright in hospital bed he is awake, alert, engaged conversation answering questions appropriately. There are no overt focal neurological deficits. Patient admits to dizziness as well as some paresthesias in the extremities as well as difficulty with ambulation and headache. Patient also admits to chronic shortness of breath and nausea which she says has been exacerbated by swallowing blood from the epistaxis. Patient denies vision change, tinnitus, new onset neck or back pain, chest pain/new or worsening shortness of breath, abdominal pain/vomiting, hematuria/hematochezia. Pt Subjective Complaint: epistaxis Location: left nostril Onset (ago): hour(s) (No active bleeding at this time.) Duration: now resolved Context: history of previous Associated symptoms: Reports: headache Treatment prior to arrival: head tilted back - Related Data Home Medications Medication Instructions Recorded Confirmed Aspirin 81 mg PO DAILY 06/03/16 10/28/18 Cholecalciferol (D-3) [Vitamin D] 1,000 unit PO BID 06/03/16 10/28/18 Docusate [Colace] 100 mg PO BID 06/03/16 10/28/18 Insulin ASPART [Novolog Flexpen] 12 - 25 unit SQ TIDAC 06/03/16 10/28/18 Insulin Glargine,Hum.rec.anlog 14 unit SQ HS 06/03/16 10/28/18 [Lantus Solostar] Sodium Bicarbonate 1,300 mg PO DAILY 06/03/16 10/28/18 Oxycodone HCl [Oxaydo] 5 mg PO Q4H PRN 03/14/17 10/28/18 Oxygen 3.5 l NS HS 03/14/17 10/28/18 metOLazone [Zaroxolyn] 5 mg PO DAILY 03/14/17 10/28/18 Furosemide [Lasix] 80 mg PO BID 10/25/17 10/28/18 Potassium Chloride [K-Tab ER] 20 meq PO BID 10/25/17 10/28/18 Warfarin [Coumadin] 5 mg PO SUMOTUTHFR 10/25/17 10/28/18 Warfarin [Coumadin] 7.5 mg PO WESA 10/25/17 10/28/18 Cranberry 500 mg PO BID 07/01/18 10/28/18 Metoprolol Succinate 25 mg PO DAILY 07/01/18 10/28/18 Multivit-Min/FA/Lycopen/Lutein 1 each PO DAILY 07/01/18 10/28/18 [Adults 50+ Multivitamin Tablet] Sildenafil Citrate [Revatio] 20 mg PO BID 07/01/18 10/28/18 Simvastatin [Zocor] 10 mg PO DAILY 07/01/18 10/28/18 Tamsulosin [Flomax] 0.4 mg PO DAILY 07/01/18 10/28/18 amLODIPine [Norvasc] 5 mg PO DAILY 07/01/18 10/28/18 Previous Rx's Medication Instructions Recorded Ferrous Sulfate [Iron] 325 mg PO DAILY #30 capsule.er 03/23/17 Doxycycline 100 mg PO BID #4 capsule 07/04/18 Hydralazine HCl 50 mg PO TID #90 tablet 07/04/18 Isosorbide MONOnitrate (24 HR) 60 mg PO DAILY #60 tab.er.24h 07/04/18 [Imdur] Allergies Allergy/AdvReac Type Severity Reaction Status Date / Time DERMABOND AdvReac Mild Itching Uncoded 11/01/18 12:47 All systems ED: reviewed and negative except as stated. Review of Systems: As Per HPI Past Medical History - Past Medical History Attestation: Yes The following information was validated with the patient. Source: patient Medical history: Reports: atrial fibrillation, CVA, diabetes, hyperlipidemia, hypertension, liver disease, peripheral artery disease, renal disease Surgical history: Reports: cholecystectomy, coronary bypass (CABG), other Psychiatric history: Reports: depression - Social History Smoking Status: Former smoker Smokeless Tobacco Status: No Alcohol use: Reports: none Drug use: Reports: none Physical Exam - General Limitations: no limitations General appearance: alert, in no apparent distress - Head Head exam: atraumatic, normocephalic, normal inspection - Eye Eye exam: Present: normal appearance, PERRL, EOMI. Absent: scleral icterus - ENT ENT exam: normal exam, normal oropharynx (No blood noted in oropharynx), mucous membranes moist - Neck Neck exam: Present: normal inspection, trachea midline - Chest Chest inspection: Present: normal inspection, symmetric chest wall rise - Respiratory Respiratory exam: Present: normal lung sounds bilaterally. Absent: respiratory distress, wheezes, stridor, accessory muscle use, prolonged expiratory phase - Cardiovascular Cardiovascular exam: Present: regular rate, normal rhythm, normal heart sounds, +S1, +S2. Absent: systolic murmur, diastolic murmur, JVD, +S3, +S4 - Abdominal Exam Abdominal exam: Present: soft, Non-Tender, normal bowel sounds. Absent: tenderness, distention, guarding, rebound, rigidity - Extremities Exam Extremities exam: Present: pedal edema (2+ pitting edema in bilateral lower extremities) - Neurological Exam Neurological exam: Present: alert, oriented X3 - Psychiatric Psychiatric exam: Present: normal affect, normal mood - Skin Skin exam: Present: warm, dry, intact, normal color. Absent: rash, cyanosis, diaphoresis, erythema, pallor, mottled Course Course Narrative: Patient EKG shows ST segment elevations in V1 through V4 without overt ST segment depressions. Dr. Andrew Gusman from cardiology consulted and requests faxed copies of patient's EKG. STEMI alert has been called this time. Patient started on aspirin and Plavix. - Reevaluation(s) Reevaluation #1: STEMI alert canceled by cardiology Patient Troponin found to be elevated to 0.13 Concern for NSTEMI Cardiology recommends to heparinize patient-stop Coumadin Patient admitted to hospitalist medicine service for further evaluation and management of NSTEMI Patient verbalizes his understanding and agreement with this plan. Patient is hemodynamically stable time of admission Time: 14:45 Vital Signs Temperature 97.8 F 11/01/18 12:33 Pulse Rate 126 11/01/18 12:33 Respiratory Rate 16 11/01/18 12:33 Blood Pressure 128/55 11/01/18 12:33 O2 Sat by Pulse Oximetry 91 11/01/18 12:33 Temperature 98.3 F 11/01/18 13:50 Pulse Rate 109 11/01/18 13:50 Respiratory Rate 17 11/01/18 13:50 Blood Pressure 134/73 11/01/18 13:50 O2 Sat by Pulse Oximetry 94 11/01/18 13:50 Oxygen Delivery Oxygen Delivery Room Air Epistaxis - Lab Data Result diagrams: 11/01/18 13:10 11/01/18 13:10 Lab Results 11/01/18 11/01/18 11/01/18 Range/Units 13:10 13:10 13:10 WBC 15.3 H D (4.3-11.1) K/mcL RBC 3.66 L (4.19-5.50) M/mcL Hgb 10.1 L (12.9-16.9) g/dL Hct 30.6 L (37.5-50.1) % MCV 83.6 (83.0-100.0) fL MCH 27.6 L (28.0-33.3) pg MCHC 33.0 (31.6-35.5) g/dL RDW 16.1 H (11.5-14.5) % Plt Count 443 H (140-400) K/mcL MPV 9.8 (9.4-12.4) fL Immature Gran % 0.5 (0-4) % Seg Neutrophils % 84.1 % Lymphocytes % 3.4 % Monocytes % 10.8 % Eosinophils % 0.5 % Basophils % 0.7 % Neutrophils # 12.9 H (1.6-8.9) K/mcL Lymphocytes # 0.5 L (0.6-4.6) K/mcL Monocytes # 1.7 H (0.0-1.3) K/mcL Eosinophils # 0.1 (0.0-0.6) K/mcL Basophils # 0.1 (0.0-0.2) K/mcL PT 12.8 H (9.4-12.1) Seconds INR 1.1 APTT 34.7 (26.0-36.0) Seconds Sodium 139 (136-145) mEq/L Potassium 3.8 (3.5-5.1) mEq/L Chloride 99 (98-107) mEq/L Carbon Dioxide 28 (23-29) mEq/L BUN > 130 H (6-20) mg/dL Creatinine 3.49 H (0.70-1.30) mg/dL Est GFR ( Amer) 22 L (> 60) Est GFR (Non-Af Amer) 19 L (> 60) BUN/Creatinine Ratio TNP Glucose 187 H (70-105) mg/dL Calculated Osmolality TNP Calcium 9.0 (8.6-10.3) mg/dL Magnesium 1.9 (1.6-2.6) mg/dL Troponin I 0.13 H* (< 0.04) ng/mL
[2018-11-01 13:28] LABS: Basophils % 0.7 %; Eosinophils % 0.5 %; Hematocrit 30.6 % (37.5-50.1); Hemoglobin 10.1 g/dL (12.9-16.9); Immature Granulocytes % 0.5 % (0-4); Lymphocytes % 3.4 %; Mean Corpuscular Hemoglobin 27.6 pg (28.0-33.3); Mean Corpuscular Volume 83.6 fL (83.0-100.0); Mean Platelet Volume 9.8 fL (9.4-12.4); Monocytes % 10.8 %; Platelet Count 443 K/mcL (140-400); Red Blood Count 3.66 M/mcL (4.19-5.50); Red Cell Distribution Width 16.1 % (11.5-14.5); Segmented Neutrophils % 84.1 %
[2018-11-01 13:29] LABS: Basophils # 0.1 K/mcL (0.0-0.2); Eosinophils # 0.1 K/mcL (0.0-0.6); Lymphocytes # 0.5 K/mcL (0.6-4.6); Monocytes # 1.7 K/mcL (0.0-1.3); Neutrophils # 12.9 K/mcL (1.6-8.9)
[2018-11-01 13:35] LABS: INR 1.1; Prothrombin Time 12.8 Seconds (9.4-12.1)
[2018-11-01 13:38] LABS: Activated Partial Thrombo Time 34.7 Seconds (26.0-36.0)
--- NOTE | 2018-11-01 13:38 | Emergency Department Note ---
Disposition Clinical Impression: Atrial fibrillation Qualifiers: Atrial fibrillation type: unspecified Qualified Code(s): I48.91 - Unspecified atrial fibrillation Disposition: Still a Patient Forms: ED Satisfaction Letter General Adult HPI - General Chief complaint: ED Epistaxis Stated complaint: Nose bleed Time Seen by Provider: 11/01/18 12:53 Source: patient Limitations: no limitations Nursing Notes Reviewed: Yes Vital Signs Reviewed: Yes - History of Present Illness HPI Narrative: Attestation note ED attending note I examined this patient and my medical decision-making was reviewed with the emergency medicine resident Dr. Hansel Adrian. I agree with the documented findings, disposition and treatment plan as described except to the extent set forth below. Briefly: 53-year-old male history of A. fib was taken off his Coumadin for surgery the surgery was canceled Spontaneous atraumatic left epistaxis which is resolved upon arrival in the emergency department physical examination was benign he was in A. fib RVR 126 EKG showed what appeared to be acute ST elevatio ns in leads V1 to V3 and 4. We discussed the case with the patient standing alert spoke to pursestring lesson instructor project construction assistant manager reviewed the EKGs that we fax out of catheter lab in status since the patient was relatively asymptomatic aside from feeling dizzy no chest pain shortness of breath no weakness that this was not STEMI. STEMI alert was canceled patient's labs are pending patient is resting comfortably in bed at this time. Disposition pending Pain Scale: 0 - Related Data Home Medications Medication Instructions Recorded Confirmed Aspirin 81 mg PO DAILY 06/03/16 10/28/18 Cholecalciferol (D-3) [Vitamin D] 1,000 unit PO BID 06/03/16 10/28/18 Docusate [Colace] 100 mg PO BID 06/03/16 10/28/18 Insulin ASPART [Novolog Flexpen] 12 - 25 unit SQ TIDAC 06/03/16 10/28/18 Insulin Glargine,Hum.rec.anlog 14 unit SQ HS 06/03/16 10/28/18 [Lantus Solostar] Sodium Bicarbonate 1,300 mg PO DAILY 06/03/16 10/28/18 Oxycodone HCl [Oxaydo] 5 mg PO Q4H PRN 03/14/17 10/28/18 Oxygen 3.5 l NS HS 03/14/17 10/28/18 metOLazone [Zaroxolyn] 5 mg PO DAILY 03/14/17 10/28/18 Furosemide [Lasix] 80 mg PO BID 10/25/17 10/28/18 Potassium Chloride [K-Tab ER] 20 meq PO BID 10/25/17 10/28/18 Warfarin [Coumadin] 5 mg PO SUMOTUTHFR 10/25/17 10/28/18 Warfarin [Coumadin] 7.5 mg PO WESA 10/25/17 10/28/18 Cranberry 500 mg PO BID 07/01/18 10/28/18 Metoprolol Succinate 25 mg PO DAILY 07/01/18 10/28/18 Multivit-Min/FA/Lycopen/Lutein 1 each PO DAILY 07/01/18 10/28/18 [Adults 50+ Multivitamin Tablet] Sildenafil Citrate [Revatio] 20 mg PO BID 07/01/18 10/28/18 Simvastatin [Zocor] 10 mg PO DAILY 07/01/18 10/28/18 Tamsulosin [Flomax] 0.4 mg PO DAILY 07/01/18 10/28/18 amLODIPine [Norvasc] 5 mg PO DAILY 07/01/18 10/28/18 Previous Rx's Medication Instructions Recorded Ferrous Sulfate [Iron] 325 mg PO DAILY #30 capsule.er 03/23/17 Doxycycline 100 mg PO BID #4 capsule 07/04/18 Hydralazine HCl 50 mg PO TID #90 tablet 07/04/18 Isosorbide MONOnitrate (24 HR) 60 mg PO DAILY #60 tab.er.24h 07/04/18 [Imdur] Allergies Allergy/AdvReac Type Severity Reaction Status Date / Time DERMABOND AdvReac Mild Itching Uncoded 11/01/18 12:47 Past Medical History - Past Medical History Medical history: Reports: atrial fibrillation, CVA, diabetes, hyperlipidemia, hypertension, liver disease, peripheral artery disease, renal disease Surgical history: Reports: cholecystectomy, coronary bypass (CABG), other Psychiatric history: Reports: depression - Social History Smoking Status: Former smoker Smokeless Tobacco Status: No Alcohol use: Reports: none Drug use: Reports: none Physical Exam - General Limitations: no limitations General appearance: alert, in no apparent distress Course Vital Signs Temperature 97.8 F 11/01/18 12:33 Pulse Rate 126 11/01/18 12:33 Respiratory Rate 16 11/01/18 12:33 Blood Pressure 128/55 11/01/18 12:33 O2 Sat by Pulse Oximetry 91 11/01/18 12:33 Temperature 98.3 F 11/01/18 13:21 Pulse Rate 111 11/01/18 13:21 Respiratory Rate 19 11/01/18 13:21 Blood Pressure 145/73 11/01/18 13:21 O2 Sat by Pulse Oximetry 92 11/01/18 13:21 Oxygen Delivery Oxygen Delivery Room Air Medical Decision Making - Lab Data Result diagrams: 11/01/18 13:10 Lab Results 11/01/18 Range/Units 13:10 WBC 15.3 H D (4.3-11.1) K/mcL RBC 3.66 L (4.19-5.50) M/mcL Hgb 10.1 L (12.9-16.9) g/dL Hct 30.6 L (37.5-50.1) % MCV 83.6 (83.0-100.0) fL MCH 27.6 L (28.0-33.3) pg MCHC 33.0 (31.6-35.5) g/dL RDW 16.1 H (11.5-14.5) % Plt Count 443 H (140-400) K/mcL MPV 9.8 (9.4-12.4) fL Immature Gran % 0.5 (0-4) % Seg Neutrophils % 84.1 % Lymphocytes % 3.4 % Monocytes % 10.8 % Eosinophils % 0.5 % Basophils % 0.7 % Neutrophils # 12.9 H (1.6-8.9) K/mcL Lymphocytes # 0.5 L (0.6-4.6) K/mcL Monocytes # 1.7 H (0.0-1.3) K/mcL Eosinophils # 0.1 (0.0-0.6) K/mcL Basophils # 0.1 (0.0-0.2) K/mcL
[2018-11-01 13:50] LABS: Blood Urea Nitrogen > 130 mg/dL (6-20); Carbon Dioxide 28 mEq/L (23-29); Chloride 99 mEq/L (98-107); Glucose 187 mg/dL (70-105); Magnesium 1.9 mg/dL (1.6-2.6); Potassium 3.8 mEq/L (3.5-5.1); Sodium 139 mEq/L (136-145); Troponin I 0.13 ng/mL (< 0.04); eGFR For Non-African Americans 19 (> 60)
[2018-11-01] MEDS ORDERED: *HR* Heparin 5,000 UNIT/ML VIAL IVP PRN (14:36)
[2018-11-01] MEDS ORDERED: *HR* Heparin 5,000 UNIT/ML VIAL IVP ONE (14:36)
[2018-11-01] MEDS ORDERED: Heparin 25,000 UNIT/500 ML D5W 25,000 UNIT/500 ML BAG IVC SCH (14:45)
[2018-11-01] MEDS ORDERED: Naloxone 0.4 MG/ML INJ IVP PRN (16:09)
[2018-11-01] MEDS ORDERED: *HR* OxyCODONE Immed Rel 5 MG TABLET PO ONE (16:40)
--- NOTE | 2018-11-01 17:59 | Internal Med History&Physical ---
Date of Encounter: 11/01/18 Time of Encounter: 16:30 Internal Medicine - H&P: HPI Chief complaint: nosebleed Admitted From: Emergency Dept Plans for Post Hospital Care: Home History of present illness: Mr. Watson is a 53 year old male with long history of Type 1 diabetes mellitus presented to ED with nosebleed. Mr Watson presented to ED with complaints of 4 hour nosebleed. He had been off his coumadin for eye surgery and just restarted. When he presented to ED he was complaining of some numbness and tingling and EKG obtained. There was concern for STEMI so alert called and then subsequently cancelled. He denies chest pain or dyspnea. His only complaint at this time is continued nosebleed and pain in his legs (chronic). Past Med Surg Social Fam HX - Past Medical History Medical history: atrial fibrillation, CVA, diabetes, hyperlipidemia, hypertension, liver disease, peripheral artery disease, renal disease Additional medical history: PUML HTN Psychiatric history: depression - Past Surgical History Surgical History: cholecystectomy, coronary bypass (CABG), other Additional surgical history: Stents in Left Leg and Hip- Left Fistula - Social History Smoking Status: Former smoker Smokeless Tobacco Status: No Alcohol use: none Drug use: none - Family History Mother Age: 79 Living Status: Still Living Hx Family Cardiac Disorders: Yes (htn HLD) Hx Family Endocrine Disorder: Yes (DM) Father Adopted: No Family Member Ethnicity: Non- Living Status: Still Living Hx Family Cardiac Disorders: Yes (CT) Hx Family Respiratory Disorders: No Hx Family Cancer: Yes (skin) Hx Family GI Disorders: No Hx Family Endocrine Disorder: No Internal Medicine - H&P: Meds Aspirin 81 mg PO DAILY 06/03/16 [History] Cholecalciferol (D-3) [Vitamin D] 1,000 unit PO BID 06/03/16 [History] Docusate [Colace] 100 mg PO BID 06/03/16 [History] Insulin ASPART [Novolog Flexpen] 12 - 25 unit SQ TIDAC 06/03/16 [History] Insulin Glargine,Hum.rec.anlog [Lantus Solostar] 14 unit SQ HS 06/03/16 [History] Sodium Bicarbonate 1,300 mg PO DAILY 06/03/16 [History] Oxycodone HCl [Oxaydo] 5 mg PO Q4H PRN 03/14/17 [History] Oxygen 3.5 l NS HS 03/14/17 [History] metOLazone [Zaroxolyn] 5 mg PO DAILY 03/14/17 [History] Ferrous Sulfate [Iron] 325 mg PO DAILY #30 capsule.er 03/23/17 [Rx] Furosemide [Lasix] 80 mg PO BID 10/25/17 [History] Potassium Chloride [K-Tab ER] 20 meq PO BID 10/25/17 [History] Warfarin [Coumadin] 5 mg PO SUMOTUTHFR 10/25/17 [History] Warfarin [Coumadin] 7.5 mg PO WESA 10/25/17 [History] Cranberry 500 mg PO BID 07/01/18 [History] Metoprolol Succinate 25 mg PO DAILY 07/01/18 [History] Multivit-Min/FA/Lycopen/Lutein [Adults 50+ Multivitamin Tablet] 1 each PO DAILY 07/01/18 [History] Sildenafil Citrate [Revatio] 20 mg PO BID 07/01/18 [History] Simvastatin [Zocor] 10 mg PO DAILY 07/01/18 [History] Tamsulosin [Flomax] 0.4 mg PO DAILY 07/01/18 [History] amLODIPine [Norvasc] 5 mg PO DAILY 07/01/18 [History] Doxycycline 100 mg PO BID #4 capsule 07/04/18 [Rx] Hydralazine HCl 50 mg PO TID #90 tablet 07/04/18 [Rx] Isosorbide MONOnitrate (24 HR) [Imdur] 60 mg PO DAILY #60 tab.er.24h 07/04/18 [Rx] Allergy/AdvReac Type Severity Reaction Status Date / Time DERMABOND AdvReac Mild Itching Uncoded 11/01/18 12:47 All Systems PM: A 10-system review of systems was performed and is negative for pertinent findings except as documented above in the HPI. - Constitutional Constitutional: fatigue, lethargy - EENT Eyes: blurry vision, no pain Ears: no decreased hearing Additional comments: epistaxis Nose, mouth and throat: dry mouth, no sore throat - Cardiovascular Cardiovascular ROS IM: edema, no chest pain, no diaphoresis, no dyspnea, no dyspnea on exertion - Respiratory Respiratory: no cough, no dyspnea on exertion - Gastrointestinal Gastrointestinal: no abdominal pain, no cramping, no nausea - Genitourinary Genitourinary ROS male: no difficulty urinating, no urinary frequency - Musculoskeletal Musculoskeletal ROS IM: arthralgias, no joint swelling - Integumentary Integumentary IM: no erythema, no rash - Neurological Neurological ROS: numbness, paresthesias, no abnormal hearing, no memory loss - Endocrine Endocrine IM: no cold intolerance, no excessive sweating - Hematologic/Lymphatic Hematologic/Lymphatic: easy bleeding - Allergic/Immunologic Allergic/Immunologic: no itchy eyes - Constitutional Vitals: Temp Pulse Resp BP Pulse Ox 97.7 F 80 18 141/91 97 11/01/18 17:40 11/01/18 17:40 11/01/18 17:40 11/01/18 17:40 11/01/18 17:40 General appearance: Present: A&O X 3, answers questions appropriately Exam: See below - Head Head exam: Present: normocephalic - Eye Eye exam: Present: conjunctival injection, EOMI - ENT ENT exam: Present: mucous membranes moist Additional comments: Blood in L nares. - Respiratory Respiratory exam: Present: rales (Bilaterally.). Absent: rhonchi, wheezes, tachypnea - Cardiovascular Cardiovascular exam: Present: irregular rhythm. Absent: tachycardia - GI/Abdominal GI/Abdominal exam: Present: soft. Absent: mass, tenderness - Extremities Exam Extremities exam: Present: tenderness, warm - Neurological Exam Neurological exam: Present: alert, oriented X3 - Skin Skin exam: Present: excoriation, warm Internal Med - H&P Results - Labs CBC & Chem 7: 11/01/18 13:10 11/01/18 13:10 Labs: Short CBC 11/01/18 Range/Units 13:10 WBC 15.3 H D (4.3-11.1) K/mcL Hgb 10.1 L (12.9-16.9) g/dL Hct 30.6 L (37.5-50.1) % Plt Count 443 H (140-400) K/mcL Neutrophils # 12.9 H (1.6-8.9) K/mcL BMP 11/01/18 13:10 Sodium 139 Potassium 3.8 Chloride 99 Carbon Dioxide 28 BUN > 130 H Creatinine 3.49 H Glucose 187 H Calcium 9.0 Cardiac Enzymes 11/01/18 11/01/18 Range/Units 13:10 16:55 Troponin I 0.13 H* 0.17 H* (< 0.04) ng/mL - Impressions ITS Impressions Chest X-Ray 11/01/18 13:07 IMPRESSION: 1. Cardiomegaly with mild vascular congestion and interstitial edema. 2. Small right pleural effusion. D/ / 11/01/2018 13:35:00 Kailash Lovett MD / [facility]arter Interpreting Provider: Kailash Lovett MD - Assessment and plan (1) Non-ST elevation CT (NSTEMI) Current Visit: No Status: Acute Assessment and plan: Pt presented to ED with epistaxis and has elevated troponin. Concern for NSTEMI. Heparin drip started. Further plan after further troponin. (2) Atrial fibrillation Current Visit: Yes Status: Chronic Assessment and plan: Pt has hx of atrial fibrillation. Has been off coumadin recently Heparin drip has been started at this time. Qualifiers: Atrial fibrillation type: paroxysmal Qualified Code(s): I48.0 - Paroxysmal atrial fibrillation (3) Epistaxis Current Visit: Yes Status: Acute Assessment and plan: Pt originally presented with epistaxis. Persists. ENT consulted for packing. Monitor H/H (4) Elevated troponin Current Visit: No Status: Acute Assessment and plan: Initially patient was a STEMI alert - troponin slightly elevated. Will continue cycle. (5) CAD (coronary artery disease) Current Visit: No Status: Chronic Assessment and plan: Chronic issue. Qualifiers: Coronary Disease-Associated Artery/Lesion type: [place] artery [place] vs. transplanted heart: [place] heart Associated angina: without angina Qualified Code(s): I25.10 - Atherosclerotic heart disease of [place] coronary artery without angina pectoris (6) Chronic kidney disease, stage IV (severe) Current Visit: No Status: Chronic Assessment and plan: Continue home diet. (7) Chronic systolic CHF (congestive heart failure) Current Visit: Yes Status: Chronic Assessment and plan: Chronic issue (8) Diabetes Current Visit: No Status: Chronic Assessment and plan: Continue home insulin. Add accuchecks and sliding scale. Qualifiers: Diabetes mellitus type: type 1 Diabetes mellitus complication status: with kidney complications Diabetes mellitus complication detail: with chronic kidney disease Chronic kidney disease stage: stage 4 (severe) Qualified Code(s): E10.22 - Type 1 diabetes mellitus with diabetic chronic kidney disease; N18.4 - Chronic kidney disease, stage 4 (severe) - Time Spent With Patient Total time spent is greater than 50% in coordination of care (as documented) at patient's floor/unit and/or counseling patient:
[2018-11-01] MEDS ORDERED: D5% in Water 1,000 ML IVC PRN (18:13)
[2018-11-01] MEDS ORDERED: *HR* Dextrose 50 % in Water (Syg) 50 ML SYRINGE IVP PRN (18:13)
[2018-11-01] MEDS ORDERED: Dextrose Gel 15 GM/37.5 ML TUBE PO PRN ×2 (18:13)
--- NOTE | 2018-11-01 18:40 | ENT - Consult Note ---
Date of Encounter: 11/01/18 Time of Encounter: 18:38 Assessment and Plan (1) Epistaxis Current Visit: Yes Status: Acute Clot was evacuated and there was oozing of blood noted on the head of the inferior turbinate on the right. At this time, I did not feel the patient needed to have merocel or rhinorocket packing placed to control the epistaxis. Alternatively, Fibrillar was placed on the area of oozing blood which stopped the bleeding. Patient was ambulating for approximately 7 minutes and there was no return of the epistaxis noted. Will be available to re-evaluate if bleeding returns. Otherwise, will sign off. Begin treatment to prevent nosebleeds: --3 sprays of nasal saline spray to each nostril 4-5 times daily. --Apply a pea-sized dollop of nasal saline gel to each nostril at night time. When patient is at home, If nosebleed occurs, we discussed treatment discussed for active nosebleed including: --1. Forcefully blow the nose to remove any clots present in the nasal cavity. --2. Place 4-5 sprays of Afrin nasal spray in each nostril. --3. Apply pressure to the nasal tip with the forefinger and thumb for 20 minutes continuously. --If bleeding has not stopped after 20 minutes repeat steps 1 through 3. --If bleeding has not stopped after repeating steps 1 through 3, report to Emergency Department for evaluation. --Return to clinic in 6 weeks. Epistaxis continues, will discuss further surgical intervention. Preoperative diagnosis: Recurrent epistaxis Postoperative diagnosis: Same Procedure performed: Control of epistaxis with placement of fibrillar Surgeon: Augusto Contreras D.O. Anesthesia: None Description of procedure: The nose was sprayed with topical decongestant. Following this a 7 armenian suction was used to evacuate the blood clot. The source of bleeding was then identified and fibrillar was placed on the bleeding area. This controlled the epistaxis. Patient tolerated well without complication. History of Present Illness Consult date: 11/01/18 Reason for ENT Consult: epistaxis Requesting physician: Noman Lange History of present illness: This is a 53-year-old gentleman with known history of atrial fibrillation, he is being asked to see in consultation for epistaxis. The patient has been on Coumadin however this was discontinued due to and eye surgery that was performed. He is also on ASA 81 mg daily. Prior to his arrival, the patient had a 3 hour nosebleed on the left that was able to be stopped with pressure and afrin spray. The patient presented to the emergency department with numbness and tingling and an EKG was obtained in the [facility] for a STEMI. The patient was placed on heparin. The patient states that his nosebleed began approximately 5 hours prior to consultation and is from the left side. He denies any digital trauma. He states that he has had to have his nose packed previously for epistaxis 2 months ago. He feels as though earlier he was swallowing blood down the back of his throat, and he will have increased bleeding when he ambulates. He denies any nasal chemical irritation, he does not smoke. He does pick his nose. Past Med Surg Social Fam HX - Past Medical History Medical history: atrial fibrillation, CVA, diabetes, hyperlipidemia, hypertension, liver disease, peripheral artery disease, renal disease Additional medical history: PUML HTN Psychiatric history: depression - Past Surgical History Surgical History: cholecystectomy, coronary bypass (CABG), other Additional surgical history: Stents in Left Leg and Hip- Left Fistula - Social History Smoking Status: Former smoker Smokeless Tobacco Status: No Alcohol use: none Drug use: none - Family History Mother Age: 79 Living Status: Still Living Hx Family Cardiac Disorders: Yes (htn HLD) Hx Family Endocrine Disorder: Yes (DM) Father Adopted: No Family Member Ethnicity: Non- Living Status: Still Living Hx Family Cardiac Disorders: Yes (OK) Hx Family Respiratory Disorders: No Hx Family Cancer: Yes (skin) Hx Family GI Disorders: No Hx Family Endocrine Disorder: No Medications and Allergies Aspirin 81 mg PO DAILY 06/03/16 [History] Cholecalciferol (D-3) [Vitamin D] 1,000 unit PO BID 06/03/16 [History] Docusate [Colace] 100 mg PO BID 06/03/16 [History] Insulin ASPART [Novolog Flexpen] 12 - 25 unit SQ TIDAC 06/03/16 [History] Insulin Glargine,Hum.rec.anlog [Lantus Solostar] 14 unit SQ HS 06/03/16 [History] Sodium Bicarbonate 1,300 mg PO DAILY 06/03/16 [History] Oxycodone HCl [Oxaydo] 5 mg PO Q4H PRN 03/14/17 [History] Oxygen 3.5 l NS HS 03/14/17 [History] metOLazone [Zaroxolyn] 5 mg PO DAILY 03/14/17 [History] Ferrous Sulfate [Iron] 325 mg PO DAILY #30 capsule.er 03/23/17 [Rx] Furosemide [Lasix] 80 mg PO BID 10/25/17 [History] Potassium Chloride [K-Tab ER] 20 meq PO BID 10/25/17 [History] Warfarin [Coumadin] 5 mg PO SUMOTUTHFR 10/25/17 [History] Warfarin [Coumadin] 7.5 mg PO WESA 10/25/17 [History] Cranberry 500 mg PO BID 07/01/18 [History] Metoprolol Succinate 25 mg PO DAILY 07/01/18 [History] Multivit-Min/FA/Lycopen/Lutein [Adults 50+ Multivitamin Tablet] 1 each PO DAILY 07/01/18 [History] Sildenafil Citrate [Revatio] 20 mg PO BID 07/01/18 [History] Simvastatin [Zocor] 10 mg PO DAILY 07/01/18 [History] Tamsulosin [Flomax] 0.4 mg PO DAILY 07/01/18 [History] amLODIPine [Norvasc] 5 mg PO DAILY 07/01/18 [History] Hydralazine HCl 50 mg PO TID #90 tablet 07/04/18 [Rx] Allergy/AdvReac Type Severity Reaction Status Date / Time DERMABOND AdvReac Mild Itching Uncoded 11/01/18 12:47 ENT - ROS - Constitutional Constitutional ROS: no daytime sleepiness - EENT Nose, mouth and throat: as per HPI - Cardiovascular Cardiovascular ROS IM: edema, irregular heart rhythm - Respiratory no hemoptysis - Gastrointestinal Gastrointestinal: no coffee ground emesis - Genitourinary Genitourinary ROS: no difficulty urinating - Musculoskeletal Musculoskeletal ROS: numbness, tingling - Integumentary Integumentary: no change in pigmentation - Neurological Neurological ROS: numbness, paresthesias, tingling - Psychiatric Psychiatric general: no auditory hallucinations - Endocrine Endocrine: fatigue - Hematologic/Lymphatic no easy bleeding - Allergic/Immunologic no tongue swelling, no throat swelling, no lip swelling ENT Exam Initial Vital Signs Temp Pulse Resp BP Pulse Ox 97.8 F 126 16 128/55 91 11/01/18 12:33 11/01/18 12:33 11/01/18 12:33 11/01/18 12:33 11/01/18 12:33 - General physical appearance well developed, well nourished, no distress - Eyes PERRL, normal ocular movement - ENT normal pinna, normal nares, no hearing loss, no congestion, deviated nasal septum, Other (The septum has a spur inferiorly on the right, the head of the right inferior turbinate demonstrates oozing of blood. No Septal perforation. There is no bright red blood noted on the posterior oropharynx.) - Neck no masses, trachea midline, no lymphadectomy - Respiratory normal expansion, normal respiratory effort - Abdomen Abdomen: soft, non tender Exam Initial Vital Signs Temp Pulse Resp BP Pulse Ox 97.8 F 126 16 128/55 91 11/01/18 12:33 11/01/18 12:33 11/01/18 12:33 11/01/18 12:33 11/01/18 12:33 Results - Labs 11/01/18 13:10 11/01/18 13:10 Abnormal lab results WBC 15.3 K/mcL (4.3-11.1) H D 11/01/18 13:10 RBC 3.66 M/mcL (4.19-5.50) L 11/01/18 13:10 Hgb 10.1 g/dL (12.9-16.9) L 11/01/18 13:10 Hct 30.6 % (37.5-50.1) L 11/01/18 13:10 MCH 27.6 pg (28.0-33.3) L 11/01/18 13:10 RDW 16.1 % (11.5-14.5) H 11/01/18 13:10 Plt Count 443 K/mcL (140-400) H 11/01/18 13:10 Neutrophils # 12.9 K/mcL (1.6-8.9) H 11/01/18 13:10 Lymphocytes # 0.5 K/mcL (0.6-4.6) L 11/01/18 13:10 Monocytes # 1.7 K/mcL (0.0-1.3) H 11/01/18 13:10 PT 12.8 Seconds (9.4-12.1) H 11/01/18 13:10 Heparin Anti-Xa, Unfract 0.03 IU/mL (0.30-0.70) L 11/01/18 16:55 BUN > 130 mg/dL (6-20) H 11/01/18 13:10 Creatinine 3.49 mg/dL (0.70-1.30) H 11/01/18 13:10 Est GFR ( Amer) 22 (> 60) L 11/01/18 13:10 Est GFR (Non-Af Amer) 19 (> 60) L 11/01/18 13:10 Glucose 187 mg/dL (70-105) H 11/01/18 13:10 Troponin I 0.17 ng/mL (< 0.04) H* 11/01/18 16:55 Diabetes panel 11/01/18 Range/Units 13:10 Sodium 139 (136-145) mEq/L Potassium 3.8 (3.5-5.1) mEq/L Chloride 99 (98-107) mEq/L Carbon Dioxide 28 (23-29) mEq/L BUN > 130 H (6-20) mg/dL Creatinine 3.49 H (0.70-1.30) mg/dL Glucose 187 H (70-105) mg/dL Calcium 9.0 (8.6-10.3) mg/dL Calcium panel 11/01/18 Range/Units 13:10 Calcium 9.0 (8.6-10.3) mg/dL Pituitary panel 11/01/18 Range/Units 13:10 Sodium 139 (136-145) mEq/L Potassium 3.8 (3.5-5.1) mEq/L Chloride 99 (98-107) mEq/L Carbon Dioxide 28 (23-29) mEq/L BUN > 130 H (6-20) mg/dL Creatinine 3.49 H (0.70-1.30) mg/dL Glucose 187 H (70-105) mg/dL Calcium 9.0 (8.6-10.3) mg/dL Adrenal panel 11/01/18 Range/Units 13:10 Sodium 139 (136-145) mEq/L Potassium 3.8 (3.5-5.1) mEq/L Chloride 99 (98-107) mEq/L Carbon Dioxide 28 (23-29) mEq/L BUN > 130 H (6-20) mg/dL Creatinine 3.49 H (0.70-1.30) mg/dL Glucose 187 H (70-105) mg/dL Calcium 9.0 (8.6-10.3) mg/dL All other labs normal. Consult Discharge Plan - Plan Referrals: Betsy Salvador, NEVIN [Primary Care Provider] -
[2018-11-01] MEDS: hydrALAZINE 25 MG TABLET PO SCH (20:59)
[2018-11-01] MEDS: Cholecalciferol (D-3) 1,000 UNIT TABLET PO SCH (20:59)
[2018-11-01] MEDS: *HR* OxyCODONE Immed Rel 5 MG TABLET PO PRN (21:00)
[2018-11-01] MEDS ORDERED: Insulin LISPRO 300 UNITS/3 ML VIAL SQ SCH (21:00)
[2018-11-01] MEDS ORDERED: Insulin DETEMIR 100 UNIT/ML X5UNITS SQ SCH (21:00)
[2018-11-01] MEDS: *HR* Heparin 5,000 UNIT/ML VIAL IVP PRN (23:41)
[2018-11-02] MEDS: *HR* OxyCODONE Immed Rel 5 MG TABLET PO PRN ×3 (04:13→13:54)
[2018-11-02 04:31] LABS: Hemoglobin 10.6 g/dL (12.9-16.9); Mean Corpuscular HGB Conc 32.1 g/dL (31.6-35.5); Mean Corpuscular Volume 84.2 fL (83.0-100.0); Mean Platelet Volume 9.5 fL (9.4-12.4); Platelet Count 467 K/mcL (140-400); Red Blood Count 3.92 M/mcL (4.19-5.50); Red Cell Distribution Width 16.4 % (11.5-14.5)
[2018-11-02 04:51] LABS: Blood Urea Nitrogen > 130 mg/dL (6-20); Calcium 9.2 mg/dL (8.6-10.3); Carbon Dioxide 28 mEq/L (23-29); Chloride 99 mEq/L (98-107); Chol/HDL Ratio 3.4 (0-4.9); Cholesterol 134 mg/dL (< 200); Glucose 75 mg/dL (70-105); HDL Cholesterol 39 mg/dL (40-59); LDL Cholesterol,Calculated 77 mg/dL (0-99); Magnesium 1.9 mg/dL (1.6-2.6); Potassium 3.4 mEq/L (3.5-5.1); Sodium 137 mEq/L (136-145); Triglycerides 91 mg/dL (< 150); eGFR For Non-African Americans 19 (> 60)
[2018-11-02] MEDS: Insulin LISPRO 300 UNITS/3 ML VIAL SQ SCH ×2 (07:46→12:17)
[2018-11-02] MEDS: hydrALAZINE 25 MG TABLET PO SCH (07:47)
[2018-11-02] MEDS: Cholecalciferol (D-3) 1,000 UNIT TABLET PO SCH (07:48)
[2018-11-02] MEDS ORDERED: Furosemide 40 MG TABLET PO SCH (08:00)
--- NOTE | 2018-11-02 08:23 | Cardiology Consult Note ---
<Mynor Moss - Last Filed: 11/02/18 11:47> Date of Encounter: 11/02/18 Time of Encounter: 08:20 Assessment and Plan (1) Epistaxis Current Visit: Yes Status: Acute Per Cardiology: Seen by ENT. Currently resolved. On IV heparin drip with no recurrence. (2) Elevated troponin Current Visit: No Status: Acute Per Cardiology: Known history of CAD with CABG 2. Noted to have troponin elevation June 2018 with troponin over 4 with catheterization completes that time showing patent 2 of 2 grafts-- full catheterization report as below. Patient denied chest pain. Troponins checked and flat and adynamic with peak of 0.29. (3) CAD (coronary artery disease) Current Visit: No Status: Chronic Per Cardiology: [facility] 06/2018: Impressions: There is severe three vessel coronary artery disease. S/P CABG 2 of 2 patent bypass grafts. Recommendations: Optimal medical therapy of patient's disease. Aggressive risk factor modification. Stress test for LAD [place] disease distal to anastomosis is reasonable due to contrast limits Lesion Findings/Interventions * Left Main Coronary Artery There is a 60% stenosis in the Proximal LMCA. * Left Anterior Descending There is a 65% stenosis in the Proximal LAD. The lesion has several mature collaterals which feed from left to right. There is a 70% stenosis in the Mid LAD. The lesion has collaterals which feed from left to right. Collaterals from LAD to 1st OM and RCA. There is a 60% stenosis distal to the CAZARES attachment. * Circumflex There is a 100% stenosis in the Proximal Circumflex. There are left to left collaterals from mid and distal LAD septals. * Right Coronary Artery There is a 100% stenosis in the Proximal RCA. There are several mature left to right collaterals. Additional Findings: Grafts * The saphenous vein graft to the 1st Diagonal is patent. * The left internal mammary graft to the Mid LAD is patent. Septals provide collaterals to OM and Right PDA. Chest pain-free. On aspirin, statin, beta regine. Qualifiers: Coronary Disease-Associated Artery/Lesion type: [place] artery [place] vs. transplanted heart: [place] heart Associated angina: without angina Qualified Code(s): I25.10 - Atherosclerotic heart disease of [place] coronary artery without angina pectoris (4) Cardiomyopathy Current Visit: No Status: Chronic Per Cardiology: EF 35% 06/2018 at time of last LHC, was 40-45% 2016. Qualifiers: Cardiomyopathy type: unspecified Qualified Code(s): I42.9 - Cardiomyopathy, unspecified (5) Atrial fibrillation Current Visit: Yes Status: Chronic Per Cardiology: History of PAF. On beta regine. Currently sinus rhythm on telemetry. Regarding long-term anticoagulation, supposedly taking Coumadin with target INR 2.0-3.0. INR upon arrival 1.1. Suspect noncompliance. H&H stable. Currently on IV heparin drip. Recommend resuming Coumadin patient willing to follow. Qualifiers: Atrial fibrillation type: paroxysmal Qualified Code(s): I48.0 - Paroxysmal atrial fibrillation Discussion w patient/family: The assessment and plan as outlined above was discussed with the patient and/or family members who expressed understanding and agreement. All questions were answered. Thank you for involving us in the care of your patient. Please call with any questions. History of Present Illness Consult date: 11/02/18 Requesting physician: Hansel Rinaldi Consult reason: Trop Chief complaint: Nosebleed History of present illness: Mr. Watson is a 53 year old male the relevant past medical history of hypertension, DM 2, HLD, PAD, history of CAD with CABG 2, CKD. Last seen by Dr. Young June 2018-- note reviewed and patient preferred medical management at that time. 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 Cardiology consult for mild troponin elevation in setting of epistaxis. Patient reports confusion with medications and apparently as been off beta blockers past few months. Apparently presented to the ER a few days ago with concerns of A. fib and beta regine resumed. He reports to present this visit with nosebleeds and did express some palpitations yesterday. Denies any chest pain symptoms. Denies any active bleeding or blood loss. Reports on Coumadin at home for anticoagulation. Denies any recent infectious process. Past Med Surg Social Fam HX - Past Medical History Attestation: Yes The following information was validated with the patient. Source: patient, old records reviewed Medical history: atrial fibrillation, CVA, diabetes, hyperlipidemia, hypertension, liver disease, peripheral artery disease, renal disease Additional medical history: PUML HTN Psychiatric history: depression - Past Surgical History Surgical History: cholecystectomy, coronary bypass (CABG), other Additional surgical history: Stents in Left Leg and Hip- Left Fistula - Social History Smoking Status: Former smoker Smokeless Tobacco Status: No Alcohol use: none Drug use: none - Family History Father Adopted: No Family Member Ethnicity: Non- Living Status: Still Living Hx Family Cardiac Disorders: Yes ([place]) Hx Family Respiratory Disorders: No Hx Family Cancer: Yes (skin) Hx Family GI Disorders: No Hx Family Endocrine Disorder: No Mother Age: 79 Living Status: Still Living Hx Family Cardiac Disorders: Yes (htn HLD) Hx Family Endocrine Disorder: Yes (DM) Medications and Allergies RX: Aspirin 81 mg PO DAILY 06/03/16 [History] RX: Cholecalciferol (D-3) [Vitamin D] 1,000 unit PO BID 06/03/16 [History] RX: Docusate [Colace] 100 mg PO BID 06/03/16 [History] RX: Insulin ASPART [Novolog Flexpen] 12 - 25 unit SQ TIDAC 06/03/16 [History] RX: Insulin Glargine,Hum.rec.anlog [Lantus Solostar] 14 - 20 unit SQ HS 06/03/16 [History] RX: Sodium Bicarbonate 1,300 mg PO DAILY 06/03/16 [History] RX: Oxycodone HCl [Oxaydo] 5 mg PO Q4H 03/14/17 [History] RX: Oxygen 3.5 l NS HS 03/14/17 [History] RX: metOLazone [Zaroxolyn] 5 mg PO DAILY 03/14/17 [History] RX: Ferrous Sulfate [Iron] 325 mg PO DAILY #30 capsule.er 03/23/17 [Rx] RX: Furosemide [Lasix] 80 mg PO BID 10/25/17 [History] RX: Potassium Chloride [K-Tab ER] 40 meq PO BID 10/25/17 [History] RX: Warfarin [Coumadin] 5 mg PO SUTUTHSA 10/25/17 [History] RX: Warfarin [Coumadin] 7.5 mg PO MOWEFR 10/25/17 [History] RX: Cranberry 500 mg PO BID 07/01/18 [History] RX: Metoprolol Succinate 25 mg PO DAILY 07/01/18 [History] RX: Multivit-Min/FA/Lycopen/Lutein [Adults 50+ Multivitamin Tablet] 1 each PO DAILY 10/06/18 [History] RX: Sildenafil Citrate [Revatio] 20 mg PO QAM 07/01/18 [History] RX: Simvastatin [Zocor] 10 mg PO DAILY 07/01/18 [History] RX: Tamsulosin [Flomax] 0.4 mg PO DAILY 07/01/18 [History] RX: amLODIPine [Norvasc] 5 mg PO DAILY 07/01/18 [History] Hydralazine HCl 100 mg PO BID 11/01/18 [History] RX: Omeprazole [PriLOSEC] 20 mg PO DAILY 11/01/18 [History] Sildenafil Citrate [Revatio] 30 mg PO QPM 11/01/18 [History] Allergy/AdvReac Type Severity Reaction Status Date / Time DERMABOND AdvReac Mild Itching Uncoded 11/01/18 12:47 All Systems Review: The remainder of the systems were reviewed and are negative - EENT Nose, mouth and throat: epistaxis - Cardiovascular Cardiovascular: as per HPI, palpitations Physical Examination Vital Signs, Last 4 Hours Temp Pulse Resp BP Pulse Ox 11/02/18 07:30 98.1 F 81 18 146/83 98 General: Conversant, No Apparent Distress HEENT: Atraumatic, Normocephaly, Mucus Membranes Moist Neck: No JVD, Normal carotid pulses Cardiac: Reg Rate and Rhythm, Normal S1 and S2, No Murmur Lungs: Normal Breath Sounds, No Wheeze, Rales, Rhonchi Neuro: Alert and responsive, No focal deficits noted Abdomen: Soft, Non-Tender Skin: No rashes noted on visualized skin Musculoskeletal: No Chest Wall Tenderness Extremities: No Clubbing, No Cyanosis, No Edema, Normal Pulses Results 11/02/18 04:19 11/02/18 04:19 Lab Results Laboratory Tests 03/21/17 07/03/18 11/01/18 19:46 10:22 13:10 WBC 15.3 H D Hgb Hct INR Creatinine Est GFR (Non-Af Amer) Magnesium Troponin I 1.13 H* 4.01 H* LDL Cholesterol, Calc 11/01/18 11/01/18 11/01/18 13:10 13:10 16:55 WBC Hgb Hct INR 1.1 Creatinine Est GFR (Non-Af Amer) Magnesium Troponin I 0.13 H* 0.17 H* LDL Cholesterol, Calc 11/01/18 11/02/18 11/02/18 22:36 04:19 04:19 WBC 10.6 Hgb 10.6 L Hct 33.0 L INR Creatinine 3.43 H Est GFR (Non-Af Amer) 19 L Magnesium 1.9 Troponin I 0.29 H* LDL Cholesterol, Calc 77 11/02/18 04:19 WBC Hgb Hct INR Creatinine Est GFR (Non-Af Amer) Magnesium Troponin I 0.29 H* LDL Cholesterol, Calc ITS Impressions Chest X-Ray 11/01/18 13:07 IMPRESSION: 1. Cardiomegaly with mild vascular congestion and interstitial edema. 2. Small right pleural effusion. D/ / 11/01/2018 13:35:00 Kailash Lovett MD / bcarter Interpreting Provider: Kailash Lovett MD Intake & Output 10/30/18 10/31/18 11/01/18 11/02/18 23:59 23:59 23:59 23:59 Intake Total 217 / 217 123 / 123 Output Total 600 / 600 Balance -383 / -383 123 / 123 Weight 70.76 kg 70.7 kg Active Medications Amlodipine Besylate (Norvasc) 5 mg PO DAILY [facility]; Protocol Stop: 05/04/19 09:01 Last Admin: 11/02/18 07:49 Dose: 5 mg Aspirin (Aspirin) 81 mg PO DAILY [facility] Stop: 05/04/19 09:01 Last Admin: 11/02/18 07:50 Dose: 81 mg Dextrose/Water (Dextrose 50% (Syg)) 25 ml IVP AD PRN PRN Reason: Hypoglycemia Stop: 05/03/19 18:14 Docusate Sodium (Colace) 100 mg PO BID [facility]; Protocol Stop: 05/03/19 21:01 Last Admin: 11/02/18 07:47 Dose: 100 mg Ferrous Sulfate (Ferrous Sulfate) 325 mg PO DAILY@0800 [facility] Stop: 05/04/19 08:01 Last Admin: 11/02/18 07:51 Dose: 325 mg Furosemide (Lasix) 80 mg PO BIDDIURETIC INO Stop: 05/04/19 08:01 Last Admin: 11/02/18 07:51 Dose: 80 mg Glucagon (Glucagen) 1 mg IM ONCE PRN PRN Reason: Hypoglycemia Stop: 05/03/19 18:14 Glucose (Gluctose) 15 gm PO ONCE PRN PRN Reason: Hypoglycemia Stop: 05/03/19 18:14 Glucose (Gluctose) 30 gm PO ONCE PRN PRN Reason: Hypoglycemia Stop: 05/03/19 18:14 Heparin Sodium (Porcine) (Heparin) 4,000 unit IVP Q6HR PRN PRN Reason: SEE COMMENTS Stop: 05/03/19 14:37 Heparin Sodium (Porcine) (Heparin) 2,000 unit IVP Q6H PRN PRN Reason: SEE COMMENTS Stop: 05/03/19 14:37 Last Admin: 11/01/18 23:41 Dose: 2,000 unit Hydralazine HCl (Hydralazine) 50 mg PO TID [facility]O Stop: 05/03/19 21:01 Last Admin: 11/02/18 07:47 Dose: 50 mg Heparin Sodium/Dextrose (Heparin 25,000 Unit/500 Ml D5w) 25,000 unit in 500 mls @ 16.982 mls/hr IVC .Q24H [facility]; Protocol Stop: 05/03/19 14:46 Last Titration: 11/02/18 05:05 Dose: 14 unit/kg/hr, 19.813 mls/hr Dextrose (Dextrose 5%) 1,000 mls @ 100 mls/hr IVC .Q10H PRN PRN Reason: HYPOGLYCEMIA Stop: 05/03/19 18:14 Insulin Detemir (Levemir) 14 unit SQ HS [facility] Stop: 05/03/19 21:01 Last Admin: 11/01/18 21:04 Dose: 14 unit Insulin Human Lispro (Humalog) 0 units SQ HS [facility]; Protocol Stop: 05/03/19 21:01 Last Admin: 11/01/18 21:00 Dose: 4 unit Insulin Human Lispro (Humalog) 0 units SQ TIDAC [facility]; Protocol Stop: 05/04/19 07:31 Last Admin: 11/02/18 07:46 Dose: Not Given Metolazone (Zaroxolyn) 5 mg PO DAILY [facility] Stop: 05/04/19 09:01 Last Admin: 11/02/18 07:48 Dose: 5 mg Metoprolol Succinate (Toprol Xl) 25 mg PO DAILY [facility] Stop: 05/04/19 09:01 Last Admin: 11/02/18 07:51 Dose: 25 mg Naloxone HCl (Narcan) 0.4 mg IVP Q2MIN PRN PRN Reason: SEE COMMENTS Stop: 05/03/19 16:10 Oxycodone HCl (Roxicodone) 5 mg PO Q4H PRN PRN Reason: Pain Last Admin: 11/02/18 04:13 Dose: 5 mg Vitamin D (Vitamin D) 1,000 unit PO BID [facility] Stop: 05/03/19 21:01 Last Admin: 11/02/18 07:48 Dose: 1,000 unit Per last cardiology office note summary of [facility] vascular medical history: He was discharged from the [facility] (liver/kidney transplant evaluation) on 03/31/2018 after being treated for acute on chronic systolic heart failure, atrial fibrillation, CKD. RHC performed on 03/24/2018 and demonstrated signs of volume overload. Patient was diuresed with IV Lasix drip, PCWP improved from 30s to low teens. PA pressures remained elevated, possibly secondary to hepatopulmonary process from ESLD. Patient was started on sildenafil 20 mg TID. Afterload reduction titrated with Toprol 25 mg daily, hydralazine 100 mg 3 times a day, and Imdur 30 mg daily. Lasix replaced with torsemide 40 mg daily. KENIA inhibitor was held secondary to worsening CKD. More recently, he was discharged from [place] after being treated for CHF and a NSTEMI. Worsening CMP described, LVEF 35% (previous 40%). LHC performed, stress test recommended to further evaluate significance of LAD lesion. Today, he tells me would prefer medical therapy only. He is not interested in a stress test or LHC at this time. He does report palpitations. Prior studies: LHC 07/01/2018: Left main proximal 60% stenosis. LAD proximal 65% stenosis, mid 70% stenosis, distal 60% stenosis (distal to CAZARES attachment). Circumflex proximal 100% stenosis. RCA proximal 100% stenosis. Left to left and [id number] collaterals described. SVG to D1 patent. CAZARES to mid LAD patent. TTE 07/01/2018: LVEF 35%. Moderate global and segmental LV systolic dysfunction. Mild MR, TR, LA. Mildly dilated and hypokinetic right ventricle. RHC ([facility]) 03/24/2018: RA 13, RV 87/14, PA 88/27 (54), TPG 14, [place] CO 5.1. TTE ([facility]) LVEF 35-40%. Moderate diastolic dysfunction. Ak inesis of the basal mid and first septal, basal to mid inferior, and basal inferolateral segments. Hypokinesis of the mid inferolateral segment. Severe eccentric MR. Mildly calcified mitral valve annulus, leaflet tenting noted. Normal RV size, moderately reduced RV systolic function. TAPSE 1.3 cm. moderate TR. Mild to moderate LA. [facility] 03/16/2017: Left main 50-60% proximal stenosis. LAD proximal 50% stenosis, mid 70% stenosis. Circumflex proximal 100% stenosis. RCA proximal 100% stenosis. Collaterals from LAD to RCA and circumflex territories. SVG to D1 patent. CAZARES to mid LAD patent. TTE 03/15/2017: LVEF 40%. Mild concentric LVH. Severe diastolic dysfunction. Mildly dilated right ventricle with mild hypokinesis. Severe left atrial enlargement. Moderate to severe MR, likely ischemic. Mild TR. Severe pulmonary hypertension. No evidence of a PFO with agitated saline. TTE 06/04/2016: EF 40%. Moderate global hypokinesis. Grade 3, severe diastolic dysfunction. Mild mitral regurgitation. Moderate pulmonary hypertension, RVSP 50 mmHg. TTE 06/2014: EF 45-50%. Mild left atrial enlargement. Mild to moderate MR. Mild TR. Moderate PI. Borderline mild pulmonary hypertension. RVSP 35 mmHg. Lower extremity ELISE with exercise 11/03/2015: Bilateral lower extremities demonstrated moderately diminished hemodynamics. Severe ischemia of the bilateral lower extremities with exercise. - Imaging and Cardiology Cardiac cath: report reviewed - EKG Interpretation EKG results cardiology: personally reviewed, normal ECG, sinus rhythm (Sinus rhythm with LVH) Consult Discharge Plan - Plan Referrals: Betsy Salvador, PHOTOGR[employer]HER [employer] [Primary Care Provider] - <Carlos Alberto Contreras - Last Filed: 11/02/18 13:15> Date of Encounter: 11/02/18 - Attending Attestation I have personally performed a face to face evaluation on this patient. I have reviewed and agree with the care plan. History and Exam by me shows: Pt with multiple medical problems presents with palpitations and epistaxis. Noted to have mildly elevated CAD. Known to have 3 vessel CAD, at last evaluation was thought be best treated with medical mgmt. He has been noncompliant with some meds. Would recommend continued medical mgmt. Assessment and Plan Discussion w patient/family: The assessment and plan as outlined above was discussed with the patient and/or family members who expressed understanding and agreement. All questions were answered. Thank you for involving us in the care of your patient. Please call with any questions. History of Present Illness History of present illness: Mr. Watson is a 53 year old male All Systems Review: The remainder of the systems were reviewed and are negative Physical Examination Vital Signs, Last 4 Hours Temp Pulse Resp BP Pulse Ox 11/02/18 11:54 97.8 F 78 16 148/61 96 Results 11/02/18 04:19 11/02/18 04:19 Lab Results 11/01/18 11/01/18 11/01/18 13:10 13:10 13:10 WBC 15.3 H D Hgb 10.1 L Hct 30.6 L Plt Count 443 H INR 1.1 APTT 34.7 Sodium 139 Potassium 3.8 Chloride 99 Carbon Dioxide 28 BUN > 130 H Creatinine 3.49 H Glucose 187 H Calcium 9.0 Magnesium 1.9 Troponin I 0.13 H* 11/01/18 11/01/18 11/02/18 16:55 22:36 04:19 WBC 10.6 Hgb 10.6 L Hct 33.0 L Plt Count 467 H INR APTT Sodium Potassium Chloride Carbon Dioxide BUN Creatinine Glucose Calcium Magnesium Troponin I 0.17 H* 0.29 H* 11/02/18 11/02/18 11/02/18 04:19 04:19 10:23 WBC Hgb Hct Plt Count INR APTT Sodium 137 Potassium 3.4 L Chloride 99 Carbon Dioxide 28 BUN > 130 H Creatinine 3.43 H Glucose 75 Calcium 9.2 Magnesium 1.9 Troponin I 0.29 H* 0.24 H*
[2018-11-02] MEDS ORDERED: metOLazone 5 MG TABLET PO SCH (09:00)
[2018-11-02] MEDS ORDERED: Isosorbide MONOnitrate (24 HR) 30 MG TAB.ER.24H PO SCH (09:00)
[2018-11-02] MEDS ORDERED: amLODIPine 5 MG TABLET PO SCH (09:00)
[2018-11-02] MEDS ORDERED: Aspirin 81 MG TAB.CHEW PO SCH (09:00)
[2018-11-02] MEDS ORDERED: Metoprolol XL (24 HR) Succ 25 MG TAB.ER.24H PO SCH (09:00)
--- NOTE | 2018-11-02 11:10 | Event Note ---
Date of Encounter: 11/02/18 Time of Encounter: 11:03 Patient was seen and examined. I agree with the progress note as written by the resident physician. Patient with h/o of DM, Afib, CAD HLD, PVD, CKD 4, HLD, HTN, who is on coumadin being held in anticipation of eye surgery that was scheduled for 11/01 but now postponed while he is here. Patient came in with epistaxis which is resolved after clot evacuation by ENT. He had elevated trops and afib with RVR initially. Afib is controlled now. Trops trended .13, .17, .29, .29. cardiology is evaluating. EKG with no acute ST or T wave changes. GEN: NAD CVS: irregular. S1, S2, No m/r/g RESP: CTAB ABD: Soft, NT, ND, +BS EXT: 1+ edema. 2+ DP. No rashes NEURO: Nonfocal Epistaxis resolved. f/u with ENT Cardiac work up per cardiology. ??stress test?? On heparin drip currently. 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 Kidney function around baseline. Leukocytosis resolved. No signs of an infection. d/c once cleared by cardiology
[2018-11-02] MEDS: *HR* Heparin 5,000 UNIT/ML VIAL IVP PRN (12:18)
--- NOTE | 2018-11-02 14:04 | Discharge Summary ---
- NOTES TO OUTPATIENT PROVIDER Notes to Outpatient Provider: Mr. Watson was admitted on 11/01 for epistaxis with some new onset numbness and tingling. ENT evacuated a large blood clot and fibrillar was placed at the site of bleeding. Pt was placed on heparin drip for concern for NSTEMI with elevated troponins which were trended and found to be adynamic. Cardiology evaluated the patient and recommended stress test, but patient declined. To follow up with PCP in 3-5 days. Orders not resulted at time of discharge: Pending orders 11/01/18 13:06 ECG 12 lead ECG [ECG] Stat Date of Encounter: 11/02/18 Time of Encounter: 09:30 - Discharge Diagnosis (1) Epistaxis Priority: Primary Status: Acute Assessment and Plan: Pt originally presented with epistaxis. ENT evacuated clot and placed fibrillar at bleeding site. No further bleeding despite heparin drip (2) Non-ST elevation [place] (NSTEMI) Priority: Primary Status: Acute Assessment and Plan: Troponins elevated on admission Concern for NSTEMI. Heparin drip started. Troponins trended to be adynamic with peak of 0.29 Cardiology evaluated pt and recommended stress test, however pt declined with preference to medical management. No chest pain or shortness of breath. (3) Diabetes Priority: Secondary Status: Chronic Assessment and Plan: Continue home insulin Qualifiers: Diabetes mellitus type: type 1 Diabetes mellitus complication status: with kidney complications Diabetes mellitus complication detail: with chronic kidney disease Chronic kidney disease stage: stage 4 (severe) Qualified Code(s): E10.22 - Type 1 diabetes mellitus with diabetic chronic kidney disease; N18.4 - Chronic kidney disease, stage 4 (severe) (4) Chronic kidney disease, stage IV (severe) Priority: Secondary Status: Chronic Assessment and Plan: Continue home diet (5) CAD (coronary artery disease) Priority: Secondary Status: Chronic Assessment and Plan: Chronic issue Continue home medications ASA, statin and BB Qualifiers: Coronary Disease-Associated Artery/Lesion type: [place] artery [place] vs. transplanted heart: [place] heart Associated angina: without angina Qualified Code(s): I25.10 - Atherosclerotic heart disease of [place] coronary artery without angina pectoris (6) Elevated troponin Priority: Secondary Status: Acute Assessment and Plan: Plan as above. (7) Atrial fibrillation Priority: Secondary Status: Chronic Assessment and Plan: Pt has hx of atrial fibrillation. Continue coumadin Qualifiers: Atrial fibrillation type: paroxysmal Qualified Code(s): I48.0 - Paroxysmal atrial fibrillation (8) Chronic systolic CHF (congestive heart failure) Priority: Secondary Status: Chronic Assessment and Plan: Chronic issue Continue home meds Hospital course: Mr. Watson is a 53 year old male with PMH of CAD, CHF, afib on coumadin, DM2, HTN, and CKD. He was admitted on 11/01 for epistaxis with some new onset numbness and tingling. ENT evacuated a large blood clot and fibrillar was placed at the site of bleeding. Pt was placed on heparin drip for concern for NSTEMI with elevated troponins which were trended and found to be adynamic. Cardiology evaluated the patient and recommended stress test, but patient declined. No new medications were initiated. To follow up with PCP in 3-5 days. Discharge discussed with: patient, family, nurse, sales and service consultant - Time Spent with Patient Total time spent providing and/or coordinating discharge services: - Discharge Medications Home Medications: Aspirin 81 mg PO DAILY 06/03/16 [History] Cholecalciferol (D-3) [Vitamin D] 1,000 unit PO BID 06/03/16 [History] Docusate [Colace] 100 mg PO BID 06/03/16 [History] Insulin ASPART [Novolog Flexpen] 12 - 25 unit SQ TIDAC 06/03/16 [History] Insulin Glargine,Hum.rec.anlog [Lantus Solostar] 14 - 20 unit SQ HS 06/03/16 [History] Sodium Bicarbonate 1,300 mg PO DAILY 06/03/16 [History] Oxycodone HCl [Oxaydo] 5 mg PO Q4H 03/14/17 [History] Oxygen 3.5 l NS HS 03/14/17 [History] metOLazone [Zaroxolyn] 5 mg PO DAILY 03/14/17 [History] Ferrous Sulfate [Iron] 325 mg PO DAILY #30 capsule.er 03/23/17 [Rx] Furosemide [Lasix] 80 mg PO BID 10/25/17 [History] Potassium Chloride [K-Tab ER] 40 meq PO BID 10/25/17 [History] Warfarin [Coumadin] 5 mg PO SUTUTHSA 10/25/17 [History] Warfarin [Coumadin] 7.5 mg PO MOWEFR 10/25/17 [History] Cranberry 500 mg PO BID 07/01/18 [History] Metoprolol Succinate 25 mg PO DAILY 07/01/18 [History] Multivit-Min/FA/Lycopen/Lutein [Adults 50+ Multivitamin Tablet] 1 each PO DAILY 07/01/18 [History] Sildenafil Citrate [Revatio] 20 mg PO QAM 07/01/18 [History] Simvastatin [Zocor] 10 mg PO DAILY 07/01/18 [History] Tamsulosin [Flomax] 0.4 mg PO DAILY 07/01/18 [History] amLODIPine [Norvasc] 5 mg PO DAILY 07/01/18 [History] Hydralazine HCl 100 mg PO BID 11/01/18 [History] Omeprazole [PriLOSEC] 20 mg PO DAILY 11/01/18 [History] Sildenafil Citrate [Revatio] 30 mg PO QPM 11/01/18 [History] Allergies/Adverse Reactions: Allergy/AdvReac Type Severity Reaction Status Date / Time DERMABOND AdvReac Mild Itching Uncoded 11/01/18 12:47 Date of admission: 11/01/18 17:05 Primary care physician: Betsy Salvador CNP Consults: 11/01/18 14:42 Consult to Cardiology [CONS] Stat Comment: Consulting Provider: [facility] [place] Reason for Consult: NSTEMI, Trop elevated to 0.13 Time Notified: 14:43 Call Completed: Yes 11/01/18 17:20 Consult to Spout Liner [CONS] Routine Reason for SW Consult: patient lives at home alone and having difficulting caring for himself 11/01/18 19:12 Consult to ENT [CONS] Routine Consulting Provider: E[facility] Reason for Consult: epistaxis Time Notified: 19:13 Call Completed: Yes Discharging clinician: Nawaf Goss Constitutional Vitals: Temp Pulse Resp BP Pulse Ox 97.8 F 78 16 148/61 96 11/02/18 11:54 11/02/18 11:54 11/02/18 11:54 11/02/18 11:54 11/02/18 11:54 General appearance: Present: A&O X 3, answers questions appropriately Exam: Constitutional: Well-developed well-nourished male in mild distress due to cold room Head: Normocephalic, atraumatic Eyes: PERRL, EOMI, conjunctiva pink, sclera anicteric Neck: Supple, trachea midline, no lymphadenopathy Lungs: Clear to auscultation bilaterally. Nonlabored breathing. No wheezes, rales, or rhonchi noted. Cardiac: RRR. +s1 +s2. No murmurs, clicks, or rubs noted. GI: Abdomen soft, nontender, nondistended. Normoactive bowel sounds Extremities: Warm, radial pulses palpable and symmetrical. No cyanosis, pedal edema, or calf tenderness. Neuro: Alert and oriented 3. No focal deficits. Normal speech. Skin: Warm, dry, and intact. - Patient Status Disposition: Home Health Service Condition: Fair Functional capacity at discharge: independent ambulation Overall status at discharge: patient is progressing back to baseline - Discharge Instructions Instructions: Warfarin (By mouth) Follow Up With: Betsy Salvador CNP [Primary Care Provider] - 11/07/18 10:20 am () - Diet and Activity Activity: as per physical therapy, increase activity as tolerated, resume usual activities as tolerated, wear oxygen at all times Diet: diabetic diet, low fat, low cholesterol, low salt diet
[2018-11-02] MEDS ORDERED: Nicotine 21 MG PATCH.TD24 TD SCH (15:30)
--- NOTE | 2018-11-02 15:33 | Physician Discharge Referral ---
Home Health/Hosp Referral Info Transfer to: Home Health Provider in Charge Post Discharge: PCP - Diagnosis (1) Diabetes Priority: Secondary Status: Chronic (2) Chronic kidney disease, stage IV (severe) Priority: Secondary Status: Chronic (3) CAD (coronary artery disease) Priority: Secondary Status: Chronic (4) Non-ST elevation [place] (NSTEMI) Priority: Primary Status: Acute (5) Elevated troponin Priority: Secondary Status: Acute (6) Atrial fibrillation Priority: Secondary Status: Chronic (7) Epistaxis Priority: Secondary Status: Acute (8) Chronic systolic CHF (congestive heart failure) Priority: Secondary Status: Chronic - Respiratory Orders Oxygen / L per min (3.5 lpm) Smoking Cessation: Smoking cessation has been advised. For more information, call the [place] Tobacco Quit Line at 7-426-PISF-NOW. - Diet/Nutrition Diet/Nutrition Orders: Cardiac, No Concentrated Sweets - Activity Activity Orders: Up ad asad, Ambulate - Services Needed Following services are medically necessary services: Nursing, Home Health Aide, Physical Therapy, Occupational Therapy - Transfer Medications Home Medications: Aspirin 81 mg PO DAILY 06/03/16 [History] Cholecalciferol (D-3) [Vitamin D] 1,000 unit PO BID 06/03/16 [History] Docusate [Colace] 100 mg PO BID 06/03/16 [History] Insulin ASPART [Novolog Flexpen] 12 - 25 unit SQ TIDAC 06/03/16 [History] Insulin Glargine,Hum.rec.anlog [Lantus Solostar] 14 - 20 unit SQ HS 06/03/16 [History] Sodium Bicarbonate 1,300 mg PO DAILY 06/03/16 [History] Oxycodone HCl [Oxaydo] 5 mg PO Q4H 03/14/17 [History] Oxygen 3.5 l NS HS 03/14/17 [History] metOLazone [Zaroxolyn] 5 mg PO DAILY 03/14/17 [History] Ferrous Sulfate [Iron] 325 mg PO DAILY #30 capsule.er 03/23/17 [Rx] Furosemide [Lasix] 80 mg PO BID 10/25/17 [History] Potassium Chloride [K-Tab ER] 40 meq PO BID 10/25/17 [History] Warfarin [Coumadin] 5 mg PO SUTUTHSA 10/25/17 [History] Warfarin [Coumadin] 7.5 mg PO MOWEFR 10/25/17 [History] Cranberry 500 mg PO BID 07/01/18 [History] Metoprolol Succinate 25 mg PO DAILY 07/01/18 [History] Multivit-Min/FA/Lycopen/Lutein [Adults 50+ Multivitamin Tablet] 1 each PO DAILY 07/01/18 [History] Sildenafil Citrate [Revatio] 20 mg PO QAM 07/01/18 [History] Simvastatin [Zocor] 10 mg PO DAILY 07/01/18 [History] Tamsulosin [Flomax] 0.4 mg PO DAILY 07/01/18 [History] amLODIPine [Norvasc] 5 mg PO DAILY 07/01/18 [History] Hydralazine HCl 100 mg PO BID 11/01/18 [History] Omeprazole [PriLOSEC] 20 mg PO DAILY 11/01/18 [History] Sildenafil Citrate [Revatio] 30 mg PO QPM 11/01/18 [History] Allergies/Adverse Reactions: Allergy/AdvReac Type Severity Reaction Status Date / Time DERMABOND AdvReac Mild Itching Uncoded 11/01/18 12:47 Certification: Further, I certify that my clinical findings support that this patient is homebound (i.e. absences from home require considerable and taxing effort and are for medical reasons or [employer]hov[employer] witness services or infrequently or short duration when for other reasons) because: Homebound Reason: Patient requires assistance of a person or device to safely leave home, Leaving home requires considerable and taxing effort due to condition, Severity of cardiac or pulmonary status limits activity tolerance Attestation: My signature below is to certify that this patient is under my care and that I, or nurse practitioner, or a physician's administrative assistant data entry working with me, has a [id number] encounter with this patient.
[2018-11-02 15:36] VITALS: BP 147/82
[2018-11-02] MEDS ORDERED: Sildenafil Citrate 20 MG TABLET PO SCH (18:00)
[2018-11-02] MEDS ORDERED: hydrALAZINE 25 MG TABLET PO SCH (21:00)
--- NOTE | 2018-11-02 21:11 | Electrocardiograph Report ---
[place] [id number] Test Date: 2018-11-01 Pat Name: Naman Watson Department: [id number] Room: [facility] Gender: M Quarter Trimmer: : 1965 Requested By: Johan Gloria Order Number: [id number] Reading MD: April Barron Measurements Intervals [place] Rate: 115 P: NM: QRS: 137 QRSD: 137 T: 214 QT: 342 QTc: 478 Interpretive Statements Atrial fibrillation IVCD Consider left ventricular hypertrophy Artifact Electronically Signed On 11-02-2018 21:10:00 EST by April Barron
[2018-11-03] MEDS ORDERED: Sildenafil Citrate 20 MG TABLET PO SCH (09:00)
== END 2018-11-02 16:41 | disposition home health service (06) | DRG 281 ==
LOC: EMEROOARM 12:32 → 2SOUTHHOLD 12:32 → SUATTDRO 15:08 → 2SOUTHHOLD 16:05 → SUATTDRO 17:05
PROVIDERS: ADMIT Internal Medicine; ATTEND Internal Medicine